=== PATIENT | male | born 1960 | race Caucasian/White ===

== ENCOUNTER → 2017-11-16 10:32 | Outpatient (CLI) | payer MEDICAID, SELFPAY ==
--- NOTE | 2017-11-16 12:41 | PFT ---
INTRODUCTION: The patient is a 57-year-old male currently under the care of Dr. Mack that presents for pulmonary function testing secondary to a diagnosis of nicotine abuse. Respiratory therapy reports good patient effort and reports no other concerns. Bronchodilators were used during testing. INTERPRETATION: Forced expiration spirometry demonstrates the presence of a mild large airways obstructive ventilatory defect. There was no significant response to aerosolized bronchodilators, based upon strict ATS criteria. Spirograms of good quality and do not plateau indicating slow emptying of the lungs. The respiratory flow volume loop reveals decreased expiratory flow rates, primarily at high lung volumes consistent with small airways obstruction. Body plethysmography was performed and reveals an elevated TLC to 118% of predicted, indicative of underlying hyperinflation. The airway resistance is within normal limits. Diffusing capacity by single breath CO is moderately reduced at 56% of predicted. When compared to previous pulmonary function studies dated July 2015, there has been a 14% reduction in diffusing capacity. IMPRESSION: These pulmonary function studies demonstrate the presence of an irreversible mild large airways obstructive ventilatory defect with associated hyperinflation and a disproportionate reduction in diffusing capacity. There has been worsening in the patient's DLCO since July 2015.
== END ==
PROVIDERS: Family Provider Family Medicine; PCP Family Medicine; Visit Provider Internal Medicine Critical Care Medicine
DX: F17.200 Nicotine dependence, unspecified, uncomplicated (principal); I48.0 Paroxysmal atrial fibrillation; Z79.01 Long term (current) use of anticoagulants
CPT/HCPCS: 36415; 85610; 94060; 94726; 94729

== ENCOUNTER 2017-11-16 11:19 | Outpatient (RCR) | payer MEDICAID, SELFPAY ==
[2017-11-16 12:03] LABS: International Normalized Ratio 2.5; Prothrombin Time (Protime)PT. 25.8 SECONDS (11.7-14.9)
== END 2017-11-16 11:30 | disposition home or self-care (01) ==
LOC: LAB 11:19
PROVIDERS: Family Provider Family Medicine; PCP Family Medicine; Visit Provider Internal Medicine Cardiovascular Disease
DX: I48.0 Paroxysmal atrial fibrillation (principal); Z79.01 Long term (current) use of anticoagulants
CPT/HCPCS: 36415; 85610

== ENCOUNTER 2018-02-12 13:45 | Outpatient (RCR) | payer MEDICAID, SELFPAY ==
[2018-02-12 15:19] LABS: International Normalized Ratio 1.8; Prothrombin Time (Protime)PT. 21.2 SECONDS (11.7-14.9)
== END 2018-02-12 14:00 | disposition home or self-care (01) ==
LOC: LAB 13:45
PROVIDERS: Family Provider Family Medicine; PCP Family Medicine; Visit Provider Internal Medicine Cardiovascular Disease
DX: I48.0 Paroxysmal atrial fibrillation (principal); Z79.01 Long term (current) use of anticoagulants
CPT/HCPCS: 36415; 85610

== ENCOUNTER → 2018-05-22 06:53 | Outpatient (CLI) | payer MEDICAID, SELFPAY ==
--- NOTE | 2018-05-22 13:37 | NEURO ---
NCS and/or EMG Patient Report Ordering Doctor: Jonnie Zarco DATE OF SERVICE: 05/22/18 This is a right upper extremity EMG and nerve conduction study performed on this 57-year-old male with a history for 20 years of paresthesias in his first and second digit on the right hand, present throughout the year but does get worse in cold weather. He is healthy otherwise. Right upper extremity sensory and motor nerve conduction study is performed. The median motor and sensory distal latencies are prolonged with mild reduction in amplitude but preserved conduction velocity. The ulnar motor and sensory and radial sensory responses normal. Median and ulnar F-wave latencies are preserved. Right upper extremity needle electromyography is performed. Muscles evaluated included the first dorsal interosseous, abductor pollicis brevis, brachioradialis, biceps, triceps and deltoid muscles. All muscles demonstrated normal insertional activity with absence of pathologic spontaneous activity. Motor unit potential recruitment pattern and amplitude was normal in all muscles tested. Impression: Abnormal electrophysiologic study of the right upper extremity consistent with moderate carpal tunnel syndrome at the right wrist.
== END ==
PROVIDERS: Family Provider Family Medicine; PCP Family Medicine; Visit Provider Family Medicine
DX: R20.0 Anesthesia of skin (principal); I48.0 Paroxysmal atrial fibrillation; Z79.01 Long term (current) use of anticoagulants
CPT/HCPCS: 36415; 85610; 95886; 95909

== ENCOUNTER 2018-05-25 12:37 | Outpatient (RCR) | payer MEDICAID, SELFPAY ==
[2018-05-22 10:53] LABS: International Normalized Ratio 1.7; Prothrombin Time (Protime)PT. 19.9 SECONDS (11.7-14.9)
[2018-05-25 14:00] LABS: International Normalized Ratio 2.7; Prothrombin Time (Protime)PT. 28.9 SECONDS (11.7-14.9)
== END 2018-07-29 12:40 | disposition home or self-care (01) ==
LOC: LAB 12:37
PROVIDERS: Family Provider Family Medicine; PCP Family Medicine; Visit Provider Internal Medicine Cardiovascular Disease
DX: I48.0 Paroxysmal atrial fibrillation (principal); Z79.01 Long term (current) use of anticoagulants
CPT/HCPCS: 36415; 85610

== ENCOUNTER 2018-07-28 20:30 | Emergency (ER) | payer MEDICAID, SELFPAY ==
[2018-07-28 20:31] VITALS: BP 115/86; PULSE 87; RESP 17; TEMP 36.6; O2SAT 98; BMI 24.8
--- NOTE | 2018-07-28 20:46 | ED.VISSUMM ---
- ER Visit Summary Date of Service: 07/28/18 Chief Complaint: Abdominal pain History of Present Illness: The patient is a [address] Zarco. He reports that he has had right lower abdominal pain intermittently for the past 2 months. States that it is worsened over the past 3 days. States there is a bulge in this area when he sits up. Patient describes pain as a sharp presence 8 out of 10 at worst and 410 currently. Is worsened by sitting up and walking. Is relieved by having a bowel movement. He denies any nausea, vomiting, or diarrhea. His last bowel was today. He had no melena or hematochezia. No dysuria or frequency. Physical Examination: Vitals: Stable. Afebrile. General: Well-nourished and well-developed. Head: Normocephalic atraumatic. Neck: Supple, no lymphadenopathy. No JVD. Nontender. Cardiovascular: Regular rate and rhythm. No murmurs. Respiratory: No respiratory distress. Clear to auscultation bilaterally. Abdominal: Soft, mild tenderness palpation over a ventral hernia that is in the inferior portion of his abdomen. This is easily reduced., nondistended, normal bowel sounds. No guarding, rebound, or peritoneal signs. Back: Nontender. Extremities: Nontender, no edema. Skin: Normal color, no rash. Neurologic: Alert and oriented ?3. Cranial nerves II through XII are intact. Normal strength and sensation. Psych: Normal affect. Emergency Department Course and Treatment: Patient is resting comfortably. Treatment Plan: Had a prolonged discussion with the patient about the treatment of hernias. At this time he does not require further evaluation for this. He will be discharged instructions to follow-up with Dr. Yeboah within 3-5 days for another exam. I did discuss them that if this gets strangulated he should return to the emergency department for reduction. Return to the emergency department for any worsening symptoms. Disposition: To home in improved and stable condition. Impression: 1. Ventral hernia. This note was generated with [employer] dictation software. It may contain incorrect words, spelling, and punctuation that were not noted in review of the chart prior to signing ED Disposition - Plan for ED Patient: Disposition: Home or Assisted Living Chief Complaint: Abd Pain Instructions: ED Hernia Inguinal Referrals: Richard Godinez MD [STAFF PHYSICIAN] - 3-5 Days
== END 2018-07-28 21:01 | disposition home or self-care (01) ==
LOC: ED 20:57
PROVIDERS: Emergency Provider Emergency Medicine; Family Provider Family Medicine; PCP Family Medicine
DX: K43.9 Ventral hernia without obstruction or gangrene (principal); I10 Essential (primary) hypertension; J44.9 Chronic obstructive pulmonary disease, unspecified; R51 Headache; I25.2 Old myocardial infarction; Z72.0 Tobacco use; Z79.01 Long term (current) use of anticoagulants; Z79.899 Other long term (current) drug therapy
CPT/HCPCS: 99282

== ENCOUNTER 2018-08-01 12:45 | Outpatient (RCR) | payer MEDICAID, SELFPAY ==
[2018-08-01 13:13] LABS: Prothrombin Time (Protime)PT. 22.4 SECONDS (11.7-14.9)
== END 2018-08-01 14:00 | disposition home or self-care (01) ==
LOC: LAB 12:45
PROVIDERS: Family Provider Family Medicine; PCP Family Medicine; Visit Provider Internal Medicine Cardiovascular Disease
DX: I48.0 Paroxysmal atrial fibrillation (principal); Z79.01 Long term (current) use of anticoagulants; Z98.890 Other specified postprocedural states; Z95.2 Presence of prosthetic heart valve
CPT/HCPCS: 36415; 85610

== ENCOUNTER → 2018-10-03 12:10 | Outpatient (CLI) | payer MEDICAID, SELFPAY ==
[2018-09-24 13:37] VITALS: BMI 24.5
[2018-10-03 12:30] VITALS: PULSE 81; PULSE 84; PULSE 86; PULSE 95; PULSE 98; PULSE 99; O2SAT 90; O2SAT 91; O2SAT 92; O2SAT 96; O2SAT 99
--- NOTE | 2018-10-04 08:10 | PCM.PSN.6M ---
PSN 6 Minute Walk Test - 6 Minute Walk Test 6 Minute Walk Test: 6 Minute Walk Test PSN:6-Minute Walk Test Start: 10/03/18 13:20 Freq: Status: Active Protocol: [id number].[id number] Document 10/03/18 12:30 HG (Rec: 10/03/18 13:23 HG [id number]) 6 Minute Walk Test Date Performed 10/03/18 Time Performed 12:30 Height 6 ft 2 in Weight: 180 lb Weight in Pounds [address]: Nitza Dutton Assistive device used: None Pre-test Oxygen Delivery Method Room Air Pulse Ox (%) 99 Pulse Rate (60-100 beats/min) 99 Dyspnea Nicole Scale (0-10) 0 Exertion Nicole Scale (6-20) 6 1st minute Oxygen Delivery Method Room Air Pulse Ox (%) 92 Pulse Rate (60-100 beats/min) 84 2nd minute Oxygen Delivery Method Room Air Pulse Ox (%) 92 Pulse Rate (60-100 beats/min) 86 3rd minute Oxygen Delivery Method Room Air Pulse Ox (%) 90 Pulse Rate (60-100 beats/min) 95 4th minute Oxygen Delivery Method Room Air Pulse Ox (%) 91 Pulse Rate (60-100 beats/min) 81 5th minute Oxygen Delivery Method Room Air Pulse Ox (%) 91 Pulse Rate (60-100 beats/min) 84 6th minute Oxygen Delivery Method Room Air Pulse Ox (%) 90 Pulse Rate (60-100 beats/min) 98 Post-test Oxygen Delivery Method Room Air Pulse Ox (%) 96 Pulse Rate (60-100 beats/min) 99 Dyspnea Nicole Scale (0-10) 0 Exertion Nicole Scale (6-20) 6 Full Laps Walked 19 Partial Lap, Number of Tiles Walked 0 Total Distance Walked (ft) 1121 - Interpretation Interpretation: The patient ambulated 1121 feet over the course of 6 minutes beginning on room air without assistive devices or breaks. Pretesting oxygen saturation was noted to be 99% on room air. With ambulation, the renee oxygen saturation was 90%. This represents a significant exertional oxygen desaturation, consistent with pulmonary limitation to exercise tolerance. - Recommendations Recommendations: There is no indication for the use of supplemental oxygen at this time. However, close interval follow-up is recommended, given the degree of oxygen desaturation noted during this study.
== END ==
PROVIDERS: Family Provider Family Medicine; PCP Family Medicine; Referring Provider Nurse Practitioner Acute Care; Visit Provider Nurse Practitioner Acute Care
DX: J44.9 Chronic obstructive pulmonary disease, unspecified (principal)
CPT/HCPCS: 94618

== ENCOUNTER → 2018-10-09 13:14 | Outpatient (CLI) | payer MEDICAID, SELFPAY ==
[2018-09-24 13:37] VITALS: BMI 24.5
--- NOTE | 2018-10-09 13:16 | CT_ITS ---
HISTORY: LOW DOSE LUNG SCREEN. [id number] YRS, 1 PPD, WEIGHT 168. HX OF HI, VALVE repair. TECHNIQUE: Helically acquired images were obtained of the chest. A radiation dose optimization technique was used for this scan. IV Contrast dosage and agent: None. COMPARISON: 08/09/2016 FINDINGS: There are right upper lobe postsurgical changes with tiny anastomotic tomas and mild scarring and this may reflect previous lung reduction surgery. Chronic lung disease with extensive centrilobular emphysema with upper lobe predominance. On axial image #153, the left infrahilar region shows a 1.2 x 0.8 cm nodule, mildly increased in size, previously measuring 1 cm in maximal dimension. Bilateral lower lobe bronchiectasis. No acute infiltrate or pleural effusion. Multiple mildly enlarged mediastinal lymph nodes which measure up to 1.3 cm in the short axis. The majority of the lymph nodes are noncalcified and several calcified nodes are also present at the AP window region and subcarinal region CT/Low Dose CT Lung Screening IMPRESSION: Individualized dose optimization techniques were used for this CT. at 1003 Reported and signed by: Siddhartha Hooker MD Electronically Signed: Siddhartha Hooker, at 0:22 EST Tel , Service support ,
--- OUTSIDE RECORDS SUMMARY | 2018-11-25 17:23 | XMS RPT_ITS ---
:1960 Author Organization OHIP Support Name Relationship Address Phone D Unavailable Unavailable Unavailable SAMSON, ARACELI Unavailable [address] + [place] [address] SAMSON, HOPE Unavailable [address] + [place], [place] [address] D Unavailable Unavailable Unavailable SAMSON, ARACELI Unavailable [address] + [place] [address] D Unavailable Unavailable Unavailable SAMSON, ARACELI Unavailable x + [place] [address] D Unavailable Unavailable Unavailable SAMSON, ARACELI Unavailable Unavailable + [place] [address] D Unavailable Unavailable Unavailable SAMSON, ARACELI Unavailable Unavailable + [place] [address] D Unavailable Unavailable Unavailable SAMSON, ARACELI Unavailable Unavailable + [place] [address] D Unavailable Unavailable Unavailable SAMSON, ARACELI Unavailable Unavailable + [place] [address] D Unavailable Unavailable Unavailable SAMSON, ARACELI Unavailable Unavailable + [place] [address] D Unavailable Unavailable Unavailable SAMSON, ARACELI Unavailable Unavailable + [place] [address] D Unavailable Unavailable Unavailable SAMSON, ARACELI Unavailable . + [place] [address] D Unavailable Unavailable Unavailable SAMSON, ARACELI Unavailable . + [place] [address] D Unavailable Unavailable Unavailable SAMSON, ARACELI Unavailable . + [place] [address] D Unavailable Unavailable Unavailable SAMSON, ARACELI Unavailable Unavailable + [place] [address] D Unavailable Unavailable Unavailable SAMSON, ARACELI Unavailable Unavailable + [place] [address] D Unavailable Unavailable Unavailable SAMSON, ARACELI Unavailable Unavailable + [place] [address] SUJIT BEDOYA Unavailable Unavailable Unavailable SAMSON, ARACELI Unavailable Unavailable + [place] [address] D Unavailable Unavailable Unavailable SAMSON, ARACELI Unavailable Unavailable + D Unavailable Unavailable Unavailable D Unavailable Unavailable Unavailable Care Team Providers Name Role Phone AMERICA NEVILLE Attending Unavailable SELF, SELF Referring Unavailable GRACE, JONNIE A Primary Care Unavailable GRACE, JONNIE A Referring Unavailable GRACE, JONNIE A Attending Unavailable GRACE, JONNIE A Attending Unavailable GRACE, JONNIE A Referring Unavailable GRACE, JONNIE A Attending Unavailable GRACE, JONNIE A Referring Unavailable CHAVO PATEL Attending Unavailable DESTINY HOUSTON (CORKY) Attending Unavailable GRACE, JONNIE A Referring Unavailable Landon Cade D.O. Attending Unavailable Nato, Nitza Referring Unavailable Aakash Zaragoza Attending Unavailable Aakash Zaragoza Referring Unavailable Grace, Jonnie Primary Care Unavailable Landon Cade D.O. Attending Unavailable Dutton, Nitza Referring Unavailable Aakash Zaragoza Attending Unavailable Grace, Jonnie Referring Unavailable Aakash Zaragoza Attending Unavailable Zaragoza, Aakash Referring Unavailable Grace, Jonnie Primary Care Unavailable Aakash Zaragoza Attending Unavailable Nik, Aakash Referring Unavailable Grace, Jonnie Primary Care Unavailable Yulissa Thomas Attending Unavailable Aakash Zaragoza Attending Unavailable Zaragoza, Aakash Referring Unavailable Grace, Jonnie Primary Care Unavailable Grace, Jonnie Attending Unavailable Grace, Jonnie Referring Unavailable Grace, Jonnie Primary Care Unavailable Aakash Zaragoza Attending Unavailable Zaragoza, Aakash Referring Unavailable Grace, Jonnie Primary Care Unavailable Grace, Jonnie Primary Care Unavailable Julio C Frazier Attending Unavailable Aakash Zaragoza Attending Unavailable Grace, Jonnie Referring Unavailable ZaragozaAakash Attending Unavailable Zaragoza, Aakash Referring Unavailable Grace, Jonnie Primary Care Unavailable Dutton, Nitza Attending Unavailable Grace, Jonnie Referring Unavailable Dutton, Nitza Attending Unavailable Grace, Jonnie Referring Unavailable Dutton, Nitza Attending Unavailable Dutton, Nitza Referring Unavailable Grace, Jonnie Primary Care Unavailable Dutton, Nitza Attending Unavailable Dutton, Nitza Referring Unavailable Grace, Jonnie Primary Care Unavailable Dutton, Nitza Attending Unavailable Dutton, Nitza Referring Unavailable Grace, Jonnie Primary Care Unavailable PROBLEMS PROBLEMS DATE TYPE CONDITION / CODE ATTENDING STATUS SOURCE 11/12/2018 Unknown Z98.890 - Other Aakash Zaragoza Active [facility] post[facility]cedural [facility] states / Repository Z98.890(ICD-10) 11/12/2018 Unknown I71.4 - Abdominal Aakash Zaragoza Active [facility] aortic aneurysm, Community without rupture / Hospital I71.4(ICD-10) Repository 11/12/2018 Unknown E78.5 - Aakash Zaragoza Active [facility] Hyperlipidemia, Community unspecified / Hospital E78.5(ICD-10) Repository 11/01/2018 Unknown J44.9 - Chronic Landon Brown, Active [facility] obstructive D.O. 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 [facility] (current) use of [facility] anticoagulants / Hospital Z79.01(ICD-10) Repository 10/29/2018 Unknown Z95.2 - Presence of Aakash Zaragoza Active [place] prosthetic heart [facility] valve / Hospital Z95.2(ICD-10) Repository 09/24/2018 Unknown R91.1 - Solitary Dutton Active [facility] pulmonary nodule / [facility] R91.1(ICD-10) Hospital Repository 09/24/2018 Unknown Z23 - Encounter for Nato Active [facility] immunization / [facility] Z23(ICD-10) Hospital Repository 05/23/2018 Admitting Hole In Eardrum / AMERICA NEVILLE Active [place] [facility] diagnosis 857() B [facility] Repository 02/07/2017 Active Other retirement NA Active [place] (current) drug [facility] Main therapy / [place] Z79.899(ICD-10) Repository 02/11/2016 Active Gastro-esophageal NA Active [facility] reflux disease Clinic Main without esophagitis [place] / K21.9(ICD-10) Repository 08/18/2015 Active Encounter for NA Active [facility] screening for Clinic Main malignant neoplasm [place] of prostate / Repository Z12.5(ICD-10) 08/18/2015 Active Essential (primary) NA Active [facility] hypertension / Clinic Main I10(ICD-10) [place] Repository PROCEDURES PROCEDURES No Procedure Records FoundRESULTS RESULTS PROTHROMBIN TIME W/INR Collected: 11/12/2018 Status: F Source: [place] 11:06 AM [facility] REPOSITORY TYPE CODE TESTS RESULT OUT OF RANGE REFERENCE UNITS LAB L300.4150 11.7-14.9 SECONDS High PROTIME 29.9 LAB L300.4200 Normal INR 2.8 Performed By: #### L300.3900 #### [facility] [address], [place], [id number] LIVER PROFILE Collected: 11/12/2018 Status: F Source: [place] 11:06 AM [facility] REPOS[facility] TYPE CODE TESTS RESULT OUT OF RANGE REFERENCE UNITS LAB L501.1500 6.4-8.2 g/dL Normal T PROT 7.3 LAB L501.1800 3.2-5.0 g/dL Normal ALB 3.9 LAB L501.1950 2.2-4.2 g/dL Normal GLOB 3.4 LAB L501.4100 15-37 U/L Normal AST 18 LAB L501.4305 45-117 U/L Normal ALK P 100 LAB L501.4405 16-61 U/L Normal ALT 20 LAB L501.4600 0.20-1.00 mg/dL Normal T BILI 0.30 LAB L501.4700 0.00-0.30 mg/dL Normal D BILI 0.07 Performed By: #### L500.3400, L500.4100 #### [facility] [address], [place], [address] LIPID PROFILE Collected: 11/12/2018 Status: F Source: [place] 11:06 AM [facility] REPOSIT[facility] TYPE CODE TESTS RESULT OUT OF RANGE REFERENCE UNITS LAB L501.4900 200 mg/dL Normal CHOL 200 Result Comment: <200 mg/dL Desirable 200-240 mg/dL Borderline >240 mg/dL High Risk LAB L501.5000 mg/dL Normal TRIG 122 Result Comment: The drugs N-Acetylcysteine and Metamizole may falsely depress this assay. Serum Triglycerides Reference Interval Normal <150 mg/dL Borderline high 150 - 199 mg/dL High 200 - 499 mg/dL Very High > or = 500 mg/dL LAB L501.6400 mg/dL Low HDL 39 Result Comment: The drugs N-Acetylcysteine and Metamizole may falsely depress this assay. Reference Range HDL <40 mg/dL Low HDL Cholesterol HDL >or= 60 mg/dL High HDL Cholesterol LAB L501.6500 0-130 mg/dL High LDL 137 LAB L501.6600 5-40 mg/dL Normal VLDL 24 Performed By: #### L500.3400, L500.4100 #### [facility] [address] [place], [address] CARDIOLOGY VISIT Observed: 11/12/2018 Status: F Source: [place] REPORT 10:54 AM [facility] REPOSITORY [facility] [address] [place] [address] OFFICE VISIT Date of Service: 11/12/18 MR#: [id number] Acct: [id number] Name: SUJIT BEDOYA Rep #: [id number] : 1960 Provider: Aakash Zaragoza MD Age/Sex: 58/M [place] [facility] [place]: Signed HPI HPI Chief Complaint: Routine f/u Details: PCP: Dr. Jonnie Edwards This is a 58-year-old male presents for cardiovascular outpatient follow-up. As of this writing, I have not seen him in over 2 years. he has a history of hypertension, severe aortic insufficiency status post aortic valve replacement with a #25 [employer] prosthetic Valsalva valve and ascending aortic aneurysm repair in October 2010 at [facility] in [place], nonobstructive coronary artery disease, and on going patient had no bypass surgery at the time of his aortic valve replacement tobacco abuse. In March 2017 he was seen in the emergency department for left- sided chest pain that was related to injury. He was wrestling with a relative. CT scan of abdomen with contrast showed an infrarenal abdominal aortic aneurysm with a transverse dimension of 4.3 cm when compared to January 2015 it was 3.9 cm at that time. Stress echo from July 2015 showed a baseline ejection fraction 65%, was negative for myocardial induced ischemia by both ECG and echo criteria, no anginal symptoms noted, no arrhythmias noted, appropriate blood pressure response to exercise, and average exercise capacity for age. Echocardiogram from July 2015 showed an estimated ejection fraction is 65%, stage II diastolic dysfunction, mild tricuspid valve insufficiency, RVSP of 36 mmHg, normal functioning bioprosthetic aortic valve, when compared to previous echo no appreciable changes noted. Heart cath in October 2010 showed angiographically normal left main, 5% luminal irregularities of proximal LAD, 40% proximal lesion in LAD, angiographically normal left circumflex, angiographically normal ramus, 5% luminal irregularities and proximal RCA, no grafts, no collaterals, left ventriculogram showed an EF of 35%, grade 3 aortic valve insufficiency, and no mitral valve insufficiency. From a cardiac standpoint he is doing well. Pt denies any chest discomfort. His exercise tolerance is stable. Pt denies symptoms of CHF, palpitations, dizziness, near syncopal or syncopal episodes. Pt denies edema or claudication issues. He denies PND, fever, chills, blood in stool or urine. He denies abdominal pain. He continues to smoke about 1/4-1/2 pack cigarettes per day. 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 The one thing he has complained which is new over the last 3-4 weeks he has had constant dull mid back pain, similar to his previous back pain when he had his a sending aortic root repair. He denies any exertional chest pain or angina. His most recent pulmonary function test showed mildly reversible COPD. He has not had a follow-up imaging study in quite some time. In our office today's blood pressure is 90/60, pulse is 72 and regular. His physical exam demonstrates clear lungs bilaterally, regular rate and rhythm with a systolic and diastolic click consistent with prosthetic aortic valve, no edema. His lipids dated 08/07/15 show an LDL of 65 and HDL of 45. Intake Vital Signs11/12/18 Height 6 ft 2 in 11/12/18 Weight: 171 lb 11/12/18 Body Mass Index (BMI) 21.9 11/12/18 Blood Pressure 90/60 Intake Visit Reasons: MISSED LAST APPT Other Sales Support Worker Required: No Is patient in pain?: No Allergies No Known Allergies Allergy (Verified 11/06/18 19:01) Medications Warfarin [Coumadin] 7.5 mg PO SUMOTUWETH 12/02/13 [History Confirmed 11/12/18] Simvastatin [Zocor] 1 tab PO QHS 04/03/17 [History Confirmed 11/12/18] warfarin 5 mg tablet 10 mg PO FRSA 11/16/17 [History Confirmed 11/12/18] albuterol sulfate HFA 90 mcg/actuation aerosol inhaler 2 puff INHALATION Q4H PRN g 12/11/17 [History Confirmed 11/12/18] losartan 25 mg tablet 25 mg PO DAILY #30 tab 03/28/18 [Rx Confirmed 11/12/18] acetaminophen 500 mg tablet 500 mg PO Q6H PRN 09/24/18 [History Confirmed 11/12/18] cetirizine 10 mg capsule 10 mg PO QDAY #30 cap 09/24/18 [Rx Confirmed 11/12/18] tiotropium bromide 18 mcg capsule with inhalation device 1 cap INHALATION DAILY #30 inh 09/24/18 [Rx Confirmed 11/12/18] PFSH Medical History Stage 1 mild COPD by GOLD classification (Chronic) Lung nodule (Chronic) Transient cerebral ischemic attack (Ruled-out) Nicotine abuse (Chronic) HLD (hyperlipidemia) (Chronic) Nonrheumatic aortic valve insufficiency (Chronic) Aneurysm of infrarenal abdominal aorta (Chronic) Paroxysmal atrial fibrillation (Chronic) 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 Has hernia. 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); negative for fatigue, weakness, body ache, fever(s), headache(s), chills, frequent falls, night sweats, daytime sleepiness, difficulty sleeping, excessive sweating, weight gain, weight loss, increased appetite, poor appetite or anorexia Eyes Eyes: Negative for blind spots, loss of peripheral vision, transient loss of vision, blurry vision, change in vision, double vision, floaters, tunnel vision or other ENT ENT: Negative for headache(s), dizziness, hearing loss, tinnitus, Nosebleed/epistaxis, balance problems, post nasal drip, lip swelling, tongue swelling, bleeding gums, hoarseness, neck pain, dry mouth or other Cardio Chest Pain: No Resp Respiratory: Negative for SOB with activity, SOB at rest, SOB orthopnea\SOB lying down, Cough, Coughing up blood/hemoptysis, chest congestion, pain on inspiration, snoring, stridor, wheezing, crackles, paroxysmal nocturnal dyspnea or other GI GI: Negative nausea, vomiting, heartburn, constipation, belching, bloating, cramping, vomiting blood/hematemesis, bright, red blood in stools, black,tarry stools, loose stools, Difficulty Swallowing or other : Negative for hematuria, frequent nighttime urination/ nocturia, erectile dysfunction or abnormal vaginal bleeding Musc Musc: Negative for balance problems, muscle aches/ myalgia, muscle weakness or joint pain Skin Skin: Negative redness, non-healing lesions, rash, unusual bruising, skin ulcer, wounds, jaundice or other Neuro Neuro: Negative for weakness, headache(s), frequent falls, blurry vision, double vision, dizziness, lightheadedness, near syncope, syncope, orthostatic symptoms, confusion, memory loss, restless legs, vertigo, seizures, lack of coordination or other [place] Hematologic/Lymphatic: Negative for easy bleeding, easy bruising, enlarged lymph nodes or other Endo Endo: Negative for fatigue, excessive sweating, cold intolerance, heat intolerance, flushing, increased thirst/drinking, increased hunger, hair loss, hair growth or other Psych Psych: Negative for anxiety, depression, thoughts of harming anyone, thoughts of harming yourself, visual hallucinations, panic attacks or audible hallucinations Allergy Allergy/Immunology: Negative for lip swelling, Negative for tongue swelling, Negative for rash, Negative for throat swelling, Negative for hives Cardiology Exam Const Appearance: cooperative, healthy appearing and no acute distress Nutritional Appearance: well nourished Orientation: alert, oriented x3 and oriented to person Head Head: normal to inspection, atraumatic and normocephalic Nose: external nose normal Face and Sinus: face symmetric Mouth: oral mucosae normal Eyes General: appearance normal, both eyes and all related structures Eyelids: eyelids normal Conjunctivae: conjunctivae normal Pupils: PERRL and normal by confrontation EOM: EOM intact bilaterally Neck Neck: normal visual inspection and full ROM Carotids: normal carotid upstroke Chest Chest inspection: normal inspection of the chest Auscultation: Bilateral: Clear to Auscultation Cardio Palpation: normal PMI Rate: regular rate Rhythm: regular rhythm Heart sounds: crisp prosthetic S1 and crisp prosthetic S2 GI GI: normal to inspection, no hepatosplenomegaly and bowel sounds present Neuro General: alert, oriented x3, awake, CN's II-XI intact bilaterally and moves all extremities Skin Skin: no rashes or lesions noted Extremities Pulses: Normal: Right Femoral Pulse, Left Femoral Pulse, Right Dorsalis Pedis Pulse, Left Dorsalis Pedis Pulse, Right Posterior Tibial Pulse, Left Posterior Tibial Pulse, Right Radial Pulse, Left Radial Pulse Lower Extremity Edema: None: Bilateral Psych Psychological: normal affect Assessment AND Plan 1. Hx of aortic valve replacement, mechanical Z95.2 Aortic valve conduit replacement of the aortic valve, the aortic root, and ascending aorta. #25 [employer] Valsalva Valve Conduit Plan 1. Aortic valve replacement: The patient has had no fevers or chills. Recommend lifelong Coumadin therapy for his prosthetic aortic valve. Continue losartan for antihypertensive therapy. 2. HLD (hyperlipidemia) E78.5 Plan 2. Hyperlipidemia: A repeat lipid profile is pending. He has minimal nonobstructive coronary disease by catheterization 2010. Continue Zocor. His LDL should be less than 70. Orders Orders: 3. Aneurysm of infrarenal abdominal aorta I71.4 Transverse dimension 4.[address] 04/03/2017 Plan 3. Infrarenal aortic aneurysm: The patient continues to smoke, but is compliant with his simvastatin. He complains of back pain which he is concerned may be due to his AAA. I am in agreement with repeating his ultrasound of his abdomen to determine if his AAA is enlarging aggressively. His most recent dimension was 4.3 cm in March 2017. If imaging is inadequate he may require CTA of his thorax and abdomen given his history of a sending aortic root aneurysm. 4. Return office in 6 months. This note was generated using a voice recognition system and there may be incorrect words, spelling or punctuation that were not noted when reviewing the office note prior to saving. Orders Orders: Plan Detail Other Orders Orders: Follow Up +6M (Zaragoza) Coding Level of Care Code Off vis,est,level 3 Diagnoses Hx of aortic valve replacement, mechanical Z95.2 HLD (hyperlipidemia) E78.5 Aneurysm of infrarenal abdominal aorta I71.4 Coding Level of Care Code Off vis,est,level 3 Diagnoses Hx of aortic valve replacement, mechanical Z95.2 HLD (hyperlipidemia) E78.5 Aneurysm of infrarenal abdominal aorta I71.4 Supplemental Info Supplemental Information Labs LDL Cholesterol 65 mg/dL (0-130) 08/07/15 HDL Cholesterol 45 mg/dL (40-) 08/07/15 Triglycerides 84 mg/dL (-199) 08/07/15 VLDL Cholesterol 17 mg/dL (5-40) 08/07/15 Diagnostics Electrocardiogram 04/01/15 Echocardiogram 08/10/15 Stress Echocardiogram 08/12/15 Chest X-Ray 04/03/17 Pulmonary Pulmonary Function Test 10/18/18 Pulmonary Exercise Test 10/04/18 11/12/18 1054 <Electronically signed by Aakash Zaragoza MD> Date Aakash Zaragoza MD Cosigner Signature: Date (if applicable) CC: Jonnie Edwards MD PULMONARY FUNCTION Observed: 10/18/2018 Status: F Source: [place] TEST 2:55 PM [facility] REPOSITORY [facility] Pulmonary Services/Neurology [address] [place] [address] MR#: [id number] Acct: [id number] Name: SUJIT BEDOYA Rep #: [id number] : 1960 58 From: Landon Cade DO Referring Dr: Nitza Dutton SHINGLER Status: REG CLI Ordering Dr: Date: Location: [facility] Sex: M C INTRODUCTION: The patient is a 58-year-old male that presents for pulmonary function testing secondary to a diagnosis of COPD. Respiratory therapy reports good patient effort. Bronchodilators were used during testing. INTERPRETATION: Forced expiration spirometry demonstrates the presence of a mild large airways obstructive ventilatory defect. There was no significant response to aerosolized bronchodilators, based upon strict ATS criteria. Spirograms are of good quality and do not plateau indicating slow emptying of the lungs. Body plethysmography was performed and reveals an elevated TLC and RV, indicative of underlying hyperinflation and air-trapping. Diffusing capacity by single breath CO is moderately reduced at 54% of predicted. When compared to previous pulmonary function studies dated October 2017, there has been a 10% reduction in FEV1. IMPRESSION: These pulmonary function studies demonstrate the presence of an irreversible mild large airways obstructive ventilatory defect with associated hyperinflation, air trapping and reduction in diffusing capacity. 10/18/181454 <Electronically signed by Landon Cade DO> Date Landon Cade DO CC: Nitza Dutton; Jonnie Edwards MD Date Dictated: 10/18/181452 Date Transcribed: 10/18/181452 Government Professor: DB Signed PROTHROMBIN TIME W/INR Collected: 10/09/2018 Status: F Source: [place] 1:36 PM [facility] REPOSITORY Order Comment: Comments: STANDING ORDER CRITICAL VALUE VERIFIED. CALLED TO MELY 10/09/18 [address]. RESULTS READ BACK BY DARIO . Comments: STANDING ORDER TYPE CODE TESTS RESULT OUT OF REFERENCE UNITS RANGE LAB L300.4150 11.7-14.9 SECONDS High PROTIME 36.6 LAB L300.4200 High alert INR 3.7 Performed By: #### L300.3900 #### [facility] [address] [facility] [place], [address] LUNG Observed: 10/09/2018 Status: F Source: [place] SCREENING 1:16 PM [facility] REPOSITORY [facility] Imaging Services [address] [place] [address] Lung Screening MR#: [id number] Acct: [id number] Name: SUJIT BEDOYA Rep #: [id number] : 1960 M 58 From: Siddhartha Hooker MD PCP: Jonnie Edwards MD Status: REG CLI Study: Low Dose CT Lung Screening Date of Exam: 10/09/18 Exam# [id number] Ordering Dr: Nitza Dutton HISTORY: LOW DOSE LUNG SCREEN. [id number] YRS, 1 PPD, WEIGHT 168. HX OF MT, VALVE repair. TECHNIQUE: Helically acquired images were obtained of the chest. A radiation dose optimization technique was used for this scan. IV Contrast dosage and agent: None. COMPARISON: 08/09/2016 FINDINGS: There are right upper lobe postsurgical changes with tiny anastomotic tomas and mild scarring and this may reflect previous lung reduction surgery. Chronic lung disease with extensive centrilobular emphysema with upper lobe predominance. On axial image #153, the left infrahilar region shows a 1.2 x 0.8 cm nodule, mildly increased in size, previously measuring 1 cm in maximal dimension. Bilateral lower lobe bronchiectasis. No acute infiltrate or pleural effusion. Multiple mildly enlarged mediastinal lymph nodes which measure up to 1.3 cm in the short axis. The majority of the lymph nodes are noncalcified and several calcified nodes are also present at the AP window region and subcarinal region CT/Low Dose CT Lung Screening IMPRESSION: Individualized dose optimization techniques were used for this CT. at 1003 Reported and signed by: Siddhartha Hooker MD Electronically Signed: Siddhartha Hooker, at 0:22 EST Tel , Service support , CC: Nitza Dutton; Jonnie Edwards MD Government Professor: Signed PROGRESS Observed: 10/08/2018 Status: COMPLETED Source: [place] 2:47 PM [facility] [place] REPOSITORY HNO ID: [id number] Author: Nneka Houston Service: (none) Author Type: Physician Athletic Scout Type: Progress Notes Filed: 10/08/2018 3:24 PM Note Text: Chief Complaint Patient presents with: Recheck HPI Sujit Bedoya is a 58 year old male who presents here today for Chronic Medical Conditions.. Patient with hx of HTN, A. Fib and COPD without acute concerns today. Has inguinal hernia surgery scheduled. Has to get cardiac clearance. patient still smoking <1/2 ppd. Sees Cardio and Pulm. He does not want to do colonoscopies. Willing to do ifobt Past medical history, appointments, medications, allergies reviewed. Previous Medical History PAST MEDICAL HISTORY Diagnosis Date - AAA (abdominal aortic aneurysm) ([facility]) 08/18/2015 Pt. states aneurysm in chest was repaired, not AAA - Aortic valve replaced 08/18/2015 Mechanical on coumadin managed by Dr. 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 - Carpal tunnel syndrome, right 05/22/2018 EMG's 04/2018: moderate - COPD (chronic obstructive pulmonary disease) ([facility]) 08/18/2015 PFT's 08/10/2015 mild COPD - Dyslipidemia 02/14/2018 - Essential hypertension 08/18/2015 - Gastroesophageal reflux disease without esophagitis 08/18/2015 - MT (myocardial infarction) ([facility]) x 5, no stents - Not currently working due to disabled status because of heart status - Pain of both hip joints 08/18/2015 - Pneumothorax 08/18/20152006 , right side x 2 - Seasonal allergies 08/18/2015 - Viral warts 08/18/2015 right hand Previous Surgical History PAST SURGICAL HISTORY Procedure Laterality Date - 2D ECHO (EXEP) 08/10/2015 EF=65%, 1+ TI. no change from 01/20/2014 - PAST SURGICAL HISTORY OF Pt. states he had aneurysm repair in chest 2010 - REPLACEMENT, AORTIC VALVE, WITH CAR 2010 - STRESS TEST 08/12/15 WNL Family History FAMILY HISTORY Problem Relation Age of Onset - Adopted: Yes - Cancer Mother biological-unknown source Patient Allergies ALLERGIES No Known Allergies Current Medications Current Outpatient Prescriptions on File Prior to Visit: COMPOUNDED PRESCRIPTION Blood pressure monitor. Dx: I10, essential hypertension. Take blood pressure 2-3 times a week, at different times of day. Miscellaneous Medical Supply (BLOOD PRESSURE CUFF) [facility] [place] Take blood pressure 2-3 times a week at different times of the day. Dx I10 PAIN RELIEF EXTRA STRENGTH 500 mg tablet TAKE TWO TABLETS BY MOUTH EVERY 6 HOURS NEEDED FOR PAIN omeprazole (PRILOSEC) 20 mg capsule TAKE ONE CAPSULE BY MOUTH 30 MINUTES BEFORE BREAKFAST pramipexole (MIRAPEX) 0.25 mg tablet Take 1 tablet by mouth daily at bedtime. Take 2-3 hours before bedtime albuterol HFA (VENTOLIN HFA) 90 mcg/actuation inhaler Inhale 2 Puffs as instructed every 4 hours as needed for Wheezing/Shortness of Breath. cetirizine (ZYRTEC) 10 mg tablet Take 1 tablet by mouth once daily. COMPOUNDED PRESCRIPTION BLOOD PRESSURE CUFF FOR HOME USE. DX: I10 zoster vaccine, recombinant, adjuvanted, (SHINGRIX, PF,) 50 mcg/0.5 mL injection Inject 0.5 mL intramuscularly as directed. warfarin (COUMADIN) 5 mg tablet Take 1 tablet by mouth daily as directed. 7mg M-F and 10mg Sat and Sun or as directed. tiotropium (SPIRIVA WITH HANDIHALER) 18 mcg inhalation capsule Inhale 1 capsule as instructed once daily. metoprolol succinate XL, long acting, (TOPROL XL) 25 mg 24 hr tablet Take 25 mg by mouth once daily. omega-3 fatty acids 1,000 mg cap Take 2 capsules by mouth once daily. cefADROxil (DURICEF) 500 mg capsule Take 1 capsule by mouth twice daily. No current facility-administered medications on file prior to visit. Social History Social History Marital status: Single Spouse name: Years of education: Number of children: Social History Main Topics Smoking status: Current Every Day Smoker Packs/day: 0.50 Years: 45.00 Smokeless tobacco: Never Used Alcohol use: No Drug use: No Review of Symptoms REVIEW OF SYSTEMS GENERAL: No weight loss, malaise or fevers RESPIRATORY: Negative for worsening cough, hemoptysis, wheezing, COPD, dyspnea or shortness of breath CARDIOVASCULAR: Negative for chest pain, leg swelling, hypertension, CHF or palpitations GI: No nausea, vomiting, or diarrhea NEURO: No history of headaches, syncope, paralysis, seizures or tremors EXAM: BP 128/88 (BP Site: Left Arm, BP Position: Sitting, BP Cuff Size: Regular Adult) Pulse 64 Resp 12 Wt 76.2 kg (168 lb) BMI 23.10 kg/m? General Appearance: Well appearing, alert, in no acute distress, well-hydrated, well nourished.. Neck: Supple, no adenopathy; thyroid symmetric, normal size, no bruits. Lungs: lungs clear to auscultation. No wheezing, rhonchi, rales. Heart: RRR without murmur, gallop, or rubs. No ectopy. Extremities: No deformities, edema, skin discoloration, clubbing or cyanosis. Good capillary refill. . Peripheral Pulses: Normal. Health Maintenance List HEPATITIS C SCREENING due on 2004 COLORECTAL CANCER SCREENING,SEE MODIFIER due on 09/14/2016 ANNUAL PCP TEAM CHRONIC DISEASE VISIT due on 06/06/2019 BP CONTROLLED (<130/80) due on 2019 DIABETES SCREEN due on 02/12/2021 LIPID SCREEN due on 02/12/2023 DTAP,TDAP,TD(2 - Td) due on 08/18/2025 PROSTATE CANCER SCREENING DISCUSSION Completed ONE PNEUMOVAX PRIOR TO AGE 65 Completed INFLUENZA Completed Data reviewed ASSESSMENT/PLAN: 1. Essential hypertension - ICD9: 401.9, ICD10: I10 (primary diagnosis) - good control - Continue current medication(s) - Recommended regular aerobic exercise. - Recommend home blood pressure monitoring, to bring results in on next visit - Goal of BP <130/80 - URINALYSIS WITH MICROSCOPIC - CBC + DIFF - COMP METABOLIC PANEL 2. Chronic obstructive pulmonary disease, unspecified COPD type (HCC) - ICD9: 496, ICD10: J44.9 Continue with Pulm 3. Atrial fibrillation, unspecified type (HCC) - ICD9: 427.31, ICD10: I48.91 Continue with cardiology - CBC + DIFF - COMP METABOLIC PANEL 4. Gastroesophageal reflux disease without esophagitis - ICD9: 530.81, ICD10: K21.9 - Stable 5. Current use of proton pump inhibitor - ICD9: V58.69, ICD10: Z79.899 - MAGNESIUM BLD 6. Abdominal aortic aneurysm (AAA) without rupture (HCC) - ICD9: 441.4, ICD10: I71.4 Continue with cardio 7. Dyslipidemia - ICD9: 272.4, ICD10: E78.5 - to be determined upon return of lab results - Continue current therapy. - LIPID PANEL BASIC 8. Smoker - ICD9: 305.1, ICD10: F17.200 - Cessation encouraged. - Physiologic and physical aspects of tobacco addiction as well as strategies for quitting were discussed. - Counseling was given focusing on the harmful effects of this addiction especially given the patient's medical condition(s) which will be worsened because of the chemicals in tobacco. - CBC + DIFF 9. Prostate cancer screening - ICD9: V76.44, ICD10: Z12.5 - Check PSA prior to next PE. - PSA/PROSTSPECAG DIAG Return in 6 months for PE or sooner as needed. Discussed possible red flags and when to seek medical attention. DESTINY HOUSTON PA-C CNOV Observed: 10/08/2018 Status: COMPLETED Source: [place] 2:40 PM [facility] REPOSITORY Office Visit ([facility]AMPWS) ROSARIO,SUJIT Joann ([id number]) 1960 M Date Time Provider Department 10/08/18 2:40 PM GUSTABO HOUSTON) [facility] During your visit today, we recorded the following information about you: Pulse Respiration Blood pressure Weight 64/minute 12/minute 128/88 76.2 kg DESTINY HOUSTON PA-C 10/08/2018 3:24 PM Signed Chief Complaint Patient presents with: Recheck HPI Sujit Bedoya is a 58 year old male who presents here today for Chronic Medical Conditions.. Patient with hx of HTN, A. Fib and COPD without acute concerns today. Has inguinal hernia surgery scheduled. Has to get cardiac clearance. patient still smoking <1/2 ppd. Sees Cardio and Pulm. He does not want to do colonoscopies. Willing to do ifobt Past medical history, appointments, medications, allergies reviewed. Previous Medical History PAST MEDICAL HISTORY Diagnosis Date - AAA (abdominal aortic aneurysm) ([facility]) 08/18/2015 Pt. states aneurysm in chest was repaired, not AAA - Aortic valve replaced 08/18/2015 Mechanical on coumadin managed by Dr. 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 - Carpal tunnel syndrome, right 05/22/2018 EMG's 04/2018: moderate - COPD (chronic obstructive pulmonary disease) ([facility]) 08/18/2015 PFT's 08/10/2015 mild COPD - Dyslipidemia 02/14/2018 - Essential hypertension 08/18/2015 - Gastroesophageal reflux disease without esophagitis 08/18/2015 - MT (myocardial infarction) ([facility]) x 5, no stents - Not currently working due to disabled status because of heart status - Pain of both hip joints 08/18/2015 - Pneumothorax 08/18/2015 2007 , right side x 2 - Seasonal allergies 08/18/2015 - Viral warts 08/18/2015 right hand Previous Surgical History PAST SURGICAL HISTORY Procedure Laterality Date - 2D ECHO (EXEP) 08/10/2015 EF=65%, 1+ TI. no change from 01/20/2014 - PAST SURGICAL HISTORY OF Pt. states he had aneurysm repair in chest 2010 - REPLACEMENT, AORTIC VALVE, WITH CAR 2010 - STRESS TEST 08/12/15 WNL Family History FAMILY HISTORY Problem Relation Age of Onset - Adopted: Yes - Cancer Mother biological-unknown source Patient Allergies ALLERGIES No Known Allergies Current Medications Current Outpatient Prescriptions on File Prior to Visit: COMPOUNDED PRESCRIPTION Blood pressure monitor. Dx: I10, essential hypertension. Take blood pressure 2-3 times a week, at different times of day. Miscellaneous Medical Supply (BLOOD PRESSURE CUFF) [facility] [place] Take blood pressure 2-3 times a week at different times of the day. Dx I10 PAIN RELIEF EXTRA STRENGTH 500 mg tablet TAKE TWO TABLETS BY MOUTH EVERY 6 HOURS NEEDED FOR PAIN omeprazole (PRILOSEC) 20 mg capsule TAKE ONE CAPSULE BY MOUTH 30 MINUTES BEFORE BREAKFAST pramipexole (MIRAPEX) 0.25 mg tablet Take 1 tablet by mouth daily at bedtime. Take 2-3 hours before bedtime albuterol HFA (VENTOLIN HFA) 90 mcg/actuation inhaler Inhale 2 Puffs as instructed every 4 hours as needed for Wheezing/Shortness of Breath. cetirizine (ZYRTEC) 10 mg tablet Take 1 tablet by mouth once daily. COMPOUNDED PRESCRIPTION BLOOD PRESSURE CUFF FOR HOME USE. DX: I10 zoster vaccine, recombinant, adjuvanted, (SHINGRIX, PF,) 50 mcg/0.5 mL injection Inject 0.5 mL intramuscularly as directed. warfarin (COUMADIN) 5 mg tablet Take 1 tablet by mouth daily as directed. 7mg M-F and 10mg Sat and Sun or as directed. tiotropium (SPIRIVA WITH HANDIHALER) 18 mcg inhalation capsule Inhale 1 capsule as instructed once daily. metoprolol succinate XL, long acting, (TOPROL XL) 25 mg 24 hr tablet Take 25 mg by mouth once daily. omega-3 fatty acids 1,000 mg cap Take 2 capsules by mouth once daily. cefADROxil (DURICEF) 500 mg capsule Take 1 capsule by mouth twice daily. No current facility-administered medications on file prior to visit. Social History Social History Marital status: Single Spouse name: Years of education: Number of children: Social History Main Topics Smoking status: Current Every Day Smoker Packs/day: 0.50 Years: 45.00 Smokeless tobacco: Never Used Alcohol use: No Drug use: No Review of Symptoms REVIEW OF SYSTEMS GENERAL: No weight loss, malaise or fevers RESPIRATORY: Negative for worsening cough, hemoptysis, wheezing, COPD, dyspnea or shortness of breath CARDIOVASCULAR: Negative for chest pain, leg swelling, hypertension, CHF or palpitations GI: No nausea, vomiting, or diarrhea NEURO: No history of headaches, syncope, paralysis, seizures or tremors EXAM: BP 128/88 (BP Site: Left Arm, BP Position: Sitting, BP Cuff Size: Regular Adult) Pulse 64 Resp 12 Wt 76.2 kg (168 lb) BMI 23.10 kg/m? General Appearance: Well appearing, alert, in no acute distress, well-hydrated, well nourished.. Neck: Supple, no adenopathy; thyroid symmetric, normal size, no bruits. Lungs: lungs clear to auscultation. No wheezing, rhonchi, rales. Heart: RRR without murmur, gallop, or rubs. No ectopy. Extremities: No deformities, edema, skin discoloration, clubbing or cyanosis. Good capillary refill. . Peripheral Pulses: Normal. Health Maintenance List HEPATITIS C SCREENING due on 2004 COLORECTAL CANCER SCREENING,SEE MODIFIER due on 09/14/2016 ANNUAL PCP TEAM CHRONIC DISEASE VISIT due on 06/06/2019 BP CONTROLLED (<130/80) due on 2019 DIABETES SCREEN due on 02/12/2021 LIPID SCREEN due on 02/12/2023 DTAP,TDAP,TD(2 - Td) due on 08/18/2025 PROSTATE CANCER SCREENING DISCUSSION Completed ONE PNEUMOVAX PRIOR TO AGE 65 Completed INFLUENZA Completed Data reviewed ASSESSMENT/PLAN: 1. Essential hypertension - ICD9: 401.9, ICD10: I10 (primary diagnosis) - good control - Continue current medication(s) - Recommended regular aerobic exercise. - Recommend home blood pressure monitoring, to bring results in on next visit - Goal of BP <130/80 - URINALYSIS WITH MICROSCOPIC - CBC + DIFF - COMP METABOLIC PANEL 2. Chronic obstructive pulmonary disease, unspecified COPD type (HCC) - ICD9: 496, ICD10: J44.9 Continue with Pulm 3. Atrial fibrillation, unspecified type (HCC) - ICD9: 427.31, ICD10: I48.91 Continue with cardiology - CBC + DIFF - COMP METABOLIC PANEL 4. Gastroesophageal reflux disease without esophagitis - ICD9: 530.81, ICD10: K21.9 - Stable 5. Current use of proton pump inhibitor - ICD9: V58.69, ICD10: Z79.899 - MAGNESIUM BLD 6. Abdominal aortic aneurysm (AAA) without rupture (HCC) - ICD9: 441.4, ICD10: I71.4 Continue with cardio 7. Dyslipidemia - ICD9: 272.4, ICD10: E78.5 - to be determined upon return of lab results - Continue current therapy. - LIPID PANEL BASIC 8. Smoker - ICD9: 305.1, ICD10: F17.200 - Cessation encouraged. - Physiologic and physical aspects of tobacco addiction as well as strategies for quitting were discussed. - Counseling was given focusing on the harmful effects of this addiction especially given the patient's medical condition(s) which will be worsened because of the chemicals in tobacco. - CBC + DIFF 9. Prostate cancer screening - ICD9: V76.44, ICD10: Z12.5 - Check PSA prior to next PE. - PSA/PROSTSPECAG DIAG Return in 6 months for PE or sooner as needed. Discussed possible red flags and when to seek medical attention. PATRICIA BOB PA-C 10/08/2018 3:06 PM Signed Lab today. Follow up in 6 months for physical Labs prior. Referring Provider: JONNIE EDWARDS [[id number]] Allergies As of Date: 10/08/2018 (No Known Allergies) Date Reviewed: 10/08/2018 Reviewed by: Gustabo) Celso - Fully Assessed Reason for Visit: Recheck [92] Primary Visit Diagnosis:Essential hypertension [I10] Other Visit Diagnoses:Chronic obstructive pulmonary disease, unspecified COPD type (HCC) [J44.9] Atrial fibrillation, unspecified type (HCC) [I48.91] Gastroesophageal reflux disease without esophagitis [K21.9] Current use of proton pump inhibitor [Z79.899] Abdominal aortic aneurysm (AAA) without rupture (HCC) [I71.4] Dyslipidemia [E78.5] Smoker [F17.200] Prostate cancer screening [Z12.5] Order(s):PSA/PROSTSPECAG DIAG [SQPSA] Order #: [id number] FUTURE URINALYSIS WITH MICROSCOPIC [SQUAWMIC] Order #: [id number] FUTURE LIPID PANEL BASIC [SQLIPB] Order #: [id number] FUTURE MAGNESIUM BLD [SQMG1] Order #: [id number] FUTURE CBC + DIFF [SQCBCDIF] Order #: [id number] FUTURE COMP METABOLIC PANEL [SQCMP] Order #: [id number] FUTURE COMPOUNDED PRESCRIPTIONHandicap placcard: 5 year Dx: COPD, a.fib,Disp: 1 DeviceRfl: 0 Prescriptions as of 10/08/2018 Sig: COMPOUNDED PRESCRIPTION Blood pressure monitor. Dx: * MISCELLANEOUS MEDICAL SUPPLY * Take blood pressure 2- 3 times* PAIN RELIEF EXTRA STRENGTH 50* TAKE TWO TABLETS BY MOUTH SUMMER* OMEPRAZOLE 20 MG CAPSULE,KAZ* TAKE ONE CAPSULE BY MOUTH 30 * PRAMIPEXOLE 0.25 MG TABLET Take 1 tablet by mouth daily * ALBUTEROL SULFATE HFA 90 MCG/* Inhale 2 Puffs as instructed * CETIRIZINE 10 MG TABLET Take 1 tablet by mouth once d* COMPOUNDED PRESCRIPTION BLOOD PRESSURE CUFF FOR HOME * VARICELLA-ZOSTER GLYCOE VACC-* Inject 0.5 mL intramuscularly* WARFARIN 5 MG TABLET Take 1 tablet by mouth daily * TIOTROPIUM BROMIDE 18 MCG CAP* Inhale 1 capsule as instructe* METOPROLOL SUCCINATE ER 25 MG* Take 25 mg by mouth once tamie* COMPOUNDED PRESCRIPTION Handicap placcard: 5 year Dx* OMEGA-3 FATTY ACIDS 1,000 MG * Take 2 capsules by mouth once* CEFADROXIL 500 MG CAPSULE Take 1 capsule by mouth twice* Problem List As Of Date 10/08/2018 Noted Resolved Aortic valve replaced [Z95.2] INVALID FOR* More... Essential hypertension [I10] INVALID FOR* Seasonal allergies [J30.2] INVALID FOR* Arthritis [M19.90] INVALID FOR* Well adult exam [Z00.00] INVALID FOR* More... COPD (chronic obstructive pulmonary disease) (H*INVALID FOR* More... Smoker [F17.200] INVALID FOR* More... Blind right eye [H54.40] INVALID FOR* More... Pneumothorax [J93.9] INVALID FOR* More... More... Gastroesophageal reflux disease without esophag*INVALID FOR* Viral warts [B07.9] INVALID FOR* More... Prostate cancer screening [Z12.5] INVALID FOR* Colon cancer screening [Z12.11] INVALID FOR* Pain of both hip joints [M25.551, M25.552] INVALID FOR* Current use of proton pump inhibitor [Z79.899] INVALID FOR* More... Abdominal aortic aneurysm (AAA) without rupture*INVALID FOR* More... History of repair of thoracic aortic aneurysm [*INVALID FOR* More... RLS (restless legs syndrome) [G25.81] INVALID FOR* Dyslipidemia [E78.5] INVALID FOR* Atrial fibrillation (HCC) [I48.91] INVALID FOR* More... Carpal tunnel syndrome, right [G56.01] INVALID FOR* More... Other instructions from your clinician: Lab today. Follow up in 6 months for physical Labs prior. Prescriptions ordered this encounter Disp Refills Start End COMPOUNDED PRESCRIPTION 1 De* 0 10/08/2018 Class: Print RX Sig: Handicap placcard: 5 year Dx: COPD, a.fib, Disposition: Return in about 6 months (around 04/08/2019) for physical . Follow-up and Disposition History Recorded Encounter Status:Closed by DESTINY WILLIAM on 10/08/18 6 MINUTE WALK TEST Observed: 10/04/2018 Status: F Source: [place] 8:12 AM [facility] REPOSITORY [facility] Pulmonary Services/Neurology [address] [place] [address] MR#: [id number] Acct: [id number] Name: SUJIT BEDOYA Rep #: [id number] : 1960 58 From: Landon Cade DO Referring Dr: Nitza Dutton NP Date: Ordering Dr: Sex: M C Location: PSN PSN 6 Minute Walk Test - 6 Minute Walk Test 6 Minute Walk Test: 6 Minute Walk Test PSN:6-Minute Walk Test Start: 10/03/18 13:20 Freq: Status: Active Protocol: RESP.6MINW Document 10/03/18 12:30 HG (Rec: 10/03/18 13:23 HG [id number]) 6 Minute Walk Test Date Performed 10/03/18 Time Performed 12:30 Height 6 ft 2 in Weight: 180 lb Weight in Pounds 180.[address]: Nitza Dutton Assistive device used: None Pre-test Oxygen Delivery Method Room Air Pulse Ox (%) 99 Pulse Rate (60-100 beats/min) 99 Dyspnea Nicole Scale (0-10) 0 Exertion Nicole Scale (6-20) 6 1st minute Oxygen Delivery Method Room Air Pulse Ox (%) 92 Pulse Rate (60-100 beats/min) 84 2nd minute Oxygen Delivery Method Room Air Pulse Ox (%) 92 Pulse Rate (60-100 beats/min) 86 3rd minute Oxygen Delivery Method Room Air Pulse Ox (%) 90 Pulse Rate (60-100 beats/min) 95 4th minute Oxygen Delivery Method Room Air Pulse Ox (%) 91 Pulse Rate (60-100 beats/min) 81 5th minute Oxygen Delivery Method Room Air Pulse Ox (%) 91 Pulse Rate (60-100 beats/min) 84 6th minute Oxygen Delivery Method Room Air Pulse Ox (%) 90 Pulse Rate (60-100 beats/min) 98 Post-test Oxygen Delivery Method Room Air Pulse Ox (%) 96 Pulse Rate (60-100 beats/min) 99 Dyspnea Nicole Scale (0-10) 0 Exertion Nicole Scale (6-20) 6 Full Laps Walked 19 Partial Lap, Number of Tiles Walked 0 Total Distance Walked (ft) 1121 - Interpretation Interpretation: The patient ambulated 1121 feet over the course of 6 minutes beginning on room air without assistive devices or breaks. Pretesting oxygen saturation was noted to be 99% on room air. With ambulation, the renee oxygen saturation was 90%. This represents a significant exertional oxygen desaturation, consistent with pulmonary limitation to exercise tolerance. - Recommendations Recommendations: There is no indication for the use of supplemental oxygen at this time. However, close interval follow-up is recommended, given the degree of oxygen desaturation noted during this study. 10/04/18 0812 <Electronically signed by Landon Brown DO> Date Landon Cade DO CC: Date Dictated: 10/04/18809 Date Transcribed: 10/04/18809 Government Professor: Landon Cade DO Signed PULMONARY VISIT REPORT Observed: 09/24/2018 Status: F Source: [place] 3:16 PM [facility] REPOSITORY [facility] [address] [place] [address] OFFICE VISIT Date of Service: 09/24/18 MR#: [id number] Acct: [id number] Name: SUJIT BEDOYA Rep #: [id number] : 1960 Provider: Nitza Dutton Age/Sex: 58/M Location: [facility] [place] Status: Signed Assessment AND Plan 1. Stage 1 mild COPD by GOLD classification J44.9 Plan Does not appear to be an exacerbation of COPD today. No need for prednisone or antibiotic. Continue current maintenance medication for now. Alternative medications may be more appropriate given his continued smoking and possibly worsening lung function. Overdue for repeat PFTs. Need to obtain new baseline testing including PFTs and pulmonary stress test to rule out exertional hypoxia. Contact the office for any new or worsening symptoms. An acute visit and typically be arranged within 1-2 days. Follow-up in 3 months. Annual influenza vaccination provided in the office today. Orders Orders: Medications Discontinued: Flucelvax Quad [id number] (PF) (flu vac qs 2018(4 yr up60 mcg (0.5 mL) IM ONCE 1 mL 0RF NS )CD(PF)) Discontinued Reason: Office Medication paul s been Documented as given 2. Lung nodule R91.1 Plan Repeat low-dose CT screening of the chest. Lung nodule measuring [address] cm seen on previous CT exam, also noted some adenopathy. If insurance prefers regular CT of the chest without contrast, I would be agreeable with this also. Follow-up with Dr. Mack in 3 months, at which time they can discuss test results. Orders Orders: 3. Nicotine abuse Z72.0 Plan A 5 minute, face to face discussion occurred with the patient regarding smoking cessation. Risks of continued tobacco abuse was covered such as heart disease, stroke, cancer, and emphysema, among others. The many health benefits quitting, was discussed and the patient was educated on the fact that smokers lose an average of 10 minutes of life for every cigarette smoked. We discussed the pathophysiology of smoking addiction and its dual addictive components of nicotine addiction and psychological addiction. Nicotine replacement was discussed. We also talked about medications that may be helpful such as Bupropion (Wellbutrin) or Varenicline (Chantix). Advise was also offered on preoccupying the mind during trigger times with activities such as chewing gum, sucking on hard candy or utilizing their hands with an activity such as drawing. Currently the patient is smoking one half continue to cut back Ppd. At this time, SUJIT elects to . We will continue to monitor the tobacco abuse and encourage cessation. You may call the [employer] hotline 7-031-SQVE-NOW. People who use this line are THREE times more likely to remain smoke free. Plan Detail Other Orders Orders: Other Medications New: Changed: Discontinued: Flucelvax Quad [id number] (PF) (flu vac qs 2018(4 yr60 mcg (0.5 mL) IM ONCE 1 mL 0RF NS Z23 up)CD(PF)) Discontinued Reason: Office Medicat ion has been Documented as given Follow Up 3 Months (KHURRAM) HPI FOLLOW UP: Chief Complaint: Cough HPI Comments Details: This patient presents to the office today for a routine follow- up on his COPD, after he lost to follow-up of approximately 18 months. He is ambulatory and currently on room air. He reports that he had bronchitis couple weeks ago. He was able to overcome the illness without the use of antibiotics or prednisone. He admits that he has reestablish care with us because he is refills ran out. He has been compliant with Spiriva daily. He denies any medication side effects such as sore throat or hoarseness. He continues the use of Zyrtec daily. Virtually, he continues to smoke 1/4-1/2 pack of cigarettes daily. He reports that he has failed cold turkey, nicotine patches, nicotine lozenges, Wellbutrin and Chantix. He has not tried any [id number]-jop-[id number] medications. He denies any shortness of breath at rest, during conversation or even on exertion. He does have a cough that is productive, however he states that he has not looked at the sputum and therefore does not know what color or consistency it is. He has occasional wheezing. He denies any chest pain or palpitations. He is not experience any fever, chills or body aches. Intake Vital Signs09/24/18 Height 5 ft 9 in 09/24/18 Weight: 166 lb Intake Visit Reasons: FOLLOW UP Other Sales Support Worker Required: No Accompanied by: Self Is patient in pain?: No Allergies No Known Allergies Allergy (Verified 09/24/18 13:37) Medications Warfarin [Coumadin] 7.5 mg PO SUMOTUWETH 12/02/13 [History Confirmed 09/24/18] Simvastatin [Zocor] 1 tab PO QHS 04/03/17 [History Confirmed 09/24/18] warfarin 5 mg tablet 10 mg PO FRSA 11/16/17 [History Confirmed 09/24/18] albuterol sulfate HFA 90 mcg/actuation aerosol inhaler 2 puff INHALATION Q4H PRN g 12/11/17 [History Confirmed 09/24/18] losartan 25 mg tablet 25 mg PO DAILY #30 tab 03/28/18 [Rx Confirmed 09/24/18] acetaminophen 500 mg tablet 500 mg PO Q6H PRN 09/24/18 [History Confirmed 09/24/18] cetirizine 10 mg capsule 10 mg PO QDAY #30 cap 09/24/18 [Rx Confirmed 09/24/18] tiotropium bromide 18 mcg capsule with inhalation device 1 cap INHALATION DAILY #30 inh 09/24/18 [Rx Confirmed 09/24/18] [facility] Medical History Stage 1 mild COPD by GOLD classification (Chronic) Lung nodule (Chronic) Transient cerebral ischemic attack (Ruled-out) Nicotine abuse (Chronic) HLD (hyperlipidemia) (Chronic) Nonrheumatic aortic valve insufficiency (Chronic) Aneurysm of infrarenal abdominal aorta (Chronic) Paroxysmal atrial fibrillation (Chronic) 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) Weight loss (Acute) Abnormal pulmonary function test (Chronic) Allergic rhinitis, seasonal (Chronic) SAMSON (dyspnea on exertion) (Chronic) Collapse of right lung (Resolved) Surgical History History of aortic root repair (Chronic) Hx of aortic valve replacement, mechanical (Chronic 11/26/10) Social History adopted: Yes Smoking Status: Current every day smoker tobacco type: cigarettes alcohol intake: never substance use type: does not use Review of Systems Const CONSTITUTIONAL: Negative anorexia, body ache, chills, daytime sleepiness, fever(s), night sweats, oral thrush, stops breathing during sleep, weight loss, sleeping in chair, fatigue, weight loss, weight gain, frequent colds, seasonal allergies, other, headache(s) or orthopnea EETM Ear Nose Throat Mouth: Positive hearing normal, post nasal drip and sore throat; negative hard of hearing, hoarseness, dry mouth in morning, change in vision, itchy eyes, eye pain, swallowing Difficulty, ear pain, nose bleed, headache(s), mouth pain, nasal congestion, nasal discharge, sinus pain, sinus pressure or other Cardio Cardiovascular: Negative chest pain, chest pain at rest, chest pain with activity, irregular heart rhythm, edema, shortness of breath when lying down, palpitations, murmur or other Resp Respiratory: Positive as per HPI, wheezing, cough cough: Positive productive and inhalers; negative shortness of breath, pain with cough, chest congestion, chest tightness, pain on inspiration, increase use of rescue inhalers, snoring, apnea or other Gastro Gastrointestional: Negative bloody stools, change in appetite, difficulty swallowing, reflux, hematemesis, melena stool, loose stool, constipation or other Genitourinary: Negative blood in urine, nocturia, pain with urination or other Musc Musculoskeletal: Negative body pain, back pain, neck pain or other Skin/Breast Skin/Breast: Negative dry skin, itching, rash, unusual bruising, breast lump or other Neuro Neurological: Negative restless legs, confusion, weakness or other Psych Psychocological: Negative abnormal sleep pattern, anxiety, thoughts of hurting self/others, hopelessness or other Lymph Lymphatic: Negative easy bleeding, easy bruising, swollen lymph nodes or other Exam Const Constitutional: Positive conversant, cooperative, in no acute respiratory distress, healthy appearing, well developed, well nourished, thin and smells of smoke Head Head: Positive normocephalic and atraumatic; negative cyanosis of lips/distal nose Eyes Eye: Positive clear conjunctiva; negative nystagmus or scleral abnormality Ears Ear: Positive hearing normal and external ears normal; negative hard of hearing Nose Nose: Positive external nose normal and no nasal discharge; negative epistaxis Mouth Mouth: Positive post nasal drip, oral mucosae normal, no lesions, edentulous and posterior oropharynx is adequate; negative malodorous breath or oral thrush present Mallampati Score: II: Mallampati Score Neck Neck: Positive normal visual inspection, full ROM and trachea midline; negative lymphadenopathy, JVD or tender Chest Wall Chest: Positive symmetric chest movement and increased A/P diameter Resp lung sounds: Positive clear to auscultation, good air exchange, normal expiratory time and normal respiratory effort; negative diminished, wheezes, rhonchi, rales, dullness to percussion or wheeze present on forced exhalation Cardio Cardiac: Positive regular rate, regular rhythm, S1 normal and S2 normal; negative murmur GI GI: Positive normal to inspection; negative distended Genitourinary: Positive deferred Musc Musculoskeletal: Positive steady gait and ROM normal; negative kyphosis or scoliosis Skin Pulmonary Skin Exam: Positive intact; negative rash Pulses Pulse: Yes pulses normal x4 extremities Extremities Extremities: Yes clubbing, Yes capillary refill normal, No cyanosis, No edema Neuro Neurologic: Yes conversant, Yes no focal neuro deficits, Yes normal concentration, Yes understands questions, Yes cooperative, Yes normal cognition, Yes normal coordination, No tremor Lymph Lymphatic: No lymphadenopathy, No tenderness, No cervical adenopathy Psych Appearance: Positive grossly normal, eye contact and well kempt Mental Status: Positive mental status grossly normal Mood: Positive congruent mood Affect: Positive normal affect Office Procedures Smoking Cessation Time Spent 3-10 minutes: Yes Office Meds Flucelvax Quad [id number] (PF) Performing Provider: HENRRY Higgins Administered by: Heike De Jesus on 09/24/18 14:28 Dose Route Admin Location Lot Number Expiration Date NDC Learning Coordinator 60 mcg IM L Deltoid [id number] 04/28/19 92370-820-33 SEQIRUS Coding Level of Care Code Off vis,est,level 4 Diagnoses Stage 1 mild COPD by GOLD classification J44.9 Lung nodule R91.1 Nicotine abuse Z72.0 Additional Codes Time Spent - 3-10 minutes: Yes (10417) 09/24/18 1516 <Electronically signed by Nitza Dutton SHINGLER-C> Date Nitza ARNDTC Coleen Signature: Date (if applicable) CC: Jonnie Edwards MD PROGRESS Observed: 08/19/2018 Status: COMPLETED Source: [place] 5:53 AM [facility] [place] REPOSITORY HNO ID: [id number] Author: Chavo Patel Service: (none) Author Type: Physician Type: Progress Notes Filed: 08/19/2018 5:59 AM Note Text: HISTORY AND PHYSICAL Sujit Bedoya 1960 REFERRING PHYSICIAN: Self CHIEF COMPLAINT: ventral hernia HPI: Sujit is a 58 year old male with a complaint of a bulge and discomfort in his right inguinal region. The patient notes discomfort in this area with lifting and straining. The symptoms have increased, over the past few months. The patient notes no symptoms of bowel obstruction and denies nausea or vomiting. The patient was seen by the emergency room physician who felt the patient has a hernia. Sujit was referred for evaluation and treatment. The patient has a history of aortic valve replacement and a repair of an aortic arch aneurysm. 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 He is on anticoagulation for his mechanical aortic valve. His INR typically runs around 2.5-2.6. He has had multiple myocardial infarctions apparently. He does undergone ophthalmologic surgery last year. His Coumadin was held and he was maintained on a Lovenox bridge for that surgical procedure. The patient smokes cigarettes one half pack per day PAST MEDICAL HISTORY Diagnosis Date - AAA (abdominal aortic aneurysm) ([facility]) 08/18/2015 Pt. states aneurysm in chest was repaired, not AAA - Aortic valve replaced 08/18/2015 Mechanical on coumadin managed by Dr. 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 - Carpal tunnel syndrome, right 05/22/2018 EMG's 04/2018: moderate - COPD (chronic obstructive pulmonary disease) ([facility]) 08/18/2015 PFT's 08/10/2015 mild COPD - Dyslipidemia 02/14/2018 - Essential hypertension 08/18/2015 - Gastroesophageal reflux disease without esophagitis 08/18/2015 - MT (myocardial infarction) (HCC) x 5, no stents - Not currently working due to disabled status because of heart status - Pain of both hip joints 08/18/2015 - Pneumothorax 08/18/2015 2007 , right side x 2 - Seasonal allergies 08/18/2015 - Viral warts 08/18/2015 right hand PAST SURGICAL HISTORY Procedure Laterality Date - 2D ECHO (EXEP) 08/10/2015 EF=65%, 1+ TI. no change from 01/20/2014 - PAST SURGICAL HISTORY OF Pt. states he had aneurysm repair in chest 2010 - REPLACEMENT, AORTIC VALVE, WITH CAR 2010 - STRESS TEST 08/12/15 WNL Current Outpatient Prescriptions: COMPOUNDED PRESCRIPTION Blood pressure monitor. Dx: I10, essential hypertension. Take blood pressure 2-3 times a week, at different times of day. Miscellaneous Medical Supply (BLOOD PRESSURE CUFF) [facility] [place] Take blood pressure 2-3 times a week at different times of the day. Dx I10 PAIN RELIEF EXTRA STRENGTH 500 mg tablet TAKE TWO TABLETS BY MOUTH EVERY 6 HOURS NEEDED FOR PAIN omeprazole (PRILOSEC) 20 mg capsule TAKE ONE CAPSULE BY MOUTH 30 MINUTES BEFORE BREAKFAST pramipexole (MIRAPEX) 0.25 mg tablet Take 1 tablet by mouth daily at bedtime. Take 2-3 hours before bedtime albuterol HFA (VENTOLIN HFA) 90 mcg/actuation inhaler Inhale 2 Puffs as instructed every 4 hours as needed for Wheezing/Shortness of Breath. cetirizine (ZYRTEC) 10 mg tablet Take 1 tablet by mouth once daily. COMPOUNDED PRESCRIPTION BLOOD PRESSURE CUFF FOR HOME USE. DX: I10 omega-3 fatty acids 1,000 mg cap Take 2 capsules by mouth once daily. cefADROxil (DURICEF) 500 mg capsule Take 1 capsule by mouth twice daily. zoster vaccine, recombinant, adjuvanted, (SHINGRIX, PF,) 50 mcg/0.5 mL injection Inject 0.5 mL intramuscularly as directed. warfarin (COUMADIN) 5 mg tablet Take 1 tablet by mouth daily as directed. 7mg M-F and 10mg Sat and Sun or as directed. tiotropium (SPIRIVA WITH HANDIHALER) 18 mcg inhalation capsule Inhale 1 capsule as instructed once daily. metoprolol succinate XL, long acting, (TOPROL XL) 25 mg 24 hr tablet Take 25 mg by mouth once daily. No current facility-administered medications for this visit. ALLERGIES: Patient has no known allergies. PERSONAL HISTORY: Social History Marital status: Single Spouse name: Years of education: Number of children: Social History Main Topics Smoking status: Current Every Day Smoker Packs/day: 0.50 Years: 45.00 Smokeless tobacco: Never Used Alcohol use: No Drug use: No FAMILY HISTORY: FAMILY HISTORY Problem Relation Age of Onset - Adopted: Yes - Cancer Mother biological-unknown source REVIEW OF SYMPTOMS: The review of systems data was entered by the nurse and reviewed by in Nursing Notes: Domonique Thomas LPN 2018 10:05 AM Signed REVIEW OF SYSTEMS: General: The patient denies fatigue, denies weight loss, denies weight gain, denies feeling hot, and denies feelings of cold. Eyes: The patient NOTES glaucoma, NOTES eye injury/surgery, does not wear glasses or contacts. Ear/Nose/Throat: The patient denies allergies, denies hayfever, denies ear infections, and denies bloody noses. Cardiovascular: The patient denies chest pain, denies heart disease, NOTES high blood pressure,denies cardiac stent, denies prior heart attack, denies irregular heart beat, NOTES high cholesterol, denies poor circulation, denies heart failure, other cardiac issues, denies claudication, denies cold feet, denies peripheral arterial stent. Respiratory: The patient denies tuberculosis, denies pneumonia, denies frequent cough, denies pulmonary embolism, denies shortness of breath, and denies coughing up blood. Gastrointestinal: The patient denies difficulty swallowing, denies acid reflux, denies ulcers, denies vomiting, denies jaundice/hepatitis, denies gallbladder problems, denies black or tarry stools, denies hemorrhoids, denies bleeding from rectum, denies diverticulitis, denies constipation, denies diarrhea, denies loss of stool control, and denies hernias. Kidney/Bladder: The patient denies kidney stones, denies urine infections, and denies bloody urine. Skin: The patient denies a history of skin cancer, denies bleeding/changing moles, and denies a history of skin rash. Neurologic: The patient denies a history of epilepsy/convulsions, denies headaches, denies head/spinal injuries, and denies stroke/TIA. Psychiatric: The patient denies psychiatric medications, denies depression, and denies voices, denies substance abuse. Endocrine: The patient denies thyroid disorders, denies diabetes, and denies hormonal problems. Hematologic: The patient denies a history of bruising, denies bleeding, and denies anemia, denies blood clots. Infections: The patient denies a history of measles and mumps, denies rheumatic fever, and denies sexually transmitted diseases. Musculoskeletal: The patient denies back pain/injury, denies back problems, denies sciatica, denies knee/foot trouble, NOTES arthritis, or denies gout. When was patient's last Mammogram screening? N/A Last Colonoscopy: None Domonique Thomas LPN PHYSICAL EXAMINATION: General: The patient is 58 year old male, well nourished, well hydrated in no acute distress. The patient is oriented to time, place, and person. VITALS: Blood pressure 114/62, pulse 80, weight 76.2 kg (168 lb). Body mass index is 23.1 kg/m?. HEENT: Normal cephalic, ataumatic, pupils are equally round, sclera are anicteric, mucous membranes are moist, oropharynx is clear. Neck has no masses, asymmetry or lymphadenopathy. Thyroid is unremarkable. Respiratory: Clear to auscultation and percussion. Normal respiratory excursion and pattern. Cardiac: Examination is regular rate and rhythm. Abdominal exam: Soft, nontender, with no palpable masses. No hepatosplenomegaly. A moderate reducible right inguinal hernia, no left inguinal or umbilical hernias are noted Rectal exam: exam deferred Extremities: no clubbing, cyanosis or edema. No adenopathy. Other: LABORATORY VALUES: As Noted RADIOLOGIC STUDIES: As Noted Assessment IMPRESSION: right inguinal hernia PLAN: My plan is to perform a open right inguinal hernia repair with mesh. The planned surgical procedure was discussed extensively with the patient. The risks, benefits, anticipated outcomes and possible complications were mentioned. Sujit elizondo that all hernia repair surgery has a chance of recurrence and/or chronic post operative pain. My staff has also explained the procedure in understandable terms and the patient was given the option to take printed material concerning the planned procedure. The patient had the opportunity to ask questions concerning the planned procedure. The patient freely consents to the planned procedure. All tobacco/nicotine use needs to be completely stopped at least 4 weeks prior to surgery and not used in any form for 8 weeks following surgery due to nicotine's prevention of appropriate wound healing My findings have been communicated to Dr. Jonnie Edwards MD via shared medical record. This note will be forwarded to Dr. Jonnie Edwards MD. Diagnoses: (K40.90) Non-recurrent unilateral inguinal hernia without obstruction or gangrene (primary encounter diagnosis) Anticipated CPT Code: open right inguinal hernia repair with mesh - 60461-506 Anticipated Anesthetic: MAC with local Patient weight: Blood pressure 114/62, pulse 80, weight 76.2 kg (168 lb). BMI: Body mass index is 23.1 kg/m?. 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 Chavo Patel MD CNCO Observed: 08/16/2018 Status: COMPLETED Source: [place] 12:00 AM [facility] REPOSITORY Letter Text [facility] [address] [place], [place] [address] 08/16/2018 Sujit Bedoya [id number] [address] [facility] [address] Dear Mauricio Bedoya: I noted on my schedule today that we had an appointment. I am sorry I missed you. I realize that there are many distractions and busy schedules. Please call ahead of time, if you are unable to make it. If this was because of a miscommunication, please ensure that you speak with one of the schedulers over the phone/in person after each appointment (this is the safest way, since we can't guarantee that you will receive your appointments via mail). If you need to cancel, please call us in advance. Thanks for your understanding, and hope to see you again soon. Sincerely, Dr. Jonnie Edwards MD CNOV Observed: 2018 Status: COMPLETED Source: [place] 9:10 AM [facility] REPOSITORY Office Visit (GENSWS) SUJIT BEDOYA ([id number]) 1960 M Date Time Provider Department 08/15/18 9:10 AM [facility]O PAT[facility] GENSWS During your visit today, we recorded the following information about you: Pulse Blood pressure Weight 80/minute 114/62 76.2 kg Domonique Martha EATON 2018 10:05 AM Signed REVIEW OF SYSTEMS: General: The patient denies fatigue, denies weight loss, denies weight gain, denies feeling hot, and denies feelings of cold. Eyes: The patient NOTES glaucoma, NOTES eye injury/surgery, does not wear glasses or contacts. Ear/Nose/Throat: The patient denies allergies, denies hayfever, denies ear infections, and denies bloody noses. Cardiovascular: The patient denies chest pain, denies heart disease, NOTES high blood pressure,denies cardiac stent, denies prior heart attack, denies irregular heart beat, NOTES high cholesterol, denies poor circulation, denies heart failure, other cardiac issues, denies claudication, denies cold feet, denies peripheral arterial stent. Respiratory: The patient denies tuberculosis, denies pneumonia, denies frequent cough, denies pulmonary embolism, denies shortness of breath, and denies coughing up blood. Gastrointestinal: The patient denies difficulty swallowing, denies acid reflux, denies ulcers, denies vomiting, denies jaundice/hepatitis, denies gallbladder problems, denies black or tarry stools, denies hemorrhoids, denies bleeding from rectum, denies diverticulitis, denies constipation, denies diarrhea, denies loss of stool control, and denies hernias. Kidney/Bladder: The patient denies kidney stones, denies urine infections, and denies bloody urine. Skin: The patient denies a history of skin cancer, denies bleeding/changing moles, and denies a history of skin rash. Neurologic: The patient denies a history of epilepsy/convulsions, denies headaches, denies head/spinal injuries, and denies stroke/TIA. Psychiatric: The patient denies psychiatric medications, denies depression, and denies voices, denies substance abuse. Endocrine: The patient denies thyroid disorders, denies diabetes, and denies hormonal problems. Hematologic: The patient denies a history of bruising, denies bleeding, and denies anemia, denies blood clots. Infections: The patient denies a history of measles and mumps, denies rheumatic fever, and denies sexually transmitted diseases. Musculoskeletal: The patient denies back pain/injury, denies back problems, denies sciatica, denies knee/foot trouble, NOTES arthritis, or denies gout. When was patient's last Mammogram screening? N/A Last Colonoscopy: None Domonique Patel MD 08/19/2018 5:59 AM Signed HISTORY AND PHYSICAL Sujit David Rosario 1960 REFERRING PHYSICIAN: Self CHIEF COMPLAINT: ventral hernia HPI: Sujit is a 58 year old male with a complaint of a bulge and discomfort in his right inguinal region. The patient notes discomfort in this area with lifting and straining. The symptoms have increased, over the past few months. The patient notes no symptoms of bowel obstruction and denies nausea or vomiting. The patient was seen by the emergency room physician who felt the patient has a hernia. Sujit was referred for evaluation and treatment. The patient has a history of aortic valve replacement and a repair of an aortic arch aneurysm. 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 He is on anticoagulation for his mechanical aortic valve. His INR typically runs around 2.5- 2.6. He has had multiple myocardial infarctions apparently. He does undergone ophthalmologic surgery last year. His Coumadin was held and he was maintained on a Lovenox bridge for that surgical procedure. The patient smokes cigarettes one half pack per day PAST MEDICAL HISTORY Diagnosis Date - AAA (abdominal aortic aneurysm) (HCC) 08/18/2015 Pt. states aneurysm in chest was repaired, not AAA - Aortic valve replaced 08/18/2015 Mechanical on coumadin managed by Dr. 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 - Carpal tunnel syndrome, right 05/22/2018 EMG's 04/2018: moderate - COPD (chronic obstructive pulmonary disease) (HCC) 08/18/2015 PFT's 08/10/2015 mild COPD - Dyslipidemia 02/14/2018 - Essential hypertension 08/18/2015 - Gastroesophageal reflux disease without esophagitis 08/18/2015 - MT (myocardial infarction) (HCC) x 5, no stents - Not currently working due to disabled status because of heart status - Pain of both hip joints 08/18/2015 - Pneumothorax 08/18/2015 2007 , right side x 2 - Seasonal allergies 08/18/2015 - Viral warts 08/18/2015 right hand PAST SURGICAL HISTORY Procedure Laterality Date - 2D ECHO (EXEP) 08/10/2015 EF=65%, 1+ TI. no change from 01/20/2014 - PAST SURGICAL HISTORY OF Pt. states he had aneurysm repair in chest 2010 - REPLACEMENT, AORTIC VALVE, WITH CAR 2010 - STRESS TEST 08/12/15 WNL Current Outpatient Prescriptions: COMPOUNDED PRESCRIPTION Blood pressure monitor. Dx: I10, essential hypertension. Take blood pressure 2-3 times a week, at different times of day. Miscellaneous Medical Supply (BLOOD PRESSURE CUFF) [facility] [place] Take blood pressure 2-3 times a week at different times of the day. Dx I10 PAIN RELIEF EXTRA STRENGTH 500 mg tablet TAKE TWO TABLETS BY MOUTH EVERY 6 HOURS NEEDED FOR PAIN omeprazole (PRILOSEC) 20 mg capsule TAKE ONE CAPSULE BY MOUTH 30 MINUTES BEFORE BREAKFAST pramipexole (MIRAPEX) 0.25 mg tablet Take 1 tablet by mouth daily at bedtime. Take 2-3 hours before bedtime albuterol HFA (VENTOLIN HFA) 90 mcg/actuation inhaler Inhale 2 Puffs as instructed every 4 hours as needed for Wheezing/Shortness of Breath. cetirizine (ZYRTEC) 10 mg tablet Take 1 tablet by mouth once daily. COMPOUNDED PRESCRIPTION BLOOD PRESSURE CUFF FOR HOME USE. DX: I10 omega-3 fatty acids 1,000 mg cap Take 2 capsules by mouth once daily. cefADROxil (DURICEF) 500 mg capsule Take 1 capsule by mouth twice daily. zoster vaccine, recombinant, adjuvanted, (SHINGRIX, PF,) 50 mcg/0.5 mL injection Inject 0.5 mL intramuscularly as directed. warfarin (COUMADIN) 5 mg tablet Take 1 tablet by mouth daily as directed. 7mg M-F and 10mg Sat and Sun or as directed. tiotropium (SPIRIVA WITH HANDIHALER) 18 mcg inhalation capsule Inhale 1 capsule as instructed once daily. metoprolol succinate XL, long acting, (TOPROL XL) 25 mg 24 hr tablet Take 25 mg by mouth once daily. No current facility-administered medications for this visit. ALLERGIES: Patient has no known allergies. PERSONAL HISTORY: Social History Marital status: Single Spouse name: Years of education: Number of children: Social History Main Topics Smoking status: Current Every Day Smoker Packs/day: 0.50 Years: 45.00 Smokeless tobacco: Never Used Alcohol use: No Drug use: No FAMILY HISTORY: FAMILY HISTORY Problem Relation Age of Onset - Adopted: Yes - Cancer Mother biological-unknown source REVIEW OF SYMPTOMS: The review of systems data was entered by the nurse and reviewed by in Nursing Notes: Domonique Thomas LPN 2018 10:05 AM Signed REVIEW OF SYSTEMS: General: The patient denies fatigue, denies weight loss, denies weight gain, denies feeling hot, and denies feelings of cold. Eyes: The patient NOTES glaucoma, NOTES eye injury/surgery, does not wear glasses or contacts. Ear/Nose/Throat: The patient denies allergies, denies hayfever, denies ear infections, and denies bloody noses. Cardiovascular: The patient denies chest pain, denies heart disease, NOTES high blood pressure,denies cardiac stent, denies prior heart attack, denies irregular heart beat, NOTES high cholesterol, denies poor circulation, denies heart failure, other cardiac issues, denies claudication, denies cold feet, denies peripheral arterial stent. Respiratory: The patient denies tuberculosis, denies pneumonia, denies frequent cough, denies pulmonary embolism, denies shortness of breath, and denies coughing up blood. Gastrointestinal: The patient denies difficulty swallowing, denies acid reflux, denies ulcers, denies vomiting, denies jaundice/hepatitis, denies gallbladder problems, denies black or tarry stools, denies hemorrhoids, denies bleeding from rectum, denies diverticulitis, denies constipation, denies diarrhea, denies loss of stool control, and denies hernias. Kidney/Bladder: The patient denies kidney stones, denies urine infections, and denies bloody urine. Skin: The patient denies a history of skin cancer, denies bleeding/changing moles, and denies a history of skin rash. Neurologic: The patient denies a history of epilepsy/convulsions, denies headaches, denies head/spinal injuries, and denies stroke/TIA. Psychiatric: The patient denies psychiatric medications, denies depression, and denies voices, denies substance abuse. Endocrine: The patient denies thyroid disorders, denies diabetes, and denies hormonal problems. Hematologic: The patient denies a history of bruising, denies bleeding, and denies anemia, denies blood clots. Infections: The patient denies a history of measles and mumps, denies rheumatic fever, and denies sexually transmitted diseases. Musculoskeletal: The patient denies back pain/injury, denies back problems, denies sciatica, denies knee/foot trouble, NOTES arthritis, or denies gout. When was patient's last Mammogram screening? N/A Last Colonoscopy: None Domonique Thomas LPN PHYSICAL EXAMINATION: General: The patient is 58 year old male, well nourished, well hydrated in no acute distress. The patient is oriented to time, place, and person. VITALS: Blood pressure 114/62, pulse 80, weight 76.2 kg (168 lb). Body mass index is 23.1 kg/m?. HEENT: Normal cephalic, ataumatic, pupils are equally round, sclera are anicteric, mucous membranes are moist, oropharynx is clear. Neck has no masses, asymmetry or lymphadenopathy. Thyroid is unremarkable. Respiratory: Clear to auscultation and percussion. Normal respiratory excursion and pattern. Cardiac: Examination is regular rate and rhythm. Abdominal exam: Soft, nontender, with no palpable masses. No hepatosplenomegaly. A moderate reducible right inguinal hernia, no left inguinal or umbilical hernias are noted Rectal exam: exam deferred Extremities: no clubbing, cyanosis or edema. No adenopathy. Other: LABORATORY VALUES: As Noted RADIOLOGIC STUDIES: As Noted Assessment IMPRESSION: right inguinal hernia PLAN: My plan is to perform a open right inguinal hernia repair with mesh. The planned surgical procedure was discussed extensively with the patient. The risks, benefits, anticipated outcomes and possible complications were mentioned. Sujit foxands that all hernia repair surgery has a chance of recurrence and/or chronic post operative pain. My staff has also explained the procedure in understandable terms and the patient was given the option to take printed material concerning the planned procedure. The patient had the opportunity to ask questions concerning the planned procedure. The patient freely consents to the planned procedure. All tobacco/nicotine use needs to be completely stopped at least 4 weeks prior to surgery and not used in any form for 8 weeks following surgery due to nicotine's prevention of appropriate wound healing My findings have been communicated to Dr. Jonnie Edwards MD via shared medical record. This note will be forwarded to Dr. Jonnie Edwards MD. Diagnoses: (K40.90) Non-recurrent unilateral inguinal hernia without obstruction or gangrene (primary encounter diagnosis) Anticipated CPT Code: open right inguinal hernia repair with mesh - 31335-302 Anticipated Anesthetic: MAC with local Patient weight: Blood pressure 114/62, pulse 80, weight 76.2 kg (168 lb). BMI: Body mass index is 23.1 kg/m?. 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 Chavo Patel MD Referring Provider: SELF [[id number]] Allergies As of Date: 2018 (No Known Allergies) Date Reviewed: 2018 Reviewed by: Domonique Thomas LPN - Fully Assessed Reason for Visit: ventral hernia [Other] Primary Visit Diagnosis:Non-recurrent unilateral inguinal hernia without obstruction or gangrene [K40.90] Prescriptions as of 2018 Sig: COMPOUNDED PRESCRIPTION Blood pressure monitor. Dx: * MISCELLANEOUS MEDICAL SUPPLY * Take blood pressure 2- 3 times* PAIN RELIEF EXTRA STRENGTH 50* TAKE TWO TABLETS BY MOUTH SUMMER* OMEPRAZOLE 20 MG CAPSULE,KAZ* TAKE ONE CAPSULE BY MOUTH 30 * PRAMIPEXOLE 0.25 MG TABLET Take 1 tablet by mouth daily * ALBUTEROL SULFATE HFA 90 MCG/* Inhale 2 Puffs as instructed * CETIRIZINE 10 MG TABLET Take 1 tablet by mouth once d* COMPOUNDED PRESCRIPTION BLOOD PRESSURE CUFF FOR HOME * OMEGA-3 FATTY ACIDS 1,000 MG * Take 2 capsules by mouth once* CEFADROXIL 500 MG CAPSULE Take 1 capsule by mouth twice* VARICELLA-ZOSTER GLYCOE VACC-* Inject 0.5 mL intramuscularly* WARFARIN 5 MG TABLET Take 1 tablet by mouth daily * TIOTROPIUM BROMIDE 18 MCG CAP* Inhale 1 capsule as instructe* METOPROLOL SUCCINATE ER 25 MG* Take 25 mg by mouth once tamie* Problem List As Of Date 2018 Noted Resolved Aortic valve replaced [Z95.2] INVALID FOR* Priority: B More... Essential hypertension [I10] INVALID FOR* Priority: A Seasonal allergies [J30.2] INVALID FOR* Priority: B Arthritis [M19.90] INVALID FOR* Priority: M Well adult exam [Z00.00] INVALID FOR* Priority: E More... COPD (chronic obstructive pulmonary disease) (H*INVALID FOR* Priority: A More... Smoker [F17.200] INVALID FOR* Priority: C More... 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 Pneumothorax [J93.9] INVALID FOR* Priority: B More... More... Gastroesophageal reflux disease without esophag*INVALID FOR* Priority: A Viral warts [B07.9] INVALID FOR* Priority: D More... Prostate cancer screening [Z12.5] INVALID FOR* Colon cancer screening [Z12.11] INVALID FOR* Pain of both hip joints [M25.551, M25.552] INVALID FOR* Priority: M Current use of proton pump inhibitor [Z79.899] INVALID FOR* More... Abdominal aortic aneurysm (AAA) without rupture*INVALID FOR* Priority: A More... History of repair of thoracic aortic aneurysm [*INVALID FOR* Priority: B More... RLS (restless legs syndrome) [G25.81] INVALID FOR* Priority: B Dyslipidemia [E78.5] INVALID FOR* Priority: A Atrial fibrillation (HCC) [I48.91] INVALID FOR* Priority: A More... Carpal tunnel syndrome, right [G56.01] INVALID FOR* Priority: M More... Visit Notes: >> Domonique Thomas LPN MonAug 15, 2018 10:04 AM Status: Signed REVIEW OF SYSTEMS: General: The patient denies fatigue, denies weight loss, denies weight gain, denies feeling hot, and denies feelings of cold. Eyes: The patient NOTES glaucoma, NOTES eye injury/surgery, does not wear glasses or contacts. Ear/Nose/Throat: The patient denies allergies, denies hayfever, denies ear infections, and denies bloody noses. Cardiovascular: The patient denies chest pain, denies heart disease, NOTES high blood pressure,denies cardiac stent, denies prior heart attack, denies irregular heart beat, NOTES high cholesterol, denies poor circulation, denies heart failure, other cardiac issues, denies claudication, denies cold feet, denies peripheral arterial stent. Respiratory: The patient denies tuberculosis, denies pneumonia, denies frequent cough, denies pulmonary embolism, denies shortness of breath, and denies coughing up blood. Gastrointestinal: The patient denies difficulty swallowing, denies acid reflux, denies ulcers, denies vomiting, denies jaundice/hepatitis, denies gallbladder problems, denies black or tarry stools, denies hemorrhoids, denies bleeding from rectum, denies diverticulitis, denies constipation, denies diarrhea, denies loss of stool control, and denies hernias. Kidney/Bladder: The patient denies kidney stones, denies urine infections, and denies bloody urine. Skin: The patient denies a history of skin cancer, denies bleeding/changing moles, and denies a history of skin rash. Neurologic: The patient denies a history of epilepsy/convulsions, denies headaches, denies head/spinal injuries, and denies stroke/TIA. Psychiatric: The patient denies psychiatric medications, denies depression, and denies voices, denies substance abuse. Endocrine: The patient denies thyroid disorders, denies diabetes, and denies hormonal problems. Hematologic: The patient denies a history of bruising, denies bleeding, and denies anemia, denies blood clots. Infections: The patient denies a history of measles and mumps, denies rheumatic fever, and denies sexually transmitted diseases. Musculoskeletal: The patient denies back pain/injury, denies back problems, denies sciatica, denies knee/foot trouble, NOTES arthritis, or denies gout. When was patient's last Mammogram screening? N/A Last Colonoscopy: None Domonique Thomas LPN Follow-up and Disposition History Recorded Encounter Status:Closed by CHAVO PATEL MD on 08/19/18 PROTHROMBIN TIME W/INR Collected: 08/01/2018 Status: F Source: [place] 12:49 PM [facility] REPOSITORY TYPE CODE TESTS RESULT OUT OF RANGE REFERENCE UNITS LAB L300.4150 11.7-14.9 SECONDS High PROTIME 22.4 LAB L300.4200 Normal INR 2.0 Performed By: #### L300.3900 #### [facility] [address] [place], [address] EMERGENCY DEPARTMENT Observed: 07/29/2018 Status: F Source: [place] SUMMARY 1:57 AM [facility] REPOSITORY [facility] Medical Records Department [address] [place] [address] Emergency Department Summary 07/28/182045 MR#: [id number] Acct: [id number] Name: SUJIT BEDOYA Rep #: [id number] : 1960 57 From: Julio C Frazier MD PCP: Jonnie Edwards MD Status: DEP ER - ER Visit Summary Date of Service: 07/28/18 Chief Complaint: Abdominal pain History of Present Illness: The patient is a [address] Edwards. He reports that he has had right lower abdominal pain intermittently for the past 2 months. States that it is worsened over the past 3 days. States there is a bulge in this area when he sits up. Patient describes pain as a sharp presence 8 out of 10 at worst and 410 currently. Is worsened by sitting up and walking. Is relieved by having a bowel movement. He denies any nausea, vomiting, or diarrhea. His last bowel was today. He had no melena or hematochezia. No dysuria or frequency. Physical Examination: Vitals: Stable. Afebrile. General: Well-nourished and well-developed. Head: Normocephalic atraumatic. Neck: Supple, no lymphadenopathy. No JVD. Nontender. Cardiovascular: Regular rate and rhythm. No murmurs. Respiratory: No respiratory distress. Clear to auscultation bilaterally. Abdominal: Soft, mild tenderness palpation over a ventral hernia that is in the inferior portion of his abdomen. This is easily reduced., nondistended, normal bowel sounds. No guarding, rebound, or peritoneal signs. Back: Nontender. Extremities: Nontender, no edema. Skin: Normal color, no rash. Neurologic: Alert and oriented 3. Cranial nerves II through XII are intact. Normal strength and sensation. Psych: Normal affect. Emergency Department Course and Treatment: Patient is resting comfortably. Treatment Plan: Had a prolonged discussion with the patient about the treatment of hernias. At this time he does not require further evaluation for this. He will be discharged instructions to follow-up with Dr. Yeboah within 3-5 days for another exam. I did discuss them that if this gets strangulated he should return to the emergency department for reduction. Return to the emergency department for any worsening symptoms. Disposition: To home in improved and stable condition. Impression: 1. Ventral hernia. This note was generated with [employer] dictation software. It may contain incorrect words, spelling, and punctuation that were not noted in review of the chart prior to signing ED Disposition - Plan for ED Patient: Disposition: Home or Assisted Living Chief Complaint: Abd Pain Instructions: ED Hernia Inguinal Referrals: Chavo Patel MD [STAFF PHYSICIAN] - 3-5 Days What to do if you have Problems For any increased pain, shortness of breath, bleeding, nausea or vomiting, chest pain, or any unexpected problems, contact your Primary Care Provider. Call [facility] ([phone]) or report to the closest Emergency Room. Call 911 if necessary. 07/29/18 0157 <Electronically signed by Julio C Frazier MD> Date Julio C Frazier MD Cosigner Signature (If Indicated): Date CC: Jonnie Edwards MD PROCEDURE Observed: 06/06/2018 Status: COMPLETED Source: [place] 1:30 PM [facility] REPOSITORY HNO ID: [id number] Author: Jonnie Edwards Service: (none) Author Type: Physician Type: Procedures Filed: 06/08/2018 11:16 AM Note Text: UNIVERSAL PROTOCOL / SAFETY CHECKLIST Procedure to be performed: carpel tunnel injection Sign in Communication: Completed Time Out: Team Confirms the Correct Patient, Correct Procedure, Correct Site and Site Marking, Correct Position (if applicable), Prep and Dry Time (if applicable). Time: 13:31 Affirmation of Time Out: YES Sign Out Discussion: Completed Jonnie Edwards MD The right wrist was cleansed with betadine and alcohol. A 22 gauge 1 1/2 needle was inserted between the wrist lines in line with the middle of the 4th digit. Aspiration attempted with no blood return. Medication was then injected without difficulty. Patient tolerated well. Medication was 20 mg of kenalog and 1 cc of 1 % lido without Epi PROGRESS Observed: 06/06/2018 Status: COMPLETED Source: [place] 1:30 PM [facility] REPOSITORY HNO ID: [id number] Author: Jonnie Edwards Service: (none) Author Type: Physician Type: Progress Notes Filed: 06/08/2018 11:16 AM Note Text: Here for carpel tunnel injection See procedure note section. CNOV Observed: 06/06/2018 Status: COMPLETED Source: [place] 1:20 PM [facility] REPOSITORY Office Visit (FAMPWS) SUJIT BEDOYA ([id number]) 1960 Date Time Provider Department 06/06/18 1:20 PM JONNIE EDWARDS [facility]AMPWS During your visit today, we recorded the following information about you: Pulse Respiration Blood pressure Weight 72/minute 14/minute 132/84 77.6 kg Jonnie Edwards MD 06/08/2018 11:16 AM Signed Here for carpel tunnel injection See procedure note section. Jonnie Edwards MD 06/08/2018 11:16 AM Signed UNIVERSAL PROTOCOL / SAFETY CHECKLIST Procedure to be performed: carpel tunnel injection Sign in Communication: Completed Time Out: Team Confirms the Correct Patient, Correct Procedure, Correct Site and Site Marking, Correct Position (if applicable), Prep and Dry Time (if applicable). Time: 13:31 Affirmation of Time Out: YES Sign Out Discussion: Completed Jonnie Edwards MD The right wrist was cleansed with betadine and alcohol. A 22 gauge 1 1/2 needle was inserted between the wrist lines in line with the middle of the 4th digit. Aspiration attempted with no blood return. Medication was then injected without difficulty. Patient tolerated well. Medication was 20 mg of kenalog and 1 cc of 1 % lido without Epi Referring Provider: JONNIE EDWARDS [[id number]] Allergies As of Date: 06/06/2018 (No Known Allergies) Date Reviewed: 06/06/2018 Reviewed by: Edilma Aguilar Ma - Fully Assessed Reason for Visit: Imm/Inj [58] Cmt: carpel tunnel on the right Reason For Visit History Recorded Primary Visit Diagnosis:Carpal tunnel syndrome, right [G56.01] Order(s):[] lidocaine (PF) 10 mg/mL (1 %) 10 mg, triamcinolone acetonide 20 mgDisp: Rfl: Prescriptions as of 06/06/2018 Sig: OMEPRAZOLE 20 MG CAPSULE,KAZ* TAKE ONE CAPSULE BY MOUTH 30 * PRAMIPEXOLE 0.25 MG TABLET Take 1 tablet by mouth daily * PAIN RELIEF EXTRA STRENGTH 50* TAKE TWO TABLETS BY MOUTH SUMMER* ALBUTEROL SULFATE HFA 90 MCG/* Inhale 2 Puffs as instructed * CETIRIZINE 10 MG TABLET Take 1 tablet by mouth once d* OMEGA-3 FATTY ACIDS 1,000 MG * Take 2 capsules by mouth once* CEFADROXIL 500 MG CAPSULE Take 1 capsule by mouth twice* WARFARIN 5 MG TABLET Take 1 tablet by mouth daily * TIOTROPIUM BROMIDE 18 MCG CAP* Inhale 1 capsule as instructe* METOPROLOL SUCCINATE ER 25 MG* Take 25 mg by mouth once tamie* COMPOUNDED PRESCRIPTION BLOOD PRESSURE CUFF FOR HOME * VARICELLA-ZOSTER GLYCOE VACC-* Inject 0.5 mL intramuscularly* Problem List As Of Date 06/06/2018 Noted Resolved Aortic valve replaced [Z95.2] INVALID FOR* Priority: B More... Essential hypertension [I10] INVALID FOR* Priority: A Seasonal allergies [J30.2] INVALID FOR* Priority: B Arthritis [M19.90] INVALID FOR* Priority: M Well adult exam [Z00.00] INVALID FOR* Priority: E More... COPD (chronic obstructive pulmonary disease) (H*INVALID FOR* Priority: A More... Smoker [F17.200] INVALID FOR* Priority: C More... 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 Pneumothorax [J93.9] INVALID FOR* Priority: B More... More... Gastroesophageal reflux disease without esophag*INVALID FOR* Priority: A Viral warts [B07.9] INVALID FOR* Priority: D More... Prostate cancer screening [Z12.5] INVALID FOR* Colon cancer screening [Z12.11] INVALID FOR* Pain of both hip joints [M25.551, M25.552] INVALID FOR* Priority: M Current use of proton pump inhibitor [Z79.899] INVALID FOR* More... Abdominal aortic aneurysm (AAA) without rupture*INVALID FOR* Priority: A More... History of repair of thoracic aortic aneurysm [*INVALID FOR* Priority: B More... RLS (restless legs syndrome) [G25.81] INVALID FOR* Priority: B Dyslipidemia [E78.5] INVALID FOR* Priority: A Atrial fibrillation (HCC) [I48.91] INVALID FOR* Priority: A More... Carpal tunnel syndrome, right [G56.01] INVALID FOR* Priority: M More... 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 [address] [place], [address] NCS AND/OR EMG Observed: 05/22/2018 Status: F Source: [place] PATIENT 1:47 PM [facility] REPOSITORY [facility] Pulmonary Services/Neurology [address] [place] [address] MR#: [id number] Acct: [id number] Name: SUJIT BEDOYA Rep #: [id number] : 1960 57 From: Ramesh Sanders MD Referring Dr: Jonnie Edwards MD Status: REG CLI Ordering Dr: Date: Location: N Sex: M C NCS and/or EMG Patient Report Ordering Doctor: Jonnie Edwards DATE OF SERVICE: 05/22/18 This is a right upper extremity EMG and nerve conduction study performed on this 57-year-old male with a history for 20 years of paresthesias in his first and second digit on the right hand, present throughout the year but does get worse in cold weather. He is healthy otherwise. Right upper extremity sensory and motor nerve conduction study is performed. The median motor and sensory distal latencies are prolonged with mild reduction in amplitude but preserved conduction velocity. The ulnar motor and sensory and radial sensory responses normal. Median and ulnar F-wave latencies are preserved. Right upper extremity needle electromyography is performed. Muscles evaluated included the first dorsal interosseous, abductor pollicis brevis, brachioradialis, biceps, triceps and deltoid muscles. All muscles demonstrated normal insertional activity with absence of pathologic spontaneous activity. Motor unit potential recruitment pattern and amplitude was normal in all muscles tested. Impression: Abnormal electrophysiologic study of the right upper extremity consistent with moderate carpal tunnel syndrome at the right wrist. 05/22/18 1347 <Electronically signed by Ramesh Sanders MD> Date Ramesh Sanders MD CC: Jonnie Edwards MD; Ramesh Sanders MD Date Dictated: 05/22/181336 Date Transcribed: 05/22/181336 Government Professor: MANUEL Signed PROTHROMBIN TIME W/INR Collected: 05/22/2018 Status: F Source: [place] 9:36 AM [facility] REPOSITORY TYPE CODE TESTS RESULT OUT OF RANGE REFERENCE UNITS LAB L300.4150 11.7-14.9 SECONDS High PROTIME 19.9 LAB L300.4200 Normal INR 1.7 Performed By: #### [id number] #### [facility] [address] [place], [address] PROGRESS Observed: 02/14/2018 Status: COMPLETED Source: [place] 11:42 AM [facility] [place] REPOSITORY HNO ID: [id number] Author: Jonnie Edwards Service: (none) Author Type: Physician Type: Progress Notes Filed: 02/14/2018 9:56 PM Note Text: Chief Complaint Patient presents with: Physical HPI Sujit Bedoya is a 57 year old male who presents here today for WAE and routine issues. Also complaining of numbness in the right thumb and uri symptoms for th past 1-2 weeks Patient with Hx as reviewed and documented below. Has cut back on his smoking. 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 Previous Medical History PAST MEDICAL HISTORY Diagnosis Date - AAA (abdominal aortic aneurysm) ([facility]) 08/18/2015 Pt. states aneurysm in chest was repaired, not AAA - Aortic valve replaced 08/18/2015 Mechanical on coumadin managed by Dr. 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 - COPD (chronic obstructive pulmonary disease) ([facility]) 08/18/2015 PFT's 08/10/2015 mild COPD - Essential hypertension 08/18/2015 - Gastroesophageal reflux disease without esophagitis 08/18/2015 - MT (myocardial infarction) ([facility]) x 5, no stents - Not currently working due to disabled status because of heart status - Pain of both hip joints 08/18/2015 - Pneumothorax 08/18/2015 2007 , right side x 2 - Seasonal allergies 08/18/2015 - Viral warts 08/18/2015 right hand Previous Surgical History PAST SURGICAL HISTORY Procedure Laterality Date - 2D ECHO (EXEP) 08/10/2015 EF=65%, 1+ TI. no change from 01/20/2014 - PAST SURGICAL HISTORY OF Pt. states he had aneurysm repair in chest 2010 - REPLACEMENT, AORTIC VALVE, WITH CAR 2010 - STRESS TEST 08/12/15 WNL Family History FAMILY HISTORY Problem Relation Age of Onset - Adopted: Yes - Cancer Mother biological-unknown source Patient Allergies ALLERGIES No Known Allergies Current Medications Current Outpatient Prescriptions on File Prior to Visit: warfarin (COUMADIN) 5 mg tablet Take 1 tablet by mouth daily as directed. 7mg M-F and 10mg Sat and Sun or as directed. PAIN RELIEF EXTRA STRENGTH 500 mg tablet TAKE TWO TABLETS BY MOUTH EVERY 6 HOURS NEEDED omeprazole (PRILOSEC) 20 mg capsule TAKE ONE CAPSULE BY MOUTH 30 minutes BEFORE BREAKFAST pramipexole (MIRAPEX) 0.25 mg tablet Take 1 tablet by mouth daily at bedtime. Take 2-3 hours before bedtime cetirizine (ZYRTEC) 10 mg tablet Take 1 tablet by mouth once daily. albuterol HFA (VENTOLIN HFA) 90 mcg/actuation inhaler Inhale 2 Puffs as instructed every 4 hours as needed for Wheezing/Shortness of Breath. tiotropium (SPIRIVA WITH HANDIHALER) 18 mcg inhalation capsule Inhale 1 capsule as instructed once daily. metoprolol succinate XL, long acting, (TOPROL XL) 25 mg 24 hr tablet Take 25 mg by mouth once daily. No current facility-administered medications on file prior to visit. Social History Social History Marital status: Single Spouse name: Years of education: Number of children: Social History Main Topics Smoking status: Current Every Day Smoker Packs/day: 0.50 Years: 45.00 Smokeless status: Never Used Alcohol use: No Drug use: No Review of Symptoms REVIEW OF SYSTEMS GENERAL: No weight loss. Not feeling well for the past 1- 2 week, Has had some cold chills. Feeling run down and tired. HEENT: has had some posterior head headaches. No ear pain. Maxillary and frontal sinuses are tender. Has had some yellow nasal discharge. Slight post nasal drainage but no sore throat. NECK: Negative for lumps, goiter, pain and significant neck swelling RESPIRATORY: Negative for hemoptysis, wheezing, COPD, dyspnea or shortness of breath. Has had a productive cough of clear to white sputum CARDIOVASCULAR: Negative for chest pain, leg swelling, hypertension, CHF or palpitations GI: No nausea, vomiting No frequent breaktrhrough heartburn or reflux symptoms and no blood. Has had some loose stools over the last two weeks : No history of dysuria or blood MUSCULOSKELETAL: Negative for new or changes in joint pain or swelling, back pain or muscle pain. SKIN: Negative for lesions, rash, and itching PSYCH: Negative for sleep disturbance, mood disorder and recent psychosocial stressors HEMATOLOGY/LYMPHOLOGY: Negative for prolonged bleeding, bruising easily or swollen nodes ENDOCRINE: Negative for cold or heat intolerance, polyuria, polydipsia and goiter NEURO: No history of headaches, syncope, paralysis, seizures or tremors. Has been getting numbness off and on in the right thumb. No pain and not sure if any weakness. EXAM: BP 110/60 (BP Site: Left Arm, BP Position: Sitting, BP Cuff Size: Large Adult) Pulse 76 Resp 24 Ht 181.6 cm (5' 11.5) Wt 79.8 kg (176 lb) BMI 24.2 kg/m2 General Appearance: Well appearing, alert, in no acute distress, well-hydrated, well nourished.. Skin: Skin color, texture, turgor normal, no suspicious rashes or lesions. Head: Normocephalic, no masses, lesions, tenderness or abnormalities. Eyes: Anicteric sclera. Pupils are equally round and reactive to light. Extraocular movements are intact. . Ears: External ears normal. Canals blocked with cerumen. Nose/Sinuses: Nares normal, septum midline, mucosa normal. Has yellow mucus in the left nares. Has maxillary and frontal sinus tenderness. Oropharynx: Lips, mucosa, and tongue normal, teeth and gums normal, oropharynx normal. Neck: Supple, no adenopathy; thyroid symmetric, normal size, no bruits. Lungs: Lungs clear to auscultation. No wheezing, rhonchi, rales. Heart: RRR without murmur, gallop, or rubs. No ectopy. Has audible click from mechanical heart valve. Abdomen: Normal abdominal exam, Abdomen soft, non-tender. Bowel sounds normal. No masses, organomegaly. Extremities: No deformities, edema, skin discoloration. Musculoskeletal: Spine range of motion normal. Muscular strength intact, No joint swelling, deformity, or tenderness. Peripheral Pulses: Normal. Neurologic: Gait normal. Reflexes normal and symmetric. Sensation to light touch and crainal nerves 2-12 intact., tanel's testing was normal but phalan's testing mildly positive on the right.. Genitalia: Penis normal. No urethral discharge. Scrotum normal to palpation. No hernia.. Rectal: Normal exam. Health Maintenance List HEPATITIS C SCREENING due on 2004 COLORECTAL CANCER SCREENING,SEE MODIFIER due on 09/14/2016 DIABETES SCREEN due on 02/12/2021 LIPID SCREEN due on 02/12/2023 TETANUS due on 08/18/2025 PROSTATE CANCER SCREENING DISCUSSION Completed ONE PNEUMOVAX PRIOR TO AGE 65 Completed INFLUENZA Completed Data reviewed Component Latest Ref Rng AND Units 02/12/2018 Protein, Total 6.3 - 8.0 g/dL 7.0 Albumin 3.9 - 4.9 g/dL 4.5 Calcium 8.5 - 10.2 mg/dL 9.6 Bilirubin, Total 0.2 - 1.3 mg/dL 0.3 Alkaline Phosphatase 36 - 108 U/L 94 AST 14 - 40 U/L 15 Glucose 74 - 99 mg/dL 88 BUN 9 - 24 mg/dL 3 (L) Creatinine 0.73 - 1.22 mg/dL 0.93 Sodium 136 - 144 mmol/L 140 Potassium 3.7 - 5.1 mmol/L 4.4 Chloride 97 - 105 mmol/L 103 CO2 22 - 30 mmol/L 23 Anion Gap 9 - 18 mmol/L 14 ALT 10 - 54 U/L 12 eGFR- >60 eGFR-All Other Races . >60 Cholesterol, Total <200 mg/dL 166 Triglyceride <150 mg/dL 209 (H) HDL Cholesterol >39 mg/dL 35 (L) LDL Cholesterol <100 mg/dL 89 Non HDL Cholesterol <130 mg/dL 131 (H) Fasting Time hrs 12 VLDL Cholesterol <30 mg/dL 42 (H) TC:HDL Ratio <5.10 4.74 LDL:HDL Ratio <2.54 2.54 (H) Magnesium 1.7 - 2.3 mg/dL 2.2 PSA 0.00 - 2.59 ng/mL 1.07 A/P ASSESSMENT/PLAN: 1. Well adult exam - ICD9: V70.0, ICD10: Z00.00 (primary diagnosis) - Completed Digital Rectal exam - Recommended regular aerobic exercise. - Follow up for annual exam in one year. 2. Abdominal aortic aneurysm (AAA) without rupture (HCC) - ICD9: 441.4, ICD10: I71.4 - CONSULT TO VASCULAR SURGERY for management 3. Atrial fibrillation, unspecified type (HCC) - ICD9: 427.31, ICD10: I48.91 - Cont f/u with cardio and coumadin 4. Essential hypertension - ICD9: 401.9, ICD10: I10 - good control - Continue current medication(s) - Recommended regular aerobic exercise. - Recommend home blood pressure monitoring, to bring results in on next visit - Goal of BP <140/90 - COMPOUNDED PRESCRIPTION 5. Gastroesophageal reflux disease without esophagitis - ICD9: 530.81, ICD10: K21.9 - Continue treatment with Prilosec 20 mg QD 6. Chronic obstructive pulmonary disease, unspecified COPD type (HCC) - ICD9: 496, ICD10: J44.9 Clinically stable and again encouraged smoking cessation. 7. Aortic valve replaced - ICD9: V43.3, ICD10: Z95.2 - On coumadin and seeing cardio 8. History of repair of thoracic aortic aneurysm - ICD9: V45.89, ICD10: Z98.890, Z86.79 - CONSULT TO VASCULAR SURGERY 9. RLS (restless legs syndrome) - ICD9: 333.94, ICD10: G25.81 - Stable with current Tx. 10. Smoker - ICD9: 305.1, ICD10: F17.200 - Cessation encouraged. - Counseling was given focusing on the harmful effects of this addiction especially given the patient's medical condition(s) which will be worsened because of the chemicals in tobacco. 11. Dyslipidemia - ICD9: 272.4, ICD10: E78.5 - suboptimal control - Continue current medication. - Encouraged following a low fat, low cholesterol diet. - Discussed the benefits of regular aerobic exercise and weight loss. - Encouraged following a low carbohydrate, healthy oil intake diet. - Suggested taking fish oil 1000 mg two a day. 12. Bilateral impacted cerumen - ICD9: 380.4, ICD10: H61.23 - With verbal permission both ears irrigated with warm water for the removal of wax, patient tolerated well. 13. Colon cancer screening - ICD9: V76.51, ICD10: Z12.11 Check - FECAL OCCULT BLOOD TEST A/P 1. Acute non-recurrent pansinusitis - ICD9: 461.8, ICD10: J01.40 - Will begin treatment with: - CEFADROXIL 500 MG CAPSULE 2. Numbness of right hand - ICD9: 782.0, ICD10: R20.0 Check - EMG(NEURO/NI) and NCS at [facility] Signed Prescriptions Disp Refills albuterol HFA (VENTOLIN HFA) 90 mcg/actuation inhaler 1 Inhaler 2 Sig: Inhale 2 Puffs as instructed every 4 hours as needed for Wheezing/Shortness of Breath. RUSSELL: No cetirizine (ZYRTEC) 10 mg tablet 30 tablet 5 Sig: Take 1 tablet by mouth once daily. RUSSELL: No COMPOUNDED PRESCRIPTION 1 Device 0 Sig: BLOOD PRESSURE CUFF FOR HOME USE. DX: I10 RUSSELL: No omega-3 fatty acids 1,000 mg cap Sig: Take 2 capsules by mouth once daily. cefADROxil (DURICEF) 500 mg capsule 20 capsule 0 Sig: Take 1 capsule by mouth twice daily. F/u in 6 months routine check FLP prior. Time with patient face to face was 45 min Jonnie Edwards MD CNOV Observed: 02/14/2018 Status: COMPLETED Source: [place] 11:20 AM [facility] ROSARIOSUJIT ([id number]) 1960 M Date Time Provider Department 02/14/18 11:20 AM [facility]ONNIE EDWARDS [facility] During your visit today, we recorded the following information about you: Pulse Respiration Blood pressure Weight 76/minute 24/minute 110/60 79.8 kg Height 1.816 m Jonnie Edwards MD 02/14/2018 9:56 PM Signed Chief Complaint Patient presents with: Physical HPI Sujit Daivd Rosario is a 57 year old male who presents here today for WAE and routine issues. Also complaining of numbness in the right thumb and uri symptoms for th past 1-2 weeks Patient with Hx as reviewed and documented below. Has cut back on his smoking. 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 Previous Medical History PAST MEDICAL HISTORY Diagnosis Date - AAA (abdominal aortic aneurysm) (HCC) 08/18/2015 Pt. states aneurysm in chest was repaired, not AAA - Aortic valve replaced 08/18/2015 Mechanical on coumadin managed by Dr. 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 - COPD (chronic obstructive pulmonary disease) ([facility]) 08/18/2015 PFT's 08/10/2015 mild COPD - Essential hypertension 08/18/2015 - Gastroesophageal reflux disease without esophagitis 08/18/2015 - MT (myocardial infarction) ([facility]) x 5, no stents - Not currently working due to disabled status because of heart status - Pain of both hip joints 08/18/2015 - Pneumothorax 08/18/2015 2007 , right side x 2 - Seasonal allergies 08/18/2015 - Viral warts 08/18/2015 right hand Previous Surgical History PAST SURGICAL HISTORY Procedure Laterality Date - 2D ECHO (EXEP) 08/10/2015 EF=65%, 1+ TI. no change from 01/20/2014 - PAST SURGICAL HISTORY OF Pt. states he had aneurysm repair in chest 2010 - REPLACEMENT, AORTIC VALVE, WITH CAR 2010 - STRESS TEST 08/12/15 WNL Family History FAMILY HISTORY Problem Relation Age of Onset - Adopted: Yes - Cancer Mother biological-unknown source Patient Allergies ALLERGIES No Known Allergies Current Medications Current Outpatient Prescriptions on File Prior to Visit: warfarin (COUMADIN) 5 mg tablet Take 1 tablet by mouth daily as directed. 7mg M-F and 10mg Sat and Sun or as directed. PAIN RELIEF EXTRA STRENGTH 500 mg tablet TAKE TWO TABLETS BY MOUTH EVERY 6 HOURS NEEDED omeprazole (PRILOSEC) 20 mg capsule TAKE ONE CAPSULE BY MOUTH 30 minutes BEFORE BREAKFAST pramipexole (MIRAPEX) 0.25 mg tablet Take 1 tablet by mouth daily at bedtime. Take 2-3 hours before bedtime cetirizine (ZYRTEC) 10 mg tablet Take 1 tablet by mouth once daily. albuterol HFA (VENTOLIN HFA) 90 mcg/actuation inhaler Inhale 2 Puffs as instructed every 4 hours as needed for Wheezing/Shortness of Breath. tiotropium (SPIRIVA WITH HANDIHALER) 18 mcg inhalation capsule Inhale 1 capsule as instructed once daily. metoprolol succinate XL, long acting, (TOPROL XL) 25 mg 24 hr tablet Take 25 mg by mouth once daily. No current facility-administered medications on file prior to visit. Social History Social History Marital status: Single Spouse name: Years of education: Number of children: Social History Main Topics Smoking status: Current Every Day Smoker Packs/day: 0.50 Years: 45.00 Smokeless status: Never Used Alcohol use: No Drug use: No Review of Symptoms REVIEW OF SYSTEMS GENERAL: No weight loss. Not feeling well for the past 1- 2 week, Has had some cold chills. Feeling run down and tired. HEENT: has had some posterior head headaches. No ear pain. Maxillary and frontal sinuses are tender. Has had some yellow nasal discharge. Slight post nasal drainage but no sore throat. NECK: Negative for lumps, goiter, pain and significant neck swelling RESPIRATORY: Negative for hemoptysis, wheezing, COPD, dyspnea or shortness of breath. Has had a productive cough of clear to white sputum CARDIOVASCULAR: Negative for chest pain, leg swelling, hypertension, CHF or palpitations GI: No nausea, vomiting No frequent breaktrhrough heartburn or reflux symptoms and no blood. Has had some loose stools over the last two weeks : No history of dysuria or blood MUSCULOSKELETAL: Negative for new or changes in joint pain or swelling, back pain or muscle pain. SKIN: Negative for lesions, rash, and itching PSYCH: Negative for sleep disturbance, mood disorder and recent psychosocial stressors HEMATOLOGY/LYMPHOLOGY: Negative for prolonged bleeding, bruising easily or swollen nodes ENDOCRINE: Negative for cold or heat intolerance, polyuria, polydipsia and goiter NEURO: No history of headaches, syncope, paralysis, seizures or tremors. Has been getting numbness off and on in the right thumb. No pain and not sure if any weakness. EXAM: BP 110/60 (BP Site: Left Arm, BP Position: Sitting, BP Cuff Size: Large Adult) Pulse 76 Resp 24 Ht 181.6 cm (5' 11.5ANDquot;) Wt 79.8 kg (176 lb) BMI 24.2 kg/m2 General Appearance: Well appearing, alert, in no acute distress, well-hydrated, well nourished.. Skin: Skin color, texture, turgor normal, no suspicious rashes or lesions. Head: Normocephalic, no masses, lesions, tenderness or abnormalities. Eyes: Anicteric sclera. Pupils are equally round and reactive to light. Extraocular movements are intact. . Ears: External ears normal. Canals blocked with cerumen. Nose/Sinuses: Nares normal, septum midline, mucosa normal. Has yellow mucus in the left nares. Has maxillary and frontal sinus tenderness. Oropharynx: Lips, mucosa, and tongue normal, teeth and gums normal, oropharynx normal. Neck: Supple, no adenopathy; thyroid symmetric, normal size, no bruits. Lungs: Lungs clear to auscultation. No wheezing, rhonchi, rales. Heart: RRR without murmur, gallop, or rubs. No ectopy. Has audible click from mechanical heart valve. Abdomen: Normal abdominal exam, Abdomen soft, non-tender. Bowel sounds normal. No masses, organomegaly. Extremities: No deformities, edema, skin discoloration. Musculoskeletal: Spine range of motion normal. Muscular strength intact, No joint swelling, deformity, or tenderness. Peripheral Pulses: Normal. Neurologic: Gait normal. Reflexes normal and symmetric. Sensation to light touch and crainal nerves 2-12 intact., tanel's testing was normal but phalan's testing mildly positive on the right.. Genitalia: Penis normal. No urethral discharge. Scrotum normal to palpation. No hernia.. Rectal: Normal exam. Health Maintenance List HEPATITIS C SCREENING due on 2004 COLORECTAL CANCER SCREENING,SEE MODIFIER due on 09/14/2016 DIABETES SCREEN due on 02/12/2021 LIPID SCREEN due on 02/12/2023 TETANUS due on 08/18/2025 PROSTATE CANCER SCREENING DISCUSSION Completed ONE PNEUMOVAX PRIOR TO AGE 65 Completed INFLUENZA Completed Data reviewed Component Latest Ref Rng ANDamp; Units 02/12/2018 Protein, Total 6.3 - 8.0 g/dL 7.0 Albumin 3.9 - 4.9 g/dL 4.5 Calcium 8.5 - 10.2 mg/dL 9.6 Bilirubin, Total 0.2 - 1.3 mg/dL 0.3 Alkaline Phosphatase 36 - 108 U/L 94 AST 14 - 40 U/L 15 Glucose 74 - 99 mg/dL 88 BUN 9 - 24 mg/dL 3 (L) Creatinine 0.73 - 1.22 mg/dL 0.93 Sodium 136 - 144 mmol/L 140 Potassium 3.7 - 5.1 mmol/L 4.4 Chloride 97 - 105 mmol/L 103 CO2 22 - 30 mmol/L 23 Anion Gap 9 - 18 mmol/L 14 ALT 10 - 54 U/L 12 eGFR- ANDgt;60 eGFR-All Other Races . ANDgt;60 Cholesterol, Total ANDlt;200 mg/dL 166 Triglyceride ANDlt;150 mg/dL 209 (H) HDL Cholesterol ANDgt;39 mg/dL 35 (L) LDL Cholesterol ANDlt;100 mg/dL 89 Non HDL Cholesterol ANDlt;130 mg/dL 131 (H) Fasting Time hrs 12 VLDL Cholesterol ANDlt;30 mg/dL 42 (H) TC:HDL Ratio ANDlt;5.10 4.74 LDL:HDL Ratio ANDlt;2.54 2.54 (H) Magnesium 1.7 - 2.3 mg/dL 2.2 PSA 0.00 - 2.59 ng/mL 1.07 A/P ASSESSMENT/PLAN: 1. Well adult exam - ICD9: V70.0, ICD10: Z00.00 (primary diagnosis) - Completed Digital Rectal exam - Recommended regular aerobic exercise. - Follow up for annual exam in one year. 2. Abdominal aortic aneurysm (AAA) without rupture (HCC) - ICD9: 441.4, ICD10: I71.4 - CONSULT TO VASCULAR SURGERY for management 3. Atrial fibrillation, unspecified type (HCC) - ICD9: 427.31, ICD10: I48.91 - Cont f/u with cardio and coumadin 4. Essential hypertension - ICD9: 401.9, ICD10: I10 - good control - Continue current medication(s) - Recommended regular aerobic exercise. - Recommend home blood pressure monitoring, to bring results in on next visit - Goal of BP ANDlt;140/90 - COMPOUNDED PRESCRIPTION 5. Gastroesophageal reflux disease without esophagitis - ICD9: 530.81, ICD10: K21.9 - Continue treatment with Prilosec 20 mg QD 6. Chronic obstructive pulmonary disease, unspecified COPD type (HCC) - ICD9: 496, ICD10: J44.9 Clinically stable and again encouraged smoking cessation. 7. Aortic valve replaced - ICD9: V43.3, ICD10: Z95.2 - On coumadin and seeing cardio 8. History of repair of thoracic aortic aneurysm - ICD9: V45.89, ICD10: Z98.890, Z86.79 - CONSULT TO VASCULAR SURGERY 9. RLS (restless legs syndrome) - ICD9: 333.94, ICD10: G25.81 - Stable with current Tx. 10. Smoker - ICD9: 305.1, ICD10: F17.200 - Cessation encouraged. - Counseling was given focusing on the harmful effects of this addiction especially given the patient's medical condition(s) which will be worsened because of the chemicals in tobacco. 11. Dyslipidemia - ICD9: 272.4, ICD10: E78.5 - suboptimal control - Continue current medication. - Encouraged following a low fat, low cholesterol diet. - Discussed the benefits of regular aerobic exercise and weight loss. - Encouraged following a low carbohydrate, healthy oil intake diet. - Suggested taking fish oil 1000 mg two a day. 12. Bilateral impacted cerumen - ICD9: 380.4, ICD10: H61.23 - With verbal permission both ears irrigated with warm water for the removal of wax, patient tolerated well. 13. Colon cancer screening - ICD9: V76.51, ICD10: Z12.11 Check - FECAL OCCULT BLOOD TEST A/P 1. Acute non-recurrent pansinusitis - ICD9: 461.8, ICD10: J01.40 - Will begin treatment with: - CEFADROXIL 500 MG CAPSULE 2. Numbness of right hand - ICD9: 782.0, ICD10: R20.0 Check - EMG(NEURO/NI) and NCS at [facility] Signed Prescriptions Disp Refills albuterol HFA (VENTOLIN HFA) 90 mcg/actuation inhaler 1 Inhaler 2 Sig: Inhale 2 Puffs as instructed every 4 hours as needed for Wheezing/Shortness of Breath. RUSSELL: No cetirizine (ZYRTEC) 10 mg tablet 30 tablet 5 Sig: Take 1 tablet by mouth once daily. RUSSELL: No COMPOUNDED PRESCRIPTION 1 Device 0 Sig: BLOOD PRESSURE CUFF FOR HOME USE. DX: I10 RUSSELL: No omega-3 fatty acids 1,000 mg cap Sig: Take 2 capsules by mouth once daily. cefADROxil (DURICEF) 500 mg capsule 20 capsule 0 Sig: Take 1 capsule by mouth twice daily. F/u in 6 months routine check FLP prior. Time with patient face to face was 45 min MD Jonnie Ventura MD 02/14/2018 12:17 PM Signed Please let me know if taking simvastatin (Zocor) or atorvastatin (Lipitor) and the strength. Please get fasting lab done on or after 08/03/2018 prior to next visit. Referring Provider: SELF [[id number]] Allergies As of Date: 02/14/2018 (No Known Allergies) Date Reviewed: 02/14/2018 Reviewed by: Jonnie Edwards - Fully Assessed Reason for Visit: Physical [83] Primary Visit Diagnosis:Well adult exam [Z00.00] Other Visit Diagnoses:Abdominal aortic aneurysm (AAA) without rupture (HCC) [I71.4] Atrial fibrillation, unspecified type (HCC) [I48.91] Essential hypertension [I10] Gastroesophageal reflux disease without esophagitis [K21.9] Chronic obstructive pulmonary disease, unspecified COPD type (HCC) [J44.9] Aortic valve replaced [Z95.2] History of repair of thoracic aortic aneurysm [Z98.890, Z86.79] RLS (restless legs syndrome) [G25.81] Smoker [F17.200] Dyslipidemia [E78.5] Bilateral impacted cerumen [H61.23] Colon cancer screening [Z12.11] Acute non-recurrent pansinusitis [J01.40] Numbness of right hand [R20.0] Current use of proton pump inhibitor [Z79.899] Order(s):albuterol HFA (VENTOLIN HFA) 90 mcg/actuation inhalerInhale 2 Puffs as instructed every 4 hours as needed for Wheezing/Shortness of Breath.Disp: 1 InhalerRfl: 2 cetirizine (ZYRTEC) 10 mg tabletTake 1 tablet by mouth once daily.Disp: 30 tabletRfl: 5 COMPOUNDED PRESCRIPTIONBLOOD PRESSURE CUFF FOR HOME USE. DX: D67Dbdh: 1 DeviceRfl: 0 FECAL OCCULT BLOOD TEST [SQIFOBT] Order #: [id number] FUTURE omega-3 fatty acids 1,000 mg capTake 2 capsules by mouth once daily.Disp: Rfl: cefADROxil (DURICEF) 500 mg capsuleTake 1 capsule by mouth twice daily.Disp: 20 capsuleRfl: 0 EMG(NEURO/NI) [20110128] Order #: [id number]: 1 FUTURE CONSULT TO VASCULAR SURGERY [42] Order #: [id number]: 1 LIPID PANEL BASIC [SQLIPB] Order #: [id number] FUTURE Prescriptions as of 02/14/2018 Sig: ALBUTEROL SULFATE HFA 90 MCG/* Inhale 2 Puffs as instructed * CETIRIZINE 10 MG TABLET Take 1 tablet by mouth once d* WARFARIN 5 MG TABLET Take 1 tablet by mouth daily * PAIN RELIEF EXTRA STRENGTH 50* TAKE TWO TABLETS BY MOUTH SUMMER* OMEPRAZOLE 20 MG CAPSULE,KAZ* TAKE ONE CAPSULE BY MOUTH 30 * PRAMIPEXOLE 0.25 MG TABLET Take 1 tablet by mouth daily * TIOTROPIUM BROMIDE 18 MCG CAP* Inhale 1 capsule as instructe* METOPROLOL SUCCINATE ER 25 MG* Take 25 mg by mouth once tamie* COMPOUNDED PRESCRIPTION BLOOD PRESSURE CUFF FOR HOME * OMEGA-3 FATTY ACIDS 1,000 MG * Take 2 capsules by mouth once* CEFADROXIL 500 MG CAPSULE Take 1 capsule by mouth twice* Problem List As Of Date 02/14/2018 Noted Resolved Aortic valve replaced [Z95.2] INVALID FOR* Priority: B More... Essential hypertension [I10] INVALID FOR* Priority: A Seasonal allergies [J30.2] INVALID FOR* Priority: B Arthritis [M19.90] INVALID FOR* Priority: M Well adult exam [Z00.00] INVALID FOR* Priority: E More... COPD (chronic obstructive pulmonary disease) (H*INVALID FOR* Priority: A More... Smoker [F17.200] INVALID FOR* Priority: C More... 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 Pneumothorax [J93.9] INVALID FOR* Priority: B More... More... Gastroesophageal reflux disease without esophag*INVALID FOR* Priority: A Viral warts [B07.9] INVALID FOR* Priority: D More... Prostate cancer screening [Z12.5] INVALID FOR* Colon cancer screening [Z12.11] INVALID FOR* Pain of both hip joints [M25.551, M25.552] INVALID FOR* Priority: M Current use of proton pump inhibitor [Z79.899] INVALID FOR* More... Abdominal aortic aneurysm (AAA) without rupture*INVALID FOR* Priority: A More... History of repair of thoracic aortic aneurysm [*INVALID FOR* Priority: B More... RLS (restless legs syndrome) [G25.81] INVALID FOR* Priority: B Dyslipidemia [E78.5] INVALID FOR* Priority: A Atrial fibrillation (HCC) [I48.91] INVALID FOR* Priority: A More... Other instructions from your clinician: Please let me know if taking simvastatin (Zocor) or atorvastatin (Lipitor) and the strength. Please get fasting lab done on or after 08/03/2018 prior to next visit. Prescriptions ordered this encounter Disp Refills Start End ALBUTEROL SULFATE HFA 90 MCG/ACTUATI* 1 In* 2 02/14/2018 Route: INHALATION Sig: Inhale 2 Puffs as instructed every 4 hours as needed for Wheezing/Shortness of Breath. CETIRIZINE 10 MG TABLET 30 t* 5 02/14/2018 Route: ORAL Sig: Take 1 tablet by mouth once daily. COMPOUNDED PRESCRIPTION 1 De* 0 02/14/2018 Class: Print RX Sig: BLOOD PRESSURE CUFF FOR HOME USE. DX: I10 OMEGA-3 FATTY ACIDS 1,000 MG CAPSULE 02/14/2018 Class: Med Update Route: ORAL Sig: Take 2 capsules by mouth once daily. CEFADROXIL 500 MG CAPSULE 20 c* 0 02/14/2018 Route: ORAL Sig: Take 1 capsule by mouth twice daily. Medications Discontinued During This Encounter varenicline (CHANTIX CONTINUING FINN* 1 Pa* 2 02/07/2017 02/14/2018 Route: ORAL Sig: Take 1 tablet by mouth twice daily. Disc: Reason for discontinue is not on file. COMPOUNDED PRESCRIPTION 1 Ea* 0 04/03/2017 02/14/2018 Class: Print RX Sig: Rib support belt Disc: Reason for discontinue is not on file. Blood Pressure Cuff - Home Use 1 De* 0 02/07/2017 02/14/2018 Class: Print RX Sig: BLOOD PRESSURE CUFF FOR HOME USE. DX: I10 Disc: Reason for discontinue is not on file. albuterol HFA (VENTOLIN HFA) 90 mcg/* 1 In* 0 12/15/2015 02/14/2018 Class: Historical Med Route: INHALATION Sig: Inhale 2 Puffs as instructed every 4 hours as needed for Wheezing/Shortness of Breath. Disc: Reason for discontinue is not on file. cetirizine (ZYRTEC) 10 mg tablet 30 t* 2 09/05/2017 02/14/2018 Route: ORAL Sig: Take 1 tablet by mouth once daily. Disc: Reason for discontinue is not on file. Disposition: Return in about 6 months (around 08/16/2018) for routine. Follow-up and Disposition History Recorded Encounter Status:Closed by JONNIE EDWARDS on 02/14/18 URINALYSIS WITH Collected: 02/14/2018 Status: F Source: [place] [facility] 9:20 AM [facility] REPOSITORY TYPE CODE TESTS RESULT OUT OF RANGE REFERENCE UNITS LAB UCOL Yellow Color Yellow LAB UCLA Clear Clarity Clear LAB UGLUC Negative mg/dL Glucose, Urine Negative LAB UBIL Negative Bilirubin, Urine Negative LAB UKET Negative Ketones, Urine Negative LAB USPG 1.005-1.030 Specific [place], Ur 1.018 LAB UHGB Negative Abnormal Hemoglobin/Blood, 1+ Alert Ur LAB UPH 4.5-8.0 pH 5.0 LAB UPROT Negative mg/dL Protein, Urine Negative LAB UUROB Normal Abnormal Urobilinogen Elevated Alert LAB UNITR Negative Nitrites Negative LAB ULKEST Negative Leukest Negative LAB UCOM Comments SEE COMMENT Result Comment: N/A LAB UMCOM Urine SEE Calin Comment COMMENT Result Comment: N/A LAB UWBC 0-5 /HPF WBC 0-5 LAB URBC 0-3 /HPF Abnormal Alert RBC 3-5 Performed By: #### UAWMIC #### [facility] [address], [place] [address] PROTHROMBIN TIME W/INR Collected: 02/12/2018 Status: F Source: [place] 2:07 PM [facility] REPOSITORY TYPE CODE TESTS RESULT OUT OF RANGE REFERENCE UNITS LAB L300.4150 11.7-14.9 SECONDS High PROTIME 21.2 LAB L300.4200 Normal INR 1.8 Performed By: #### L300.3900 #### [facility] [address] [place], [address] COMP METABOLIC PANEL Collected: 02/12/2018 Status: F Source: [place] 1:36 PM [facility] REPOSITORY TYPE CODE TESTS RESULT OUT OF REFERENCE UNITS RANGE LAB TP 6.3-8.0 g/dL Protein, Total 7.0 LAB ALB 3.9-4.9 g/dL Albumin 4.5 LAB CA 8.5-10.2 mg/dL Calcium, Total 9.6 LAB TBIL 0.2-1.3 mg/dL Bilirubin, Total 0.3 LAB ALKP 36-108 U/L Alkaline Phosphatase 94 LAB AST 14-40 U/L AST 15 LAB GLU 74-99 mg/dL Glucose 88 Result Comment: The [place] Diabetes Association (ADA) provides guidance for cutoff values for fasting glucose and random glucose. The ADA defines fasting as no caloric intake for at least 8 hours. Fas ting plasma glucose results between 100 to 125 mg/dL indicate increased risk for diabetes (prediabetes). Fasting plasma glucose results greater than or equal to 126 mg/dL meet the criteria for diagnosis of diabetes. In the absence of unequivocal hyperglycemia, results should be confirmed by repeat testing. In a patient with classic symptoms of hyperglycemia or hyperglycemic crisis, random plasma glucose results greater than or equal to 200 mg/dL meet the criteria for diagnosis of diabetes. Reference: Standards of Medical Care in Diabetes 2016, [place] Diabetes Association. Diabetes Care. 2016.39(Suppl 1). LAB BUN 9-24 mg/dL BUN Low 3 LAB CRET 0.73-1.22 mg/dL Creatinine 0.93 LAB NA 136-144 mmol/L Sodium 140 LAB K 3.7-5.1 mmol/L Potassium 4.4 LAB CL 97-105 mmol/L Chloride 103 LAB CO2 22-30 mmol/L CO2 23 LAB AGAP 9-18 mmol/L Anion Gap 14 LAB ALT 10-54 U/L ALT 12 LAB GFRAA eGFR- Amer. >60 LAB GFRNAA . eGFR-All Other Races >60 Result Comment: eGFR (Estimated GFR) Units of measure: mL/min/1.73 meters squared eGFR is derived from the reexpressed MDRD Study equation using the following parameters: serum creatinine, age, gender and race. The creatinine assay has been calibrated to be traceable to IDMS. An eGFR <60 mL/min/1.73m2 for >3 months is consistent with chronic kidney disease. Refer to KDOQI guidelines for clinical interpretation. In patients with unstable renal function, e.g. those with acute kidney injury, the eGFR may not accurately reflect actual GFR. Performed By: #### CMP, LIPB, MG1, PSA #### [facility] [address] [place], [place] [address] LIPID PANEL, BASIC Collected: 02/12/2018 Status: F Source: [place] 1:36 PM [facility] REPOSITORY TYPE CODE TESTS RESULT OUT OF REFERENCE UNITS RANGE LAB CHOL <200 mg/dL Cholesterol 166 Result Comment: <200 mg/dL, Desirable 200-239 mg/dL, Borderline high >239 mg/dL, High LAB TRIGLY <150 mg/dL Triglyceride High 209 Result Comment: <150 mg/dL, Normal 150-199 mg/dL, Borderline high 200-499 mg/dL, High >499 mg/dL, Very high LAB HDL >39 mg/dL HDL-Cholesterol Low 35 Result Comment: 40-59 mg/dL, Acceptable >59 mg/dL, High: Negative risk factor for coronary heart disease <40 mg/dL, Low: Positive risk factor for coronary heart disease LAB LDL <100 mg/dL LDL-Cholesterol 89 Result Comment: <100 mg/dL, Optimal 100-129 mg/dL, Near optimal/above optimal 130-159 mg/dL, Borderline high 160-189 mg/dL, High >189 mg/dL, Very high Secondary prevention optimal LDL Cholesterol levels are recommended to be < 70 mg/dL LAB NONHDL <130 mg/dL Non HDL High Cholesterol 131 Result Comment: <130 mg/dL, Optimal 130-159 mg/dL, Near optimal/above optimal 160-189 mg/dL, Borderline high 190-219 mg/dL, High >219 mg/dL, Very high Secondary prevention optimal non HDL Cholesterol levels are recommended to be < 100 mg/dL LAB FT hrs Fasting Time 12 LAB VLDL <30 mg/dL High VLDL Cholesterol 42 LAB TCHDL <5.10 TC:HDL Ratio 4.74 LAB LDLHDL <2.54 High LDL:HDL Ratio 2.54 Result Comment: Reference: 1. National Cholesterol Education Program ATP III Guideline At-A-Glance Quick Desk Reference: National Heart, Lung, and Blood Stephan. National Institutes of Health. 2001: NIH Publication No. 01-3305. 2. An International Atherosclerosis Society position paper: global recommendations for the management of dyslipidemia: executive summary, Atherosclerosis. 2014: 232(2):410-413. Performed By: #### CMP, LIPB, MG1, PSA #### [facility] [employer] [address] [place] [address] MAGNESIUM Collected: 02/12/2018 Status: F Source: [place] 1:36 PM [facility] REPOSITORY TYPE CODE TESTS RESULT OUT OF REFERENCE UNITS RANGE LAB MG 1.7-2.3 mg/dL Magnesium 2.2 Performed By: #### CMP, LIPB, MG1, PSA #### [facility] [employer] [address], [place] [address] PSA, DIAGNOSTIC Collected: 02/12/2018 Status: F Source: [place] 1:36 PM [facility] REPOSITORY TYPE CODE TESTS RESULT OUT OF REFERENCE UNITS RANGE LAB PSA 0.00-2.59 ng/mL PSA, Diagnostic 1.07 Result Comment: Total PSA test methodology used is the Electrochemiluminescence Immunoassay. Performed By: #### CMP, LIPB, MG1, PSA #### [place] [address] [place], [place] [address] CNPTOUTREACH Observed: 01/30/2018 Status: COMPLETED Source: [place] 12:00 AM [facility] REPOSITORY Patient Outreach (FAMPST) SUJIT BEDOYA ([id number]) 1960 M Date Time Provider Department 01/30/18 [facility] During your visit today, we recorded the following information about you: Allergies As of Date: 01/30/2018 (No Known Allergies) Date Reviewed: 09/18/2017 Reviewed by: Ambar Mendoza RN - Fully Assessed Primary Visit Diagnosis:Essential hypertension [I10] Other Visit Diagnoses:Medication management [Z79.899] Gastroesophageal reflux disease without esophagitis [K21.9] Current use of proton pump inhibitor [Z79.899] Prostate cancer screening [Z12.5] Order(s):COMP METABOLIC PANEL [SQCMP] Order #: [id number] FUTURE LIPID PANEL BASIC [SQLIPB] Order #: [id number] FUTURE URINALYSIS WITH MICROSCOPIC [SQUAWMIC] Order #: [id number] FUTURE MAGNESIUM BLD [SQMG1] Order #: [id number] FUTURE PSA/PROSTSPECAG DIAG [SQPSA] Order #: [id number] FUTURE Prescriptions as of 01/30/2018 Sig: X PAIN RELIEF EXTRA STRENGTH 50* TAKE TWO TABLETS BY MOUTH SUMMER* X OMEPRAZOLE 20 MG CAPSULE,KAZ* TAKE ONE CAPSULE BY MOUTH 30 * X PRAMIPEXOLE 0.25 MG TABLET Take 1 tablet by mouth daily * X CETIRIZINE 10 MG TABLET Take 1 tablet by mouth once d* X COMPOUNDED PRESCRIPTION Rib support belt X VARENICLINE 1 MG TABLET Take 1 tablet by mouth twice * X COMPOUNDED PRESCRIPTION BLOOD PRESSURE CUFF FOR HOME * TIOTROPIUM BROMIDE 18 MCG CAP* Inhale 1 capsule as instructe* X ALBUTEROL SULFATE HFA 90 MCG/* Inhale 2 Puffs as instructed * METOPROLOL SUCCINATE ER 25 MG* Take 25 mg by mouth once tamie* X WARFARIN 5 MG TABLET Take 5 mg by mouth daily as d* Problem List As Of Date 01/30/2018 Noted Resolved Aortic valve replaced [Z95.2] INVALID FOR* Priority: B More... Essential hypertension [I10] INVALID FOR* Priority: A Seasonal allergies [J30.2] INVALID FOR* Priority: B Arthritis [M19.90] INVALID FOR* Priority: M Well adult exam [Z00.00] INVALID FOR* Priority: E More... COPD (chronic obstructive pulmonary disease) (H*INVALID FOR* Priority: A More... Smoker [F17.200] INVALID FOR* Priority: C More... 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 Pneumothorax [J93.9] INVALID FOR* Priority: B More... AAA (abdominal aortic aneurysm) (HCC) [I71.4] INVALID FOR* Priority: A More... Gastroesophageal reflux disease without esophag*INVALID FOR* Priority: A Viral warts [B07.9] INVALID FOR* Priority: D More... Prostate cancer screening [Z12.5] INVALID FOR* Colon cancer screening [Z12.11] INVALID FOR* Pain of both hip joints [M25.551, M25.552] INVALID FOR* Priority: M Current use of proton pump inhibitor [Z79.899] INVALID FOR* More... Abdominal aortic aneurysm (AAA) without rupture*INVALID FOR* More... History of repair of thoracic aortic aneurysm [*INVALID FOR* Priority: B More... RLS (restless legs syndrome) [G25.81] INVALID FOR* Priority: B Encounter Status:Closed by EPIC, PRODUSER on 08/10/18 ALLERGIES ALLERGIES DATE TYPE / CODE NAME / CODE REACTION SEVERITY SOURCE 11/06/2018 Drug No Known Unknown [facility] Allergy/416 Allergies/L28630 Hospital 608624(SNOM 0388(RXNORM) Repository ED CT) Drug NO KNOWN [facility] Class/10135 ALLERGIES Main [place] 1003(SNOMED Repository CT) ENCOUNTERS ENCOUNTERS ADMIT/DISCHARGE ACCOUNT NUMBER ADMITTING ENCOUNTER LOCATION SOURCE CLASS 11/21/2018 [id number] Ambulatory [facility] ding:[facility] Repository 11/12/2018 [id number] Ambulatory [facility] ding:LAB Repository 11/12/2018/11/12/19 [id number] Ambulatory BMSBuilding: [place] 19 BMS.[facility] Repository 10/18/2018 [id number] Ambulatory BMSBuilding: [place] [facility] Repository 10/16/2018 [id number] Ambulatory [facility] ding:PSN Repository 10/09/2018/10/09/20 [id number] Ambulatory [address] ding:LAB Repository 10/09/2018 [id number] Ambulatory [facility] ding:CT Repository 10/08/2018/10/09/20 [id number] Ambulatory [address] Repository 10/04/2018 [id number] Ambulatory BMSBuilding: [place] [facility] Repository 10/03/2018 [id number] Ambulatory [facility] ding:PSN Repository 09/24/2018/09/24/20 [id number] Ambulatory BMSBuilding: [place] 18 BMS.[facility] Repository 09/13/2018 [id number] Ambulatory BMSBuilding: [place] BMS.[facility] Repository 08/28/2018 [id number] Ambulatory BMSBuilding: [place] BMS.[facility] Repository 08/15/2018/08/19/20 [id number] Ambulatory [address] Repository 08/01/2018/08/01/20 [id number] Ambulatory [address] ding:LAB Repository 07/28/2018/07/28/20 [id number] Emergency [place] [facility] ding:ED Repository 06/06/2018/06/11/20 [id number] Ambulatory [address] Repository 06/05/2018/06/05/20 [id number] Ambulatory [address] Repository 05/25/2018/07/29/20 [id number] Ambulatory [place]ry [facility] ding:LAB Repository 05/23/2018 [id number] Ambulatory Building:PRO [facility] Repository 05/22/2018 [id number] Ambulatory [place] [facility] ding:PSN Repository 02/14/2018/02/16/20 [id number] Ambulatory [address] Repository 02/12/2018/02/13/20 [id number] Ambulatory [place] Adry [facility] ding:LAB Repository 02/12/2018/02/13/20 [id number] Ambulatory [address] Repository 01/15/2018 [id number] Ambulatory BMSBuilding: [place] BMS.[facility] Repository PAYERS PAYERS ENCOUNTER GUARANTOR PAYER SUBSCRIBER SOURCE 11/21/2018 SUJIT Joann Primary SUJIT Rider [id number] N Insurance:CARESOURCEP SCHRADERDOB: [facility] Number: [id number] [facility]rise [facility] [address]Cqt: [id number] Repository Date:2018-11-12 O ) [address]ATTN: [place] [address]PY: 11/21/2018 Secondary NOT GIVENUNK [place] Insurance:SELF PAY [facility] Number: Effective Repository Date:2018-11-12 11/12/2018 SUJIT David Primary SUJIT Rider [id number] N Insurance:CARESOURCEP [facility]OROTHEA DIX HOSPITALRADERDOB: [facility] Number: [id number] Sunrise Regional Treatment Center [address]Nmh: [id number] Repository Date:2017-12-01P O (HP) [address]ATTN: [place] [address]DQ: 11/12/2018 Secondary NOT GIVENUNK [place] Insurance:SELF PAY [facility] Number: Effective Repository Date:2018-10-29 11/12/2018 SUJIT David Primary SUJIT Rider [id number] N Insurance:CARESOURCEP SCHRADERDOB: Community roger AVALOS Number: [id number] Sunrise Regional Treatment Center [address]Fpb: [id number] Repository Date:2018-10-24P O (HP) [address]ATTN: [place] [address]GK: 11/12/2018 Secondary NOT GIVENUNK [place] Insurance:SELF PAY [facility] Number: Effective Repository Date:2018-11-09 10/18/2018 SUJIT David Primary SUJIT [place] [id number] N Insurance:CARESOURCEP SCHRADERDOB: Community roger AVALOS Number: [id number] Sunrise Regional Treatment Center [address]Rmn: [id number] Repository Date:2018-09-24P O (HP) [address]ATTN: [place] [address]RB: 10/18/2018 Secondary NOT GIVENUNK [place] Insurance:SELF PAY [facility] Number: Effective Repository Date:2018-10-18 10/16/2018 SUJIT David Primary SUJIT [place] [id number] N Insurance:CARESOURCEP SCHRADERDOB: [facility] roger AVALOS Number: [id number] Sunrise Regional Treatment Center [address]Fyv: [id number] Repository Date:2018-09-24P O (HP) [address]ATTN: [place] [address]BA: 10/16/2018 Secondary NOT GIVENUNK [place] Insurance:SELF PAY [facility] Number: Effective Repository Date:2018-09-24 10/09/2018 SUJIT David Primary SUJIT David [place] [id number] N Insurance:CARESOURCEP SCHRADERDOB: [facility] roger AVALOS Number: [id number] Sunrise Regional Treatment Center [address]Ihk: [id number] Repository Date:2017-12-01P O (HP) [address]ATTN: [place] [address]HD: 10/09/2018 Secondary NOT GIVENUNK [place] Insurance:SELF PAY [facility] Number: Effective Repository Date:2018-08-30 10/09/2018 SUJIT David Primary SUJIT David [place] [id number] N Insurance:CARESOURCEP SCHRADERDOB: [facility] GAUTHIER [place] Number: [id number] Sunrise Regional Treatment Center [address]Sib: [id number] Repository Date:2018-10-03P O () [address]ATTN: [place] [address]EH: 10/09/2018 Secondary NOT GIVENUNK [place] Insurance:SELF PAY [facility] Number: Effective Repository Date:2018-10-03 10/04/2018 SUJIT David Primary SUJIT A [place] [id number] N Insurance:CARESOURCEP SCHRADERDOB: [facility] GAUTHIER angei [facility] Number: [id number] Sunrise Regional Treatment Center [address]Jqq: [id number] Repository Date:2018-09-24P O (HP) [address]ATTN: [place] [address]PD: 10/04/2018 Secondary NOT GIVENUNK [place] Insurance:SELF PAY [facility] Number: Effective Repository Date:2018-10-04 10/03/2018 SUJIT David Primary SUJIT A [place] [id number] N Insurance:CARESOURCEP SCHRADERDOB: [facility] GAUTHIERROBERT H. BALL[facility] HOSPITALWillangiejefferson [facility] Number: [id number] Sunrise Regional Treatment Center [address]Rmh: [id number] Repository Date:2018-09-24P O (HP) [address]ATTN: [place] [address]ZR: 10/03/2018 Secondary NOT GIVENUNK [place] Insurance:SELF PAY [facility] Number: Effective Repository Date:2018-09-24 09/24/2018 SUJIT David Primary SUJIT [place] [id number] N Insurance:CARESOURCEP SCHRADERDOB: Community roger AVALOS Number: [id number] Sunrise Regional Treatment Center [address]Yox: [id number] Repository Date:2018-09-13P O (HP) [address]ATTN: [place] [address]ML: 09/24/2018 Secondary NOT GIVENUNK [place] Insurance:SELF PAY [facility] Number: Effective Repository Date:2018-09-19 09/13/2018 SUJIT A Primary SUJIT Rider [id number] N Insurance:CARESOURCEP SCHRADERDOB: [facility] roger AVALOS Number: [id number] Sunrise Regional Treatment Center [address]Qva: [id number] Repository Date:2018-09-10 O (HP) [address]ATTN: [place] [address]AO: 09/13/2018 Secondary NOT GIVENUNK [place] Insurance:SELF PAY [facility] Number: Effective Repository Date:2018-09-12 08/28/2018 SUJIT David Primary SUJIT Rider [id number] N Insurance:CARESOURCEP SCHRADERDOB: [facility] roger AVALOS Number: [id number] Sunrise Regional Treatment Center [address]Yhb: [id number] Repository Date:2018-08-23P O (HP) [address]ATTN: [place] [address]SN: 08/28/2018 Secondary NOT GIVENUNK [place] Insurance:SELF PAY [facility] Number: Effective Repository Date:2018-08-23 08/01/2018 SUJIT David Primary SUJIT Rider [id number] N Insurance:CARESOURCEP SCHRADERDOB: [facility] roger AVALOS Number: [id number] Sunrise Regional Treatment Center [address]Nmm: [id number] Repository Date:2017-12-01P O (HP) [address]ATTN: [place] [address]GF: 08/01/2018 Secondary NOT GIVENUNK [place] Insurance:SELF PAY [facility] Number: Effective Repository Date:2018-05-31 07/28/2018 SUJIT David Primary SUJIT Rider [id number] N Insurance:CARESOURCEP [facility] R[facility]ER[facility] Number: [id number] Sunrise Regional Treatment Center [address]Gso: [id number] Repository Date:2018-07-28P O (HP) [address]ATTN: [place] [address]XC: 07/28/2018 Secondary NOT GIVENUNK [place] Insurance:SELF PAY [facility] Number: Effective Repository Date:2018-07-28 05/25/2018 SUJIT David Primary SUJIT Rider [id number] N Insurance:CARESOURCEP SCHRADERDOB: [facility] GAUTHIER WillMIR [facility]ie[facility] Number: [id number] Sunrise Regional Treatment Center [address]Pxn: [id number] Repository Date:2017-12-01P O (HP) [address]ATTN: [place] [address]OM: 05/25/2018 Secondary NOT GIVENUNK [place] Insurance:SELF PAY [facility] Number: Effective Repository Date:2018-02-27 05/23/2018 SUJIT David Primary SUJIT David [facility] SCHRADERDOB: Insurance:CARESOURCEP SCHRADERDOB: [place] N [facility] Number: [id number] [facility], [id number] N [facility] [address]Ijt: Date:8039-77-19[place]abL[place], [place] Repository Name:[address] [address]Alm: [phone] ([phone] (HP) 05/22/2018 SUJIT Joann Primary SUJIT A [place] [id number] N Insurance:CARESOURCEP SCHRADERDOB: [facility] CenterGIULIAGEMA angieeulogioerin Number: [id number] Sunrise Regional Treatment Center [address]Qjk: [id number] Repository Date:2018-02-16P O () [address]N: [place] [address]ES: 05/22/2018 Secondary NOT GIVENUNK [place] Insurance:SELF PAY [facility] Number: Effective Repository Date:2018-02-16 02/12/2018 SUJIT A Primary SUJIT A [place] [id number] N Insurance:CARESOURCEP SCHRADERDOB: [facility] Number: [id number] Sunrise Regional Treatment Center [address]Sxx: [id number] Repository Date:2017-12-01P O () [address]ATTN: [place] [address]QR: 02/12/2018 Secondary NOT GIVENUNK [place] Insurance:SELF PAY [facility] Number: Effective Repository Date:2017-12-01 01/15/2018 SUJIT David Primary SUJIT A [place] [id number] N Insurance:CARESOURCEP SCHRADERDOB: [facility] Number: [id number] Sunrise Regional Treatment Center [address]Fpn: [id number] Repository Date:2018-01-15P O () [address]N: [place] [address]DD: 01/15/2018 Secondary NOT GIVENUNK [place] Insurance:SELF PAY [facility] Effective Repository Date:2018-01-15
== END ==
PROVIDERS: Family Provider Family Medicine; PCP Family Medicine; Referring Provider Nurse Practitioner Acute Care; Visit Provider Nurse Practitioner Acute Care
DX: R91.1 Solitary pulmonary nodule (principal); I48.0 Paroxysmal atrial fibrillation; Z95.2 Presence of prosthetic heart valve; Z79.01 Long term (current) use of anticoagulants; Z98.890 Other specified postprocedural states
CPT/HCPCS: 36415; 85610; G0297

== ENCOUNTER 2018-10-09 13:30 | Outpatient (RCR) | payer MEDICAID, SELFPAY ==
[2018-09-24 13:37] VITALS: BMI 24.5
[2018-10-09 13:57] LABS: International Normalized Ratio 3.7; Prothrombin Time (Protime)PT. 36.6 SECONDS (11.7-14.9)
--- OUTSIDE RECORDS SUMMARY | 2018-11-25 17:57 | XMS RPT_ITS ---
:1960 Author Organization OHIP Support Name Relationship Address Phone D Unavailable Unavailable Unavailable SAMSON, ARACELI Unavailable [address] + [place] [address] SAMSON, HOPE Unavailable [address] + [place], [place] [address] D Unavailable Unavailable Unavailable SAMSON, ARACELI Unavailable [address] + [place] [address] D Unavailable Unavailable Unavailable SAMSON, ARACELI Unavailable x + [place] [address] D Unavailable Unavailable Unavailable SAMSON, ARACELI Unavailable Unavailable + [place] [address] D Unavailable Unavailable Unavailable SAMSON, ARACELI Unavailable Unavailable + [place] [address] D Unavailable Unavailable Unavailable SAMSON, ARACELI Unavailable Unavailable + [place] [address] D Unavailable Unavailable Unavailable SAMSON, ARACELI Unavailable Unavailable + [place] [address] D Unavailable Unavailable Unavailable SAMSON, ARACELI Unavailable Unavailable + [place] [address] D Unavailable Unavailable Unavailable SAMSON, ARACELI Unavailable Unavailable + [place] [address] D Unavailable Unavailable Unavailable SAMSON, ARACELI Unavailable . + [place] [address] D Unavailable Unavailable Unavailable SAMSON, ARACELI Unavailable . + [place] [address] D Unavailable Unavailable Unavailable SAMSON, ARACELI Unavailable . + [place] [address] D Unavailable Unavailable Unavailable SAMSON, ARACELI Unavailable Unavailable + [place] [address] D Unavailable Unavailable Unavailable SAMSON, ARACELI Unavailable Unavailable + [place] [address] D Unavailable Unavailable Unavailable SAMSON, ARACELI Unavailable Unavailable + [place] [address] SUJIT BEDOYA Unavailable Unavailable Unavailable SAMSON, ARACELI Unavailable Unavailable + [place] [address] D Unavailable Unavailable Unavailable SAMSON, ARACELI Unavailable Unavailable + D Unavailable Unavailable Unavailable D Unavailable Unavailable Unavailable Care Team Providers Name Role Phone JONNIE EDWARDS Attending Unavailable DESTINY HOUSTON (CORKY) Attending Unavailable GRACE JONNIE A Referring Unavailable CHAVO PATEL Attending Unavailable GRACE JONNIE A Referring Unavailable GRACEMIHAIJONNIE A Attending Unavailable GRACE, JONNIE A Referring Unavailable GRACEJONNIE A Attending Unavailable GRACE JONNIE A Referring Unavailable AMERICA NEVILLE Attending Unavailable SELF, SELF Referring Unavailable GRACE, JONNIE A Primary Care Unavailable Landon Cade D.O. Attending Unavailable Nitza Dutton Referring Unavailable Aakash Zaragoza Attending Unavailable Aakash Zaragoza Referring Unavailable Grace, Jonnie Primary Care Unavailable Aakash Zaragoza Attending Unavailable Aakash Zaragoza Referring Unavailable Grace, Jonnie Primary Care Unavailable Landon Cade D.O. Attending Unavailable Nitza Dutton Referring Unavailable Aakash Zaragoza Attending Unavailable Grace, Jonnie Referring Unavailable Aakash Zaragoza Attending Unavailable Aakash Zaragoza Referring Unavailable Grace, Jonnie Primary Care Unavailable Yulissa Thomas Attending Unavailable Aakash Zaragoza Attending Unavailable Aakash Zaragoza Referring Unavailable Grace, Jonnie Primary Care Unavailable Grace, Jonnie Attending Unavailable Grace, Jonnie Referring Unavailable Grace, Jonnie Primary Care Unavailable Aakash Zaragoza Attending Unavailable Aakash Zaragoza [...] Chronic Landon Brown, Active [facility] obstructive D.O. 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 pumper Aakash Zaragoza Active [facility] (current) use of [facility] anticoagulants / Hospital Z79.01(ICD-10) Repository 10/29/2018 Unknown Z95.2 - Presence of Aakash Zaragoza Active [facility] prosthetic heart [facility] valve / Hospital Z95.2(ICD-10) Repository 09/24/2018 Unknown R91.1 - Solitary Dutton Active [facility] pulmonary nodule / [facility] R91.1(ICD-10) Hospital Repository 09/24/2018 Unknown Z23 - Encounter for [place] Active [facility] immunization / [facility] Z23(ICD-10) Hospital Repository 05/23/2018 Admitting Hole In Eardrum / AMERICA NEVILLE Active [facility] diagnosis 857() B [facility] Repository 02/07/2017 Active Other chcf NA Active [facility] (current) drug [facility] Main therapy / [facility] Z79.899(ICD-10) Repository 02/11/2016 Active Gastro-esophageal NA Active [facility] reflux disease [facility] Main without esophagitis [facility] / K21.9(ICD-10) Repository 08/18/2015 Active Encounter for NA Active [facility] screening for [facility] Main malignant neoplasm [facility] of prostate / Repository Z12.5(ICD-10) 08/18/2015 Active Essential (primary) NA Active [facility] hypertension / Clinic Main I10(ICD-10) [facility] Repository PROCEDURES PROCEDURES No Procedure Records FoundRESULTS RESULTS PROTHROMBIN TIME W/INR Collected: 11/12/2018 Status: F Source: [place] 11:06 AM [facility] [place] REPOSITORY TYPE CODE TESTS RESULT OUT OF RANGE REFERENCE UNITS LAB L300.4150 11.7-14.9 SECONDS High PROTIME 29.9 LAB L300.4200 Normal INR 2.8 Performed By: #### L300.3900 #### [facility] [address], [place], [id number] LIVER PROFILE Collected: 11/12/2018 Status: F Source: [place] 11:06 AM [facility] [place] REPOSITORY TYPE CODE TESTS RESULT OUT OF [...] 0.07 Performed By: #### L500.3400, L500.4100 #### [facility] [address], [place], [address] LIPID PROFILE Collected: 11/12/2018 Status: F Source: [place] 11:06 AM [facility] [place] [place] REPOSITORY TYPE CODE TESTS RESULT OUT OF [...] 24 Performed By: #### L500.3400, L500.4100 #### [facility] [address] [place], [address] CARDIOLOGY VISIT Observed: 11/12/2018 Status: F Source: [place] REPORT 10:54 AM [facility] [place] [place] REPOSITORY [facility] [address] [place] [address] OFFICE VISIT Date of Service: 11/12/18 MR#: [id number] Acct: [id number] Name: SUJIT BEDOYA Rep #: [id number] : 1960 Provider: Aakash Zaragoza MD Age/Sex: 58/M Location: [facility] Status: Signed HPI HPI Chief Complaint: Routine [...] aortic aneurysm repair in October 2010 at [facility] in [place], nonobstructive coronary artery disease, and on going [...] 90/60 Intake Visit Reasons: MISSED LAST APPT Sheet Taker Required: No Is patient in pain?: No [...] abdominal aorta (Chronic) Paroxysmal atrial fibrillation (Chronic) 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 pumper (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) use of anticoagulants (Chronic) Weight loss [...] PULMONARY FUNCTION Observed: 10/18/2018 Status: F Source: [place] TEST 2:55 PM [facility] [place] [place] REPOSITORY [facility] Pulmonary Services/Neurology [address] [place] [address] MR#: [id number] Acct: [id number] Name: SUJIT BEDOYA Rep #: [id number] : 1960 58 From: Landon Cade DO Referring Dr: Nitza Dutton FOOD BEVERAGE ATTENDANT Status: REG CLI Ordering Dr: Date: Location: [facility] Sex: M C INTRODUCTION: The patient is [...] MD Date Dictated: 10/18/181452 Date Transcribed: 10/18/181452 Cotton Stripper: DB Signed PROTHROMBIN TIME W/INR Collected: 10/09/2018 Status: F Source: [place] 1:36 PM [facility] [place] REPOSITORY Order Comment: Comments: STANDING ORDER CRITICAL VALUE VERIFIED. CALLED TO MELY 10/09/18 [address]. RESULTS READ BACK BY DARIO . Comments: STANDING ORDER TYPE CODE TESTS RESULT OUT OF REFERENCE UNITS RANGE LAB L300.4150 11.7-14.9 SECONDS High PROTIME 36.6 LAB L300.4200 High alert INR 3.7 Performed By: #### L300.3900 #### [facility] [address] [facility] [place], [address] LUNG Observed: 10/09/2018 Status: F Source: [place] SCREENING 1:16 PM [facility] [place] [place] REPOSITORY [facility] Imaging Services [address] [place] [address] Lung Screening MR#: [id number] Acct: [id number] Name: SUJIT BEDOYA Rep #: [id number] : 1960 M 58 From: Siddhartha Hooker MD PCP: Jonnie Edwards MD Status: REG CLI Study: Low Dose CT Lung Screening Date of Exam: 10/09/18 Exam# [id number] Ordering Dr: Nitza Dutton HISTORY: LOW DOSE LUNG SCREEN. [id number] YRS, 1 PPD, WEIGHT 168. HX OF GA, VALVE repair. TECHNIQUE: Helically acquired images were [...] , CC: Nitza Dutton; Jonnie Edwards MD Cotton Stripper: Signed PROGRESS Observed: 10/08/2018 Status: COMPLETED Source: [place] 2:47 PM [facility] [place] REPOSITORY HNO ID: [id number] Author: Nneka Houston Service: (none) Author Type: Physician Director [place] Type: Progress Notes Filed: 10/08/2018 3:24 PM [...] Diagnosis Date - AAA (abdominal aortic aneurysm) ([facility]) 08/18/2015 Pt. states aneurysm in chest was repaired, not AAA - Aortic valve replaced 08/18/2015 Mechanical on coumadin managed by Dr. 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 Miscellaneous Medical Supply (BLOOD PRESSURE CUFF) [facility] [place] blood pressure 2-3 times a week [...] PA-C CNOV Observed: 10/08/2018 Status: COMPLETED Source: [place] 2:40 PM [facility] REPOSITORY Office Visit (FAMPWS) ROSARIO,SUJIT Joann ([id number]) 1960 M Date Time Provider Department 10/08/18 [...] Diagnosis Date - AAA (abdominal aortic aneurysm) ([facility]) 08/18/2015 Pt. states aneurysm in chest was repaired, not AAA - Aortic valve replaced 08/18/2015 Mechanical on coumadin managed by Dr. 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 Miscellaneous Medical Supply (BLOOD PRESSURE CUFF) [facility] [place] blood pressure 2-3 times a week [...] physical Labs prior. Referring Provider: JONNIE EDWARDS [[id number]] Allergies As of Date: 10/08/2018 (No Known [...] screening [Z12.5] Order(s):PSA/PROSTSPECAG DIAG [SQPSA] Order #: [id number] FUTURE URINALYSIS WITH MICROSCOPIC [SQUAWMIC] Order #: [id number] FUTURE LIPID PANEL BASIC [SQLIPB] Order #: [id number] FUTURE MAGNESIUM BLD [SQMG1] Order #: [id number] FUTURE CBC + DIFF [SQCBCDIF] Order #: [id number] FUTURE COMP METABOLIC PANEL [SQCMP] Order #: [id number] FUTURE COMPOUNDED PRESCRIPTIONHandicap placcard: 5 year Dx: [...] 10/04/2018 Status: F Source: [place] 8:12 AM [facility] [place] REPOSITORY [facility] Pulmonary Services/Neurology [address] [place] [address] MR#: [id number] Acct: [id number] Name: SUJIT BEDOYA Rep #: [id number] : 1960 58 From: Landon Cade DO Referring Dr: Nitza Dutton NP Date: Ordering Dr: Sex: M C Location: PSN PSN 6 Minute Walk Test - 6 Minute Walk Test 6 Minute Walk Test: 6 Minute Walk Test PSN:6-Minute Walk Test Start: 10/03/18 13:20 Freq: Status: Active Protocol: RESP.6MINW Document 10/03/18 12:30 HG (Rec: 10/03/18 13:23 HG [id number]) 6 Minute Walk Test Date Performed 10/03/18 [...] CC: Date Dictated: 10/04/18809 Date Transcribed: 10/04/18809 Cotton Stripper: Landon Cade DO Signed PULMONARY VISIT REPORT Observed: 09/24/2018 Status: F Source: [place] 3:16 PM [facility] [place] [place] REPOSITORY [facility] [address] [place] [address] OFFICE VISIT Date of Service: 09/24/18 MR#: [id number] Acct: [id number] Name: SUJIT BEDOYA Rep #: [id number] : 1960 Provider: Nitza Dutton Age/Sex: 58/M Location: [facility] Status: Signed Assessment AND Plan 1. Stage [...] today. Orders Orders: Medications Discontinued: Flucelvax Quad 9567-0135 (PF) (flu vac qs 2018(4 yr up60 [...] to cut back Ppd. At this time, SUIJT elects to . We will continue to monitor the tobacco abuse and encourage cessation. You may call the [employer] hotline 1-476-ZUCF-NOW. People who use this line are THREE times more likely to remain smoke free. Plan Detail Other Orders Orders: Other Medications New: Changed: Discontinued: Flucelvax Quad 9793-8331 (PF) (flu vac qs 2018(4 yr60 mcg [...] and Chantix. He has not tried any inka-gpe-soxgaex medications. He denies any shortness of breath [...] 166 lb Intake Visit Reasons: FOLLOW UP Sheet Taker Required: No Accompanied by: Self Is patient [...] DAILY #30 inh 09/24/18 [Rx Confirmed 09/24/18] [facility] Medical History Stage 1 mild COPD by GOLD classification (Chronic) Lung nodule (Chronic) Transient cerebral ischemic attack (Ruled-out) Nicotine abuse (Chronic) HLD (hyperlipidemia) (Chronic) Nonrheumatic aortic valve insufficiency (Chronic) Aneurysm of infrarenal abdominal aorta (Chronic) Paroxysmal atrial fibrillation (Chronic) ham pumper (current) use of anticoagulants (Chronic) Weight loss [...] 3-10 minutes: Yes Office Meds Flucelvax Quad 6584-8219 (PF) Performing Provider: HENRRY Higgins Administered by: Heike De Jesus on 09/24/18 14:28 Dose Route Admin Location Lot Number Expiration Date [employer] [facility] Director 60 mcg IM L Deltoid [id number] 04/28/19 13516-257-43 SEQIRUS Coding Level of Care Code Off vis,est,level 4 Diagnoses Stage 1 mild COPD by GOLD classification J44.9 Lung nodule R91.1 Nicotine abuse Z72.0 Additional Codes Time Spent - 3-10 minutes: Yes (13116) 09/24/18 1516 <Electronically signed by Nitza Dutton FOOD BEVERAGE ATTENDANT-C> Date Nitza ARNDTC Coleen Signature: Date (if applicable) CC: Jonnie Edwards MD PROGRESS Observed: 08/19/2018 Status: COMPLETED Source: [place] 5:53 AM [facility] [place] REPOSITORY HNO ID: [id number] Author: Chavo Patel Service: (none) Author Type: [...] of an aortic arch aneurysm. 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 He is on anticoagulation for his mechanical [...] Diagnosis Date - AAA (abdominal aortic aneurysm) ([facility]) 08/18/2015 Pt. states aneurysm in chest was repaired, not AAA - Aortic valve replaced 08/18/2015 Mechanical on coumadin managed by Dr. 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 Miscellaneous Medical Supply (BLOOD PRESSURE CUFF) [facility] [place] blood pressure 2-3 times a week [...] entered by the nurse and reviewed by wy Nursing Notes: Domonique Thomas LPN 2018 10:05 [...] right inguinal hernia repair with mesh - 82304-719 Anticipated Anesthetic: MAC with local Patient weight: Blood pressure 114/62, pulse 80, weight 76.2 kg (168 lb). BMI: Body mass index is 23.1 kg/m?. 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 Chavo Patel MD CNCO Observed: 08/16/2018 Status: COMPLETED Source: [place] 12:00 AM [facility] REPOSITORY Letter Text [facility] [address] [place], [place] [address] 08/16/2018 Sujit Bedoya [id number] [address] [facility] [address] Dear Mauricio Bedoya: I noted on my [...] MD CNOV Observed: 2018 Status: COMPLETED Source: [place] 9:10 AM [facility] REPOSITORY Office Visit (GENSWS) SUJIT BEDOYA ([id number]) 1960 M Date Time Provider Department 08/15/18 [...] of an aortic arch aneurysm. 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 He is on anticoagulation for his mechanical [...] Gastroesophageal reflux disease without esophagitis 08/18/2015 - GA (myocardial infarction) (HCC) x 5, no stents [...] day. Miscellaneous Medical Supply (BLOOD PRESSURE CUFF) [facility] [place] Take blood pressure 2-3 times a week [...] entered by the nurse and reviewed by wy Nursing Notes: Domonique Thomas LPN 2018 10:05 [...] right inguinal hernia repair with mesh - 23063-560 Anticipated Anesthetic: MAC with local Patient weight: Blood pressure 114/62, pulse 80, weight 76.2 kg (168 lb). BMI: Body mass index is 23.1 kg/m?. 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, [address] EMERGENCY DEPARTMENT Observed: 07/29/2018 Status: F Source: [place] SUMMARY 1:57 AM [facility] [place] [place] REPOSITORY [facility] Medical Records Department [address] [place] [address] Emergency Department Summary 07/28/182045 MR#: [id number] Acct: [id number] Name: SUJIT BEDOYA Rep #: [id number] : 1960 57 From: Julio C Frazier [...] Ventral hernia. This note was generated with [employer] dictation software. It may contain incorrect words, [...] problems, contact your Primary Care Provider. Call [facility] ([phone]) or report to the closest Emergency Room. Call 911 if necessary. 07/29/18 0157 <Electronically signed by Julio C Frazier MD> Date Julio C Frazier MD Cosigner Signature (If Indicated): Date CC: Jonine Edwards MD PROCEDURE Observed: 06/06/2018 Status: COMPLETED Source: [place] 1:30 PM [facility] REPOSITORY HNO ID: [id number] Author: Jonnie Edwards Service: (none) Author Type: [...] Epi PROGRESS Observed: 06/06/2018 Status: COMPLETED Source: [place] 1:30 PM [facility] REPOSITORY HNO ID: [id number] Author: Jonnie Edwards Service: (none) Author Type: Physician Type: Progress Notes Filed: 06/08/2018 11:16 AM Note Text: Here for carpel tunnel injection See procedure note section. CNOV Observed: 06/06/2018 Status: COMPLETED Source: [place] 1:20 PM [facility] REPOSITORY Office Visit (FAMPWS) SUJIT BEDOYA ([id number]) 1960 Date Time Provider Department 06/06/18 1:20 [...] lido without Epi Referring Provider: JONNIE EDWARDS [[id number]] Allergies As of Date: 06/06/2018 (No Known [...] BUILDER 06/06/2018 06/08/2018 Class: Suppress Questions Route: [facility] Encounter Status:Closed by JONNIE EDWARDS on 06/08/18 PROTHROMBIN TIME W/INR Collected: 05/25/2018 Status: F Source: [place] 12:38 PM [facility] [place] [place] REPOSITORY TYPE CODE TESTS RESULT OUT OF RANGE REFERENCE UNITS LAB L300.4150 11.7-14.9 SECONDS High PROTIME 28.9 LAB L300.4200 Normal INR 2.7 Performed By: #### L300.3900 #### [facility] [address] [place], [address] NCS AND/OR EMG Observed: 05/22/2018 Status: F Source: [place] PATIENT 1:47 PM [facility] REPOSITORY [facility] Pulmonary Services/Neurology [address] [place] [address] MR#: [id number] Acct: [id number] Name: SUJIT BEDOYA Rep #: [id number] : 1960 57 From: Ramesh Sanders MD [...] MD Date Dictated: 05/22/181336 Date Transcribed: 05/22/181336 Cotton Stripper: MANUEL Signed PROTHROMBIN TIME W/INR Collected: 05/22/2018 Status: F Source: [place] 9:36 AM [facility] [place] [place] REPOSITORY TYPE CODE TESTS RESULT OUT OF RANGE REFERENCE UNITS LAB L300.4150 11.7-14.9 SECONDS High PROTIME 19.9 LAB L300.4200 Normal INR 1.7 Performed By: #### L300.3900 #### [facility] [address] [place], [address] PROGRESS Observed: 02/14/2018 Status: COMPLETED Source: [place] 11:42 AM [facility] [place] REPOSITORY HNO ID: [id number] Author: Jonnie Edwards Service: (none) Author Type: [...] smoking. 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 Previous Medical History PAST MEDICAL HISTORY Diagnosis Date - AAA (abdominal aortic aneurysm) ([facility]) 08/18/2015 Pt. states aneurysm in chest was repaired, not AAA - Aortic valve replaced 08/18/2015 Mechanical on coumadin managed by Dr. 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 Signed Prescriptions Disp Refills albuterol HFA (VENTOLIN [...] MD CNOV Observed: 02/14/2018 Status: COMPLETED Source: [place] 11:20 AM [facility] REPOSITORY [facility] ROSAR[facility]OSU[facility]IT ([id number]) 1960 M Date Time Provider Department 02/14/18 11:20 AM [facility] During your visit today, we recorded the following information about you: Pulse Respiration Blood pressure Weight 76/minute 24/minute 110/60 79.8 kg Height 1.816 m Jonnie Edwards MD 02/14/2018 9:56 PM Signed Chief Complaint Patient presents with: Physical HPI Sujit David Rosario is a 57 year old male who presents here today for WAE and routine issues. Also complaining of numbness in the right thumb and uri symptoms for th past 1-2 weeks Patient with Hx as reviewed and documented below. Has cut back on his smoking. 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 Previous Medical History PAST MEDICAL HISTORY Diagnosis Date - AAA (abdominal aortic aneurysm) (HCC) 08/18/2015 Pt. states aneurysm in chest was repaired, not AAA - Aortic valve replaced 08/18/2015 Mechanical on coumadin managed by Dr. 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 Signed Prescriptions Disp Refills albuterol HFA (VENTOLIN HFA) 90 mcg/actuation inhaler 1 Inhaler 2 Sig: Inhale 2 Puffs as instructed every 4 hours as needed for Wheezing/Shortness of Breath. RUSSELL: No cetirizine (ZYRTEC) 10 mg tablet 30 tablet 5 Sig: Take 1 tablet by mouth once daily. URSSELL: No COMPOUNDED PRESCRIPTION 1 Device 0 Sig: [...] PRESCRIPTIONBLOOD PRESSURE CUFF FOR HOME USE. DX: F43Hord: 1 DeviceRfl: 0 FECAL OCCULT BLOOD TEST [SQIFOBT] Order #: [id number] FUTURE omega-3 fatty acids 1,000 mg capTake 2 capsules by mouth once daily.Disp: Rfl: cefADROxil (DURICEF) 500 mg capsuleTake 1 capsule by mouth twice daily.Disp: 20 capsuleRfl: 0 EMG(NEURO/NI) [[id number]] Order #: [id number]: 1 FUTURE CONSULT TO VASCULAR SURGERY [42] Order #: [id number]: 1 LIPID PANEL BASIC [SQLIPB] Order #: [id number] FUTURE Prescriptions as of 02/14/2018 Sig: ALBUTEROL [...] URINALYSIS WITH Collected: 02/14/2018 Status: F Source: [place] MICROSCOPIC 9:20 AM [facility] REPOSITORY TYPE CODE TESTS RESULT OUT OF RANGE REFERENCE UNITS LAB UCOL Yellow Color Yellow LAB [facility] Clear Clarity Clear LAB UGLUC Negative mg/dL Glucose, Urine Negative LAB UBIL Negative Bilirubin, Urine Negative LAB UKET Negative Ketones, Urine Negative LAB USPG 1.005-1.030 Specific [place], Ur 1.018 LAB UHGB Negative Abnormal Hemoglobin/Blood, [...] RBC 3-5 Performed By: #### UAWMIC #### [facility] [address] [place], [place] [address] PROTHROMBIN TIME W/INR Collected: 02/12/2018 Status: F Source: [place] 2:07 PM [facility] [place] [place] REPOSITORY TYPE CODE TESTS RESULT OUT OF RANGE REFERENCE UNITS LAB L300.4150 11.7-14.9 SECONDS High PROTIME 21.2 LAB L300.4200 Normal INR 1.8 Performed By: #### L300.3900 #### [facility] [address] [place], [address] COMP METABOLIC PANEL Collected: 02/12/2018 Status: F Source: [place] 1:36 PM [facility] REPOSITORY TYPE CODE TESTS RESULT OUT OF REFERENCE UNITS RANGE LAB TP 6.3-8.0 g/dL Protein, Total 7.0 LAB ALB 3.9-4.9 g/dL Albumin 4.5 LAB CA 8.5-10.2 mg/dL Calcium, Total 9.6 LAB TBIL 0.2-1.3 mg/dL Bilirubin, Total 0.3 LAB ALKP 36-108 U/L Alkaline Phosphatase 94 LAB AST 14-40 U/L AST 15 LAB GLU 74-99 mg/dL Glucose 88 Result Comment: The [place] Diabetes Association (ADA) provides guidance for cutoff [...] Standards of Medical Care in Diabetes 2016, [place] Diabetes Association. Diabetes Care. 2016.39(Suppl 1). LAB [...] By: #### CMP, LIPB, MG1, PSA #### [facility] [address] [place], [place] [address] LIPID PANEL, BASIC Collected: 02/12/2018 Status: F Source: [place] 1:36 PM [facility] REPOSITORY TYPE CODE TESTS RESULT [...] Desk Reference: National Heart, Lung, and Blood [place]. National Institutes of Health. 2001: NIH Publication No. 01-3305. 2. An International Atherosclerosis Society position paper: global recommendations for the management of dyslipidemia: executive summary, Atherosclerosis. 2014: 232(2):410-413. Performed By: #### CMP, LIPB, MG1, PSA #### [facility] [address] [place] [address] MAGNESIUM Collected: 02/12/2018 Status: F Source: [place] 1:36 PM [facility] REPOSITORY TYPE CODE TESTS RESULT OUT OF REFERENCE UNITS RANGE LAB MG 1.7-2.3 mg/dL Magnesium 2.2 Performed By: #### CMP, LIPB, MG1, PSA #### [facility] [address], [place] [address] PSA, DIAGNOSTIC Collected: 02/12/2018 Status: F Source: [place] 1:36 PM [facility] REPOSITORY TYPE CODE TESTS RESULT OUT OF REFERENCE UNITS RANGE LAB PSA 0.00-2.59 ng/mL PSA, Diagnostic 1.07 Result Comment: Total PSA test methodology used is the Electrochemiluminescence Immunoassay. Performed By: #### CMP, LIPB, MG1, PSA #### [place] [address] [place], [place] [address] CNPTOUTREACH Observed: 01/30/2018 Status: COMPLETED Source: [place] 12:00 AM [facility] REPOSITORY Patient Outreach (FAMPST) SUJIT BEDOYA ([id number]) 1960 M Date Time Provider Department 01/30/18 [facility] today, we recorded [...] [Z12.5] Order(s):COMP METABOLIC PANEL [SQCMP] Order #: [id number] FUTURE LIPID PANEL BASIC [SQLIPB] Order #: [id number] FUTURE URINALYSIS WITH MICROSCOPIC [SQUAWMIC] Order #: [id number] FUTURE MAGNESIUM BLD [SQMG1] Order #: [id number] FUTURE PSA/PROSTSPECAG DIAG [SQPSA] Order #: [id number] FUTURE Prescriptions as of 01/30/2018 Sig: X PAIN RELIEF EXTRA STRENGTH 50* TAKE TWO TABLETS BY MOUTH SUMMRE* X OMEPRAZOLE 20 MG CAPSULE,KAZ* TAKE ONE [...] SEVERITY SOURCE 11/06/2018 Drug No Known Unknown [facility] Allergy/416 Allergies/X04258 Hospital 571285(SNOM 0388(RXNORM) Repository ED CT) Drug NO KNOWN [facility] Class/26735 ALLERGIES Main [place] 1003(SNOMED Repository CT) ENCOUNTERS ENCOUNTERS ADMIT/DISCHARGE ACCOUNT NUMBER ADMITTING ENCOUNTER LOCATION SOURCE CLASS 11/21/2018 [id number] Ambulatory [facility] ding:[facility] Repository 11/12/2018 [id number] Ambulatory [facility] ding:LAB Repository 11/12/2018/11/12/19 [id number] Ambulatory BMSBuilding: [place] 19 BMS[facility] Repository 10/18/2018 [id number] Ambulatory BMSBuilding: [facility] Repository 10/16/2018 [id number] Ambulatory [facility] ding:PSN Repository 10/09/2018/10/09/20 [id number] Ambulatory [address] ding:LAB Repository 10/09/2018 [id number] Ambulatory [facility] ding:CT Repository 10/08/2018/10/09/20 [id number] Ambulatory [address] Repository 10/04/2018 [id number] Ambulatory BMSBuilding: [place] [facility] Repository 10/03/2018 [id number] Ambulatory [facility] ding:PSN Repository 09/24/2018/09/24/20 [id number] Ambulatory BMSBuilding: [place] 18 [facility] [place] 09/13/2018 [id number] Ambulatory BMSBuilding: [place] [facility] [place] 08/28/2018 [id number] Ambulatory BMSBuilding: [place] BMS[facility] Repository 08/15/2018/08/19/20 [id number] Ambulatory [address] Repository 08/01/2018/08/01/20 [id number] Ambulatory [address] ding:LAB Repository 07/28/2018/07/28/20 [id number] Emergency Dary [place] 18 [facility] ding:ED Repository 06/06/2018/06/11/20 [id number] Ambulatory [address] Repository 06/05/2018/06/05/20 [id number] Ambulatory [address] Repository 05/25/2018/07/29/20 [id number] Ambulatory [place] 18 [facility] ding:LAB Repository 05/23/2018 [id number] Ambulatory Building:PRO [facility] Repository 05/22/2018 [id number] Ambulatory [facility] ding:PSN Repository 02/14/2018/02/16/20 [id number] Ambulatory [address] Repository 02/12/2018/02/13/20 [id number] Ambulatory [place] 18 [facility] ding:LAB Repository 02/12/2018/02/13/20 [id number] Ambulatory [address] Repository 01/15/2018 [id number] Ambulatory BMSBuilding: [place] BMS.[facility] Repository PAYERS PAYERS ENCOUNTER GUARANTOR PAYER SUBSCRIBER SOURCE 11/21/2018 SUJIT Joann Primary SUJIT Rider [id number] N Insurance:CARESOURCEP SCHRADERDOB: [facility] Number: [id number] Medical Center [address]Rjv: [id number] Repository Date:2018-11-12 O ) [address]ATTN: [place] [address]OJ: 11/21/2018 Secondary NOT GIVENUNK [place] Insurance:SELF PAY [facility] Number: Effective Repository Date:2018-11-12 11/12/2018 SUJIT David Primary SUJIT [place] [id number] N Insurance:CARESOURCEP [facility] Number: [id number] Medical Center [address]Zrf: [id number] Repository Date:2017-12-01P O (HP) [address]ATTN: [place] [address]NM: 11/12/2018 Secondary NOT GIVENUNK [place] Insurance:SELF PAY [facility] Number: Effective Repository Date:2018-10-29 11/12/2018 SUJIT David Primary SUJIT Rider [id number] N Insurance:CARESOURCEP SCHRADERDOB: Community roger AVALOS Number: [id number] Medical Center [address]Pii: [id number] Repository Date:2018-10-24P O (HP) [address]ATTN: [place] [address]GW: 11/12/2018 Secondary NOT GIVENUNK [place] Insurance:SELF PAY [facility] Number: Effective Repository Date:2018-11-09 10/18/2018 SUJIT David Primary SUJIT [place] [id number] N Insurance:CARESOURCEP SCHRADERDOB: [facility] [place] Number: [id number] Medical Center [address]Faq: [id number] Repository Date:2018-09-24P O (HP) [address]ATTN: [place] [address]UR: 10/18/2018 Secondary NOT GIVENUNK [place] Insurance:SELF PAY [facility] Number: Effective Repository Date:2018-10-18 10/16/2018 SUJIT David Primary SUJIT [place] [id number] N Insurance:CARESOURCEP SCHRADERDOB: [facility] roger AVALOS Number: [id number] Medical Center [address]Vzo: [id number] Repository Date:2018-09-24P O (HP) [address]ATTN: [place] [address]SP: 10/16/2018 Secondary NOT GIVENUNK [place] Insurance:SELF PAY [facility] Number: Effective Repository Date:2018-09-24 10/09/2018 SUJIT David Primary SUJIT David [place] [id number] N Insurance:CARESOURCEP SCHRADERDOB: [facility] roger AVALOS Number: [id number] Medical Center [address]Eeq: [id number] Repository Date:2017-12-01P O (HP) [address]ATTN: [place] [address]LD: 10/09/2018 Secondary NOT GIVENUNK [place] Insurance:SELF PAY [facility] Number: Effective Repository Date:2018-08-30 10/09/2018 SUJIT David Primary SUJIT David [place] [id number] N Insurance:CARESOURCEP SCHRADERDOB: [facility]ER [facility] Number: [id number] Medical Center [address]Uag: [id number] Repository Date:2018-10-03P O () [address]ATTN: [place] [address]DH: 10/09/2018 Secondary NOT GIVENUNK [place] Insurance:SELF PAY [facility] Number: Effective Repository Date:2018-10-03 10/04/2018 SUJIT David Primary SUJIT A [place] [id number] N Insurance:CARESOURCEP SCHRADERDOB: [facility] GAUTHIER angie [facility] Number: [id number] Medical Center [address]Muu: [id number] Repository Date:2018-09-24P O (HP) [address]ATTN: [place] [address]XW: 10/04/2018 Secondary NOT GIVENUNK [place] Insurance:SELF PAY [facility] Number: Effective Repository Date:2018-10-04 10/03/2018 SUJIT David Primary SUJIT A [place] [id number] N Insurance:CARESOURCEP SCHRADERDOB: [facility]ERL[facility]EL[facility]ENTERWillangieunitypoint health[facility] Number: [id number] Medical Center [address]Npr: [id number] Repository Date:2018-09-24P O (HP) [address]ATTN: [place] [address]AL: 10/03/2018 Secondary NOT GIVENUNK [place] Insurance:SELF PAY [facility] Number: Effective Repository Date:2018-09-24 09/24/2018 SUJIT David Primary SUJIT [place] [id number] N Insurance:CARESOURCEP SCHRADERDOB: [facility] [place] Number: [id number] Medical Center [address]Bwj: [id number] Repository Date:2018-09-13P O (HP) [address]ATTN: [place] [address]OZ: 09/24/2018 Secondary NOT GIVENUNK [place] Insurance:SELF PAY [facility] Number: Effective Repository Date:2018-09-19 09/13/2018 SUJIT A Primary SUJIT [place] [id number] N Insurance:CARESOURCEP SCHRADERDOB: [facility] roger AVALOS Number: [id number] Medical Center [address]Wdv: [id number] Repository Date:2018-09-10 O (HP) [address]ATTN: [place] [address]WB: 09/13/2018 Secondary NOT GIVENUNK [place] Insurance:SELF PAY [facility] Number: Effective Repository Date:2018-09-12 08/28/2018 SUJIT David Primary SUJIT R[place] [id number] N Insurance:CARESOURCEP SCHRADERDOB: [facility] roger AVALOS Number: [id number] Medical Center [address]Ian: [id number] Repository Date:2018-08-23P O (HP) [address]ATTN: [place] [address]OJ: 08/28/2018 Secondary NOT GIVENUNK [place] Insurance:SELF PAY [facility] Number: Effective Repository Date:2018-08-23 08/01/2018 SUJIT David Primary SUJIT Rider [id number] N Insurance:CARESOURCEP SCHRADERDOB: [facility] roger AVALOS Number: [id number] Medical Center [address]Smb: [id number] Repository Date:2017-12-01P O (HP) [address]ATTN: [place] [address]BN: 08/01/2018 Secondary NOT GIVENUNK [place] Insurance:SELF PAY [facility] Number: Effective Repository Date:2018-05-31 07/28/2018 SUJIT David Primary SUJIT Rider [id number] N Insurance:CARESOURCEP SCHRADERDOB: [facility] RIDERunitypoint [facility] Number: [id number] Medical Center [address]Jvm: [id number] Repository Date:2018-07-28P O (HP) [address]ATTN: [place] [address]YY: 07/28/2018 Secondary NOT GIVENUNK [place] Insurance:SELF PAY [facility] Number: Effective Repository Date:2018-07-28 05/25/2018 SUJIT David Primary SUJIT [place] [id number] N Insurance:CARESOURCEP SCHRADERDOB: [facility] GAUTHIER WillMIR angieunitypoint health-[facility] Number: [id number] Medical Center [address]Mnd: [id number] Repository Date:2017-12-01P O (HP) [address]ATTN: [place] [address]CC: 05/25/2018 Secondary NOT GIVENUNK [place] Insurance:SELF PAY [facility] Number: Effective Repository Date:2018-02-27 05/23/2018 SUJIT David Primary SUJIT David [facility] SCHRADERDOB: Insurance:CARESOURCEP [place]ERDOB: [place] [facility] Number: [id number] [facility], [id number] N [facility] [address]Rpn: Date:2548-98-89LkgdSlingerlands, [place] Repository Name:[place] [address]Lxk: [phone] (JQ) [phone] (HP) 05/22/2018 SUJIT Joann Primary SUJIT A [place] [id number] N Insurance:CARESOURCEP SCHRADERDOB: [facility] MorgantonGIULIAGEMA angieeulogioerin Number: [id number] Medical Center [address]Xan: [id number] Repository Date:2018-02-16P O () [address]ATTN: [place] [address]GX: 05/22/2018 Secondary NOT GIVENUNK [place] Insurance:SELF PAY [facility] Number: Effective Repository Date:2018-02-16 02/12/2018 SUJIT A Primary SUJIT A [place] [id number] N Insurance:CARESOURCEP SCHRADERDOB: [facility] Number: [id number] Medical Center [address]Iiq: [id number] Repository Date:2017-12-01P O () [address]ATTN: [place] [address]AW: 02/12/2018 Secondary NOT GIVENUNK [place] Insurance:SELF PAY [facility] Number: Effective Repository Date:2017-12-01 01/15/2018 SUJIT David Primary SUJIT A [place] [id number] N Insurance:CARESOURCEP SCHRADERDOB: [facility] Number: [id number] Medical Center [address]Wav: [id number] Repository Date:2018-01-15P O () [address]ATTN: [place] [address]ZJ: 01/15/2018 Secondary NOT GIVENUNK [place] Insurance:SELF PAY [facility] Number: Effective Repository Date:2018-01-15
== END 2018-10-09 14:00 | disposition home or self-care (01) ==
LOC: LAB 13:30
PROVIDERS: Family Provider Family Medicine; PCP Family Medicine; Referring Provider Internal Medicine Cardiovascular Disease; Visit Provider Internal Medicine Cardiovascular Disease
DX: I48.0 Paroxysmal atrial fibrillation (principal); Z79.01 Long term (current) use of anticoagulants; Z98.890 Other specified postprocedural states; Z95.2 Presence of prosthetic heart valve
CPT/HCPCS: 36415; 85610

== ENCOUNTER → 2018-10-16 09:34 | Outpatient (CLI) | payer MEDICAID, SELFPAY ==
[2018-09-24 13:37] VITALS: BMI 24.5
--- NOTE | 2018-10-18 14:53 | PFT ---
INTRODUCTION: The patient is a 58-year-old male that presents for pulmonary function testing secondary to a diagnosis of COPD. Respiratory therapy reports good patient effort. Bronchodilators were used during testing. INTERPRETATION: Forced expiration spirometry demonstrates the presence of a mild large airways obstructive ventilatory defect. There was no significant response to aerosolized bronchodilators, based upon strict ATS criteria. Spirograms are of good quality and do not plateau indicating slow emptying of the lungs. Body plethysmography was performed and reveals an elevated TLC and RV, indicative of underlying hyperinflation and air-trapping. Diffusing capacity by single breath CO is moderately reduced at 54% of predicted. When compared to previous pulmonary function studies dated October 2017, there has been a 10% reduction in FEV1. IMPRESSION: These pulmonary function studies demonstrate the presence of an irreversible mild large airways obstructive ventilatory defect with associated hyperinflation, air trapping and reduction in diffusing capacity.
--- OUTSIDE RECORDS SUMMARY | 2019-01-17 16:34 | XMS RPT_ITS ---
:1960 Author Organization OHIP Support Name Relationship Address Phone D Unavailable Unavailable Unavailable SAMSON, ARACELI Unavailable [address] + [place] [address] D Unavailable Unavailable Unavailable SAMSON, ARACELI Unavailable x + [place] [address] D Unavailable Unavailable Unavailable SAMSON, ARACELI Unavailable Unavailable + [place] [address] D Unavailable Unavailable Unavailable SAMSON, ARACELI Unavailable Unavailable + [place] [address] D Unavailable Unavailable Unavailable SAMSON, ARACELI Unavailable Unavailable + [place] [address] D Unavailable Unavailable Unavailable SAMSON, ARACELI Unavailable Unavailable + [place] [address] D Unavailable Unavailable Unavailable SAMSON, ARACELI Unavailable Unavailable + [place] [address] D Unavailable Unavailable Unavailable SAMSON, ARACELI Unavailable Unavailable + [place] [address] D Unavailable Unavailable Unavailable SAMSON, ARACELI Unavailable . + [place] [address] D Unavailable Unavailable Unavailable SAMSON, ARACELI Unavailable . + [place] [address] D Unavailable Unavailable Unavailable SAMSON, ARACELI Unavailable . + [place] [address] D Unavailable Unavailable Unavailable SAMSON, ARACELI Unavailable Unavailable + [place] [address] D Unavailable Unavailable Unavailable SAMSON, ARACELI Unavailable Unavailable + [place] [address] D Unavailable Unavailable Unavailable SAMSON, ARACELI Unavailable Unavailable + [place] [address] SUJIT BEDOYA Unavailable Unavailable Unavailable SAMSON, ARACELI Unavailable Unavailable + [place] [address] D Unavailable Unavailable Unavailable ARACELI SAMSON Unavailable Unavailable + D Unavailable Unavailable Unavailable D Unavailable Unavailable Unavailable Care Team Providers Name Role Phone NEAL EDWARDS A Referring Unavailable GRACE NEAL A Attending Unavailable GRACE NEAL A Attending Unavailable GRACE NEAL A Referring Unavailable GRACE, NEAL A Attending Unavailable GRACE, NEAL A Referring Unavailable RICHARD PATEL Attending Unavailable DESTINY HOUSTON (CORKY) Attending Unavailable GRACE, NEAL A Referring Unavailable AMERICA NEVILLE Attending Unavailable SELF, SELF Referring Unavailable GRACE, NEAL A Primary Care Unavailable Aakash Zaragoza Attending Unavailable Nik, Aakash Referring Unavailable Grace, Neal Primary Care Unavailable Landon Cade D.O. Attending Unavailable Nato, Nitza Referring Unavailable Aakash Zaragoza Attending Unavailable Grace, Neal Referring Unavailable Aakash Zaragoza Attending Unavailable Aakash Zaragoza Referring Unavailable Grace, Neal Primary Care Unavailable Aakash Zaragoza Attending Unavailable Aakash Zaragoza Referring Unavailable Grace, Neal Primary Care Unavailable Nitza Dutton Attending Unavailable Grace, Neal Referring Unavailable Dutton, Nitza Attending Unavailable Grace, Neal Referring Unavailable Aakash Zaragoza Attending Unavailable Grace, Neal Referring Unavailable Grace, Neal Primary Care Unavailable Julio C Frazier Attending Unavailable Aakash Zaragoza Attending Unavailable Aakash Zaragoza Referring Unavailable Grace, Neal Primary Care Unavailable Grace, Neal Attending Unavailable Grace, Neal Referring Unavailable Grace, Neal Primary Care Unavailable Yulissa Thomas Attending Unavailable Aakash Zaragoza Attending Unavailable Aakash Zaragoza Referring Unavailable Grace, Neal Primary Care Unavailable Landon Cade D.O. Attending Unavailable Dutton, Nitza Referring Unavailable Dutton, Nitza Attending Unavailable Dutton, Nitza Referring Unavailable Grace, Neal Primary Care Unavailable Dutton, Nitza Attending Unavailable Dutton, Nitza Referring Unavailable Grace, Neal Primary Care Unavailable Dutton, Nitza Attending Unavailable Dutton, Nitza Referring Unavailable Grace, Neal Primary Care Unavailable PROBLEMS PROBLEMS DATE TYPE CONDITION / CODE ATTENDING STATUS SOURCE 11/12/2018 Unknown Z98.890 - Other Aakash Zaragoza Active [facility] specified [facility] postprocedural Hospital states / Repository Z98.890(ICD-10) 11/12/2018 Unknown I71.4 - Abdominal Aakash Zaragoza Active [facility] aortic aneurysm, Community without rupture / Hospital I71.4(ICD-10) Repository 11/12/2018 Unknown E78.5 - Aakash Zaragoza Active [facility] Hyperlipidemia, [facility] unspecified / Hospital E78.5(ICD-10) Repository 11/01/2018 Unknown J44.9 - Chronic Landon Cade, Active [facility] obstructive [facility] pulmonary disease, Hospital unspecified / Repository J44.9(ICD-10) 10/29/2018 Unknown I48.0 - Paroxysmal Aakash Zaragoza Active [facility] atrial fibrillation Community / I48.0(ICD-10) Hospital Repository 10/29/2018 Unknown Z79.01 - half-way Aakash Zaragoza Active [facility] (current) use of [facility] anticoagulants / Hospital Z79.01(ICD-10) Repository 10/29/2018 Unknown Z95.2 - Presence of Aakash Zaragoza Active [facility] prosthetic heart [facility] valve / Hospital Z95.2(ICD-10) Repository 09/24/2018 Unknown R91.1 - Solitary Dutton, Active [facility] pulmonary nodule / [facility] R91.1(ICD-10) Hospital Repository 09/24/2018 Unknown Z23 - Encounter for Dutton, Active [facility] immunization / [facility] Z23(ICD-10) Hospital Repository 05/23/2018 Admitting [place] / AMERICA NEV[place]LE Active [place] [facility] diagnosis 857() B [facility] Repository 02/07/2017 Active 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 NA Active [facility] (current) [facility] Main therapy / [facility] Z79.899(ICD-10) Repository 02/11/2016 Active Gastro-esophageal NA Active [facility] reflux disease Clinic Main without esophagitis [facility] / K21.9(ICD-10) Repository 08/18/2015 Active Encounter for NA Active [facility] screening for [facility] Main malignant neoplasm [facility] of prostate / Repository Z12.5(ICD-10) 08/18/2015 Active Essential (primary) NA Active [facility] hypertension / Clinic Main I10(ICD-10) [facility] Repository PROCEDURES PROCEDURES No Procedure Records FoundRESULTS RESULTS PROTHROMBIN TIME W/INR Collected: 11/12/2018 Status: F Source: [place] 11:06 AM [facility] REPOSITORY TYPE CODE TESTS RESULT OUT OF RANGE REFERENCE UNITS LAB L300.4150 11.7-14.9 SECONDS High PROTIME 29.9 LAB L300.4200 Normal INR 2.8 Performed By: #### L300.3900 #### [facility] [address] [place], [place], [address] LIVER PROFILE Collected: 11/12/2018 Status: F Source: [place] 11:06 AM [facility] REPOSITORY TYPE CODE TESTS RESULT OUT [...] By: #### L500.3400, L500.4100 #### [facility] [address] [place], [place], [address] LIPID PROFILE Collected: 11/12/2018 Status: F Source: [place] 11:06 [facility] REPOSITORY TYPE CODE TESTS RESULT OUT OF [...] By: #### L500.3400, L500.4100 #### [facility] [address] [place], [address] CARDIOLOGY VISIT Observed: 11/12/2018 Status: F Source: [place] REPORT 10:54 AM [facility] REPOSITORY [facility] [address] [place] [address] OFFICE VISIT Date of Service: 11/12/18 MR#: [id number] Acct: [id number] Name: SUJIT BEDOYA Rep #: [id number] : 1960 Provider: Aakash Zaragoza MD Age/Sex: 58/M Location[place] [facility] [place] Status: Signed HPI HPI Chief Complaint: Routine f/u Details: PCP: Dr. Neal Edwards This is a 58-year-old male presents for cardiovascular outpatient follow-up. As of this writing, I have not seen him in over 2 years. he has a history of hypertension, severe aortic insufficiency status post aortic valve replacement with a #25 [employer] prosthetic Valsalva valve and ascending aortic aneurysm repair in October 2010 at [facility] in [place], nonobstructive coronary artery disease, and on going [...] 90/60 Intake Visit Reasons: MISSED LAST APPT Natural Remedy Consultant Required: No Is patient in pain?: No [...] abdominal aorta (Chronic) Paroxysmal atrial fibrillation (Chronic) half-way (current) use of anticoagulants (Chronic) Weight loss [...] MD Cosigner Signature: Date (if applicable) CC: Neal Edwards MD PULMONARY FUNCTION Observed: 10/18/2018 Status: F Source: [place] TEST 2:55 PM [facility] REPOSITORY [facility] Services/Neurology [facility] [place] [address] MR#: [id number] Acct: [id number] Name: SUJIT BEDOYA Rep #: [id number] : 1960 58 From: Landon Cade DO Referring Dr: Nitza Dutton FOOT WORKER Status: REG [facility] Ordering Dr: Date: Location: [facility] Sex: M C INTRODUCTION: The patient is [...] air trapping and reduction in diffusing capacity. 10/18/18 1455 <Electronically signed by Landon Cade DO> Date Landon Cade DO CC: Nitza Dutton; Neal Edwards MD Date Dictated: 10/18/181452 Date Transcribed: 10/18/181452 Dry Can Tender: DB Signed PROTHROMBIN TIME W/INR Collected: 10/09/2018 Status: F Source: [place] 1:36 PM [facility] REPOSITORY Order Comment: Comments: STANDING ORDER CRITICAL VALUE VERIFIED. CALLED TO MELY 10/09/18 1400 Julieta [address] Valle. RESULTS READ BACK BY DARIO . Comments: STANDING ORDER TYPE CODE TESTS RESULT OUT OF REFERENCE UNITS RANGE LAB L300.4150 11.7-14.9 SECONDS High PROTIME 36.6 LAB L300.4200 High alert INR 3.7 Performed By: #### L300.3900 #### [facility] [address] [place], [address] LUNG Observed: 10/09/2018 Status: F Source: [place] SCREENING 1:16 PM [facility] REPOSITORY [facility] Imaging Services [address] [place] [address] Lung Screening MR#: [id number] Acct: [id number] Name: SUJIT BEDOYA Rep #: [id number] : 1960 M 58 From: Siddhartha Hooker MD PCP: Neal Edwards MD Status: REG CLI Study: Low Dose CT Lung Screening Date of Exam: 10/09/18 Exam# [id number] Ordering Dr: Nitza Dutton HISTORY: LOW DOSE LUNG SCREEN. [id number] YRS, 1 PPD, WEIGHT 168. HX OF [place], VALVE repair. TECHNIQUE: Helically acquired images were [...] , Service support , CC: Nitza Dutton; Neal Edwards MD Dry Can Tender: Signed PROGRESS Observed: 10/08/2018 Status: COMPLETED Source: [place] 2:47 PM [facility] REPOSITORY HNO ID: [id number] Author: Nneka Houston Service: (none) Author Type: Physician Brake Drum Molder Type: Progress Notes Filed: 10/08/2018 3:24 PM [...] Gastroesophageal reflux disease without esophagitis 08/18/2015 - [place] (myocardial infarction) (HCC) x 5, no stents [...] day. Miscellaneous Medical Supply (BLOOD PRESSURE CUFF) [facility] Take blood pressure 2-3 times a week [...] when to seek medical attention. PATRICIA BOB Observed: 10/08/2018 Status: COMPLETED Source: [place] 2:40 PM [facility] REPOSITORY Office Visit (FAMPWS) SUJIT BEDOYA ([id number]) 1960 M Date Time Provider Department 10/08/18 2:40 PM MAKSIM HOUSTON) FAMPWS During your visit today, we recorded the following information about you: Pulse Respiration Blood pressure Weight 64/minute 12/minute 128/88 76.2 kg DESTINY HOUSTON PA-C 10/08/2018 3:24 PM Signed Chief Complaint Patient presents with: Recheck HPI Sujit Joann Bedoya is a 58 year old male [...] Gastroesophageal reflux disease without esophagitis 08/18/2015 - [place] (myocardial infarction) ([facility]) x [...] day. Miscellaneous Medical Supply (BLOOD PRESSURE CUFF) [facility] Take blood pressure 2-3 times a week [...] months for physical Labs prior. Referring Provider: NEAL EDWARDS [[id number]] Allergies As of Date: 10/08/2018 (No Known Allergies) Date Reviewed: 10/08/2018 Reviewed by: Maksim) Celso - Fully Assessed Reason for Visit: [...] screening [Z12.5] Order(s):PSA/PROSTSPECAG DIAG [SQPSA] Order #: [id number] FUTURE URINALYSIS WITH MICROSCOPIC [SQUAWMIC] Order #: [id number] FUTURE LIPID PANEL BASIC [SQLIPB] Order #: [id number] FUTURE MAGNESIUM BLD [SQMG1] Order #: [id number] FUTURE CBC + DIFF [SQCBCDIF] Order #: [id number] FUTURE COMP METABOLIC PANEL [SQCMP] Order #: [id number] FUTURE COMPOUNDED PRESCRIPTIONHandicap placcard: 5 year Dx: [...] WALK TEST Observed: 10/04/2018 Status: F Source: [place] 8:12 AM [facility] REPOSITORY [facility] Pulmonary Services/Neurology [facility] [place] [address] MR#: [id number] Acct: [id number] Name: SUJIT BEDOYA Rep #: [id number] : 1960 58 From: Landon Cade DO Referring Dr: Nitza Dutton NP Date: Ordering Dr: Blanche Archibald Location: PSN PSN 6 Minute Walk Test - 6 Minute Walk Test 6 Minute Walk Test: 6 Minute Walk Test PSN:6-Minute Walk Test Start: 10/03/18 13:20 Freq: Status: Active Protocol: RESP.6MINW Document 10/03/18 12:30 HG (Rec: 10/03/18 13:23 HG [id number]) 6 Minute Walk Test Date Performed 10/03/18 [...] of oxygen desaturation noted during this study. 10/04/18811 <Electronically signed by Landon Cade DO> Date Landon Cade DO CC: Date Dictated: 12/06/18 0810 Date Transcribed: 10/04/1810 Dry Can Tender: Landon Cade DO Signed PULMONARY VISIT REPORT Observed: 09/24/2018 Status: F Source: [place] 3:16 PM [facility] REPOSITORY [facility] [address] [place] [address] OFFICE VISIT Date of Service: 09/24/18 MR#: [id number] Acct: [id number] Name: SUJIT BEDOYA Rep #: [id number] : 1960 Provider: Nitza Dutton Age/Sex: 58/M Location: [facility] [place] Status: Signed Assessment AND Plan 1. Stage [...] today. Orders Orders: Medications Discontinued: Flucelvax Quad 8547-7042 (PF) (flu vac qs 2018(4 yr up60 [...] and encourage cessation. You may call the free hotline 9-738-XYMH-NOW. People who use this line are THREE times more likely to remain smoke free. Plan Detail Other Orders Orders: Other Medications New: Changed: Discontinued: Flucelvax Quad 4723-9114 (PF) (flu vac qs 2018(4 yr60 mcg [...] and Chantix. He has not tried any abco-svp-oeqfiwt medications. He denies any shortness of breath [...] 166 lb Intake Visit Reasons: FOLLOW UP Natural Remedy Consultant Required: No Accompanied by: Self Is patient [...] DAILY #30 inh 09/24/18 [Rx Confirmed 09/24/18] PFS Medical History Stage 1 mild COPD by GOLD classification (Chronic) Lung nodule (Chronic) Transient cerebral ischemic attack (Ruled-out) Nicotine abuse (Chronic) HLD (hyperlipidemia) (Chronic) Nonrheumatic aortic valve insufficiency (Chronic) Aneurysm of infrarenal abdominal aorta (Chronic) Paroxysmal atrial fibrillation (Chronic) half-way (current) use of anticoagulants (Chronic) Weight loss [...] 3-10 minutes: Yes Office Meds Flucelvax Quad 6682-0371 (PF) Performing Provider: HENRRY Higgins Administered by: Heike De Jesus on 09/24/18 14:28 Dose Route Admin Location Lot Number Expiration Date NDC Box Fabricator 60 mcg IM L Deltoid [id number] 04/28/19 31066-471-61 SEQIRUS Coding Level of Care Code Off vis,est,level 4 Diagnoses Stage 1 mild COPD by GOLD classification J44.9 Lung nodule R91.1 Nicotine abuse Z72.0 Additional Codes Time Spent - 3-10 minutes: Yes ([id number]) 09/24/18 1516 <Electronically signed by Nitza SALES> Date Nitza SALES Cosigner Signature: Date (if applicable) CC: Neal Edwards MD PROGRESS Observed: 08/19/2018 Status: COMPLETED Source: [place] 5:53 AM [facility] REPOSITORY HNO ID: [id number] Author: Richard Patel Service: (none) Author Type: Physician Type: [...] of an aortic arch aneurysm. Dr. Zaragoza's social professionals. He is on anticoagulation for his mechanical [...] Gastroesophageal reflux disease without esophagitis 08/18/2015 - [place] (my[place] infarction) ([facility]) x [...] day. Miscellaneous Medical Supply (BLOOD PRESSURE CUFF) [facility] Take blood pressure 2-3 times a week [...] entered by the nurse and reviewed by me Nursing Notes: Domonique Thomas LPN 2018 10:05 [...] My findings have been communicated to Dr. Neal Edwards MD via shared medical record. This note will be forwarded to Dr. Neal Edwards MD. Diagnoses: (K40.90) Non-recurrent unilateral inguinal hernia without obstruction or gangrene (primary encounter diagnosis) Anticipated CPT Code: open right inguinal hernia repair with mesh - 20441-197 Anticipated Anesthetic: MAC with local Patient weight: Blood pressure 114/62, pulse 80, weight 76.2 kg (168 lb). BMI: Body mass index is 23.1 kg/m?. Planned antibiotic: Ancef 2gm IVPB sharepoint solutions developer to OR SCDs needed - Yes Return to Clinic: The patient is instructed to follow-up with me after he has quit smoking when he is ready for surgical intervention. Richard Patel MD CNCO Observed: 08/16/2018 Status: COMPLETED Source: [place] 12:00 AM [facility] REPOSITORY Letter Text [facility] [address] [place], [place] [address] 08/16/2018 Sujit Bedoya [id number] [address] [facility] [address] Dear Mr. Bedoya: I noted on my schedule today [...] to see you again soon. Sincerely, Dr. Neal Edwards MD CNOV Observed: 2018 Status: COMPLETED Source: [place] 9:10 AM [facility] REPOSITORY Office Visit (GENSWS) ROSARIOSUJIT David ([id number]) 1960 M Date Time Provider Department 08/15/18 9:10 AM RICHARD PATEL During your visit today, we recorded the following information about you: Pulse Blood pressure Weight 80/minute 114/62 76.2 kg Domonique Thomas [facility] 2018 10:05 AM Signed REVIEW OF SYSTEMS: [...] 5:59 AM Signed HISTORY AND PHYSICAL Sujit Bedoya 1960 REFERRING [...] of an aortic arch aneurysm. Dr. Zaragoza's social professionals. He is on anticoagulation for his mechanical [...] Gastroesophageal reflux disease without esophagitis 08/18/2015 - [place] (my[place] infarction) (HCC) x 5, no stents [...] day. Miscellaneous Medical Supply (BLOOD PRESSURE CUFF) [facility] Take blood pressure 2-3 times a week [...] entered by the nurse and reviewed by nd Nursing Notes: Domonique Thomas LPN 2018 10:05 [...] My findings have been communicated to Dr. Neal Edwards MD via shared medical record. This note will be forwarded to Dr. Neal Edwards MD. Diagnoses: (K40.90) Non-recurrent unilateral inguinal hernia without obstruction or gangrene (primary encounter diagnosis) Anticipated CPT Code: open right inguinal hernia repair with mesh - 70109-364 Anticipated Anesthetic: MAC with local Patient weight: Blood pressure 114/62, pulse 80, weight 76.2 kg (168 lb). BMI: Body mass index is 23.1 kg/m?. Planned antibiotic: Ancef 2gm IVPB sharepoint solutions developer to OR SCDs needed - Yes Return to Clinic: The patient is instructed to follow-up with me after he has quit smoking when he is ready for surgical intervention. Richard Patel MD Referring Provider: SELF [[id number]] Allergies [...] and Disposition History Recorded Encounter Status:Closed by RICHARD PATEL MD on 08/19/18 PROTHROMBIN TIME W/INR Collected: 08/01/2018 Status: F Source: [place] 12:49 PM [facility] REPOSITORY TYPE CODE TESTS RESULT OUT OF RANGE REFERENCE UNITS LAB L300.4150 11.7-14.9 SECONDS High PROTIME 22.4 LAB L300.4200 Normal INR 2.0 Performed By: #### L300.3900 #### [facility] [address] [place], [address] EMERGENCY DEPARTMENT Observed: 07/29/2018 Status: F Source: [place] SUMMARY 1:57 AM [facility] REPOSITORY [facility] Medical Records Department [address] [place] [address] Emergency Department Summary 07/28/182045 MR#: [id number] Acct: [id number] Name: SUJIT BEDOYA Rep #: [id number] : 1960 57 From: Julio C Frazier MD PCP: Neal Edwards MD Status: DEP ER - ER [...] Ventral hernia. This note was generated with Coveo dictation software. It may contain incorrect words, spelling, and punctuation that were not noted in review of the chart prior to signing ED Disposition - Plan for ED Patient: Disposition: Home or Assisted Living Chief Complaint: Abd Pain Instructions: ED Hernia Inguinal Referrals: Richard Patel MD [STAFF PHYSICIAN] - 3-5 Days What to do if you have Problems For any increased pain, shortness of breath, bleeding, nausea or vomiting, chest pain, or any unexpected problems, contact your Primary Care Provider. Call [facility] ([phone]) or report to the closest Emergency Room. Call 911 if necessary. 07/29/18 0157 <Electronically signed by Julio C Frazier MD> Date Julio C Frazier MD Cosigner Signature (If Indicated): Date CC: Neal Edwards MD PROCEDURE Observed: 06/06/2018 Status: COMPLETED Source: [place] 1:30 PM [facility] REPOSITORY O ID: [id number] Author: Neal Edwards Service: (none) Author Type: Physician Type: [...] Time Out: YES Sign Out Discussion: Completed Neal Edwards MD The right wrist was cleansed [...] Epi PROGRESS Observed: 06/06/2018 Status: COMPLETED Source: [place] 1:30 PM [facility] REPOSITORY HNO ID: [id number] Author: Neal Edwards Service: (none) Author Type: Physician Type: Progress Notes Filed: 06/08/2018 11:16 AM Note Text: Here for carpel tunnel injection See procedure note section. CNOV Observed: 06/06/2018 Status: COMPLETED Source: [place] 1:20 PM [facility] REPOSITORY Office Visit (FAMPWS) SUJIT BEDOYA ([id number]) 1960 M Date Time Provider Department 06/06/18 1:20 PM [facility]ARDS [facility] During your visit today, we recorded the following information about you: Pulse Respiration Blood pressure Weight 72/minute 14/minute 132/84 77.6 kg Neal Edwards MD 06/08/2018 11:16 AM Signed Here for carpel tunnel injection See procedure note section. Neal Edwards MD 06/08/2018 11:16 AM Signed UNIVERSAL PROTOCOL / SAFETY CHECKLIST Procedure to be performed: carpel tunnel injection Sign in Communication: Completed Time Out: Team Confirms the Correct Patient, Correct Procedure, Correct Site and Site Marking, Correct Position (if applicable), Prep and Dry Time (if applicable). Time: 13:31 Affirmation of Time Out: YES Sign Out Discussion: Completed Neal Edwards MD The right wrist was cleansed [...] 1 % lido without Epi Referring Provider: NEAL EDWARDS [[id number]] Allergies As of Date: 06/06/2018 (No Known [...] [facility] Encounter Status:Closed by NEAL EDWARDS on 06/08/18 PROTHROMBIN TIME W/INR Collected: 05/25/2018 Status: F Source: [place] 12:38 PM [facility] REPOSITORY TYPE CODE TESTS RESULT OUT OF RANGE REFERENCE UNITS LAB L300.4150 11.7-14.9 SECONDS High PROTIME 28.9 LAB L300.4200 Normal INR 2.7 Performed By: #### L300.3900 #### [facility] [address] [place], [address] NCS AND/OR EMG Observed: 05/22/2018 Status: F Source: [place] PATIENT 1:47 PM [facility] REPOSITORY [facility] Pulmonary Services/Neurology [address] [place] [address] MR#: [id number] Acct: [id number] Name: SUJIT BEDOYA Rep #: [id number] : 1960 57 From: Ramesh Sanders MD Referring Dr: Neal Edwards MD Status: REG CLI Ordering Dr: Date: Location: [facility] Sex: M C NCS and/or EMG Patient Report Ordering Doctor: Neal Edwards DATE OF SERVICE: 05/22/18 This is [...] Sanders MD> Date Ramesh Sanders MD CC: Neal Edwards MD; Ramesh Sanders MD Date Dictated: 05/22/181336 Date Transcribed: 05/22/181336 Dry Can Tender: NF Signed PROTHROMBIN TIME W/INR Collected: 05/22/2018 Status: F Source: [place] 9:36 AM [facility] REPOSITORY TYPE CODE TESTS RESULT OUT OF RANGE REFERENCE UNITS LAB L300.4150 11.7-14.9 SECONDS High PROTIME 19.9 LAB L300.4200 Normal INR 1.7 Performed By: #### L300.3900 #### [facility] [address] [place], [address] PROGRESS Observed: 02/14/2018 Status: COMPLETED Source: [place] 11:42 AM [facility] REPOSITORY HNO ID: [id number] Author: Neal Edwards Service: (none) Author Type: Physician Type: [...] smoking. Has been following up with his social professionals Past medical history, appointments, medications, allergies reviewed. [...] Gastroesophageal reflux disease without esophagitis 08/18/2015 - [place] (my[place] infarction) ([facility]) x [...] R20.0 Check - EMG(NEURO/NI) and NCS at [facility] Signed Prescriptions Disp Refills albuterol HFA [...] patient face to face was 45 min Neal Edwards MD CNOV Observed: 02/14/2018 Status: COMPLETED Source: [place] 11:20 AM [facility] REPOSITORY [facility] SUJIT BEDOYA ([id number]) 1960 M Date Time Provider Department 02/14/18 11:20 AM [facility] During your visit today, we recorded the following information about you: Pulse Respiration Blood pressure Weight 76/minute 24/minute 110/60 79.8 kg Height 1.816 m Neal Edwards MD 02/14/2018 9:56 PM Signed Chief [...] smoking. Has been following up with his social professionals Past medical history, appointments, medications, allergies reviewed. [...] Gastroesophageal reflux disease without esophagitis 08/18/2015 - [place] (my[place] infarction) ([facility]) x [...] R20.0 Check - EMG(NEURO/NI) and NCS at [facility] Signed Prescriptions Disp Refills albuterol HFA [...] face to face was 45 min MD Neal Ventura MD 02/14/2018 12:17 PM Signed Please let me know if taking simvastatin (Zocor) or atorvastatin (Lipitor) and the strength. Please get fasting lab done on or after 08/03/2018 prior to next visit. Referring Provider: SELF [200] Allergies As of Date: 02/14/2018 (No Known Allergies) Date Reviewed: 02/14/2018 Reviewed by: Neal Edwards - Fully Assessed Reason for Visit: [...] PRESCRIPTIONBLOOD PRESSURE CUFF FOR HOME USE. DX: W12Lbnu: 1 DeviceRfl: 0 FECAL OCCULT BLOOD TEST [SQIFOBT] Order #: [id number] FUTURE omega-3 fatty acids 1,000 mg capTake 2 capsules by mouth once daily.Disp: Rfl: cefADROxil (DURICEF) 500 mg capsuleTake 1 capsule by mouth twice daily.Disp: 20 capsuleRfl: 0 EMG(NEURO/NI) [20110128] Order #: [id number]: 1 FUTURE CONSULT TO VASCULAR SURGERY [9041] Order #: [id number]: 1 LIPID PANEL BASIC [SQLIPB] Order #: [id number] FUTURE Prescriptions as of 02/14/2018 Sig: ALBUTEROL [...] and Disposition History Recorded Encounter Status:Closed by NEAL EDWARDS on 02/14/18 URINALYSIS WITH Collected: 02/14/2018 Status: F Source: [facility] 9:20 AM [facility] REPOSITORY TYPE CODE TESTS RESULT OUT OF RANGE REFERENCE UNITS LAB UCOL Yellow Color Yellow LAB [facility] Clear Clarity Clear LAB UGLUC Negative mg/dL Glucose, Urine Negative LAB UBIL Negative Bilirubin, Urine Negative LAB UKET Negative Ketones, Urine Negative LAB USPG 1.005-1.030 Specific [place], Ur 1.018 LAB UHGB Negative Abnormal Hemoglobin/Blood, [...] RBC 3-5 Performed By: #### UAWMIC #### [facility] [address] [place], [place] [address] PROTHROMBIN TIME W/INR Collected: 02/12/2018 Status: F Source: [place] 2:07 PM [facility] REPOSITORY TYPE CODE TESTS RESULT OUT OF RANGE REFERENCE UNITS LAB L300.4150 11.7-14.9 SECONDS High PROTIME 21.2 LAB L300.4200 Normal INR 1.8 Performed By: #### L300.3900 #### [facility] [address] [facility] [place], [place], [id number] COMP METABOLIC PANEL Collected: 02/12/2018 Status: F Source: [place] 1:36 PM [facility] REPOSITORY TYPE CODE TESTS RESULT OUT OF REFERENCE UNITS RANGE LAB TP 6.3-8.0 g/dL Protein, Total 7.0 LAB ALB 3.9-4.9 g/dL Albumin 4.5 LAB CA 8.5-10.2 mg/dL Calcium, Total 9.6 LAB TBIL 0.2-1.3 mg/dL Bilirubin, Total 0.3 LAB ALKP 36-108 U/L Alkaline Phosphatase 94 LAB AST 14-40 U/L AST 15 LAB GLU 74-99 mg/dL Glucose 88 Result Comment: The [place] Diabetes Association (ADA) provides guidance for cutoff [...] Standards of Medical Care in Diabetes 2016, [place] Diabetes Association. Diabetes Care. 2016.39(Suppl 1). LAB [...] By: #### CMP, LIPB, MG1, PSA #### [facility] [address] [place] [address] LIPID PANEL, BASIC Collected: 02/12/2018 Status: F Source: [place] 1:36 PM [facility] REPOSITORY TYPE CODE [...] Desk Reference: National Heart, Lung, and Blood Purlear. National Institutes of Health. 2001: NIH Publication No. 01-3305. 2. An International Atherosclerosis Society position paper: global recommendations for the management of dyslipidemia: executive summary, Atherosclerosis. 2014: 232(2):410-413. Performed By: #### CMP, LIPB, MG1, PSA #### [facility] [place] [address] [place], [place] [address] MAGNESIUM Collected: 02/12/2018 Status: F Source: [place] 1:36 PM [facility] REPOSITORY TYPE CODE TESTS RESULT OUT OF REFERENCE UNITS RANGE LAB MG 1.7-2.3 mg/dL Magnesium 2.2 Performed By: #### CMP, LIPB, MG1, PSA #### [facility] [place] [address] [place], [place] [address] PSA, DIAGNOSTIC Collected: 02/12/2018 Status: F Source: [place] 1:36 PM [facility] REPOSITORY TYPE CODE TESTS RESULT OUT OF REFERENCE UNITS RANGE LAB PSA 0.00-2.59 ng/mL PSA, Diagnostic 1.07 Result Comment: Total PSA test methodology used is the Electrochemiluminescence Immunoassay. Performed By: #### CMP, LIPB, MG1, PSA #### [facility] [address] [place] [id number] MARYLINTOUTREACH Observed: 01/30/2018 Status: COMPLETED Source: [place] 12:00 AM [facility] REPOSITORY Patient Outreach ([facility]) SUJIT BEDOYA ([id number]) 1960 M Date Time Provider Department 01/30/18 [facility]ARDS [facility] During your visit today, we recorded the following information about you: Allergies As of Date: 01/30/2018 (No Known Allergies) Date Reviewed: 09/18/2017 Reviewed by: Ambar Mendoza RN - Fully Assessed Primary Visit Diagnosis:Essential hypertension [I10] Other Visit Diagnoses:Medication management [Z79.899] Gastroesophageal reflux disease without esophagitis [K21.9] Current use of proton pump inhibitor [Z79.899] Prostate cancer screening [Z12.5] Order(s):COMP METABOLIC PANEL [SQCMP] Order #: [id number] FUTURE LIPID PANEL BASIC [SQLIPB] Order #: [id number] FUTURE URINALYSIS WITH MICROSCOPIC [SQUAWMIC] Order #: [id number] FUTURE MAGNESIUM BLD [SQMG1] Order #: [id number] FUTURE PSA/PROSTSPECAG DIAG [SQPSA] Order #: [id number] FUTURE Prescriptions as of 01/30/2018 Sig: X [...] INVALID FOR* Priority: B Encounter Status:Closed by NEYDA YUUSER on 08/10/18 ALLERGIES ALLERGIES DATE TYPE / CODE NAME / CODE REACTION SEVERITY SOURCE 11/06/2018 Drug No Known Unknown [facility] Allergy/416 Allergies/A49930 Hospital 902988(SNOM 0388(RXNORM) Repository ED CT) Drug NO KNOWN [facility] Class/27109 [facility] 1003(SNOMED Repository CT) ENCOUNTERS ENCOUNTERS ADMIT/DISCHARGE ACCOUNT NUMBER ADMITTING ENCOUNTER LOCATION SOURCE CLASS 11/12/2018 [id number] Ambulatory [facility] ding:LAB Repository 11/12/2018/11/12/19 [id number] Ambulatory BMSBuilding: [place] 19 BMS.[facility] Repository 10/18/2018 [id number] Ambulatory BMSBuilding: [place] [facility] Repository 10/16/2018 [id number] Ambulatory [facility] ding:PSN Repository 10/09/2018/10/09/20 [id number] Ambulatory [address] ding:LAB Repository 10/09/2018 [id number] Ambulatory [facility] ding:CT Repository 10/08/2018/10/09/20 [id number] Ambulatory [address] Repository 10/04/2018 [id number] Ambulatory BMSBuilding: [place] [facility] Repository 10/03/2018 [id number] Ambulatory [facility] ding:PSN Repository 09/24/2018/09/24/20 [id number] Ambulatory BMSBuilding: [place] 18 [facility]MS[facility] Repository 09/13/2018 [id number] Ambulatory BMSBuilding: [place] BMS.[facility] Repository 08/28/2018 [id number] Ambulatory BMSBuilding: [place] [facility] Repository 08/15/2018/08/19/20 [id number] Ambulatory [address] Repository 08/01/2018/08/01/20 [id number] Ambulatory [address] ding:LAB Repository 07/28/2018/07/28/20 [id number] Emergency [address] ding:ED Repository 06/06/2018/06/11/20 [id number] Ambulatory [address] Repository 06/05/2018/06/05/20 [id number] Ambulatory [address] Repository 05/25/2018/07/29/20 [id number] Ambulatory [place] [address] [place] [address] ding:LAB Repository 05/23/2018 [id number] Ambulatory Building:PRO [facility] Repository 05/22/2018 [id number] Ambulatory [facility] ding:PSN Repository 02/14/2018/02/16/20 [id number] Ambulatory [address] Repository 02/12/2018/02/13/20 [id number] Ambulatory Adry [address] ding:LAB Repository 02/12/2018/02/13/20 [id number] Ambulatory [address] Repository 01/15/2018 [id number] Ambulatory BMSBuilding: [place] BMS.[facility] Repository PAYERS PAYERS ENCOUNTER GUARANTOR PAYER SUBSCRIBER SOURCE 11/12/2018 SUJIT Joann Primary SUJIT A [place] [id number] N Insurance:CARESOURCEP SCHRADERDOB: [facility] Number: [id number] [address]Fod: [id number] Repository Date:2017-12-01P O () [address]ATTN: [place] [address]EH: 11/12/2018 Secondary NOT GIVENUNK [place] Insurance:SELF PAY [facility] Number: Effective Repository Date:2018-10-29 11/12/2018 SUJIT A Primary SUJIT A [place] [id number] N Insurance:CARESOURCEP SCHRADERDOB: [facility] Number: [id number] [address]Ffj: [id number] Repository Date:2018-10-24P O ) [address]ATTN: [place] [address]AQ: 11/12/2018 Secondary NOT GIVENUNK [place] Insurance:SELF PAY [facility] Number: Effective Repository Date:2018-11-09 10/18/2018 SUJIT A Primary SUJIT A [place] [id number] N Insurance:CARESOURCEP SCHRADERDOB: [facility] AVALOS Number: [id number] [address]Jxc: [id number] Repository Date:2018-09-24P O (HP) [address]ATTN: [place] [address]BN: 10/18/2018 Secondary NOT GIVENUNK [place] Insurance:SELF PAY [facility] Number: Effective Repository Date:2018-10-18 10/16/2018 SUJIT A Primary SUJIT David [place] [id number] N Insurance:CARESOURCEP SCHRADERDOB: [facility] angie AVALOSerin Number: [id number] [address]Xmx: [id number] Repository Date:2018-09-24P O (HP) [address]ATTN: [place] [address]XI: 10/16/2018 Secondary NOT GIVENUNK [place] Insurance:SELF PAY [facility] Number: Effective Repository Date:2018-09-24 10/09/2018 SUJIT A Primary SUJIT A [place] [id number] N Insurance:CARESOURCEP SCHRADERDOB: [facility] A[facility]OS Number: [id number] [address]Jiu: [id number] Repository Date:2017-12-01P O () [address]ATTN: [place] [address]AF: 10/09/2018 Secondary NOT GIVENUNK [place] Insurance:SELF PAY [facility] Number: Effective Repository Date:2018-08-30 10/09/2018 SUJIT Joann Primary SUJIT David [place] [id number] N Insurance:CARESOURCEP SCHRADERDOB: [facility] Number: [id number] Cancer Center [address]Hlz: [id number] Repository Date:2018-10-03P O (HP) [address]ATTN: [place] [address]BS: 10/09/2018 Secondary NOT GIVENUNK [place] Insurance:SELF PAY [facility] Number: Effective Repository Date:2018-10-03 10/04/2018 SUJIT David Primary SUJIT [place] [id number] N Insurance:CARESOURCEP SCHRADERDOB: [facility] [place] Number: [id number] [address]Ghj: [id number] Repository Date:2018-09-24P O (HP) [address]ATTN: [place] [address]FR: 10/04/2018 Secondary NOT GIVENUNK [place] Insurance:SELF PAY [facility] Number: Effective Repository Date:2018-10-04 10/03/2018 SUJIT David Primary SUJIT [place] [id number] N Insurance:CARESOURCEP SCHRADERDOB: [facility] Number: [id number] Cancer Center [address]Ihh: [id number] Repository Date:2018-09-24P O (HP) [address]ATTN: [place] [address]FZ: 10/03/2018 Secondary NOT GIVENUNK [place] Insurance:SELF PAY [facility] Number: Effective Repository Date:2018-09-24 09/24/2018 SUJIT David Primary SUJIT [place] [id number] N Insurance:CARESOURCEP SCHRADERDOB: [facility] Number: [id number] Cancer Center [address]Vnj: [id number] Repository Date:2018-09-13P O (HP) [address]ATTN: [place] [address]KX: 09/24/2018 Secondary NOT GIVENUNK [place] Insurance:SELF PAY [facility] Number: Effective Repository Date:2018-09-19 09/13/2018 SUJIT David Primary SUJIT David [place] [id number] N Insurance:CARESOURCEP SCHRADERDOB: [facility] A[facility]OS Number: [id number] Cancer Center [address]Uvs: [id number] Repository Date:2018-09-10 O (HP) [address]ATTN: [place] [address]BY: 09/13/2018 Secondary NOT GIVENUNK [place] Insurance:SELF PAY [facility] Number: Effective Repository Date:2018-09-12 08/28/2018 SUJIT David Primary SUJIT David [place] [id number] N Insurance:CARESOURCEP SCHRADERDOB: [facility] angie AVALOSerin Number: [id number] Cancer Center [address]Ucs: [id number] Repository Date:2018-08-23P O () [address]ATTN: [place] [address]UM: 08/28/2018 Secondary NOT GIVENUNK [place] Insurance:SELF PAY [facility] Number: Effective Repository Date:2018-08-23 08/01/2018 SUJIT David Primary SUJIT David [place] [id number] N Insurance:CARESOURCEP SCHRADERDOB: [facility] angie AVALOSerin Number: [id number] Cancer Center [address]Yho: [id number] Repository Date:2017-12-01P O () [address]ATTN: [place] [address]VE: 08/01/2018 Secondary NOT GIVENUNK [place] Insurance:SELF PAY [facility] Number: Effective Repository Date:2018-05-31 07/28/2018 SUJIT David Primary SUJIT David [place] [id number] N Insurance:CARESOURCEP SCHRADERDOB: [facility] JOLIE angie RIDERerin Number: [id number] Cancer Center [address]Rsw: [id number] Repository Date:2018-07-28P O () [address]ATTN: [place] [address]SO: 07/28/2018 Secondary NOT GIVENUNK [place] Insurance:SELF PAY [facility] Number: Effective Repository Date:2018-07-28 05/25/2018 SUJIT David Primary SUJIT A [place] [id number] N Insurance:CARESOURC SCHRADERDOB: [facility] Number: [id number] Cancer Center [address]Odh: [id number] Repository Date:2017-12-01P O () [address]ATTN: [place] [address]QP: 05/25/2018 Secondary NOT GIVENUNK [place] Insurance:SELF PAY [facility] Number: Effective Repository Date:2018-02-27 05/23/2018 SUJIT David Primary SUJIT A [facility] SCHRADERDOB: Insurance:[facility]OURCEPH[facility]ITAL[facility]: [place] [facility] Number: [id number] [facility], [id number] [facility] [address]Iud: [place] Repository Name:[place] [address]Nbu: [phone] () 05/22/2018 SUJIT David Primary SUJIT A [place] [id number] N Insurance:CARESOURCEP SCHRADERDOB: [facility] Number: [id number] Cancer Center [address]Owf: [id number] Repository Date:2018-02-16P O () [address]ATTN: [place] [address]ED: 05/22/2018 Secondary NOT GIVENUNK [place] Insurance:SELF PAY [facility] Number: Effective Repository Date:2018-02-16 02/12/2018 SUJIT David Primary SUJIT [id number] N Insurance:CARESOURCEP SCHRADERDOB: [facility] Number: [id number] Cancer Center [address]Uqu: [id number] Repository Date:2017-12-01P O () [address]ATTN: [place] [address]TJ: 02/12/2018 Secondary NOT GIVENUNK [place] Insurance:SELF PAY [facility] Number: Effective Repository Date:2017-12-01 01/15/2018 SUJIT David Primary SUJIT [id number] N Insurance:CARESOURCEP SCHRADERDOB: [facility] Number: [id number] Cancer Center [address]Rlb: [id number] Repository Date:2018-01-15P O () [address]ATTN: [place] [address]XM: 01/15/2018 Secondary NOT GIVENUNK [place] Insurance:SELF PAY [facility] Number: Effective Repository Date:2018-01-15
== END ==
PROVIDERS: Family Provider Family Medicine; PCP Family Medicine; Referring Provider Nurse Practitioner Acute Care; Visit Provider Nurse Practitioner Acute Care
DX: J44.9 Chronic obstructive pulmonary disease, unspecified (principal)
CPT/HCPCS: 94060; 94726; 94729

== ENCOUNTER 2018-11-12 10:58 | Outpatient (RCR) | payer MEDICAID, SELFPAY ==
[2018-09-24 13:37] VITALS: BMI 24.5
[2018-11-12 10:33] VITALS: BMI 21.9
[2018-11-12 12:10] LABS: International Normalized Ratio 2.8; Prothrombin Time (Protime)PT. 29.9 SECONDS (11.7-14.9)
[2018-11-12 12:32] LABS: AST(SGOT) 18 U/L (15-37); Alanine Aminotransfer ALT/SGPT 20 U/L (16-61); Albumin, Serum 3.9 g/dL (3.2-5.0); Alkaline Phosphatase 100 U/L (45-117); Bilirubin, Direct 0.07 mg/dL (0.00-0.30); Cholesterol 200 mg/dL (200); Globulin 3.4 g/dL (2.2-4.2); High Density Lipoprotein 39 mg/dL; Protein, Total 7.3 g/dL (6.4-8.2); Triglycerides 122 mg/dL; Very Low Density Lipoprotein 24 mg/dL (5-40)
== END 2018-11-12 11:58 | disposition home or self-care (01) ==
LOC: LAB 10:58
PROVIDERS: Family Provider Family Medicine; PCP Family Medicine; Referring Provider Internal Medicine Cardiovascular Disease; Visit Provider Internal Medicine Cardiovascular Disease
DX: I48.0 Paroxysmal atrial fibrillation (principal); Z79.01 Long term (current) use of anticoagulants; Z98.890 Other specified postprocedural states; Z95.2 Presence of prosthetic heart valve
CPT/HCPCS: 36415; 80061; 80076; 85610

== ENCOUNTER 2019-01-11 11:17 | Emergency (ER) | payer MEDICARE, MEDICAID, SELFPAY ==
[2019-01-11 11:19] VITALS: BP 114/72; PULSE 96; RESP 18; TEMP 36.4; O2SAT 99; BMI 23.8
--- NOTE | 2019-01-11 11:33 | EKG12_ITS ---
Test Reason : SOB Blood Pressure : / mmHG Vent. Rate : 084 BPM Atrial Rate : 084 BPM P-R Int : 166 ms QRS Dur : 084 ms QT Int : 376 ms P-R-T Axes : 085 017 077 degrees QTc Int : 444 ms Normal sinus rhythm Nonspecific ST and T wave abnormality Abnormal ECG Confirmed by ETELVINA SERNA ([id number]), commissioning editor JOSE ANDERSON ([id number]) on 01/14/2019 4:43:50 PM Referred By: LEOLA Confirmed By:ETELVINA SERNA
--- NOTE | 2019-01-11 11:36 | ED.DCSUM_ITS ---
- ER Visit Summary Date of Service: 01/11/19 Chief Complaint: Fever and cough History of Present Illness: The patient is a 58 M who presents for 3 days of fever and cough. Patient states he has felt rundown, dizzy, feverish, and has had a cough productive of sputum. He is also having sinus and chest congestion with right-sided pleuritic chest pain. Patient denies abdominal pain, nausea, vomiting, diarrhea. Patient has history of COPD but states he only uses an inhaler occasionally. He also has history of hypertension, abdominal aortic aneurysm, and is status post aortic valve replacement. Patient is on Coumadin. He is a smoker. Physical Examination: Vital signs: afebrile, hemodynamically stable, no hypoxia on room air General: well nourished, well developed, in no distress Skin: warm, dry, no rash, no pallor HEENT: normocephalic and atraumatic; PERRL, EOMI, moist mucous membranes Cardiovascular: regular rate and rhythm without murmurs, diastolic click noted, no peripheral edema, 2+ pulses all distal extremities Respiratory: No increased work of breathing, lungs show bibasilar crackles, left greater than right. No overt wheezing. Very harsh moist cough. Abdominal: Abdomen is soft, nontender with normoactive bowel sounds, no guarding or rebound, no masses MSK: Moves all extremities, no deformities, normal strength Neuro: Awake and alert, oriented ?4. No facial droop, sensation and motor function intact and symmetric Test Results: Abnormal Lab Results 01/11/19 01/11/19 01/11/19 11:45 11:45 11:45 WBC 12.8 H RBC 4.37 L Hgb 14.2 Hct 42.8 MCV 97.9 H MCH 32.5 H MCHC 33.2 RDW 12.8 RDW Differential 45.1 H Plt Count 157 MPV 9.8 Immature Gran % (Auto) 0.200 Neut % (Auto) 79.1 H Lymph % (Auto) 14.0 L [place] % (Auto) 6.3 Eos % (Auto) 0.2 Baso % (Auto) 0.2 Absolute Neuts (auto) 10.1 H Absolute Lymphs (auto) 1.80 Total Counted Not Reportable PT 29.4 H INR 2.8 Sodium 135 L Potassium 3.6 Chloride 107 Carbon Dioxide 25.0 Anion Gap 3 L BUN 9 Creatinine 0.90 Estim Creat Clear Calc 92.38 Est GFR (MDRD) Af Amer 111 Est GFR (MDRD) Non-Af 92 BUN/Creatinine Ratio 10.0 Glucose 89 Calcium 8.7 Troponin I < 0.015 Clinical Impression(s) from Imaging Studies Chest X-Ray 01/11/19 12:15 IMPRESSION: COPD with left lower lung infiltrate. Electronically Signed: Dung Johnson MD at 13:08 EDT , Service support , Medications Given Discontinued Medications Albuterol/Ipratropium (Duoneb) 3 ml INHALATION X1 ONE Stop: 01/11/19 11:34 Last Admin: 01/11/19 11:45 Dose: 3 ml Sodium Chloride () 1,000 mls @ 999 mls/hr IV .Q1H1M ONE Stop: 01/11/19 12:33 Last Admin: 01/11/19 11:49 Dose: 999 mls/hr Emergency Department Course and Treatment: Labs were checked including a PT INR, given that patient is on Coumadin. Patient was given IV fluids for hydration. Chest x-ray performed. Patient was given a DuoNeb. Stated he felt much better and was coughing up a lot more after the DuoNeb. Labs remarkable for leukocytosis of 12.8. EKG performed because patient was complaining of right- sided chest discomfort. It showed a sinus rhythm with no ischemic changes. Troponin negative. Chest x-ray showed COPD and also a left lower lobe infiltrate. On reevaluation, patient was comfortable and doing better. He was 95% on room air. Patient was amenable to a trial of outpatient treatment. His PORT score puts him at risk category 2, which is appropriate for trial of outpatient therapy. Patient was prescribed azithromycin and discharged home with strict return precautions. Treatment Plan: [] Disposition: [] Impression: Left lower lobe community-acquired pneumonia, COPD This note was generated with SYLOBation software. It may contain incorrect words, spelling, and punctuation that were not noted in review of the chart prior to signing ED Disposition - Plan for ED Patient: Disposition: Home or Assisted Living Instructions: ED Pneumonia Adult Prescriptions: RX: Azithromycin [Zithromax Z-García] 250 mg PO UD #1 box Referrals: Jonnie Zarco MD [Primary Care Provider] - 1-2 Days if not improving Additional Instructions: Your albuterol inhaler as needed for wheezing. Take the antibiotic exactly as prescribed. If you are having any worsening of your condition any time or are not starting to feel better after 2-3 days, please return immediately to the emergency department for another evaluation.
[2019-01-11 11:45] VITALS: PULSE 90; RESP 18
[2019-01-11] MEDS: Ipratropium/Albuterol Sulfate 3 ML AMPUL.NEB INHALATION (11:45)
[2019-01-11] MEDS: 0.9% Normal Saline 1,000 ML 999 ML IV (11:49)
[2019-01-11 11:57] LABS: Absolute Neutrophil Count 10.1 X10^3/uL (2.0-7.7); Basophil# 0.03 X10^3/uL; Basophil% 0.2 % (0-1); Eosinophil# 0.02 X10^3/uL; Eosinophils% 0.2 % (0-5); Hematocrit 42.8 % (40-54); Hemoglobin 14.2 g/dl (13.0-16.5); Mean Corp Hgb Conc 33.2 g/gl (32-36); Mean Corpuscular Hgb 32.5 pg (27.0-32.0); Mean Corpuscular Volume 97.9 fL (80-94); Mean Platelet Vol. 9.8 fl (6.2-12.0); Monocyte# 0.81 X10^3/uL; Monocyte% 6.3 % (0-10); Neutrophil # 10.13 X10^3/uL (2.7-7.7); Neutrophil % 79.1 % (47-70); Platelet Count 157 K/mm3 (150-450); RBC Distribution Width CV 12.8 % (11.6-14.6); RBC Distribution Width SD 45.1 fl (35.1-43.9); Red Blood Count 4.37 M/mm3 (4.6-6.2); White Blood Count 12.8 K/mm3 (4.4-11.0)
[2019-01-11 11:58] VITALS: BP 105/86; PULSE 82; RESP 13; TEMP 36.7; O2SAT 96
[2019-01-11 11:58] LABS: POSITIVE COUNT NO; POSITIVE DIFFERENTIAL NO; POSITIVE MORPHOLOGY NO
[2019-01-11 12:03] LABS: International Normalized Ratio 2.8; Prothrombin Time (Protime)PT. 29.4 SECONDS (11.7-14.9)
--- NOTE | 2019-01-11 12:15 | RAD_ITS ---
STUDY: X-RAY CHEST REASON FOR EXAM: Male, 58 years old. Cough. Fever. Dehydration. TECHNIQUE: PA and lateral views of the chest. COMPARISON: April 03, 2017. FINDINGS: There are monitoring devices. There is hyperinflation of the lungs consistent with chronic obstructive lung disease (COPD). There are granulomatous calcifications. There is patchy left lower lung consolidation. There is no demonstrated pleural abnormality. Sternal cerclage wires are present from a prior sternotomy. There is valve replacement. Normal mediastinum and robbie. Normal visualized pulmonary arteries. There is atherosclerotic calcification of the aortic arch with tortuosity. There are diffuse degenerative changes of the visualized thoracic spine. Normal visualized ribs, clavicles, and shoulders. There is no demonstrated abnormality of the visualized soft tissue structures of the upper abdomen. RAD/Chest PA and Lateral IMPRESSION: COPD with left lower lung infiltrate. Electronically Signed: Dung Johnson MD at 13:08 EDT , Service support ,
[2019-01-11 12:26] LABS: Anion Gap 3 (5-15); BUN 9 mg/dL (7-18); Calcium,Total 8.7 mg/dL (8.5-10.1); Chloride 107 mmol/L (98-107); EST Glomerular Filtration Rate 92 mL/min (>60); Est Glom Filt Rate - Afr Amer 111 mL/min (>60); Estimated Creatinine Clearance 92.38 ml/min; Glucose 89 mg/dL (74-106); Potassium 3.6 mmol/L (3.5-5.1); Sodium Level 135 mmol/L (136-145)
[2019-01-11 13:52] VITALS: BP 110/75; PULSE 87; RESP 19; O2SAT 97
== END 2019-01-11 13:53 | disposition home or self-care (01) ==
PROVIDERS: Emergency Provider Emergency Medicine; Family Provider Family Medicine; PCP Family Medicine
DX: J44.0 Chronic obstructive pulmonary disease with (acute) lower respiratory infection (principal); J18.9 Pneumonia, unspecified organism; I10 Essential (primary) hypertension; I71.4 Abdominal aortic aneurysm, without rupture; F17.200 Nicotine dependence, unspecified, uncomplicated; Z79.01 Long term (current) use of anticoagulants; Z79.899 Other long term (current) drug therapy; Z95.2 Presence of prosthetic heart valve
CPT/HCPCS: 71046; 80048; 84484; 85025; 85610; 93005; 94640; 96360; 96361; 99284; J7030; A4216

== ENCOUNTER 2019-03-27 10:25 | Outpatient (RCR) | payer MEDICARE, MEDICAID, SELFPAY ==
[2019-02-20 10:59] VITALS: BMI 23.9
[2019-03-27 11:52] LABS: International Normalized Ratio 1.5; Prothrombin Time (Protime)PT. 18.1 SECONDS (11.7-14.9)
== END 2019-03-27 11:25 | disposition home or self-care (01) ==
LOC: LAB 10:25
PROVIDERS: Family Provider Family Medicine; PCP Family Medicine; Referring Provider Internal Medicine Cardiovascular Disease; Visit Provider Internal Medicine Cardiovascular Disease
DX: I48.0 Paroxysmal atrial fibrillation (principal); Z79.01 Long term (current) use of anticoagulants; Z98.890 Other specified postprocedural states; Z95.2 Presence of prosthetic heart valve
CPT/HCPCS: 36415; 85610

== ENCOUNTER 2019-04-05 14:08 | Outpatient (RCR) | payer MEDICARE, SELFPAY ==
[2019-02-20 10:59] VITALS: BMI 23.9
[2019-04-05 15:03] LABS: International Normalized Ratio 2.5; Prothrombin Time (Protime)PT. 27.1 SECONDS (11.7-14.9)
== END 2019-04-28 12:00 | disposition home or self-care (01) ==
LOC: LAB 14:08
PROVIDERS: Family Provider Family Medicine; PCP Family Medicine; Referring Provider Internal Medicine Cardiovascular Disease; Visit Provider Internal Medicine Cardiovascular Disease
DX: I48.0 Paroxysmal atrial fibrillation (principal); Z79.01 Long term (current) use of anticoagulants; Z98.890 Other specified postprocedural states; Z95.2 Presence of prosthetic heart valve
CPT/HCPCS: 36415; 85610

== ENCOUNTER → 2019-04-09 08:54 | Outpatient (CLI) | payer MEDICARE, SELFPAY ==
[2019-02-20 10:59] VITALS: BMI 23.9
--- NOTE | 2019-04-09 08:58 | AAVD_ITS ---
Reason For Study: infrarenal AAA Aorta Measurements Aorta Doppler Measurements Proximal aorta measures3.05 x 2.64cm. in cross- Peak systolic flow velocities within the proximal sectional axis. aorta measure 53.6 cm/sec. Proximal aorta measures3.03cm. in longitudinal Peak systolic flow velocities within the mid aorta axis. measure 53.5 cm/sec. Mid aorta measures3.09 x 3.05cm. in cross- Peak systolic flow velocities within the distal sectional axis. aorta measure 41.3 cm/sec. Mid aorta measures3.14cm. in longitudinal axis. Distal aorta measures3.81 x 4.82cm. in cross- sectional axis. Distal aorta measures3.92cm. in longitudinal axis. Left Iliac Artery Peak systolic velocity in the left iliac artery measures 52.3 cm/sec. Left iliac artery measures .91 x .84 cm. in the cross-sectional axis. Left iliac artery measures .88 cm. in the longitudinal axis. Right Iliac Artery Right iliac artery measures .94 x .95 cm. in the longitudinal axis. Right iliac artery measures .99 cm. in the cross-sectional axis. Peak systolic velocity in the right iliac artery measures 44.9 cm/sec. Procedure The exam was diagnostic. Exam performed in department. Interpretation Summary The intra-abdominal aorta is aneurysmal, with a maximal diameter of 4.82 centimeters. The iliac arteries appear to be normal in size bilaterally. The intra-abdominal aorta and iliac arteries appear patent, demonstrating normal, pulsatile arterial flow and normal peak systolic velocities. Ordering Physician: Aakash Zaragoza Performed By: Aleksandr Block RVTommy
== END ==
PROVIDERS: Family Provider Family Medicine; PCP Family Medicine; Referring Provider Internal Medicine Cardiovascular Disease; Visit Provider Internal Medicine Cardiovascular Disease
DX: I71.4 Abdominal aortic aneurysm, without rupture (principal); Z95.2 Presence of prosthetic heart valve
CPT/HCPCS: 93978

== ENCOUNTER 2019-05-10 13:16 | Outpatient (RCR) | payer MEDICARE, SELFPAY ==
[2019-02-20 10:59] VITALS: BMI 23.9
[2019-05-10 15:07] LABS: Prothrombin Time (Protime)PT. 36.6 SECONDS (11.7-14.9)
[2019-05-10 15:24] LABS: International Normalized Ratio 3.7
== END 2019-05-29 16:19 | disposition home or self-care (01) ==
LOC: LAB 13:16
PROVIDERS: Family Provider Family Medicine; PCP Family Medicine; Referring Provider Internal Medicine Cardiovascular Disease; Visit Provider Internal Medicine Cardiovascular Disease
DX: I48.0 Paroxysmal atrial fibrillation (principal); Z79.01 Long term (current) use of anticoagulants; Z98.890 Other specified postprocedural states; Z95.2 Presence of prosthetic heart valve
CPT/HCPCS: 36415; 85610

== ENCOUNTER 2019-06-10 14:28 | Outpatient (RCR) | payer MEDICARE, SELFPAY ==
[2019-05-10 13:32] VITALS: BMI 20.9
[2019-06-07 10:28] LABS: Prothrombin Time (Protime)PT. 46.8 SECONDS (11.7-14.9)
[2019-06-10 16:24] LABS: Prothrombin Time (Protime)PT. 35.5 SECONDS (11.7-14.9)
[2019-06-10 16:33] LABS: International Normalized Ratio 3.5
== END 2019-06-10 15:28 | disposition home or self-care (01) ==
LOC: LAB 14:28
PROVIDERS: Family Provider Family Medicine; PCP Family Medicine; Referring Provider Internal Medicine Cardiovascular Disease; Visit Provider Internal Medicine Cardiovascular Disease
DX: I48.0 Paroxysmal atrial fibrillation (principal); Z79.01 Long term (current) use of anticoagulants; Z98.890 Other specified postprocedural states; Z95.2 Presence of prosthetic heart valve
CPT/HCPCS: 36415; 85610

== ENCOUNTER → 2019-06-17 17:34 | Outpatient (CLI) | payer MEDICARE, SELFPAY ==
[2019-06-10 13:20] VITALS: BMI 20.9
[2019-06-10 16:28] LABS: Creatinine, Serum 0.88 mg/dL (0.70-1.30); EST Glomerular Filtration Rate 94 mL/min (>60); Est Glom Filt Rate - Afr Amer 114 mL/min (>60)
--- NOTE | 2019-06-17 17:36 | CT_ITS ---
STUDY: CTA OF THE ABDOMINAL AORTA AND BILATERAL LOWER EXTREMITIES REASON FOR EXAM: Male, 58 years old. Aortic aneurysm. Restless leg syndrome. RADIATION DOSAGE (If Supplied By Facility): CTDIvol = ( 8.42 ) mGy, DLP = ( 1330.93 ) mGycm TECHNIQUE: Axial CT angiography multi-detector data acquisition was obtained from the diaphragm to the toes following intravenous administration of 100ml IV Isovue 370. Axial images and MIP images were reconstructed from the axial data set. Post-processing of the angiographic images was performed, with multiplanar reformation and 3D reconstruction. Individualized dose optimization techniques were used for this CT. TECHNICAL QUALITY: Good COMPARISON: None. Descriptors of Narrowing: None (0%) Mild (< 50%) Moderate (50-70%) Severe (70-90%) Subtotal/Total Occlusion (90-100%) Non-Evaluable (technically non-diagnostic) FINDINGS: There is dependent atelectasis is noted in the lungs. The heart is normal in size. There are no calcified gallstones present. The liver, spleen, pancreas, adrenal glands and kidneys are within normal limits. There is no bowel obstruction or inflammation. The appendix is normal. There is no abdominal or pelvic free air, free fluid or lymphadenopathy. VESSELS: Abdominal aorta: There is a 4.5 cm infrarenal abdominal aortic aneurysm which is slightly increased in size when compared with the prior exam (previously 4.3 cm). Celiac and superior mesenteric arteries: No demonstrated narrowing. Inferior mesenteric artery: No demonstrated narrowing. Right renal artery(arteries): No demonstrated narrowing. Left renal artery(arteries): No demonstrated narrowing. Right common iliac artery: No demonstrated narrowing. Right external iliac artery: No demonstrated narrowing. Right internal iliac artery: No demonstrated narrowing. Left common iliac artery: No demonstrated narrowing. Left external iliac artery: No demonstrated narrowing. Left internal iliac artery: No demonstrated narrowing. RIGHT LOWER EXTREMITY Right common femoral artery: No demonstrated narrowing. Right profundus femoris: No demonstrated narrowing. Right superficial femoral: No demonstrated narrowing. Right popliteal artery: No demonstrated narrowing. Right tibioperoneal trunk: No demonstrated narrowing. Right anterior tibial artery: No demonstrated narrowing. Right posterior tibial artery: No demonstrated narrowing. Right peroneal artery: No demonstrated narrowing. LEFT LOWER EXTREMITY Left common femoral artery: No demonstrated narrowing. Left profundus femoris: No demonstrated narrowing. Left superficial femoral: No demonstrated narrowing. Left popliteal artery: No demonstrated narrowing. Left tibioperoneal trunk: No demonstrated narrowing. Left anterior tibial artery: No demonstrated narrowing. Left posterior tibial artery: No demonstrated narrowing. Left peroneal artery: No demonstrated narrowing. CT/CTA Abd w/Runoff W/WO Contrast IMPRESSION: 4.5 cm infrarenal abdominal aortic aneurysm which is slightly increased in size when compared with the prior exam. Normal CT angiogram of the bilateral lower extremities. Electronically Signed: Jean Paul Berg, at 18:24 EDT Tel , Service support ,
== END ==
PROVIDERS: Family Provider Family Medicine; PCP Family Medicine; Referring Provider Surgery; Visit Provider Surgery
DX: I71.4 Abdominal aortic aneurysm, without rupture (principal)
CPT/HCPCS: 75635; 82565; Q9967

== ENCOUNTER → 2019-06-28 10:03 | Outpatient (CLI) | payer MEDICARE, SELFPAY ==
[2019-06-28 09:23] VITALS: BMI 20.9
[2019-06-28 11:42] LABS: Absolute Lymphocyte Count 2.11 X10^3/uL (0.83-4.51); Absolute Neutrophil Count 7.2 X10^3/uL (2.0-7.7); Basophil# 0.05 X10^3/uL; Basophil% 0.5 % (0-1); Eosinophil# 0.13 X10^3/uL; Eosinophils% 1.3 % (0-5); Hematocrit 43.5 % (40-54); Lymphocyte # 2.11 X10^3/ul (4.0); Lymphocyte % 20.8 % (19-41); Mean Corp Hgb Conc 32.2 g/dL (32-36); Mean Corpuscular Hgb 32.4 pg (27.0-32.0); Mean Corpuscular Volume 100.7 fL (80-94); Monocyte# 0.57 X10^3/uL; Monocyte% 5.6 % (0-10); NRBC Flagged by Analyzer 0 % (0-5); Neutrophil # 7.24 X10^3/uL (2.7-7.7); Neutrophil % 71.2 % (47-70); Platelet Count 225 K/mm3 (150-450); RBC Distribution Width CV 13.4 % (11.6-14.6); RBC Distribution Width SD 50.1 fl (35.1-43.9); Red Blood Count 4.32 M/mm3 (4.6-6.2); White Blood Count 10.2 K/mm3 (4.4-11.0)
[2019-06-28 11:53] LABS: Prothrombin Time (Protime)PT. 47.6 SECONDS (11.7-14.9)
[2019-06-28 11:56] LABS: International Normalized Ratio 5.1
== END ==
PROVIDERS: Internal Medicine Cardiovascular Disease; Family Provider Family Medicine; PCP Family Medicine; Referring Provider Surgery; Visit Provider Surgery
DX: I48.0 Paroxysmal atrial fibrillation (principal); K92.1 Melena; Z79.01 Long term (current) use of anticoagulants; Z95.2 Presence of prosthetic heart valve; Z98.890 Other specified postprocedural states
CPT/HCPCS: 36415; 85025; 85610

== ENCOUNTER → 2019-07-04 12:57 | Outpatient (CLI) | payer MEDICARE, SELFPAY ==
[2019-06-28 09:23] VITALS: BMI 20.9
[2019-07-04 13:24] LABS: International Normalized Ratio 2.2; Prothrombin Time (Protime)PT. 24.4 SECONDS (11.7-14.9)
== END ==
PROVIDERS: Family Provider Family Medicine; PCP Family Medicine; Referring Provider Surgery; Visit Provider Surgery
DX: Z79.01 Long term (current) use of anticoagulants (principal); Z98.890 Other specified postprocedural states; Z95.2 Presence of prosthetic heart valve
CPT/HCPCS: 36415; 85610

== ENCOUNTER 2019-07-08 09:29 | Day surgery (SDC) | payer MEDICARE, SELFPAY ==
[2019-06-28 09:23] VITALS: BMI 20.9
--- NOTE | 2019-06-28 10:02 | HP_ITS ---
Intake Vital Signs 06/28/19 Body Mass Index (BMI) 20.9 06/28/19 Height 6 ft 1 in 06/28/19 Weight: 270 lb 3 oz 06/28/19 Body Mass Index (BMI) 35.6 06/28/19 Blood Pressure 119/80 06/28/19 Blood Pressure Location Rt brachial 06/28/19 Respiratory Rate 20 H 06/28/19 Pulse Rate 74 06/28/19 Pulse Ox 96 Intake Visit Reasons: Inguinal hernia Chief Complaint: RIH, black stools Extracorporeal Technician Required: No Is patient in pain?: Yes (right groin ) Pain scale (1-10): 3 Allergies No Known Allergies Allergy (Verified 06/28/19 09:23) Medications acetaminophen 500 mg tablet 500 mg PO Q6H PRN 09/24/18 [History Confirmed 06/28/19] cetirizine 10 mg capsule 10 mg PO QDAY #30 cap 09/24/18 [Rx Confirmed 06/28/19] losartan 25 mg tablet 25 mg PO DAILY #30 tab 04/02/19 [Rx Confirmed 06/28/19] warfarin 5 mg tablet 5 mg PO .COMPLEX #60 tab 04/24/19 [Rx Confirmed 06/28/19] albuterol sulfate HFA 90 mcg/actuation aerosol inhaler 2 puff INHALATION Q4H PRN #18 g 04/26/19 [Rx Confirmed 06/28/19] metoprolol tartrate 25 mg tablet 12.5 mg PO BID #30 tab 05/10/19 [Rx Confirmed 06/28/19] rosuvastatin 10 mg tablet 10 mg PO DAILY #30 tab 05/10/19 [Rx Confirmed 06/28/19] tiotropium bromide 18 mcg capsule with inhalation device 1 cap INHALATION DAILY #30 inh 05/15/19 [Rx Confirmed 06/28/19] abdominal binder #1 ea 06/28/19 [Rx Confirmed 06/28/19] pantoprazole 40 mg tablet,delayed release 40 mg PO DAILY #37 tab 06/28/19 [Rx Confirmed 06/28/19] PFSH Medical History Atherosclerotic heart disease of [place] coronary artery without angina pectoris (Chronic) Stage 1 mild COPD by GOLD classification (Chronic) Lung nodule (Chronic) Transient cerebral ischemic attack (Ruled-out) Nicotine abuse (Chronic) HLD (hyperlipidemia) (Chronic) Nonrheumatic aortic valve insufficiency (Chronic) Aneurysm of infrarenal abdominal aorta (Chronic) Paroxysmal atrial fibrillation (Chronic) 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 (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) use of anticoagulants (Chronic) Weight loss (Acute) Abnormal pulmonary function test (Chronic) Allergic rhinitis, seasonal (Chronic) SAMSON (dyspnea on exertion) (Chronic) Collapse of right lung (Resolved) Surgical History History of left heart catheterization (Chronic 11/19/10) History of aortic root repair (Chronic) Hx of aortic valve replacement, mechanical (Chronic 11/26/10) Social History (Updated 06/28/19 @ 10:02 by Keshia Anderson MD) adopted: Yes Smoking Status: Current every day smoker tobacco type: cigarettes alcohol intake: never substance use type: does not use HPI HPI HPI: SUJIT PONCE, is a 58 M who presents to the office today for HPI HPI Surgical H&P: Yes HPI: SUJIT PONCE, is a 58 M who presents to the office today for right inguinal hernia and right groin pain. Patient also mentions he is been having black tarry stools times the last 4 to 5 days, which she thought was due to the hernia. Patient states the right groin pain started about 4 to 5 days ago he is also noticed a bulge patient does not state that he reduces the hernia himself but does state it can go back down on its own. Patient currently states his pain is a 2?3/10. Patient has been taking Tylenol for this he states he has been taking about 2 to 500 mg Tylenols every couple hours, so he will have about 6 within 6 to 8 hours. Patient states he does not take any ibuprofen as he is on the Coumadin due to his mechanical valve. Patient denies any nausea or vomiting or abdominal distention. Patient has been on omeprazole 20 mg p.o. daily for years. Patient states in 1985 he had a bleeding ulcer and had an EGD done at that time. He states he does still have some reflux symptoms on the omeprazole but only about once a week with burning in the esophagus. Patient has never had a colonoscopy. Patient does not know his family history as he was adopted at 2 years of age. ROS General General: Yes fatigue; no weight change, colon cancer, breast cancer or weakness HEENT HEENT: Yes eye surgery; no difficulty swallowing, eye injury, swollen glands or hoarseness Endo Endocrine: No thyroid disease, diabetes mellitus, thyroid cancer, Hair loss, heat intolerance or cold intolerance Skin Skin: No rash or changing moles Breast Breast: No left breast lump, right breast lump, nipple discharge, breast pain, abnormal mammogram, abnormal US or breast enlargement Musc Musculoskeletal: Yes back problems and arthritis; no rheumatoid arthritis, gout or joint pain Cardio Cardiovascular: Yes heart disease, atrial fibrillation, high blood pressure, heart attack and shortness of breat with exertion; no murmur, pacemaker, heart stent, palpitations or chest pain Psych Psychiatric: No depression, anxiety or hearing voices Resp Respiratory: Yes shortness of breath, No sleep apnea, No cough, Yes COPD, Yes asthma, No emphysema, No wheezing Gastro Gastrointestinal: Yes abdominal pain, No nausea or vomiting, No diarrhea, No constipation, No blood in stool, Yes acid reflux, No hemorrhoids, No ulcers, No gallbladder problem, Yes black,tarry stools [place] Hematologic: Yes blood thinners, No blood disorders, No bleeding, No anemia, No blood clots Neuro Neurologic: No weakness Exam Const General: cooperative, comfortable, no acute distress Chest Breast Palpation: No nipple discharge Cardio Heart Sounds: no murmurs GI Inspection: non-distended Palpation: soft, no guarding, nontender Other: Right groin, right inguinal hernia, reducible, left groin no hernia on exam. XIN: Normal sphincter tone, normal prostate, no gross blood on exam, brown stool Assessment & Plan Problems 1. Right inguinal hernia K40.90 2. Melena K92.1 3. Hx of aortic valve replacement, mechanical Z95.2 Aortic valve conduit replacement of the aortic valve, the aortic root, and ascending aorta. 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 Patient was agreeable to plan. Due to patient's mechanical valve patient will need to be bridged to Lovenox we will check with cardiology to see if they would be willing to order the Lovenox. Did discuss with patient that if he does have increased blood per rectum or any dizziness or abdominal distention/nausea or vomiting he would need to come to the ER, prior to the scheduled endoscopy next week. Will change patient's omeprazole to Protonix 40 mg p.o. twice daily initially until we are able to do the endoscopy. Did discuss with patient that he is only able to take Tylenol two 500 mg tablets every 6 hours. We will also check a CBC today, rectal exam today did show brown stool no gross blood. Will order patient hernia belt to hopefully help with the pain control before surgery as first we need to proceed with EGD and colonoscopy. Patient he can schedule hernia repair with with Dr. Doe or me as Dr. Doe be back from vacation in 1 more week. I have discussed the above with the patient. I have offered the patient EGD & colonoscopy for evaluation. I have explained the risks/benefits of the procedure and described the procedure. I have discussed the risks with the patient, including but not limited to: infection, bleeding, perforation of the GI tract requiring emergency surgery, inability to complete the procedure, injury to any internal organs, complications of anesthesia, etc. - the patient understands and agrees to proceed. I have answered all the patient's questions to the patient's satisfaction and the patient has no further questions. The patient has been given instructions for the colon cleansing preparation. 1 day of clears, MiraLAX Dulcolax split prep. Keshia Anderson M.D. Pager: [phone] [facility] [address] [place] [address], [facility], [address] [place] [address] Office: 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 Did discuss with patient that due to him being to stay on anticoagulation would not be doing larger biopsies today. Patient was bridged on Lovenox shots twice daily. Patient no further questions this time. Patient states that his right inguinal hernia has not been as bothersome recently. Currently the hernia is reduced as patient is lying in bed, abdomen soft, nondistended, nontender, no PS.
[2019-07-08 09:49] VITALS: BP 117/84; PULSE 67; RESP 18; TEMP 36.5; O2SAT 99; BMI 21.9
[2019-07-08] MEDS: Lactated Ringers 1,000 ML 100 ML IV (10:10)
--- NOTE | 2019-07-08 11:00 | EGD_PTH ---
PATIENT: SUJIT PONCE LOC: EN U#:[id number] AGE/SX: 58/M ROOM: RE07/08/[address]: Dr. Keshia Anderson MD : 1960 BED: DIS: 07/08/2019 SPEC #: [id number] RECD: 07/08/19 11:39 STATUS: ABRAN SARATH #: [id number] SUSANNAH: 07/08/19 11:[address]: Keshia Anderson DEPT: SURGICAL PATHOLOGY RECD BY: Cy Jiménez ENTERED: 07/08/19 11:45 SP TYPE: EGD BIOPSY TALHA DR: Dr. Jonnie Zarco MD Tissues: Esophageal mucous membrane Procedures: PAS Fungus (control) Special Stain Group I Surgery Specimen Level IV HEADER OPERATION: Colonoscopy, EGD ([facility] [place]) PRE-OP DIAGNOSIS: Melena TISSUE SUBMITTED: Distal esophageal white nodule biopsy MICROSCOPIC DIAGNOSIS Distal esophageal white nodule, biopsy: Fragments of squamous epithelium with chronic inflammation. Superficial acute inflammation. Special stain for fungi is positive for numerous organisms (yeast and pseudohyphae) consistent with shaye species; matched control is appropriate. Organisms consistent with bacteria are also noted. KEI:horacio 07/09/19 COMMENT Correlation with clinical, endoscopic findings and appropriate follow up are necessary. This case is discussed with Dr. Anderson on 07/09/19. Case has been reviewed in consultation with Dr. Heranndez who concurs with the above diagnosis. IDC:AM MICROSCOPIC DESCRIPTION Slides are reviewed. GROSS DESCRIPTION Received in fixative is one container labeled with the patient's name and designated distal esophageal white nodule biopsy. The specimen consists of multiple irregular fragments of luna-white soft tissue that in aggregate measure 1 x 0.2 x 0.1 cm. The specimen is totally submitted in one cassette. / KEI:horacio 07/08/19 TC:3 CPT: 88914, 79065
--- NOTE | 2019-07-08 11:49 | OP.ENDO_ITS ---
07/08/2019 Jonnie Zarco MD Re : Upper GI endoscopy procedure for Beto Bedoya Dear Dr. Zarco This procedure was performed on Monday, July 08, 2019. My impressions and recommendations are as follows: Impressions : - Z-line irregular, 40 cm from the incisors. - Esophageal plaques were found, suspicious for candidiasis. Biopsied. - Normal examined duodenum. - Small hiatal hernia. Recommendations : - Await pathology results. - Continue present medications. - Resume Coumadin (warfarin) at prior dose today. My findings are described in the full procedure note, which is enclosed. If I can be of further assistance, please feel free to contact me at Doctor phone number(s): , Work: . Sincerely, MD Keshia Barrett MD 07/08/2019 11:48:38 AM This report has been signed electronically.
[2019-07-08 11:50] VITALS: BP 106/73; BP 117/84; PULSE 71; RESP 16; TEMP 36.2; O2SAT 98
--- NOTE | 2019-07-08 11:54 | OP.ENDO_ITS ---
07/08/2019 Jonnie Zarco MD Re : Colonoscopy procedure for Beto Bedoya Dear Dr. Zarco This procedure was performed on Monday, July 08, 2019. My impressions and recommendations are as follows: Impressions : - Preparation of the colon was poor. - Stool in the entire examined colon. - The distal rectum and anal verge are normal on retroflexion view. - No specimens collected. Recommendations : - Discharge patient to home. - Resume previous diet. - Repeat colonoscopy at appointment to be scheduled because the bowel preparation was poor. - Continue present medications. - Continue Coumadin (warfarin) at prior dose. Refer to Cardiology for further adjustment of therapy. My findings are described in the full procedure note, which is enclosed. If I can be of further assistance, please feel free to contact me at Doctor phone number(s): , Work: . Sincerely, MD Keshia Barrett MD 07/08/2019 11:53:22 AM This report has been signed electronically.
[2019-07-08 12:00] VITALS: BP 117/84; BP 98/65; PULSE 69; RESP 16; O2SAT 100
[2019-07-08 12:05] VITALS: BP 111/62; BP 117/84; PULSE 68; RESP 16; O2SAT 100
[2019-07-08 12:09] VITALS: BP 117/84; BP 95/58; PULSE 64; RESP 16; TEMP 36.3; O2SAT 98
[2019-07-08 13:03] VITALS: BP 115/75; BP 117/84; PULSE 64; RESP 16; TEMP 36.2
== END 2019-07-08 13:05 | disposition home or self-care (01) ==
LOC: EN 09:30 → AC 09:33
PROVIDERS: Family Provider Family Medicine; PCP Family Medicine; Referring Provider Surgery; Visit Provider Surgery
PROC: 0DJD8ZZ Inspection of Lower Intestinal Tract, Via Natural or Artificial Opening Endoscopic (ICD-10-PCS; CPT 45378; principal; 2019-07-08 10:55)
DX: K92.1 Melena (principal); K40.90 Unilateral inguinal hernia, without obstruction or gangrene, not specified as recurrent; K21.9 Gastro-esophageal reflux disease without esophagitis; I48.0 Paroxysmal atrial fibrillation; J44.9 Chronic obstructive pulmonary disease, unspecified; I25.10 Atherosclerotic heart disease of native coronary artery without angina pectoris; E78.5 Hyperlipidemia, unspecified; G25.81 Restless legs syndrome; F17.210 Nicotine dependence, cigarettes, uncomplicated; Z79.01 Long term (current) use of anticoagulants; Z79.899 Other long term (current) drug therapy; Z98.890 Other specified postprocedural states; Z95.2 Presence of prosthetic heart valve
CPT/HCPCS: 43239; 45378; 88305; 88312; J7120; J2405

== ENCOUNTER 2019-07-18 16:20 | Outpatient (RCR) | payer MEDICARE, MEDICAID, SELFPAY ==
[2019-06-28 09:23] VITALS: BMI 20.9
[2019-07-16 10:17] VITALS: BMI 21.9
[2019-07-16 16:13] LABS: Prothrombin Time (Protime)PT. 54.3 SECONDS (11.7-14.9)
[2019-07-18 17:20] LABS: Prothrombin Time (Protime)PT. 38.9 SECONDS (11.7-14.9)
[2019-07-18 17:27] LABS: International Normalized Ratio 3.9
== END 2019-07-18 18:00 | disposition home or self-care (01) ==
LOC: LAB 16:20
PROVIDERS: Family Provider Family Medicine; PCP Family Medicine; Referring Provider Internal Medicine Cardiovascular Disease; Visit Provider Internal Medicine Cardiovascular Disease
DX: I48.0 Paroxysmal atrial fibrillation (principal); Z79.01 Long term (current) use of anticoagulants; Z98.890 Other specified postprocedural states; Z95.2 Presence of prosthetic heart valve
CPT/HCPCS: 36415; 85610

== ENCOUNTER 2019-08-09 15:29 | Outpatient (RCR) | payer MEDICARE, SELFPAY ==
[2019-07-16 10:17] VITALS: BMI 21.9
[2019-07-31 17:13] LABS: Prothrombin Time (Protime)PT. 47.3 SECONDS (11.7-14.9)
[2019-08-02 17:13] LABS: International Normalized Ratio 2.1; Prothrombin Time (Protime)PT. 23.8 SECONDS (11.7-14.9)
[2019-08-09 17:36] LABS: Prothrombin Time (Protime)PT. 22.9 SECONDS (11.7-14.9)
== END 2019-08-09 18:00 | disposition home or self-care (01) ==
LOC: LAB 15:29
PROVIDERS: Family Provider Family Medicine; PCP Family Medicine; Referring Provider Internal Medicine Cardiovascular Disease; Visit Provider Internal Medicine Cardiovascular Disease
DX: I48.0 Paroxysmal atrial fibrillation (principal); Z79.01 Long term (current) use of anticoagulants
CPT/HCPCS: 36415; 85610

== ENCOUNTER 2019-09-24 14:59 | Outpatient (RCR) | payer MEDICARE, SELFPAY ==
[2019-07-16 10:17] VITALS: BMI 21.9
[2019-09-17 16:47] LABS: Prothrombin Time (Protime)PT. 51.9 SECONDS (11.7-14.9)
[2019-09-17 16:54] LABS: International Normalized Ratio 5.6
[2019-09-19 12:56] LABS: International Normalized Ratio 2.3; Prothrombin Time (Protime)PT. 25.6 SECONDS (11.7-14.9)
[2019-09-24 16:17] LABS: International Normalized Ratio 3.3; Prothrombin Time (Protime)PT. 33.6 SECONDS (11.7-14.9)
== END 2019-09-24 18:00 | disposition home or self-care (01) ==
LOC: LAB 14:59
PROVIDERS: Family Provider Family Medicine; PCP Family Medicine; Referring Provider Internal Medicine Cardiovascular Disease; Visit Provider Internal Medicine Cardiovascular Disease
DX: I48.0 Paroxysmal atrial fibrillation (principal); Z79.01 Long term (current) use of anticoagulants
CPT/HCPCS: 36415; 85610

== ENCOUNTER → 2019-10-18 13:31 | Outpatient (CLI) | payer MEDICARE, SELFPAY ==
[2019-10-08 14:09] VITALS: BMI 21.9
--- NOTE | 2019-10-18 13:32 | CT_ITS ---
STUDY: LOW DOSE CT LUNG CANCER SCREENING REASON FOR EXAM: Male, 59 years old. Long history of smoking. Screening for lung cancer. RADIATION DOSAGE (If Supplied By Facility): CTDIvol = ( 2.55 ) mGy, DLP = ( 110.67 ) mGycm TECHNIQUE: No contrast was administered. Low dose technique was utilized (average mAS-38 and kVp 120). 1.25 mm axial source images with a slice interval of 1.25-mm were reconstructed in lung windows. 2.5 mm axial source images with a slice interval of 2.5-mm were reconstructed in lung windows. 5.0 mm axial source images with a slice interval of 5.0-mm were reconstructed in soft tissue windows. Nodule measured using lung windows on PACS and/or independent workstation with automated measurement of minimum and maximum diameter. Nodule measurement reported as average diameter rounded to the nearest whole number. Growth is defined as an increase ins size of greater than 1.5 mm. COMPARISON: 10/09/2018 NODULES: There are right upper lobe postsurgical changes and mild scarring and this may reflect previous lung reduction surgery. Chronic lung disease with extensive centrilobular emphysema with upper lobe predominance. On axial image # 164, the left infrahilar region a cavitary nodule measuring 0.6 x 0.7 cm has decreased in size it measured previously 1.2 x 0.8 centimeter. Bilateral lower lobe bronchiectasis. No acute infiltrate or pleural effusion. Multiple mildly enlarged mediastinal lymph nodes which measure up to 1.3 cm in the short axis. The majority of the lymph nodes are noncalcified and several calcified nodes are also present at the AP window region and subcarinal region. Redemonstration of multiple enlarged right axillary lymph nodes with the largest node measuring approximately 1.7 cm the short axis.. Normal heart and pericardium. Normal mediastinum. Normal hilar regions. Normal unenhanced pulmonary arteries. Normal aorta arch and descending thoracic aorta. There are multi-level degenerative changes of the thoracic spine. There is no demonstrated abnormality of the visualized upper abdomen. CT/Low Dose CT Lung Screening IMPRESSION: Lung-RADS category 2. Benign findings. Left infrahilar cavitary nodule measuring 0.6 x 0.7 cm has decreased in size it measured previously 1.2 x 0.8 centimeter. Recommendation: Routine screening CT scan in one year. IMPORTANT NOTES FOR USE: ACR Lung-RADS Version 1.0 Assessment Categories Release Date: February 24, 2014 Category: Coded 0-4 bases on nodule(s) with highest degree of suspicion. Negative screen is defined as categories 1 and 2; a positive screen is defined as categories 3 and 4. Category 3 and 4A nodules that are unchanged on interval CT should be coded as category 2, and individuals returned to screening in 12 months. Category 4X: Category 3 or 4 nodules with additional imaging findings that increase the suspicion of lung cancer, such as spiculation, GGN that doubles in size in 1 year, enlarged lymph notes, etc. Category Modifiers: S (significant finding unrelated to lung cancer) and C (prior history of treated lung cancer) may be added to the 0-4 Lung-RADS Electronically Signed: Sofia Maya, at 8:09 EST Tel , Service support ,
== END ==
PROVIDERS: Family Provider Family Medicine; PCP Family Medicine; Referring Provider Nurse Practitioner Acute Care; Visit Provider Nurse Practitioner Acute Care
DX: F17.210 Nicotine dependence, cigarettes, uncomplicated (principal); I48.0 Paroxysmal atrial fibrillation; Z79.01 Long term (current) use of anticoagulants
CPT/HCPCS: 36415; 85610; G0297

== ENCOUNTER 2019-10-18 13:53 | Outpatient (RCR) | payer MEDICARE, SELFPAY ==
[2019-07-16 10:17] VITALS: BMI 21.9
[2019-10-08 14:09] VITALS: BMI 21.9
[2019-10-18 14:35] LABS: Prothrombin Time (Protime)PT. 31.5 SECONDS (11.7-14.9)
== END 2019-10-18 18:00 | disposition home or self-care (01) ==
LOC: LAB 13:53
PROVIDERS: Family Provider Family Medicine; PCP Family Medicine; Referring Provider Internal Medicine Cardiovascular Disease; Visit Provider Internal Medicine Cardiovascular Disease
DX: I48.0 Paroxysmal atrial fibrillation (principal); Z79.01 Long term (current) use of anticoagulants
CPT/HCPCS: 36415; 85610

== ENCOUNTER 2019-11-15 11:33 | Outpatient (RCR) | payer MEDICARE, SELFPAY ==
[2019-10-08 14:09] VITALS: BMI 21.9
[2019-11-15 12:41] LABS: International Normalized Ratio 3.4; Prothrombin Time (Protime)PT. 34.5 SECONDS (11.7-14.9)
== END 2019-11-15 18:00 | disposition home or self-care (01) ==
LOC: LAB 11:33
PROVIDERS: Family Provider Family Medicine; PCP Family Medicine; Referring Provider Internal Medicine Cardiovascular Disease; Visit Provider Internal Medicine Cardiovascular Disease
DX: I48.0 Paroxysmal atrial fibrillation (principal); Z79.01 Long term (current) use of anticoagulants
CPT/HCPCS: 36415; 85610

== ENCOUNTER 2019-12-19 14:50 | Outpatient (RCR) | payer MEDICARE, MEDICAID, SELFPAY ==
[2019-10-08 14:09] VITALS: BMI 21.9
[2019-12-11 15:51] LABS: International Normalized Ratio 2.1; Prothrombin Time (Protime)PT. 23.8 SECONDS (11.7-14.9)
[2019-12-19 16:08] LABS: International Normalized Ratio 2.6
[2019-12-19 16:30] LABS: AST(SGOT) 18 U/L (15-37); Alanine Aminotransfer ALT/SGPT 27 U/L (16-61); Albumin, Serum 4.2 g/dL (3.2-5.0); Alkaline Phosphatase 106 U/L (45-117); Bilirubin, Direct 0.14 mg/dL (0.00-0.30); Cholesterol 151 mg/dL (200); Globulin 3.6 g/dL (2.2-4.2); High Density Lipoprotein 46 mg/dL; Protein, Total 7.8 g/dL (6.4-8.2); Triglycerides 155 mg/dL; Very Low Density Lipoprotein 31 mg/dL (5-40)
== END 2019-12-19 18:00 | disposition home or self-care (01) ==
LOC: LAB 14:50
PROVIDERS: Family Provider Family Medicine; PCP Family Medicine; Referring Provider Internal Medicine Cardiovascular Disease; Visit Provider Internal Medicine Cardiovascular Disease
DX: I48.0 Paroxysmal atrial fibrillation (principal); Z79.01 Long term (current) use of anticoagulants; E78.00 Pure hypercholesterolemia, unspecified
CPT/HCPCS: 36415; 80061; 80076; 85610

== ENCOUNTER → 2019-12-30 13:32 | Outpatient (CLI) | payer MEDICARE, MEDICAID, SELFPAY ==
[2019-12-19 14:30] VITALS: BMI 21.9
[2019-12-24 14:29] VITALS: BMI 21.9
--- NOTE | 2019-12-30 13:32 | ECHOD_ITS ---
Reason For Study: PRE OPERATIVE Procedure This was a 2D Doppler, Color Flow transthoracic echocardiogram. Exam performed in department. Left Ventricle Mildly dilated left ventricle. The estimated ejection fraction is 55 %. Stage 1 diastolic dysfunction. There is mild global hypokinesis of the left ventricle. Right Ventricle Moderately dilated right ventricle. A moderator band is seen in the right ventricle. Mild to moderate global right ventricular systolic dysfunction. Atria Normal left atrium. Normal right atrium. Normal atrial septum. Mitral Valve The mitral valve is structurally normal. No prolapse or stenosis seen. Tricuspid Valve Normal tricuspid valve. Trivial tricuspid valve insufficiency. Right ventricular systolic pressure estimated to be 29 mmHg. Aortic Valve Trivial aortic valve insufficiency. Stable appearing bioprosthetic aortic valve apparatus. Pulmonic Valve Normal pulmonic valve. Great Vessels Normal aortic root. Normal arch. Normal inferior vena cava. Inferior vena cava collapse with sniff. Pericardium/Pleural No pericardial effusion. Medication 22 gauge I.V. with prn adaptor inserted into right arm. Performed a rapid injection of agitated mix of 9 cc saline and 1cc air to assess for atrial septal defect. MMode/2D Measurements & Calculations LVIDd: 5.0 cm IVSd: 1.0 cm Ao root diam: 3.8 cm LVIDs: 3.6 cm LVPWd: 1.1 cm RVDd: 4.0 cm FS: 28.6 % LAV(MOD-bp): 70.2 ml LA A4 area: 20.9 cm2 LA dimension(2D): 3.7 cm LAV(MOD-bp) Indexed: 34.0 ml/m2 LAV(MOD-sp2): 79.4 ml LAV(MOD-sp4): 62.6 ml RA A4 area: 19.2 cm2 Time Measurements MV dec time: 0.19 sec Doppler Measurements & Calculations MV E max jack: 46.2 cm/sec Lat Peak E' Jack: 12.5 cm/sec Med Peak E' Jack: 9.6 cm/sec MV A max jack: 66.0 cm/sec E/E' lat: 3.7 E/E' med: 4.8 MV E/A: 0.70 Ao V2 max: 241.8 cm/sec LV V1 max: 90.6 cm/sec PA V2 max: 90.7 cm/sec Ao max P.4 mmHg LV V1 max P.3 mmHg Ao V2 mean: 183.5 cm/sec LV V1 mean P.7 mmHg Ao mean P.4 mmHg LV V1 mean: 63.4 cm/sec Ao V2 VTI: 45.1 cm LV V1 VTI: 19.7 cm TR max jack: 259.6 cm/sec TR max P.0 mmHg Interpretation Summary Mildly dilated left ventricle. The estimated ejection fraction is 55 %. Stage 1 diastolic dysfunction. There is mild global hypokinesis of the left ventricle. Moderately dilated right ventricle. Mild to moderate global right ventricular systolic dysfunction. Trivial tricuspid valve insufficiency. Right ventricular systolic pressure estimated to be 29 mmHg. Stable appearing and normal funcitoning bioprosthetic aortic valve apparatus. Trivial aortic valve insufficiency. Compared to echo report dated 08/10/2015, patient's LV function has gone from 65% to 55% with mild global hypokinesis, and RVSP has decreased from 36 to 29 mmHg. Ordering Physician: Aakash Zaragoza Referring Physician: Jonnie Zarco Performed By: Lois Lopez, SUMA, RVT
== END ==
PROVIDERS: PCP Family Medicine; Referring Provider Internal Medicine Cardiovascular Disease; Visit Provider Internal Medicine Cardiovascular Disease
DX: Z01.818 Encounter for other preprocedural examination (principal)
CPT/HCPCS: 93306; A4216

== ENCOUNTER → 2020-01-06 12:40 | Outpatient (CLI) | payer MEDICARE, MEDICAID, SELFPAY ==
[2019-12-19 14:30] VITALS: BMI 21.9
[2019-12-24 14:29] VITALS: BMI 21.9
--- NOTE | 2020-01-06 12:41 | STE_ITS ---
Reason For Study: PRE OPERATIVE Stress Results Protocol: Dobutamine Stress Maximum Predicted HR: 161 bpm Target HR: 137 bpm % Maximum Predicted HR: 84 % DurationHeart Rate Stage (mm:ss) (bpm) BP Dose Comment BASELINE 68 130/69 STAGE 1 3:00 85 120/6610.00 STAGE 2 3:00 122 188/6920.00 STAGE 3 4:18 136 127/7230.00NO CHEST PAIN RECOVERY 87 125/87 Stress Duration: 10:18 mm:ss Maximum Stress HR: 136 bpm Baseline Echocardiogram Findings The estimated ejection fraction is 65 %. Stress Echo Wall motion Data Resting WM Intermediate WM Stress WM Resting Wall Motion Wall Motion Stress No regional wall motion No regional wall motion abnormalities noted. abnormalities noted. EKG Data The baseline ECG displays normal sinus rhythm. The patient was titrated from 10 mcg to a maximun of 30 mcg of dobutamine during the stress. The maximum heart rate attained was 137 beats per minute. This was 85% of maximum predicted heart rate. During dobutamine infusion, there were no ST or T wave changes noted to suggest ischemia. No clinical angina was noted. Interpretation Summary The estimated ejection fraction is 65 %. Normal, adequate, dobutamine echocardiogram. Negative for ischemia by EKG and echocardiographic criteria. No anginal symptoms noted. Rare PVCs noted. Appropriate blood pressure response to dobutamine. Final LVEF is 75%. Test terminated due to the attainment target heart rate. Patient tolerate procedure well. No complications. Ordering Physician: Aakash Zaragoza Referring Physician: Aakash Zaragoza Performed By: Marla Franco RDCS, RVT
== END ==
PROVIDERS: PCP Family Medicine; Referring Provider Internal Medicine Cardiovascular Disease; Visit Provider Internal Medicine Cardiovascular Disease
DX: Z01.810 Encounter for preprocedural cardiovascular examination (principal); Z01.818 Encounter for other preprocedural examination; I25.10 Atherosclerotic heart disease of native coronary artery without angina pectoris; I48.0 Paroxysmal atrial fibrillation; Z98.890 Other specified postprocedural states
CPT/HCPCS: 93017; 93350; J7040; Q9957; A4216

== ENCOUNTER 2020-02-24 13:57 | Outpatient (RCR) | payer MEDICARE, MEDICAID, SELFPAY ==
[2019-12-24 14:29] VITALS: BMI 21.9
[2020-02-10 14:45] LABS: International Normalized Ratio 2.4; Prothrombin Time (Protime)PT. 25.8 SECONDS (11.7-14.9)
[2020-02-18 15:45] LABS: Prothrombin Time (Protime)PT. 38.3 SECONDS (11.7-14.9)
[2020-02-18 15:54] LABS: International Normalized Ratio 3.9
[2020-02-24 15:11] LABS: Prothrombin Time (Protime)PT. 35.1 SECONDS (11.7-14.9)
[2020-02-24 15:24] LABS: International Normalized Ratio 3.5
== END 2020-02-27 18:00 | disposition home or self-care (01) ==
LOC: LAB 13:57
PROVIDERS: Family Provider Family Medicine; PCP Family Medicine; Referring Provider Internal Medicine Cardiovascular Disease; Visit Provider Internal Medicine Cardiovascular Disease
DX: I48.0 Paroxysmal atrial fibrillation (principal); Z79.01 Long term (current) use of anticoagulants
CPT/HCPCS: 36415; 85610

== ENCOUNTER 2020-03-25 07:27 | Day surgery (SDC) | payer MEDICARE, MEDICAID, SELFPAY ==
[2019-12-24 14:29] VITALS: BMI 21.9
--- NOTE | 2020-03-18 03:03 | HP_ITS ---
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: No Is patient in pain?: No Allergies No Known Allergies Allergy (Verified 03/18/20 12:47) Medications Acetaminophen [Tylenol Extra Strength] 500 - 1,000 mg PO Q6H PRN PRN 07/02/19 [History Confirmed 03/18/20] Fluticasone 0.05% [Flonase Nasal [place]] 1 spray NASAL DAILY 07/02/19 [History Confirmed 03/18/20] Losartan Potassium 25 mg PO QHS 07/02/19 [History Confirmed 03/18/20] Pramipexole Di-HCl [Mirapex] 0.5 mg PO QHS 07/02/19 [History Confirmed 03/18/20] Rosuvastatin Calcium 10 mg PO QHS 07/02/19 [History Confirmed 03/18/20] Tiotropium [place] [Spiriva with HandiHaler] 1 puff INHALATION QHS 07/02/19 [History Confirmed 03/18/20] albuterol sulfate 90 mcg/actuation aerosol inhaler 2 puff INHALATION Q4H PRN #18 g 12/05/19 [Rx Confirmed 03/18/20] enoxaparin 120 mg/0.8 mL subcutaneous syringe 120 mg SC Q12H #8 ml 01/01/20 [Rx Confirmed 03/18/20] Pantoprazole Sodium 40 mg PO QHS 03/18/20 [History Confirmed 03/18/20] warfarin 5 mg tablet 5 mg PO MOTUWETHFRSA 03/18/20 [History Confirmed 03/18/20] warfarin 5 mg tablet 10 mg PO STYLES tab 03/18/20 [History Confirmed 03/18/20] [facility] Medical History Pre-op evaluation (Acute) Atherosclerotic heart disease of [place] coronary artery without angina pectoris (Chronic) Stage 1 mild COPD by GOLD classification (Chronic) Lung nodule (Chronic) Transient cerebral ischemic attack (Ruled-out) Nicotine abuse (Chronic) HLD (hyperlipidemia) (Chronic) Nonrheumatic aortic valve insufficiency (Chronic) Aneurysm of infrarenal abdominal aorta (Chronic) Paroxysmal atrial fibrillation (Chronic) 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) Weight loss (Acute) Abnormal pulmonary function test (Chronic) Allergic rhinitis, seasonal (Chronic) SAMSON (dyspnea on exertion) (Chronic) Collapse of right lung (Resolved) Surgical History History of left heart catheterization (Chronic 11/19/10) History of aortic root repair (Chronic) Hx of aortic valve replacement, mechanical (Chronic 11/26/10) Social History (Updated 03/18/20 @ 15:04 by Savita López PA-C) adopted: Yes Smoking Status: Current every day smoker tobacco type: cigarettes alcohol intake: never substance use type: does not use HPI HPI HPI: SUJIT OPNCE, is a 59 M who presents to the office today for HPI HPI Surgical H&P: Yes HPI: Patient returns for an update history and physical. He denies recent hospitalizations or illnesses. He denies previous complications with anesthesia. Cardiology has discussed bridging the patient. Patient continues to smoke 4 cigarettes a day. SUJIT PONCE, is a 59 M who presents to the office today for right inguinal hernia. Patient stated he has noted a groin bulge for approximately 1 1/2 years. He notes the bulge is reducible. He notes intermittent sharp pain in the right groin. He denies a specific incident in which the hernia occurred. Patient denies bulge or pain in the left groin. He denies previous hernia repair. He was recently evaluated by Dr. Anderson late May 2019 for possible incarcerated hernia. Dr. Anderson performed an upper and lower scope on 07/08/2019. Findings included esophageal plaques consistent with candidiasis. He was placed on 14 days of Fluconazole. His lower endoscopy findings included poor bowel prep however unremarkable for masses and polyps. Patient notes intermittent diarrhea. Patient also is being monitored for a AAA. He was evaluated by Dr. Doe early last May. A CTA of the abdomen was obtained demonstrating a 4.5 cm aneurysm. Patient has had a previous ascending aortic aneurysm repaired. he has a mechanical valve replacement in 2010. This was performed in [place] by Dr. Verduzco. He is currently on Coumadin. Dr. Zaragoza is his call center consultant. He is down to 1/2 ppd smoker. He notes he has decreased his smoking. He notes smoking since the age of 10. He is scheduled for an ECHO on December 29 and Stress test on January 05. He notes these tests are for cardiac clearance. Patient was bridged previously for the upper/lower scopes with Lovenox. He is also seeing Dr. Mack for mild COPD and is on a daily inhaler and another inhaler as needed. ROS General General: Yes fatigue; no weight change, colon cancer, breast cancer or weakness HEENT HEENT: Yes eye surgery; no difficulty swallowing, eye injury, swollen glands or hoarseness Endo Endocrine: No thyroid disease, diabetes mellitus, thyroid cancer, Hair loss, heat intolerance or cold intolerance Skin Skin: No rash or changing moles Breast Breast: No left breast lump, right breast lump, nipple discharge, breast pain, abnormal mammogram, abnormal US or breast enlargement Musc Musculoskeletal: Yes back problems and arthritis; no rheumatoid arthritis, gout or joint pain Cardio Cardiovascular: Yes heart disease, atrial fibrillation, high blood pressure, heart attack and shortness of breat with exertion; no murmur, pacemaker, heart stent, palpitations or chest pain Psych Psychiatric: No depression, anxiety or hearing voices Resp Respiratory: Yes shortness of breath, No sleep apnea, No cough, Yes COPD, Yes asthma, No emphysema, No wheezing Gastro Gastrointestinal: Yes abdominal pain, No nausea or vomiting, No diarrhea, No constipation, No blood in stool, Yes acid reflux, No hemorrhoids, No ulcers, No gallbladder problem, Yes black,tarry stools [place] Hematologic: Yes blood thinners, No blood disorders, No bleeding, No anemia, No blood clots Neuro Neurologic: No weakness Exam Const General: cooperative, healthy appearing, comfortable, no acute distress [facility] Head: normal to inspection Eyes General: appearance normal, both eyes and all related structures Chest Breast Palpation: No nipple discharge Resp Effort & Inspection: normal respiratory effort Auscultation: clear to auscultation bilaterally Cardio Rate: regular rate Rhythm: regular rhythm Heart Sounds: no murmurs GI Inspection: normal to inspection Palpation: soft, hernia (right inguinal hernia) Auscultation: normal bowel sounds Skin General: no rashes or lesions noted Neuro General: no focal motor deficits, CN's II-XI intact bilaterally Extrem General: normal to inspection Psych Appearance: grossly normal Affect: normal affect Assessment & Plan Problems 1. Right inguinal hernia K40.[address] Doe will plan to perform an open right inguinal hernia repair with mesh. Procedure details, risks and benefits have been explained to the patient. Patient is aware of the risk of failure of the repair with his current smoking habit. Patient has had the opportunity to ask and have questions answered. Patient verbally understands and agrees with the plan. Patient will also need an abdominal duplex in 4 months evaluating his AAA. Patient's bridging regimen per cardiology. Patient is having a hernia repair 03/25/20. Patient will be bridged with lovenox prior to surgery due to mechanical valve. Patient instructed to HOLD coumadin Monday and Thursday 03/22,03/23 and have INR checked the morning of 03/24. If INR below 2 patient is to take lovenox BID on 03/24. NO LOVENOX on 03/25/20 procedure day. Patient to restart lovenox and coumadin post surgery at surgeon discretion and recheck INR 03/27/20. If INR greater than 2 , patient is to stop lovenox. Patient stated that he has lovenox. Marianna Valle completed item. Coding Level of Care Code No Charge Diagnoses Right inguinal hernia K40.90 Comment Update H&P 03/18/20 1505 <Electronically signed by Savita woods PA-C> Date _ Savita López PA-C
[2020-03-18 13:00] VITALS: BMI 21.9
--- NOTE | 2020-03-18 13:55 | EKG12_ITS ---
Test Reason : PRE OP Blood Pressure : / mmHG Vent. Rate : 060 BPM Atrial Rate : 060 BPM P-R Int : 180 ms QRS Dur : 082 ms QT Int : 378 ms P-R-T Axes : 033 -15 015 degrees QTc Int : 378 ms Normal sinus rhythm Septal infarct , age undetermined Abnormal ECG Confirmed by STORM FINN, FRACISCO ([id number]), purchase request editor PARRISH FLORES ([id number]) on 03/24/2020 2:51:23 PM Referred By: Esteban Doe Confirmed By:FRACISCO INMAN MD
[2020-03-18 14:33] LABS: Hematocrit 44.1 % (40-54); Hemoglobin 14.3 g/dL (13.0-16.5); Mean Corp Hgb Conc 32.4 g/dL (32-36); Mean Corpuscular Hgb 32.4 pg (27.0-32.0); Mean Corpuscular Volume 99.8 fL (80-94); Mean Platelet Vol. 10.9 fl (6.2-12.0); Platelet Count 173 K/mm3 (150-450); RBC Distribution Width CV 13.3 % (11.6-14.6); RBC Distribution Width SD 49.6 fl (35.1-43.9); Red Blood Count 4.42 M/mm3 (4.6-6.2); White Blood Count 9.3 K/mm3 (4.4-11.0)
[2020-03-18 14:58] LABS: Anion Gap 5 (5-15); BUN 9 mg/dL (7-18); BUN/Creat Ratio 9.9 RATIO (10-20); Calcium,Total 9.2 mg/dL (8.5-10.1); Chloride 111 mmol/L (98-107); Creatinine, Serum 0.91 mg/dL (0.70-1.30); EST Glomerular Filtration Rate 91 mL/min (>60); Est Glom Filt Rate - Afr Amer 110 mL/min (>60); Glucose 79 mg/dL (74-106); Potassium 4.1 mmol/L (3.5-5.1); Sodium Level 141 mmol/L (136-145)
[2020-03-25] VITALS (10 sets, daily range): BP systolic 107–136; BP diastolic 76–83; PULSE 55–75; RESP 16–20; TEMP 36.5–36.6; O2SAT 97–99; BMI 23.2
[2020-03-25] MEDS: Lactated Ringers 1,000 ML 100 ML IV (07:55)
--- NOTE | 2020-03-25 09:00 | HP.PCM_ITS ---
Problem List (1) Right inguinal hernia Status: Acute History and Physical Date of Admission: 03/25/20 Intake Intake Visit Reasons: update h&p open [facility] w/ rc 03/25 Chief Complaint: RIH, black stools Helper Electrical Required: No Is patient in pain?: No Allergies No Known Allergies Allergy (Verified 03/18/20 12:47) Medications Acetaminophen [Tylenol Extra Strength] 500 - 1,000 mg PO Q6H PRN PRN 07/02/19 [History Confirmed 03/18/20] Fluticasone 0.05% [Flonase Nasal [place]] 1 spray NASAL DAILY 07/02/19 [History Confirmed 03/18/20] Losartan Potassium 25 mg PO QHS 07/02/19 [History Confirmed 03/18/20] Pramipexole Di-HCl [Mirapex] 0.5 mg PO QHS 07/02/19 [History Confirmed 03/18/20] Rosuvastatin Calcium 10 mg PO QHS 07/02/19 [History Confirmed 03/18/20] Tiotropium [place] [Spiriva with HandiHaler] 1 puff INHALATION QHS 07/02/19 [History Confirmed 03/18/20] albuterol sulfate 90 mcg/actuation aerosol inhaler 2 puff INHALATION Q4H PRN #18 g 12/05/19 [Rx Confirmed 03/18/20] enoxaparin 120 mg/0.8 mL subcutaneous syringe 120 mg SC Q12H #8 ml 01/01/20 [Rx Confirmed 03/18/20] Pantoprazole Sodium 40 mg PO QHS 03/18/20 [History Confirmed 03/18/20] warfarin 5 mg tablet 5 mg PO MOTUWETHFRSA 03/18/20 [History Confirmed 03/18/20] warfarin 5 mg tablet 10 mg PO STYLES tab 03/18/20 [History Confirmed 03/18/20] PFSH Medical History Pre-op evaluation (Acute) Atherosclerotic heart disease of [place] coronary artery without angina pectoris (Chronic) Stage 1 mild COPD by GOLD classification (Chronic) Lung nodule (Chronic) Transient cerebral ischemic attack (Ruled-out) Nicotine abuse (Chronic) HLD (hyperlipidemia) (Chronic) Nonrheumatic aortic valve insufficiency (Chronic) Aneurysm of infrarenal abdominal aorta (Chronic) Paroxysmal atrial fibrillation (Chronic) 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) Weight loss (Acute) Abnormal pulmonary function test (Chronic) Allergic rhinitis, seasonal (Chronic) SAMSON (dyspnea on exertion) (Chronic) Collapse of right lung (Resolved) Surgical History History of left heart catheterization (Chronic 11/19/10) History of aortic root repair (Chronic) Hx of aortic valve replacement, mechanical (Chronic 11/26/10) Social History (Updated 03/18/20 @ 15:04 by Savita López PA-C) adopted: Yes Smoking Status: Current every day smoker tobacco type: cigarettes alcohol intake: never substance use type: does not use HPI HPI HPI: SUJIT PONCE is a 59 M who presents to the office today for HPI HPI Surgical H&P: Yes HPI: Patient returns for an update history and physical. He denies recent hospitalizations or illnesses. He denies previous complications with anesthesia. Cardiology has discussed bridging the patient. Patient continues to smoke 4 cigarettes a day. SUJIT PONCE, is a 59 M who presents to the office today for right inguinal hernia. Patient stated he has noted a groin bulge for approximately 1 1/2 years. He notes the bulge is reducible. He notes intermittent sharp pain in the right groin. He denies a specific incident in which the hernia occurred. Patient denies bulge or pain in the left groin. He denies previous hernia repair. He was recently evaluated by Dr. Anderson late May 2019 for possible incarcerated hernia. Dr. Anderson performed an upper and lower scope on 07/08/2019. Findings included esophageal plaques consistent with candidiasis. He was placed on 14 days of Fluconazole. His lower endoscopy findings included poor bowel prep however unremarkable for masses and polyps. Patient notes intermittent diarrhea. Patient also is being monitored for a AAA. He was evaluated by Dr. Doe early last May. A CTA of the abdomen was obtained demonstrating a 4.5 cm aneurysm. Patient has had a previous ascending aortic aneurysm repaired. he has a mechanical valve replacement in 2010. This was performed in [place] by Dr. Verduzco. He is currently on Coumadin. Dr. Zaragoza is his licensed esthetician. He is down to 1/2 ppd smoker. He notes he has decreased his smoking. He notes smoking since the age of 10. He is scheduled for an ECHO on December 29 and Stress test on January 05. He notes these tests are for cardiac clearance. Patient was bridged previously for the upper/lower scopes with Lovenox. He is also seeing Dr. Mack for mild COPD and is on a daily inhaler and another inhaler as needed. ROS General General: Yes fatigue; no weight change, colon cancer, breast cancer or weakness HEENT HEENT: Yes eye surgery; no difficulty swallowing, eye injury, swollen glands or hoarseness Endo Endocrine: No thyroid disease, diabetes mellitus, thyroid cancer, Hair loss, heat intolerance or cold intolerance Skin Skin: No rash or changing moles Breast Breast: No left breast lump, right breast lump, nipple discharge, breast pain, abnormal mammogram, abnormal US or breast enlargement Musc Musculoskeletal: Yes back problems and arthritis; no rheumatoid arthritis, gout or joint pain Cardio Cardiovascular: Yes heart disease, atrial fibrillation, high blood pressure, heart attack and shortness of breat with exertion; no murmur, pacemaker, heart stent, palpitations or chest pain Psych Psychiatric: No depression, anxiety or hearing voices Resp Respiratory: Yes shortness of breath, No sleep apnea, No cough, Yes COPD, Yes asthma, No emphysema, No wheezing Gastro Gastrointestinal: Yes abdominal pain, No nausea or vomiting, No diarrhea, No constipation, No blood in stool, Yes acid reflux, No hemorrhoids, No ulcers, No gallbladder problem, Yes black,tarry stools [place] Hematologic: Yes blood thinners, No blood disorders, No bleeding, No anemia, No blood clots Neuro Neurologic: No weakness Exam Const General: cooperative, healthy appearing, comfortable, no acute distress [facility] Head: normal to inspection Eyes General: appearance normal, both eyes and all related structures Chest Breast Palpation: No nipple discharge Resp Effort & Inspection: normal respiratory effort Auscultation: clear to auscultation bilaterally Cardio Rate: regular rate Rhythm: regular rhythm Heart Sounds: no murmurs GI Inspection: normal to inspection Palpation: soft, hernia (right inguinal hernia) Auscultation: normal bowel sounds Skin General: no rashes or lesions noted Neuro General: no focal motor deficits, CN's II-XI intact bilaterally Extrem General: normal to inspection Psych Appearance: grossly normal Affect: normal affect Assessment & Plan Problems 1. Right inguinal hernia K40.[address] Cebul will plan to perform an open right inguinal hernia repair with mesh. Procedure details, risks and benefits have been explained to the patient. Patient is aware of the risk of failure of the repair with his current smoking habit. Patient has had the opportunity to ask and have questions answered. Patient verbally understands and agrees with the plan. Patient will also need an abdominal duplex in 4 months evaluating his AAA. Patient's bridging regimen per cardiology. Patient is having a hernia repair 03/25/20. Patient will be bridged with lovenox prior to surgery due to mechanical valve. Patient instructed to HOLD coumadin Monday and Thursday 03/22,03/23 and have INR checked the morning of 03/24. If INR below 2 patient is to take lovenox BID on 03/24. NO LOVENOX on 03/25/20 procedure day. Patient to restart lovenox and coumadin post surgery at surgeon discretion and recheck INR 03/27/20. If INR greater than 2 , patient is to stop lovenox. Patient stated that he has lovenox. Marianna Valle completed item. Coding Level of Care Code No Charge Diagnoses Right inguinal hernia K40.90 Comment Update H&P 03/18/20 1505 <Electronically signed by Savita woods PA-C> Date _ Savita López PA-C I have re-examined the patient. There are no clinical changes since date of exam. Procedure Criteria Procedure Type: Elective COVID Risk Discussion: The surgeon/proceduralist and patient have discussed in detail the risk of exposure to and/or potential harm posed by the COVID-19 virus with having a surgery/procedure at this time versus the risk of delaying the surgery/procedure. It is not possible to know either the risk of delaying the surgery or procedure or chance of getting an infection with perfect accuracy, but a joint decision was made between the patient and the surgeon/proceduralist to proceed at this time with the scheduled surgery/procedure as indicated on the consent form.
--- NOTE | 2020-03-25 09:17 | DCINST_ITS ---
Discharge Diet: Light diet - advance as tolerated - if you have questions about your diet instructions, please talk to you doctor. Discharge Activity: May Not Drive - for 1 week or while taking narcotic pain medicine. May shower in (days): 1 Lifting Restrictions: 10 pounds Additional Activity Instructions:: You are to have your INR checked on March 27, 2020. If the value is greater than or equal to 2 then you may stop the Lovenox and simply continue on your Coumadin. If the value is less then 2 then continue on your Lovenox therapy and your Coumadin therapy with plans to recheck your INR on March 30, 2020 Call your doctor if your incision/area has: Continuous Slow Oozing, Sudden Increased Bleeding, Increased Pain/ Swelling, Increased Redness, Foul Smelling Discharge Call your doctor if you observe: Fever of 101 or Higher Suture Line Care: Avoid Pulling/Pushing, Avoid Pinching/Bending Additional Dressing/Incision Instructions:: Change or remove dressing in 4 days. Leave steri-strips in place for 1 week. Allergies/Adverse Reactions: Allergies No Known Allergies Allergy (Verified 03/25/20 07:38) Medications to take at Discharge Acetaminophen [Tylenol Extra Strength] 500 - 1,000 mg PO Q6H PRN PRN 07/02/19 Fluticasone 0.05% [Flonase Nasal [place]] 1 spray NASAL DAILY 07/02/19 Losartan Potassium 25 mg PO QHS 07/02/19 Pramipexole Di-HCl [Mirapex] 0.5 mg PO QHS 07/02/19 Rosuvastatin Calcium 10 mg PO QHS 07/02/19 Tiotropium [place] [Spiriva with HandiHaler] 1 puff INHALATION QHS 07/02/19 albuterol sulfate 90 mcg/actuation aerosol inhaler 2 puff INHALATION Q4H PRN #18 g 12/05/19 enoxaparin 120 mg/0.8 mL subcutaneous syringe 120 mg SC Q12H #8 ml 01/01/20 Pantoprazole Sodium 40 mg PO QHS 03/18/20 warfarin 5 mg tablet 5 mg PO MOTUWETHFRSA 03/18/20 warfarin 5 mg tablet 10 mg PO STYLES tab 03/18/20 Primary Care Physician: Jonnie Zarco MD [Primary Care Provider] - Test Results: Test results from this visit will be discussed in further detail at your follow- up appointment, if applicable. Please Follow Up With: Esteban Doe MD - [phone] When: Call to make an appointment to be seen in about 10 days.
[2020-03-25 09:30] LABS: Prothrombin Time Fingerstick 16.2 SEC (11.9-14.4)
[2020-03-25] MEDS: Cefazolin 2 GM in 0.9% Normal Saline 100 ML IV (09:45)
[2020-03-25] MEDS: Bupivacaine Mpf 0.5% 30 ML VIAL (10:30)
--- NOTE | 2020-03-25 10:44 | OP.PCM_ITS ---
Problem List (1) Right inguinal hernia Status: Acute Report of Operation Date of Procedure: 03/25/20 Pre-Operative Diagnosis: Indirect right inguinal hernia Post-Operative Diagnosis: Same Surgery/Procedure Performed:: Nancy right inguinal herniorrhaphy. Bard mesh preshaped keyhole Lot number [id number] 11/04/2003. Reference #[id number]. Expiry date 05/26/2024 Description of Surgical Findings:: Timeout and informed consent was obtained. 59-year-old gentleman was taken the operating placement table underwent monitored anesthesia care. Ancef 2 g were given intravenously. The right groin was sterilely prepped and draped. 1% lidocaine mixed 50-50 with 0.5% Marcaine was used as a local anesthetic. Throughout the procedure total 29 cc was used. Local was instilled. A transverse incision was made the right groin. Sharp dissection carried down through the subtenons tissue. The external ring identified and was incised along the rectus fascia. The ileal nerve identified protected with the cord structures. Dissection was performed so as to identify the pubic tubercle direct space and indirect space. There was somewhat of a cord lipoma this was dissected free at the internal ring as where the hypertrophied cremasterics fibers. Hemostasis was obtained throughout with 4-0 Vicryl ligatures and 3-0 Vicryl ligatures and electrocautery. Very solid hemostasis was obtained thr oughout. Having identified the small internal hernia the fibrofatty strictures were reduced. A suture of 3-0 Ethilon was started at the pubic tubercle and used to approximate the transversalis fascia reapproximating the internal ring. Then a Bard appreciate keyhole 10 x 4.5 cm was used as a onlay mesh in a Nancy approach. The keyhole was wrapped around the internal ring and secured to itself with 3-0 Ethibond. The ilioinguinal nerve was protected with the cord structures. The mesh was trimmed slightly shortened laterally. It was placed over to cover the direct indirect space. It was then secured meticulously to the pubic tubercle shelving edge of Poupart's and aponeurosis of the internal/external oblique with multiple interrupted 3-0 Ethibond. Good apposition was achieved. Very nice coverage. The external oblique was then partially reapproximated with a running 3-0 Ethibond. Subcutaneous tissue was approximated with interrupted 3-0 Ethibond. The skin edges proximal running septic of 4-0 Monocryl. Steri-Strips Telfa OpSite dressings applied. Sponge and instrument and needle counts were reported to the surgeon to be correct. Blood loss minimal. Specimens none. Drains none. Blood loss minimal. Esteban Doe M.D., F.A.C.S. Type of Anesthesia:: Local MAC Anesthesiologist: Jermaine Thomson
[2020-03-25] MEDS: HYDROcodone Bitartrate/Apap 5/325 Tablet PO (12:01)
== END 2020-03-25 14:08 | disposition home or self-care (01) ==
LOC: SDC 07:29 → AC 07:29
PROVIDERS: PCP Family Medicine; Referring Provider Surgery; Visit Provider Surgery
PROC: (CPT 49505; principal; 2020-03-25 09:30)
DX: K40.90 Unilateral inguinal hernia, without obstruction or gangrene, not specified as recurrent (principal); K92.1 Melena; Z79.01 Long term (current) use of anticoagulants; Z79.51 Long term (current) use of inhaled steroids; J44.9 Chronic obstructive pulmonary disease, unspecified; I25.10 Atherosclerotic heart disease of native coronary artery without angina pectoris; F17.210 Nicotine dependence, cigarettes, uncomplicated; E78.5 Hyperlipidemia, unspecified; I35.1 Nonrheumatic aortic (valve) insufficiency; I48.0 Paroxysmal atrial fibrillation; Z95.2 Presence of prosthetic heart valve; I25.2 Old myocardial infarction; Z11.59 Encounter for screening for other viral diseases
CPT/HCPCS: 49505; 36415; 36416; 80048; 85027; 85610; 87635; 93005; G2023; J7120; C1781; U0004

== ENCOUNTER 2020-03-27 10:00 | Outpatient (RCR) | payer MEDICARE, MEDICAID, SELFPAY ==
[2019-12-24 14:29] VITALS: BMI 21.9
[2020-03-03 15:04] LABS: Prothrombin Time (Protime)PT. 42.6 SECONDS (11.7-14.9)
[2020-03-03 15:06] LABS: International Normalized Ratio 4.5
[2020-03-16 14:27] LABS: Prothrombin Time (Protime)PT. 35.2 SECONDS (11.7-14.9)
[2020-03-16 14:43] LABS: International Normalized Ratio 3.5
[2020-03-24 10:55] LABS: International Normalized Ratio 2.4; Prothrombin Time (Protime)PT. 25.8 SECONDS (11.7-14.9)
[2020-03-27 12:03] LABS: International Normalized Ratio 1.6; Prothrombin Time (Protime)PT. 18.6 SECONDS (11.7-14.9)
== END 2020-03-27 18:00 | disposition home or self-care (01) ==
LOC: LAB 10:00
PROVIDERS: Family Provider Family Medicine; PCP Family Medicine; Referring Provider Internal Medicine Cardiovascular Disease; Visit Provider Internal Medicine Cardiovascular Disease
DX: I48.0 Paroxysmal atrial fibrillation (principal); Z79.01 Long term (current) use of anticoagulants
CPT/HCPCS: 36415; 85610

== ENCOUNTER 2020-04-08 13:08 | Outpatient (RCR) | payer MEDICARE, MEDICAID, SELFPAY ==
[2020-03-25 07:47] VITALS: BMI 23.2
[2020-04-01 17:20] LABS: Prothrombin Time (Protime)PT. 39.4 SECONDS (11.7-14.9)
[2020-04-01 17:29] LABS: International Normalized Ratio 4.1
[2020-04-08 15:07] LABS: International Normalized Ratio 3.3; Prothrombin Time (Protime)PT. 32.9 SECONDS (11.7-14.9)
== END 2020-04-08 18:00 ==
LOC: LAB 13:08
PROVIDERS: Family Provider Family Medicine; PCP Family Medicine; Referring Provider Internal Medicine Cardiovascular Disease; Visit Provider Internal Medicine Cardiovascular Disease
DX: I48.0 Paroxysmal atrial fibrillation (principal); Z79.01 Long term (current) use of anticoagulants
CPT/HCPCS: 36415; 85610

== ENCOUNTER → 2020-05-20 09:14 | Outpatient (CLI) | payer MEDICARE, MEDICAID, SELFPAY ==
[2019-10-08 14:09] VITALS: BMI 21.9
[2020-03-25 07:47] VITALS: BMI 23.2
--- NOTE | 2020-05-20 09:16 | AAVD_ITS ---
Reason For Study: AAA Aorta Measurements Aorta Doppler Measurements Proximal aorta measures3.50 x 3.75cm. in cross- Peak systolic flow velocities within the proximal sectional axis. aorta measure 20.9 cm/sec. Proximal aorta measures3.76cm. in longitudinal Peak systolic flow velocities within the mid aorta axis. measure 9.0 cm/sec. Mid aorta measures4.28 x 5.3cm. in cross-sectionalPeak systolic flow velocities within the distal axis. aorta measure 20.1 cm/sec. Mid aorta measures4.18cm. in longitudinal axis. Distal aorta measures3.35 x 3.67cm. in cross- sectional axis. Distal aorta measures3.73cm. in longitudinal axis. Left Iliac Artery Left iliac artery measures 0.95 cm. in the longitudinal axis. Left iliac artery measures 1.15 x 0.98 cm. in the cross-sectional axis. Peak systolic velocity in the left iliac artery measures 24.7 cm/sec. Right Iliac Artery Right iliac artery measures 1.03 cm. in the longitudinal axis. Right iliac artery measures 1.06 x 1.17 cm. in the cross-sectional axis. Peak systolic velocity in the right iliac artery measures 35.1 cm/sec. Interpretation Summary Proximal abdominal aorta aneurysm 3.5 x 3.75 cm diameter Mid abdominal aortic aneurysm 4.13 x 4.99 cm diameter Right common iliac 1.06 x 1.17 cm Left common iliac 1.15 x 0.98 cm Previously on April 09, 2019 the distal abdominal aorta measured 3.81 x 4.82 cm in diameter. There is been slight enlargement. Ordering Physician: Savita López Referring Physician: Nitza Dutton Performed By: Lois Lopez, SUMA, RVT
--- NOTE | 2020-05-20 13:46 | PFTCOMP_ITS ---
COMPLETE PULMONARY FUNCTION TEST INTERPRETATION Brief HPI: Patient is a 59 year old male, currently under the care of myself, who presents to [facility] [place] for complete pulmonary function tests secondary to diagnosis of COPD. Respiratory therapist reports good effort and reproducible results. Interpretation: Forced expiration spirometry shows a mild large airways obstructive ventilatory defect with an FEV1 of 94% predicted. There is no significant bronchodilator response by strict ATS criteria. Spirograms are of good quality and plateau slowly, indicating slowly emptying areas of the lungs. The respiratory flow volume loop shows decreased expiratory flow rates at all lung volumes consistent with airway obstruction. Lung volumes by body plethysmography show an elevated total lung capacity at 9.4 L, 127% predicted. All other lung volumes are increased symmetrically. Diffusion capacity by carbon monoxide is decreased at 59% predicted. The airway resistance is normal. Compared to previous pulmonary function tests from 10/16/2018, there has been no significant change. Impression: Irreversible mild large airways obstructive ventilatory defect with a reduction of diffusion capacity that is out of proportion, but no significant change compared to 2018.
== END ==
PROVIDERS: Family Provider Family Medicine; PCP Family Medicine; Referring Provider Nurse Practitioner Acute Care; Visit Provider Nurse Practitioner Acute Care
DX: I71.4 Abdominal aortic aneurysm, without rupture (principal); J44.9 Chronic obstructive pulmonary disease, unspecified
CPT/HCPCS: 93978; 94060; 94726; 94729

== ENCOUNTER → 2020-05-22 09:42 | Outpatient (CLI) | payer MEDICARE, MEDICAID, SELFPAY ==
[2019-10-08 14:09] VITALS: BMI 21.9
[2020-03-25 07:47] VITALS: BMI 23.2
[2020-05-22 10:00] VITALS: PULSE 69; PULSE 82; PULSE 83; PULSE 87; PULSE 90; O2SAT 91; O2SAT 93; O2SAT 94; O2SAT 96; O2SAT 97; O2SAT 98
--- NOTE | 2020-05-22 13:15 | PCM.PSN.6M ---
PSN 6 Minute Walk Test - 6 Minute Walk Test 6 Minute Walk Test: 6 Minute Walk Test PSN:6-Minute Walk Test Start: 05/22/20 10:07 Freq: Status: Active Protocol: [id number] Document 05/22/20 10:00 EW (Rec: 05/22/20 10:09 EW [id number]) 6 Minute Walk Test Date Performed 05/22/20 Time Performed 10:00 Height 6 ft 1 in Weight: 81.193 kg Weight in Pounds 179.[address]: Nitza Dutton Assistive device used: None Pre-test Oxygen Delivery Method Room Air Pulse Ox (%) 97 Pulse Rate (60-100 beats/min) 69 Dyspnea Nicole Scale (0-10) 2 Exertion Nicole Scale (6-20) 8 1st minute Oxygen Delivery Method Room Air Pulse Ox (%) 96 Pulse Rate (60-100 beats/min) 87 2nd minute Oxygen Delivery Method Room Air Pulse Ox (%) 96 Pulse Rate (60-100 beats/min) 87 3rd minute Oxygen Delivery Method Room Air Pulse Ox (%) 94 Pulse Rate (60-100 beats/min) 90 4th minute Oxygen Delivery Method Room Air Pulse Ox (%) 91 Pulse Rate (60-100 beats/min) 90 5th minute Oxygen Delivery Method Room Air Pulse Ox (%) 93 Pulse Rate (60-100 beats/min) 87 6th minute Oxygen Delivery Method Room Air Pulse Ox (%) 91 Pulse Rate (60-100 beats/min) 83 Post-test Oxygen Delivery Method Room Air Pulse Ox (%) 98 Pulse Rate (60-100 beats/min) 82 Dyspnea Nicole Scale (0-10) 2 Exertion Nicole Scale (6-20) 11 Full Laps Walked 18 Partial Lap, Number of Tiles Walked 35 Total Distance Walked (ft) 1097 - Interpretation Interpretation: The patient was able to ambulate 1097 feet over the course of 6 minutes on room air with no assistive devices or breaks. The patient did experience significant desaturation to as low as 91% from a baseline of 97%. No significant tachycardia was noted. These findings are consistent with a respiratory limitation exercise tolerance. - Recommendations Recommendations: No supplemental oxygen is indicated at this time. However, patient will need to be followed closely given level of desaturation.
== END ==
PROVIDERS: Family Provider Family Medicine; PCP Family Medicine; Referring Provider Nurse Practitioner Acute Care; Visit Provider Nurse Practitioner Acute Care
DX: J44.9 Chronic obstructive pulmonary disease, unspecified (principal); I48.0 Paroxysmal atrial fibrillation; Z79.01 Long term (current) use of anticoagulants
CPT/HCPCS: 36415; 85610; 94618

== ENCOUNTER 2020-05-22 10:03 | Outpatient (RCR) | payer MEDICARE, MEDICAID, SELFPAY ==
[2020-03-25 07:47] VITALS: BMI 23.2
[2020-05-14 14:06] LABS: Prothrombin Time (Protime)PT. 42.7 SECONDS (11.7-14.9)
[2020-05-14 14:12] LABS: International Normalized Ratio 4.5
[2020-05-22 10:40] LABS: International Normalized Ratio 3.4; Prothrombin Time (Protime)PT. 34.1 SECONDS (11.7-14.9)
== END 2020-05-22 18:00 | disposition home or self-care (01) ==
LOC: LAB 10:03
PROVIDERS: Family Provider Family Medicine; PCP Family Medicine; Referring Provider Internal Medicine Cardiovascular Disease; Visit Provider Internal Medicine Cardiovascular Disease
DX: I48.0 Paroxysmal atrial fibrillation (principal); Z79.01 Long term (current) use of anticoagulants
CPT/HCPCS: 36415; 85610

== ENCOUNTER 2020-06-22 13:51 | Outpatient (RCR) | payer MEDICARE, MEDICAID, SELFPAY ==
[2020-03-25 07:47] VITALS: BMI 23.2
[2020-06-05 05:47] VITALS: BMI 23.6
[2020-06-05 12:49] LABS: Prothrombin Time (Protime)PT. 51.4 SECONDS (11.7-14.9)
[2020-06-05 13:03] LABS: AST(SGOT) 13 U/L (15-37); Alanine Aminotransfer ALT/SGPT 17 U/L (16-61); Alkaline Phosphatase 87 U/L (45-117); Bilirubin, Direct 0.14 mg/dL (0.00-0.30); Cholesterol 140 mg/dL (200); Globulin 3.3 g/dL (2.2-4.2); High Density Lipoprotein 42 mg/dL; Protein, Total 7.3 g/dL (6.4-8.2); Triglycerides 122 mg/dL
[2020-06-05 13:04] LABS: Very Low Density Lipoprotein 24 mg/dL (5-40)
[2020-06-05 13:04] LABS: International Normalized Ratio 5.7
[2020-06-15 11:53] LABS: International Normalized Ratio 1.6; Prothrombin Time (Protime)PT. 18.8 SECONDS (11.7-14.9)
[2020-06-22 14:31] LABS: Prothrombin Time (Protime)PT. 36.5 SECONDS (11.7-14.9)
[2020-06-22 14:34] LABS: International Normalized Ratio 3.7
== END 2020-06-22 18:00 | disposition home or self-care (01) ==
LOC: LAB 13:51
PROVIDERS: Family Provider Family Medicine; PCP Family Medicine; Referring Provider Internal Medicine Cardiovascular Disease; Visit Provider Internal Medicine Cardiovascular Disease
DX: I48.0 Paroxysmal atrial fibrillation (principal); Z79.01 Long term (current) use of anticoagulants; E78.00 Pure hypercholesterolemia, unspecified
CPT/HCPCS: 36415; 80061; 80076; 85610

== ENCOUNTER 2020-07-27 13:51 | Outpatient (RCR) | payer MEDICARE, MEDICAID, SELFPAY ==
[2020-06-26 09:39] VITALS: BMI 23.6
[2020-06-30 16:11] LABS: Prothrombin Time (Protime)PT. 36.7 SECONDS (11.7-14.9)
[2020-06-30 16:36] LABS: International Normalized Ratio 3.7
[2020-07-21 09:36] LABS: Prothrombin Time (Protime)PT. 38.3 SECONDS (11.7-14.9)
[2020-07-21 09:44] LABS: International Normalized Ratio 3.9
[2020-07-27 14:05] LABS: Prothrombin Time Fingerstick 52.2 SEC (11.9-14.4)
[2020-07-27 14:19] LABS: Prothrombin Time (Protime)PT. 34.9 SECONDS (11.7-14.9)
[2020-07-27 14:45] LABS: International Normalized Ratio 3.5
== END 2020-07-27 18:00 | disposition home or self-care (01) ==
LOC: LAB 13:51
PROVIDERS: Internal Medicine Cardiovascular Disease; Family Provider Family Medicine; PCP Family Medicine; Referring Provider Nurse Practitioner Family; Visit Provider Nurse Practitioner Family
DX: I48.0 Paroxysmal atrial fibrillation (principal); Z79.01 Long term (current) use of anticoagulants
CPT/HCPCS: 36415; 36416; 85610

== ENCOUNTER 2020-08-19 14:56 | Outpatient (RCR) | payer MEDICARE, MEDICAID, SELFPAY ==
[2020-06-26 09:39] VITALS: BMI 23.6
[2020-08-03 15:14] LABS: Prothrombin Time (Protime)PT. 46.9 SECONDS (11.7-14.9)
[2020-08-03 15:23] LABS: International Normalized Ratio 5.1
[2020-08-05 13:59] LABS: International Normalized Ratio 1.9; Prothrombin Time (Protime)PT. 20.9 SECONDS (11.7-14.9)
[2020-08-12 14:29] LABS: International Normalized Ratio 2.2; Prothrombin Time (Protime)PT. 24.2 SECONDS (11.7-14.9)
[2020-08-19 15:17] LABS: International Normalized Ratio 2.2; Prothrombin Time (Protime)PT. 24.2 SECONDS (11.7-14.9)
== END 2020-08-19 18:00 | disposition home or self-care (01) ==
LOC: LAB 14:56
PROVIDERS: Family Provider Family Medicine; PCP Family Medicine; Referring Provider Nurse Practitioner Family; Visit Provider Nurse Practitioner Family
DX: I48.0 Paroxysmal atrial fibrillation (principal); Z79.01 Long term (current) use of anticoagulants; Z98.890 Other specified postprocedural states; Z95.2 Presence of prosthetic heart valve
CPT/HCPCS: 36415; 85610

== ENCOUNTER 2020-09-23 10:48 | Outpatient (RCR) | payer MEDICARE, MEDICAID, SELFPAY ==
[2020-08-10 13:50] VITALS: BMI 24.0
[2020-09-04 11:16] LABS: Prothrombin Time (Protime)PT. 30.6 SECONDS (11.7-14.9)
[2020-09-23 12:00] LABS: Prothrombin Time (Protime)PT. 21.7 SECONDS (11.7-14.9)
== END 2020-09-23 18:00 | disposition home or self-care (01) ==
LOC: LAB 10:48
PROVIDERS: Family Provider Family Medicine; PCP Family Medicine; Referring Provider Nurse Practitioner Family; Visit Provider Nurse Practitioner Family
DX: I48.0 Paroxysmal atrial fibrillation (principal); Z79.01 Long term (current) use of anticoagulants; Z98.890 Other specified postprocedural states; Z95.2 Presence of prosthetic heart valve
CPT/HCPCS: 36415; 85610

== ENCOUNTER → 2020-11-18 14:41 | Outpatient (CLI) | payer MEDICARE, MEDICAID, SELFPAY ==
[2020-08-10 13:50] VITALS: BMI 24.0
--- NOTE | 2020-11-18 14:46 | CT_ITS ---
STUDY: LOW DOSE CT LUNG CANCER SCREENING REASON FOR EXAM: Male, 60 years old. LUNG CANCER SCREENING. 1PPD X 45 YEARS RADIATION DOSAGE (If Supplied By Facility): CTDIvol = ( 3.02 ) mGy, DLP = ( 125.31 ) mGycm TECHNIQUE: No contrast was administered. Low dose technique was utilized (average mAS-38 and kVp 120). 1.25 mm axial source images with a slice interval of 1.25-mm were reconstructed in lung windows. 2.5 mm axial source images with a slice interval of 2.5-mm were reconstructed in lung windows. 5.0 mm axial source images with a slice interval of 5.0-mm were reconstructed in soft tissue windows. Nodule measured using lung windows on PACS and/or independent workstation with automated measurement of minimum and maximum diameter. Nodule measurement reported as average diameter rounded to the nearest whole number. Growth is defined as an increase ins size of greater than 1.5 mm. COMPARISON: Comparison is made with prior examination dated 10/18/2019. NODULES: Stable 4.8 mm none calcified nodule in the peripheral lateral aspect of the right middle lobe as seen on axial image #142. This abuts an area of scarring. Emphysema: Stable emphysematous changes. Stable linear scarring seen in the medial aspect of the right upper lobe with centrilobular emphysematous changes worse in the upper lobes. Stable linear scarring is also seen in the medial aspect of the superior segment of the right lower lobe. Stable 6 mm x 7 mm cavitary nodule in the posterior left hilum. Endobronchial lesion: None Aorta: Atherosclerotic plaque formation. Coronary arteries: Coronary artery calcification. CT/Low Dose CT Lung Screening IMPRESSION: Lung-RADS category 2 - Continue annual screening with LDCT in 12 months. IMPORTANT NOTES FOR USE: ACR Lung-RADS Version 1.0 Assessment Categories Release Date: February 24, 2014 Category: Coded 0-4 bases on nodule(s) with highest degree of suspicion. Negative screen is defined as categories 1 and 2; a positive screen is defined as categories 3 and 4. Category 3 and 4A nodules that are unchanged on interval CT should be coded as category 2, and individuals returned to screening in 12 months. Category 4X: Category 3 or 4 nodules with additional imaging findings that increase the suspicion of lung cancer, such as spiculation, GGN that doubles in size in 1 year, enlarged lymph notes, etc. Category Modifiers: S (significant finding unrelated to lung cancer) and C (prior history of treated lung cancer) may be added to the 0-4 Lung-RADS Electronically Signed: Latrell Chau MD at 15:21 EST , Service support ,
== END ==
PROVIDERS: PCP Family Medicine; Referring Provider Internal Medicine Critical Care Medicine; Visit Provider Internal Medicine Critical Care Medicine
DX: Z12.2 Encounter for screening for malignant neoplasm of respiratory organs (principal); Z87.891 Personal history of nicotine dependence; I48.0 Paroxysmal atrial fibrillation; E78.5 Hyperlipidemia, unspecified; Z79.01 Long term (current) use of anticoagulants; Z98.890 Other specified postprocedural states; Z95.2 Presence of prosthetic heart valve
CPT/HCPCS: 36415; 71271; 80061; 80076; 85610

== ENCOUNTER 2020-11-18 15:25 | Outpatient (RCR) | payer MEDICARE, MEDICAID, SELFPAY ==
[2020-08-10 13:50] VITALS: BMI 24.0
[2020-11-17 15:56] LABS: AST(SGOT) 17 U/L (15-37); Alanine Aminotransfer ALT/SGPT 21 U/L (16-61); Albumin, Serum 3.9 g/dL (3.2-5.0); Alkaline Phosphatase 80 U/L (45-117); Bilirubin, Direct 0.13 mg/dL (0.00-0.30); Cholesterol 128 mg/dL (200); Globulin 3.3 g/dL (2.2-4.2); High Density Lipoprotein 48 mg/dL; Protein, Total 7.2 g/dL (6.4-8.2); Triglycerides 107 mg/dL; Very Low Density Lipoprotein 21 mg/dL (5-40)
[2020-11-18 16:12] LABS: International Normalized Ratio 1.2; Prothrombin Time (Protime)PT. 14.5 SECONDS (11.7-14.9)
== END 2020-11-18 18:00 | disposition home or self-care (01) ==
LOC: LAB 15:25
PROVIDERS: Family Provider Family Medicine; PCP Family Medicine; Referring Provider Nurse Practitioner Family; Visit Provider Nurse Practitioner Family
DX: I48.0 Paroxysmal atrial fibrillation (principal); Z95.2 Presence of prosthetic heart valve; Z79.01 Long term (current) use of anticoagulants; Z98.890 Other specified postprocedural states
CPT/HCPCS: 36415; 80061; 80076; 85610

== ENCOUNTER 2021-02-12 14:02 | Outpatient (RCR) | payer MEDICARE, MEDICAID, SELFPAY ==
[2020-08-10 13:50] VITALS: BMI 24.0
[2020-12-08 13:15] VITALS: BMI 22.4
[2021-02-12 15:47] LABS: International Normalized Ratio 2.4; Prothrombin Time (Protime)PT. 25.3 SECONDS (11.7-14.9)
== END 2021-02-12 18:00 | disposition home or self-care (01) ==
LOC: LAB 14:02
PROVIDERS: Family Provider Family Medicine; PCP Family Medicine; Referring Provider Nurse Practitioner Family; Visit Provider Nurse Practitioner Family
DX: I48.0 Paroxysmal atrial fibrillation (principal); Z95.2 Presence of prosthetic heart valve; Z79.01 Long term (current) use of anticoagulants; Z98.890 Other specified postprocedural states
CPT/HCPCS: 36415; 85610

== ENCOUNTER 2021-03-26 12:30 | Outpatient (RCR) | payer MEDICARE, MEDICAID, SELFPAY ==
[2021-03-11 15:15] LABS: International Normalized Ratio 1.7; Prothrombin Time (Protime)PT. 19.1 SECONDS (11.7-14.9)
[2021-03-26 13:32] LABS: International Normalized Ratio 2.5
== END 2021-03-26 18:00 | disposition home or self-care (01) ==
LOC: LAB 12:30
PROVIDERS: Family Provider Family Medicine; PCP Family Medicine; Referring Provider Nurse Practitioner Family; Visit Provider Nurse Practitioner Family
DX: I48.0 Paroxysmal atrial fibrillation (principal); Z95.2 Presence of prosthetic heart valve; Z79.01 Long term (current) use of anticoagulants; Z98.890 Other specified postprocedural states
CPT/HCPCS: 36415; 85610

== ENCOUNTER → 2021-07-15 08:11 | Outpatient (CLI) | payer MEDICARE, MEDICAID, SELFPAY ==
--- NOTE | 2021-07-15 08:13 | AAVD_ITS ---
Reason For Study: AAA Aorta Measurements Aorta Doppler Measurements Proximal aorta measures3.73 x 3.53cm. in cross- Peak systolic flow velocities within the proximal sectional axis. aorta measure 114.6 cm/sec. Proximal aorta measures3.49cm. in longitudinal Peak systolic flow velocities within the mid aorta axis. measure 59.7 cm/sec. Mid aorta measures4.45 x 5.4cm. in cross-sectionalPeak systolic flow velocities within the distal axis. aorta measure 46.5 cm/sec. Mid aorta measures4.58cm. in longitudinal axis. Distal aorta measures3.99 x 4.57cm. in cross- sectional axis. Distal aorta measures3.6cm. in longitudinal axis. Left Iliac Artery Left iliac artery measures 1.12 x 1.04 cm. in the cross-sectional axis. Left iliac artery measures 1.02 cm. in the longitudinal axis. Peak systolic velocity in the left iliac artery measures 72.8 cm/sec. Right Iliac Artery Right iliac artery measures .97 x 1.04 cm. in the cross-sectional axis. Right iliac artery measures .98 cm. in the longitudinal axis. Peak systolic velocity in the right iliac artery measures 59.7 cm/sec. Procedure Aorta IVC Iliac vasculature or bypass grafts [id number]. The exam was diagnostic. Exam performed in department. VL/Abd Aortic/IVC Duplex scan Interpretation Summary Aneurysmal proximal abdominal aorta 3.73 x 3.53 cm Aneurysmal mid abdominal aorta 4.45 x 5.4 cm Aneurysmal distal abdominal aorta 3.99 x 4.57 cm Normal right common iliac 0.97 x 1.04 cm Normal left common iliac 1.12 x 1.04 cm Ordering Physician: Matt Alexander Performed By: Aleksandr Block RVT
== END ==
PROVIDERS: PCP Family Medicine; Referring Provider Nurse Practitioner Family; Visit Provider Nurse Practitioner Family
DX: I71.4 Abdominal aortic aneurysm, without rupture (principal); Z72.0 Tobacco use; I48.0 Paroxysmal atrial fibrillation; Z79.01 Long term (current) use of anticoagulants; Z98.890 Other specified postprocedural states; Z95.2 Presence of prosthetic heart valve
CPT/HCPCS: 36415; 80061; 80076; 85610; 93978

== ENCOUNTER 2021-07-15 08:46 | Outpatient (RCR) | payer MEDICARE, MEDICAID, SELFPAY ==
[2021-07-15 11:11] LABS: International Normalized Ratio 1.4; Prothrombin Time (Protime)PT. 16.4 SECONDS (11.7-14.9)
[2021-07-15 11:15] LABS: AST(SGOT) 14 U/L (15-37); Alanine Aminotransfer ALT/SGPT 20 U/L (16-61); Albumin, Serum 3.6 g/dL (3.2-5.0); Alkaline Phosphatase 83 U/L (45-117); Bilirubin, Direct 0.07 mg/dL (0.00-0.30); Cholesterol 126 mg/dL (200); Globulin 3.3 g/dL (2.2-4.2); High Density Lipoprotein 36 mg/dL; Protein, Total 6.9 g/dL (6.4-8.2); Triglycerides 159 mg/dL; Very Low Density Lipoprotein 32 mg/dL (5-40)
== END 2021-07-15 18:00 | disposition home or self-care (01) ==
LOC: LAB 08:46
PROVIDERS: Family Provider Family Medicine; PCP Family Medicine; Referring Provider Nurse Practitioner Family; Visit Provider Nurse Practitioner Family
DX: Z79.01 Long term (current) use of anticoagulants (principal); I48.0 Paroxysmal atrial fibrillation; Z95.2 Presence of prosthetic heart valve; Z98.890 Other specified postprocedural states
CPT/HCPCS: 36415; 80061; 80076; 85610

== ENCOUNTER 2021-08-10 15:04 | Outpatient (RCR) | payer MEDICARE, SELFPAY ==
[2021-08-10 16:49] LABS: International Normalized Ratio 2.4; Prothrombin Time (Protime)PT. 25.3 SECONDS (11.7-14.9)
== END 2021-08-29 05:00 | disposition home or self-care (01) ==
LOC: LAB 15:04
PROVIDERS: Family Provider Family Medicine; PCP Family Medicine; Referring Provider Nurse Practitioner Family; Visit Provider Nurse Practitioner Family
DX: I48.0 Paroxysmal atrial fibrillation (principal); Z95.2 Presence of prosthetic heart valve; Z98.890 Other specified postprocedural states; Z79.01 Long term (current) use of anticoagulants
CPT/HCPCS: 36415; 85610

== ENCOUNTER → 2021-09-06 13:04 | Outpatient (CLI) | payer MEDICARE, MEDICAID, SELFPAY ==
--- NOTE | 2021-09-06 13:07 | CT_ITS ---
STUDY: CTA OF THE ABDOMINAL AORTA AND BILATERAL LOWER EXTREMITIES REASON FOR EXAM: Male, 61 years old. Abdominal aortic aneurysm. RADIATION DOSAGE (If Supplied By Facility): CTDIvol = ( 32.53 ) mGy, DLP = ( 571.13 ) mGycm TECHNIQUE: Axial CT angiography multi-detector data acquisition was obtained from the dome of the liver to the symphysis pubis following intravenous administration of IV 100mL Isovue-370. Axial images and MIP images were reconstructed from the axial data set. Post-processing of the angiographic images was performed, with multiplanar reformation and 3D reconstruction. Individualized dose optimization techniques were used for this CT. TECHNICAL QUALITY: Good COMPARISON: Comparison is made with prior examination dated 06/17/2019. Descriptors of Narrowing: None (0%) Mild (< 50%) Moderate (50-70%) Severe (70-90%) Subtotal/Total Occlusion (90-100%) Non-Evaluable (technically non-diagnostic FINDINGS: Abdominal aorta: Once again, there is evidence of an infrarenal abdominal aortic saccular aneurysm with a transverse dimension of 5.7 cm. It previously measured 4.5 cm. Celiac and superior mesenteric arteries: No demonstrated narrowing. Inferior mesenteric artery: No demonstrated narrowing. Right renal artery(arteries): No demonstrated narrowing. Left renal artery(arteries): No demonstrated narrowing. Right common iliac artery: Atherosclerotic plaque. Right external iliac artery: Atherosclerotic plaque. Right internal iliac artery: No demonstrated narrowing. Left common iliac artery: Atherosclerotic plaque. Left external iliac artery: Atherosclerotic plaque. Left internal iliac artery: No demonstrated narrowing. CT/CTA Abdomen W/WO Contrast IMPRESSION: Infrarenal saccular aortic aneurysm with a transverse dimension of 5.7 cm. Electronically Signed: Latrell Chau MD at 14:20 EST , Service support ,
[2021-09-06 13:26] LABS: CREATININE FINGERSTICK 1.2 mg/dL (0.70-1.30); EGFR FINGERSTICK > 60.0000 mL/min (>60)
== END ==
PROVIDERS: PCP Family Medicine; Referring Provider Surgery; Visit Provider Surgery
DX: I71.4 Abdominal aortic aneurysm, without rupture (principal); I48.0 Paroxysmal atrial fibrillation; Z79.01 Long term (current) use of anticoagulants; Z95.2 Presence of prosthetic heart valve; Z98.890 Other specified postprocedural states
CPT/HCPCS: 36415; 74175; 85610; Q9967

== ENCOUNTER 2021-09-06 13:31 | Outpatient (RCR) | payer MEDICARE, MEDICAID, SELFPAY ==
[2021-09-06 14:32] LABS: Prothrombin Time (Protime)PT. 21.6 SECONDS (11.7-14.9)
== END 2021-09-28 18:00 | disposition home or self-care (01) ==
LOC: LAB 13:31
PROVIDERS: Family Provider Family Medicine; PCP Family Medicine; Referring Provider Nurse Practitioner Family; Visit Provider Nurse Practitioner Family
DX: I48.0 Paroxysmal atrial fibrillation (principal); Z95.2 Presence of prosthetic heart valve; Z98.890 Other specified postprocedural states; Z79.01 Long term (current) use of anticoagulants
CPT/HCPCS: 36415; 85610

== ENCOUNTER 2021-10-07 13:44 | Outpatient (RCR) | payer MEDICARE, MEDICAID, SELFPAY | END 2021-10-30 18:00 | disposition home or self-care (01) | LOC: LAB 13:44 | PROVIDERS: Family Provider Family Medicine; PCP Family Medicine; Referring Provider Nurse Practitioner Family; Visit Provider Nurse Practitioner Family | DX: I48.0 Paroxysmal atrial fibrillation (principal); Z95.2 Presence of prosthetic heart valve; Z98.890 Other specified postprocedural states; Z79.01 Long term (current) use of anticoagulants ==

== ENCOUNTER → 2021-10-07 | Outpatient (CLI) | payer MEDICARE, MEDICAID, SELFPAY ==
--- NOTE | 2021-10-07 13:52 | EKG12_ITS ---
Test Reason : PREOP Blood Pressure : / mmHG Vent. Rate : 091 BPM Atrial Rate : 091 BPM P-R Int : 162 ms QRS Dur : 086 ms QT Int : 364 ms P-R-T Axes : 078 051 055 degrees QTc Int : 447 ms Normal sinus rhythm Nonspecific ST and T wave abnormality Abnormal ECG Confirmed by ADEEL FINN, RENO ([id number]), editor department SOLO CORTEZ ([id number]) on 10/08/2021 7:51:14 AM Referred By: Matt Alexander Confirmed By:RENO DENIS MD
[2021-10-07 15:33] LABS: Hematocrit 45.2 % (40-54); Hemoglobin 14.5 g/dL (13.0-16.5); Mean Corp Hgb Conc 32.1 g/dL (32-36); Mean Corpuscular Hgb 32.1 pg (27.0-32.0); Mean Platelet Vol. 10.9 fl (6.2-12.0); Platelet Count 195 K/mm3 (150-450); RBC Distribution Width CV 13.9 % (11.6-14.6); RBC Distribution Width SD 51.1 fl (35.1-43.9); Red Blood Count 4.52 M/mm3 (4.6-6.2); White Blood Count 9.8 K/mm3 (4.4-11.0)
[2021-10-07 15:50] LABS: Prothrombin Time (Protime)PT. 22.2 SECONDS (11.7-14.9)
[2021-10-07 16:04] LABS: Anion Gap 6 (5-15); BUN 7 mg/dL (7-18); BUN/Creat Ratio 7.9 RATIO (10-20); Calcium,Total 8.9 mg/dL (8.5-10.1); Chloride 110 mmol/L (98-107); Creatinine, Serum 0.88 mg/dL (0.70-1.30); EST Glomerular Filtration Rate 93 mL/min (>60); Est Glom Filt Rate - Afr Amer 113 mL/min (>60); Glucose 95 mg/dL (74-106); Potassium 4.1 mmol/L (3.5-5.1); Sodium Level 141 mmol/L (136-145)
== END | disposition home or self-care (01) ==
LOC: PAT 11-15 16:48
PROVIDERS: Anesthesiology; PCP Family Medicine; Visit Provider Surgery
DX: Z01.818 Encounter for other preprocedural examination (principal)
CPT/HCPCS: 36415; 80048; 85027; 85610; 93005

== ENCOUNTER 2021-11-29 14:07 | Outpatient (CLI) | payer MEDICARE, MEDICAID, SELFPAY ==
--- NOTE | 2021-11-29 14:26 | CT_ITS ---
STUDY: LOW DOSE CT LUNG CANCER SCREENING REASON FOR EXAM: Male, 61 years old. Nicotine dependence -- smoker and gt;40 pack year RADIATION DOSAGE (If Supplied By Facility): CTDIvol = ( 3.02 ) mGy, DLP = ( 120.41 ) mGycm TECHNIQUE: No contrast was administered. Low dose technique was utilized (average mAS-38 and kVp 120). 1.25 mm axial source images with a slice interval of 1.25-mm were reconstructed in lung windows. 2.5 mm axial source images with a slice interval of 2.5-mm were reconstructed in lung windows. 5.0 mm axial source images with a slice interval of 5.0-mm were reconstructed in soft tissue windows. Nodule measured using lung windows on PACS and/or independent workstation with automated measurement of minimum and maximum diameter. Nodule measurement reported as average diameter rounded to the nearest whole number. Growth is defined as an increase ins size of greater than 1.5 mm. COMPARISON: Comparison is made with prior study dated 11/18/2020. NODULES: Stable 4.8 mm noncalcified nodule in the peripheral lateral aspect of the right middle lobe as seen on axial image #145. Emphysema: Hyperinflation. Stable emphysematous changes worse in the upper lobes with bullous formation. Stable linear scarring is seen in the medial aspect of the right upper lobe. Stable linear scarring is also seen in the medial aspect of the superior segment of the right lower lobe. Stable focal linear scar in the anterior medial aspect of the superior segment of the right lower lobe. Endobronchial lesion: Unremarkable. Aorta: Atherosclerotic plaque formation. Coronary arteries: Coronary artery calcification. Heart: Unremarkable. Pulmonary artery: Unremarkable Mediastinal nodes: Remarkable Other chest and abdominal findings: CT/Low Dose CT Lung Screening IMPRESSION: Lung-RADS category 2 - Continue annual screening with LDCT in 12 months. IMPORTANT NOTES FOR USE: ACR Lung-RADS Version 1.1 Assessment Categories Release Date: 2018 Category: Coded 0-4 bases on nodule(s) with highest degree of suspicion. Negative screen is defined as categories 1 and 2; a positive screen is defined as categories 3 and 4. Category 3 and 4A nodules that are unchanged on interval CT should be coded as category 2, and individuals returned to screening in 12 months. Category 4X: Category 3 or 4 nodules with additional imaging findings that increase the suspicion of lung cancer, such as spiculation, GGN that doubles in size in 1 year, enlarged lymph notes, etc. Category Modifiers: S (significant finding unrelated to lung cancer) Electronically Signed: Latrell Chau MD at 15:29 EST ,
== END 2021-11-29 23:59 | disposition short-term general hospital (02) ==
LOC: CT 14:11
PROVIDERS: PCP Family Medicine; Referring Provider Internal Medicine Critical Care Medicine; Visit Provider Internal Medicine Critical Care Medicine
DX: R91.1 Solitary pulmonary nodule (principal); I48.0 Paroxysmal atrial fibrillation; F17.210 Nicotine dependence, cigarettes, uncomplicated; Z98.890 Other specified postprocedural states; Z95.2 Presence of prosthetic heart valve; Z79.01 Long term (current) use of anticoagulants
CPT/HCPCS: 36415; 71271; 85610

== ENCOUNTER 2021-11-29 14:40 | Outpatient (RCR) | payer MEDICARE, MEDICAID, SELFPAY ==
[2021-11-29 15:49] LABS: Prothrombin Time (Protime)PT. 30.1 SECONDS (11.7-14.9)
== END 2021-11-29 18:00 | disposition home or self-care (01) ==
LOC: LAB 14:40
PROVIDERS: Family Provider Family Medicine; PCP Family Medicine; Referring Provider Nurse Practitioner Family; Visit Provider Nurse Practitioner Family
DX: I48.0 Paroxysmal atrial fibrillation (principal); Z95.2 Presence of prosthetic heart valve; Z98.890 Other specified postprocedural states; Z79.01 Long term (current) use of anticoagulants
CPT/HCPCS: 36415; 85610

== ENCOUNTER 2021-12-07 05:17 | Inpatient (IN) | payer MEDICARE, MEDICAID, SELFPAY ==
[2021-12-06 13:44] LABS: Hematocrit 41.3 % (40-54); Hemoglobin 13.2 g/dL (13.0-16.5); Mean Corpuscular Hgb 32.3 pg (27.0-32.0); Mean Platelet Vol. 10.3 fl (6.2-12.0); Platelet Count 190 K/mm3 (150-450); Red Blood Count 4.09 M/mm3 (4.6-6.2); White Blood Count 7.3 K/mm3 (4.4-11.0)
[2021-12-06 13:53] LABS: Prothrombin Time (Protime)PT. 21.7 SECONDS (11.7-14.9)
[2021-12-06 14:21] LABS: Albumin, Serum 3.5 g/dL (3.2-5.0); Phosphorus 2.5 mg/dL (2.5-4.9)
[2021-12-06 14:24] LABS: Anion Gap 3 (5-15); BUN 6 mg/dL (7-18); BUN/Creat Ratio 7.1 RATIO (10-20); Calcium,Total 8.8 mg/dL (8.5-10.1); Chloride 113 mmol/L (98-107); Creatinine, Serum 0.85 mg/dL (0.70-1.30); EST Glomerular Filtration Rate 98 mL/min (>60); Est Glom Filt Rate - Afr Amer 118 mL/min (>60); Glucose 68 mg/dL (74-106); Potassium 4.1 mmol/L (3.5-5.1); Sodium Level 142 mmol/L (136-145)
[2021-12-07] VITALS (30 sets, daily range): BP systolic 100–158; BP diastolic 55–93; PULSE 53–80; RESP 14–19; TEMP 36.6–37.2; O2SAT 93–100; BMI 24.6
--- NOTE | 2021-12-07 05:59 | HP.PCM_ITS ---
History and Physical Date of Admission: 12/07/21 No Known Allergies Allergy (Verified 09/14/21 13:20) Medications acetaminophen 500 - 1,000 mg PO Q6H PRN PRN 07/02/19 [History Confirmed 09/14/21] pramipexole 0.5 mg PO QHS 07/02/19 [History Confirmed 09/14/21] pantoprazole 40 mg PO QHS 03/18/20 [History Confirmed 09/14/21] warfarin 5 mg tablet 10 mg PO STYLES tab 03/18/20 [History Confirmed 09/14/21] rosuvastatin 10 mg tablet 10 mg PO QHS #90 tab 05/17/21 [Rx Confirmed 09/14/21] fluticasone propionate 50 mcg/actuation nasal spray,suspension 1 spray NASAL DAILY #16 g 06/17/21 [Rx Confirmed 09/14/21] losartan 25 mg tablet 25 mg PO QHS #90 tab 06/17/21 [Rx Confirmed 09/14/21] tiotropium bromide 18 mcg capsule with inhalation device 1 cap INHALATION DAILY #30 inh 06/17/21 [Rx Confirmed 09/14/21] warfarin 5 mg tablet 7.5 mg PO .COMPLEX #180 tab 06/17/21 [Rx Confirmed 09/14/21] albuterol sulfate 90 mcg/actuation aerosol inhaler 2 puff INHALATION Q4H PRN #18 g 07/09/21 [Rx Confirmed 09/14/21] PFSH Medical History Abnormal pulmonary function test Allergic rhinitis, seasonal 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 Collapse of right lung SAMSON (dyspnea on exertion) HLD (hyperlipidemia) long-term (current) use of anticoagulants Lung nodule Nicotine abuse Nonrheumatic aortic valve insufficiency Paroxysmal atrial fibrillation Pre-op evaluation Stage 1 mild COPD by GOLD classification Transient cerebral ischemic attack Weight loss Surgical History History of aortic root repair History of left heart catheterization (11/19/10) Hx of aortic valve replacement, mechanical (11/26/10) Social History adopted: Yes Smoking Status: Current every day smoker tobacco type: cigarettes alcohol intake: never substance use type: does not use HPI HPI HPI: SUJIT PONCE, is a 61 M who presents to the office today for surgical follow-up of a abdominal aortic aneurysm. It is of note that the patient is doing very well since March 25, 2020 from a right inguinal herniorrhaphy. HPI: SUJIT PONCE, is a 61 M who presents to the office today for ongoing surgical care and follow-up regarding an infrarenal abdominal aortic aneurysm. He had a aortic ultrasound and then because of significant growth of his aneurysm on September 06, 2021 he had the following CTA of the abdomen aorta. This demonstrates a 5.7 cm fusiform aneurysm. September 06, 2021 STUDY: CTA OF THE ABDOMINAL AORTA AND BILATERAL LOWER EXTREMITIES REASON FOR EXAM: Male, 61 years old. Abdominal aortic aneurysm. RADIATION DOSAGE (If Supplied By Facility): CTDIvol = ( 32.53 ) mGy, DLP = ( 571.13 ) mGycm TECHNIQUE: Axial CT angiography multi-detector data acquisition was obtained from the dome of the liver to the symphysis pubis following intravenous administration of IV 100mL Isovue-370. Axial images and MIP images were reconstructed from the axial data set. Post-processing of the angiographic images was performed, with multiplanar reformation and 3D reconstruction. Individualized dose optimization techniques were used for this CT. TECHNICAL QUALITY: Good COMPARISON: Comparison is made with prior examination dated 06/17/2019. Descriptors of Narrowing: None (0%) Mild (< 50%) Moderate (50-70%) Severe (70-90%) Subtotal/Total Occlusion (90-100%) Non-Evaluable (technically non-diagnostic FINDINGS: Abdominal aorta: Once again, there is evidence of an infrarenal abdominal aortic saccular aneurysm with a transverse dimension of 5.7 cm. It previously measured 4.5 cm. Celiac and superior mesenteric arteries: No demonstrated narrowing. Inferior mesenteric artery: No demonstrated narrowing. Right renal artery(arteries): No demonstrated narrowing. Left renal artery(arteries): No demonstrated narrowing. Right common iliac artery: Atherosclerotic plaque. Right external iliac artery: Atherosclerotic plaque. Right internal iliac artery: No demonstrated narrowing. Left common iliac artery: Atherosclerotic plaque. Left external iliac artery: Atherosclerotic plaque. Left internal iliac artery: No demonstrated narrowing. CT/CTA Abdomen W/WO Contrast IMPRESSION: Infrarenal saccular aortic aneurysm with a transverse dimension of 5.7 cm. Electronically Signed: Latrell Chau MD at 14:20 EST , Service support , He has received a cardiology assessment with the following recommendations. It is of note that he is also been seen by Dr. Marcus Mack pulmonology and the patient carries a diagnosis of stage I mild COPD and a chronic lung nodule. He has been encouraged to cease his tobacco use. 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 transplanted heart: big sandy heart Qualified Code(s): I25.10 - Atherosclerotic heart disease of [place] coronary artery without angina pectoris Comment: 40% tubular stenosis in proximal LAD, 5% in proximal RCA per C done 11/19/[address] Tirado @ [facility] in [place], [place] (2) Hx of aortic valve replacement, mechanical: Status: Chronic Comment: Aortic valve conduit replacement of the aortic valve, the aortic root, and ascen ding aorta. #25 Carbomedics Valsalva Valve Conduit Plan - Matt Alexander NP, OPERATIONS RESEARCH SCIENTIST-C: His most recent echocardiogram in December 2019 showed stable appearing and normal functioning bioprosthetic (?) aortic valve apparatus. This appears stable on exam. He will continue current medical therapy which includes antibiotic prophylaxis and warfarin therapy. (3) Paroxysmal atrial fibrillation: Status: Chronic Comment: post op atrial fib 2010 Plan - Matt Alexander NP, OPERATIONS RESEARCH SCIENTIST-C: He appears to be maintaining regular rhythm on exam. His heart rate is well controlled. He will continue with warfarin therapy for CVA protection. He is currently not on rate limiting medications. (4) Aneurysm of infrarenal abdominal aorta: Status: Chronic Comment: Transverse dimension 4.[address] 04/03/2017 Plan - Matt H Roof OPERATIONS RESEARCH SCIENTIST, OPERATIONS RESEARCH SCIENTIST-C: Patient has followed with Dr. Doe previously. Due to ongoing aneurysm and no recent test, he underwent screening after last office visit. Mid abdominal aorta was measured 4.45 x 5.4 cm. He does acknowledge appointment with Dr. Doe to discuss treatment further. His heart and blood pressure well controlled. (5) History of aortic root repair: Status: Chronic Plan - Matt Alexander OPERATIONS RESEARCH SCIENTIST, OPERATIONS RESEARCH SCIENTIST-C: His blood pressure and heart rate are well controlled today. We will continue to monitor. (6) HLD (hyperlipidemia): Status: Chronic Qualifiers: Hyperlipidemia type: unspecified Qualified Code(s): E78.5 - Hyperlipidemia, unspecified Plan - Matt Alexander OPERATIONS RESEARCH SCIENTIST, OPERATIONS RESEARCH SCIENTIST-C: He will continue Crestor 10 mg p.o. nightly. (7) Nicotine abuse: Status: Chronic Plan - Matt Alexander OPERATIONS RESEARCH SCIENTIST, OPERATIONS RESEARCH SCIENTIST-C: Patient continues to smoke. He received extensive education regarding the health benefits of smoking cessation. We will continue to support and encourage smoking cessation. Plan Details Additional Comments: Thank you for allowing us to participate in the patients plan of care, if you have any questions please do not hesitate to call. ROS General General: Yes fatigue; No weight change, appetite, colon cancer, breast cancer or weakness HEENT HEENT: No difficulty swallowing, eye injury, eye surgery, swollen glands or hoarseness Endo Endocrine: No thyroid disease, diabetes mellitus, thyroid cancer, Hair loss, heat intolerance or cold intolerance Musc Musculoskeletal: No back problems, arthritis, rheumatoid arthritis, gout or j oint pain Cardio Cardiovascular: Yes atrial fibrillation; No murmur, pacemaker, heart disease, high blood pressure, heart attack, heart stent, palpitations, shortness of breat with exertion or chest pain Psych Psychiatric: No depression, anxiety or hearing voices Resp Respiratory: No shortness of breath, No sleep apnea, No cough, Yes COPD, No asthma, No emphysema and No wheezing Gastro Gastrointestinal: No abdominal pain, No nausea or vomiting, No diarrhea, No constipation, No blood in stool, No acid reflux, No hemorrhoids, No ulcers, No gallbladder problem and No black,tarry stools Kojo Hematologic: Yes blood thinners, No blood disorders, No bleeding, No anemia and No blood clots Neuro Neurologic: No weakness Exam Const General: cooperative, comfortable and no acute distress Nutritional Appearance: average body habitus Orientation: alert and awake [facility] Head: normal to inspection Eyes General: appearance normal, both eyes and all related structures Neck Neck: normal visual inspection Chest Other: Slightly increased AP diameter. Resp Auscultation: clear to auscultation bilaterally Other: Diminished respiratory excursion, intermittent nonproductive cough Cardio Rate: regular rate Rhythm: regular rhythm Other: Bilateral radial pulses 3+. Bilateral brachial pulses 3+. Bilateral carotids 3+. Bilateral femorals 3+. GI Other: Soft, easily palpable abdominal aortic aneurysm, nontender Musc Cervical Spine: normal cervical lordosis Skin Rashes: no rashes Neuro General: patient alert, patient awake and patient oriented x3 Extrem General: no calf tenderness Psych Affect: normal affect Assessment and Plan Assessment and Plan (1) Aneurysm of infrarenal abdominal aorta: Status: Chronic Comment: Transverse dimension 4.[address] 04/03/2017 Plan - Dr. Esteban Doe MD: I recommended the patient a infrarenal abdominal aortic aneurysm stent graft repair. I believe that this should be able to be accomplished with monitored anesthesia care and local anesthetic. Anticipate bilateral groin access. Main body device via the left using a conformable device. There is significant proximal angulation. Distal bilateral Lacy bottoms will be required. Because of his cardiac valve we will have him hold his Coumadin 3 days prior to planned surgery. We will have his INR checked the morning prior to surgery. We will have him initiate Lovenox twice daily on the day prior to surgery. Pending the patient's INR and perioperative course we will then reinitiate Lovenox as soon as possible and Coumadin as soon as possible as well. The patient has had an opportunity to ask and have questions answered. He is well aware of my insistence that he completely cease his tobacco use. He has had an opportunity to ask and have questions answered. We will schedule procedure at his discretion. Copy: Dr. Jonnie Zarco and Dr. Moses Palacios and Matt Alexander NP-C Esteban Doe M.D., F.A.C.S. It is of note that 8 days ago the patient felt that he had sinus sinus with excessive nasal drip. His primary care physician treated him with antibiotics and he states that all of the symptoms have resolved. The patient states he was tested for COVID-19 and was negative. Although the patient is trying to cut back on cigarette use he did have a cigarette just this morning The patient was instructed to hold his Coumadin 2 days preop which he did. He was instructed to initiate Lovenox therapy last night which he did not do claiming he forgot. He denies any current chest pain no shortness of breath no leg pain or swelling. He states that he currently otherwise feels quite well. His INR yesterday was 2. As we plan to have him fully heparinized as soon as I get sheath access I do not perceive it canceling his procedure is in his best interest. We will then treat him postoperatively with Lovenox therapy and initiate his Coumadin therapy barring any difficulties with the surgical procedure. Esteban Doe M.D., F.A.C.S.
--- NOTE | 2021-12-07 06:26 | OP.PCM_ITS ---
Problems Associated Problem List Diagnoses (1) Aneurysm of infrarenal abdominal aorta: Report of Operation Date of Procedure: 12/07/21 Pre-Operative Diagnosis: Infrarenal abdominal aortic aneurysm Post-Operative Diagnosis: Same Surgery/Procedure Performed:: Right radial arterial line placement Infrarenal abdominal aortic aneurysm stent graft repair Main body Quail excluder conformable 26 x 14.5 x 12. Right extension 18 x 14 cm barcenas bottom. Left extension 20 x 10 cm barcenas bottom. Description of Surgical Findings:: At the bedside timeout informed consent was obtained. The right wrist was gently extended prep with Betadine ultrasound was performed demonstrating quite appropriate right radial artery. Under ultrasound guidance 1% lidocaine was injected and then using the area kit Angiocath under ultrasound guidance was directly advanced into the right radial artery and easily advanced with Seldinger wire technique. Secured skin with 3-0 silk. Was connected to pressure tubing. OpSite dressing and Moi wrap applied. He tolerated procedure well no apparent complication. Hand was viable at the completion. Good waveform was obtained. He was subsequently taken to the special procedures lab for definitive surgical intervention. Patient was taken to the special procedures lab placed upon the table. He underwent monitored anesthesia care. Ancef 2 g were given intravenously. A Hinson catheter was placed to gravity drainage. The abdomen groins proximal thighs were sterilely prepped and draped. Ultrasound was then serially loose used to inspect bilateral groins. The bilateral common femoral arteries identified in the bifurcation of the superficial femoral and profundofemoral arteries identified. Under ultrasound guidance 2% lidocaine was instilled overlying the left common femoral artery and ultrasound guidance used to place a micropuncture needle micropuncture wire micropuncture sheath 035 J-wire and then a 8 Croatian sheath dilator. A similar technique was used on the right. I then used a 035 J-wire and placed a 5 Croatian pigtail catheter into the abdominal aorta superior to the renal arteries. Using Visipaque contrast the rate of 15 cc a second for 10 cc aortogram was obtained. The level of the left renal artery identified. Subsequently a Amplatz wire was advanced through the left groin using the pigtail catheter into the abdominal aorta proximal to the infrarenal aneurysm. Exchanging out the pigtail and then exchanging up the 8 Croatian sheath I placed an 18 Croatian sheath on the left. I performed a similar maneuver on the right using a J-wire to place a pigtail catheter to the aorta proximal to the aneurysm then exchanged out for an Amplatz wire and exchange 8 Croatian sheath for a 12 Croatian sheath on the right. It is of note that prior to these exchanges soon after I had the [address] I had the patient given 9000 units of heparin. I also before putting the Amplatz wire up did a preclose technique with 2 Perclose devices per groin. Now with the 18 Croatian sheath on the left 12 Croatian sheath on the right the patient's fully heparinized I used a Quail excluder conformable device 26 x 14.5 x 12. That was advanced through the main body sheath on the left. Pigtail catheter had been placed from the right the conformable device was advanced using 15 cc a second for 8 cc proximal view was obtained to help with positioning. The to conform to the angulation of the neck to the conformal device was angled and great care was taken to position the very apex at the origin of the lowest left renal artery. Then the top part of that device was deployed. Good positioning was felt to been achieved. The pigtail device was then withdrawn to the sheath on the right. Try to use the pigtail device to get the contralateral limb was not successful so then I advanced a 5 Croatian Kumpe catheter and using an 035 Glidewire I was gain access to the contralateral limb. Placed a pigtail catheter inside and an spun the pigtail catheter and actually shot a brief study making sure it was within the stent graft. Then with the pigtail catheter in place and shot a retrograde view from the right groin for measurement. Then placed a 18 x 14 cm barcenas bottom device from the right. Good overlap was achieved and a use just a slight accordion technique to position it right at the origin of the internal and external iliac on the right. Now the main body device was more completely deployed taking care to reduce the angulation of the device with slow withdrawal of the device keeping the proximal angulation intact. There was no movement. Pigtail catheter was then placed on the left to help with measurements with retrograde flush from the left sheath. And then subsequently a 20 x 10 cm barcenas bottom device was placed on the left. I then used a 33 mm conformable balloon at all parts of the graft and junction points. Placed a pigtail catheter into the aorta just proximal to the renals and using 15 cc a second for 15 cc obtain a abdominal aortogram. This demonstrated that the Quail excluder conformable device was in good position with good occlusion proximally positioned right at the level of the left renal artery. There was good flow distally through the device there was no evidence of any endoleak. There was good flow in the bilateral internal and external iliacs. It is of note that during the procedure the patient did receive an additional 1000 units of heparin and then additional 500 units of heparin based upon ACT measurements. Because the patient has a mechanical aortic valve I elected not to do any reversal at the completion. The sheaths were serially removed and were secured with the Perclose device with excellent hemostasis. Bilateral DP and PT pulses nicely intact at the completion. Blood loss throughout was minimal. Each groin incision was closed with a subdermal suture of interrupted 4-0 Monocryl. Steri-Strips Telfa OpSite dressings applied. Sponge and instrument and needle counts reported the surgeon to correct He had remained cardiovascular stable no apparent complication. He was taken to the recovery area in satisfactory addition. Specimens none. Drains none. Blood loss minimal Imaging demonstrates a large infrarenal abdominal aortic aneurysm with an angulated neck. Subsequent to the placement of the 26 x 14.5 x 12 conformable device with bilateral barcenas bottom extensions there appeared to be complete occlusion of the aneurysm and no evidence of any endoleak. Surgeon: Esteban Doe Type of Anesthesia: Local MAC Anesthesiologist: Dany Buckner
--- NOTE | 2021-12-07 06:29 | DCINST_ITS ---
Documented by User: Dr. Esteban Doe MD 12/08/21 15:40 Discharge Instructions Diet Discharge Diet: Light diet - advance as tolerated (if you have questions about your diet instructions, please talk to you doctor.) Activity Discharge Activity: May Not Drive (for 3-5 days or while taking narcotic pain medicine.) May shower in (days): 1 Lifting Restrictions: 10 pounds Dressing / Incision Call your doctor if your incision/area has: Continuous Slow Oozing, Sudden Increased Bleeding, Increased Pain/ Swelling, Increased Redness and Foul Smelling Discharge Call your doctor if you observe: Fever of 101 or Higher Suture Line Care: Avoid Pulling/Pushing and Avoid Pinching/Bending Additional Dressing/Incision Instructions:: Change or remove dressing in 4 days. Leave steri-strips in place for 1 week. Follow Up Care Please Follow Up With: Esteban Doe MD When: Call [phone] to make an appointment to be seen in about 10 days. Test Results: Test results from this visit will be discussed in further detail at your follow-up appointment, if applicable. Discharge Plan Admission Admit Date/Time: 12/07/21 05:17 Primary Reason for Your Visit: Abdominal aortic aneurysm repair Attending Provider: Esteban Doe Primary Care Provider: Jonnie Zarco Consulting Providers: Bubba Dupree Instructions Additional Instructions / Restrictions: Your Lovenox dosing has been altered to 80 mg twice daily. Please follow instructions as provided to you by Savita López PA-C. Please additionally note that repeat INR is required on December 10, 2021. Please anticipate a contact either from my office or cardiology on that date and if not contact us by 2 PM for recommendations for over the weekend. Discharge Orders/Prescriptions Prescriptions: New enoxaparin [Lovenox] 80 mg/0.8 mL syringe 80 mg subcut Q12H 3 Days Qty: 4.8 RF: 1 oxycodone 5 mg Tablet 5 mg PO Q6H PRN PRN (Reason: Pain Score 6-10) 2 Days Qty: 6 RF: 0 Continued acetaminophen 500 MG tablet 500 - 1,000 mg PO Q6H PRN PRN (Reason: Pain) RF: 0 pramipexole 0.5 MG tablet 0.5 mg PO QHS RF: 0 pantoprazole 40 MG tablet,delayed release (DR/EC) 40 mg PO QHS RF: 0 warfarin 5 mg tablet 5 mg PO DAILY RF: 0 losartan 25 mg tablet 25 mg PO QHS RF: 0 fluticasone propionate 50 mcg/actuation spray,suspension 1 spray NASAL DAILY RF: 0 rosuvastatin 10 mg tablet 10 mg PO QHS RF: 0 Spiriva with HandiHaler 18 mcg capsule, w/inhalation device 1 cap INHALATION QHS RF: 0 cefdinir 300 mg Capsule 300 mg PO BID RF: 0 albuterol sulfate [Ventolin HFA] 90 mcg/actuation HFA aerosol inhaler 2 puff INHALATION Q4H PRN (Reason: shortness of breath or wheezing) Qty: 18 RF: 6 Discontinued enoxaparin [Lovenox] 120 mg/0.8 mL syringe 120 mg subcut Q12H RF: 0 Other Ambulatory Orders: Magnesium (Routine) Timeframe: 20211201 Facility: [facility] - Location: Laboratory Ordered By: Dr. Bubba Dupree Prothrombin Time w/INR (Routine) Timeframe: 20211210 Facility: [facility] - Location: Laboratory Ordered By: Savita FRIED Referrals / Follow Up: Jonnie Zarco MD [Primary Care Provider] - Disposition Disposition (needs filled in before D/C Order can be placed): Home, Self Care Documented by User: Savita FRIED PA-C 12/08/21 15:55 Discharge Instructions Activity Additional Activity Instructions:: Start 80 mg Lovenox injection tonight following discharge. Take 80 mg Lovenox injection BID on 12/09. Take AM injection of Lovenox on 12/10. You will need to obtain an INR level on 12/10 for any readjustments in your anticoagulation per [facility]. Discharge Plan Admission Admit Date/Time: 12/07/21 05:17 Primary Reason for Your Visit: Abdominal aortic aneurysm repair Attending Provider: Esteban Doe Primary Care Provider: Jonnie Zarco Consulting Providers: Bubba Dupree Instructions Additional Instructions / Restrictions: Your Lovenox dosing has been altered to 80 mg twice daily. Please follow instructions as provided to you by Savita López PA-C. Please additionally note that repeat INR is required on December 10, 2021. Please anticipate a contact either from my office or cardiology on that date and if not contact us by 2 PM for recommendations for over the weekend. Discharge Orders/Prescriptions Prescriptions: New enoxaparin [Lovenox] 80 mg/0.8 mL syringe 80 mg subcut Q12H 3 Days Qty: 4.8 RF: 1 oxycodone 5 mg Tablet 5 mg PO Q6H PRN PRN (Reason: Pain Score 6-10) 2 Days Qty: 6 RF: 0 Continued acetaminophen 500 MG tablet 500 - 1,000 mg PO Q6H PRN PRN (Reason: Pain) RF: 0 pramipexole 0.5 MG tablet 0.5 mg PO QHS RF: 0 pantoprazole 40 MG tablet,delayed release (DR/EC) 40 mg PO QHS RF: 0 warfarin 5 mg tablet 5 mg PO DAILY RF: 0 losartan 25 mg tablet 25 mg PO QHS RF: 0 fluticasone propionate 50 mcg/actuation spray,suspension 1 spray NASAL DAILY RF: 0 rosuvastatin 10 mg tablet 10 mg PO QHS RF: 0 Spiriva with HandiHaler 18 mcg capsule, w/inhalation device 1 cap INHALATION QHS RF: 0 cefdinir 300 mg Capsule 300 mg PO BID RF: 0 albuterol sulfate [Ventolin HFA] 90 mcg/actuation HFA aerosol inhaler 2 puff INHALATION Q4H PRN (Reason: shortness of breath or wheezing) Qty: 18 RF: 6 Discontinued enoxaparin [Lovenox] 120 mg/0.8 mL syringe 120 mg subcut Q12H RF: 0 Other Ambulatory Orders: Magnesium (Routine) Timeframe: 20211201 Facility: [facility] - Location: Laboratory Ordered By: Dr. Bubba Dupree Prothrombin Time w/INR (Routine) Timeframe: 20211210 Facility: [facility] - Location: Laboratory Ordered By: Savita FRIED Referrals / Follow Up: Jonnie Zarco MD [Primary Care Provider] - Disposition Disposition (needs filled in before D/C Order can be placed): Home, Self Care
[2021-12-07] MEDS: 0.9% Normal Saline 1,000 ML 15 ML IV ×2 (06:42→09:16)
[2021-12-07 10:09] LABS: International Normalized Ratio 2.4; Prothrombin Time (Protime)PT. 25.6 SECONDS (11.7-14.9)
[2021-12-07 12:29] LABS: MG Sendout 2.2 mg/dL (1.6-2.3)
--- NOTE | 2021-12-07 14:40 | PCM.PN.SRG ---
Subjective Subjective Patient is doing well. He has no specific complaints. Some of a sore back because of lying. No particular abdominal tenderness. No particular groin tenderness. Objective Data Objective Data Vital Signs: Vital Signs Temp Pulse Resp BP Pulse Ox 97.8 F 62 14 139/86 H 99 12/07/21 13:30 12/07/21 13:30 12/07/21 13:30 12/07/21 13:30 12/07/21 13:30 Oxygen Flow Rate (L/min) 2 Oxygen Delivery Method Room Air Weight: 181 lb 10.574 oz Body Mass Index (BMI) 24.6 Intake & Output: Intake and Output for Last 24 Hours 12/05/21 12/06/21 12/07/21 23:59 23:59 23:59 Intake Total 1600 / 1600 Output Total 275 / 275 Balance 1325 / 1325 Lab / Micro Data Result Diagrams: 12/06/21 12:18 12/06/21 12:18 Labs: Laboratory Results - last 24 hr 12/06/21 12:18: Blood Type A POSITIVE, Antibody Screen NEGATIVE 12/06/21 12:18: Magnesium 2.2 12/07/21 06:30: Blood Type A POSITIVE, Antibody Screen NEGATIVE 12/07/21 : PT 25.6 H, INR 2.4 Physical Exam GI GI Narrative: Abdomen is soft, nontender Extremity Extremity Narrative: Bilateral groin percutaneous access sites are not bruised dressings are clean dry and intact they are not expansile nontender, lower extremities are warm with bilateral popliteal pulses palpable Assessment & Plan Assessment/Plan (1) Aneurysm of infrarenal abdominal aorta: PLAN: Immediate postoperative progress appears to be quite stable. He will mobilize later today. Therapeutic Lovenox will be initiated. His routine Coumadin will be reinitiated. I did discuss with Matt SALES who concurs with the current medical plan. Anticipate Hinson catheter hopeful removal tomorrow morning and hopeful discharge tomorrow as well. Esteban Doe M.D., F.A.C.S.
[2021-12-07] MEDS: Lactated Ringers 1,000 ML 70 ML IV (15:03)
[2021-12-07] MEDS: Cefdinir 300 MG Capsule PO ×2 (16:44→21:40)
[2021-12-07] MEDS: Enoxaparin 80 MG/0.8 ML Syringe SC (16:45)
[2021-12-07] MEDS: Ipratropium 0.5 MG/2.5 ML SOLUTION INHALATION (19:30)
[2021-12-07] MEDS: Pantoprazole Sodium 40 MG Tablet PO (21:40)
[2021-12-07] MEDS: Atorvastatin Calcium 20 MG Tablet PO (21:40)
[2021-12-07] MEDS: Pramipexole Di-HCl 0.5 MG Tablet PO (21:40)
[2021-12-07] MEDS: Losartan Potassium 25 MG Tablet PO (21:40)
[2021-12-07] MEDS: Acetaminophen 500 MG Tablet PO (21:45)
[2021-12-08] VITALS (14 sets, daily range): BP systolic 102–147; BP diastolic 57–92; PULSE 57–78; RESP 14–20; TEMP 36–37; O2SAT 93–97
[2021-12-08] MEDS: Acetaminophen 500 MG Tablet PO ×2 (04:28→10:44)
--- NOTE | 2021-12-08 05:11 | NURSING ---
Small area palpated to upper R groin site by RN on [address] Doe notified, orders given to hold pressure for 45 minutes. This RN held manual pressure for 45 minutes. Site soft now.
[2021-12-08] MEDS: Lactated Ringers 1,000 ML 70 ML IV (05:29)
--- NOTE | 2021-12-08 05:35 | PCM.PN.SRG ---
Subjective Subjective Notified by nursing of concerned about right groin swelling and pain. The patient states that it has been tender since late yesterday afternoon throughout the evening. Acetaminophen has been given. Pressure is held for 45 minutes. 6 AM dose of Lovenox is being held. Patient just mildly hypertensive overnight. Objective Data Objective Data Vital Signs: Vital Signs Temp Pulse Resp BP Pulse Ox 98.4 F 76 16 134/92 H 94 12/08/21 04:00 12/08/21 04:00 12/08/21 04:00 12/08/21 04:00 12/08/21 04:00 Oxygen Flow Rate (L/min) 2 Oxygen Delivery Method Room Air Weight: 181 lb 10.574 oz Body Mass Index (BMI) 24.6 Intake & Output: Intake and Output for Last 24 Hours 12/06/21 12/07/21 12/08/21 23:59 23:59 23:59 Intake Total 2346 / 2346 1000 / 1000 Output Total 2210 / 2460 1125 / 1125 Balance 136 / -114 -125 / -125 Lab / Micro Data Result Diagrams: 12/06/21 12:18 12/06/21 12:18 Labs: Laboratory Results - last 24 hr 12/06/21 12:18: Magnesium 2.2 12/07/21 06:30: Blood Type A POSITIVE, Antibody Screen NEGATIVE 12/07/21 : PT 25.6 H, INR 2.4 Physical Exam Const no apparent distress Resp normal respiratory effort Resp Narrative: Clear with slight dry crackles in the apices Cardio Cardio Narrative: Bilateral femoral pulses 3+. Bilateral popliteal pulses 3+. Bilateral posterior tibial pulses 3+ GI GI Narrative: Soft, nontender Extremity Extremity Narrative: Bilateral groin dressings are clean dry and intact. Tenderness to even superficial palpation right groin but without significant mass. No ecchymosis. Pulses palpable. Left groin completely supple and nontender. Assessment & Plan Assessment/Plan (1) Aneurysm of infrarenal abdominal aorta: PLAN: I am not detecting any appreciable hematoma in the right groin. I suspect that a lot of his discomfort is secondary to the Perclose suture device. I will provide for some OxyIR medication. The acetaminophen has assisted him but has not completely resolved it. He is comfortable at rest but not with palpation or movement. We will hold the morning dose of Lovenox while awaiting laboratory. We will need to decide whether he is actually sent home with instructions to continue Lovenox or whether his Coumadin therapy will be sufficient. Plan removal Hinson catheter. Mobilize patient as tolerated. The patient is already moved his bowels. Anticipate discharge later today. Esteban Doe M.D., F.A.C.S.
[2021-12-08 06:09] LABS: Absolute Lymphocyte Count 1.08 X10^3/uL (0.83-4.51); Absolute Neutrophil Count 6.6 X10^3/uL (2.0-7.7); Basophil# 0.02 X10^3/uL; Basophil% 0.2 % (0-1); Eosinophil# 0.08 X10^3/uL; Hematocrit 35.1 % (40-54); Hemoglobin 11.8 g/dL (13.0-16.5); Lymphocyte # 1.08 X10^3/ul (0.83-4.51); Lymphocyte % 13.1 % (19-41); Mean Corp Hgb Conc 33.6 g/dL (32-36); Mean Corpuscular Hgb 33.4 pg (27.0-32.0); Mean Corpuscular Volume 99.4 fL (80-94); Mean Platelet Vol. 10.3 fl (6.2-12.0); Monocyte# 0.47 X10^3/uL; Monocyte% 5.7 % (0-10); NRBC Flagged by Analyzer 0 % (0-5); Neutrophil # 6.56 X10^3/uL (2.7-7.7); Neutrophil % 79.4 % (47-70); Platelet Count 124 K/mm3 (150-450); RBC Distribution Width CV 13.9 % (11.6-14.6); RBC Distribution Width SD 50.4 fl (35.1-43.9); Red Blood Count 3.53 M/mm3 (4.6-6.2); White Blood Count 8.3 K/mm3 (4.4-11.0)
[2021-12-08 06:38] LABS: Anion Gap 6 (5-15); BUN 5 mg/dL (7-18); BUN/Creat Ratio 6.8 RATIO (10-20); Calcium,Total 8.3 mg/dL (8.5-10.1); Chloride 111 mmol/L (98-107); Creatinine, Serum 0.74 mg/dL (0.70-1.30); EST Glomerular Filtration Rate 115 mL/min (>60); Est Glom Filt Rate - Afr Amer 139 mL/min (>60); Estimated Creatinine Clearance 115.06 ml/min; Glucose 120 mg/dL (74-106); Potassium 3.7 mmol/L (3.5-5.1); Sodium Level 140 mmol/L (136-145)
[2021-12-08 06:43] LABS: International Normalized Ratio 1.9
[2021-12-08] MEDS: Ipratropium 0.5 MG/2.5 ML SOLUTION INHALATION ×2 (07:33→12:59)
--- NOTE | 2021-12-08 08:00 | NURSING ---
Attempted to order breakfast for pt. Pt refused breakfast, but agreeable to Sprite. Same given.
[2021-12-08] MEDS: Cefdinir 300 MG Capsule PO (09:55)
--- NOTE | 2021-12-08 10:47 | CASEMGMT ---
ARLEN CHILDS assessment: Face to Face with patient for initial transition planning/care coordination assessment. ARLEN CHILDS introduced self and role at [facility], pt voices understanding and consents to assessment. Pt is lying in bed in no distress on room air. Pt is A/Ox4 and answers all questions appropriately. Care providers, pharmacy, and demographics verified. Presentation: Pt was brought in for OP surgery for AAA with Dr. Doe Admitting dx: Infrarenal AAA PCP: Haroldo Specialists: Philip, cardio; Nader, vasc; Frederick puljovita [facility]erred [facility]acy: [facility] Insurance: [employer] Prescription Benefit: Yes Living Will/HPOA: Pt does not have LW/HPOA and declines AD info. LNOK: Jaime Mahmood, friend; Alanna Mahmood, friend Living Arrangements: Pt lives alone in apartment with flight of stairs in and states no concerns at home. Pt is independent with ADL's. Transportation: Pt drives self and state no transportation concerns. DME/HHC: Pt states has a BP cuff at home and states no need for any further DME. Pt states has had HHC in the past s/p CABG but has not been to SNF. Pt states no concerns with going home at time of discharge. Pt is disabled. Pt states is trying to quit smoking cigarettes and has only smokes 1 cigarettes in last week or so. Pt states does not drink ETOH. Pt states no further concerns/needs. CM to follow for any further discharge planning/needs. Advised pt to ask for CM if any further questions/concerns/needs arise, voices understanding. Pt Goal: Home Plan: [place] ARLEN CHILDS
--- NOTE | 2021-12-08 16:19 | CASEMGMT ---
Pt to be sent home on Lovenox at discharge and med e-scribed to [facility] retail pharmacy. Call to pharmacy and per Mary, pt has no co-pay for Lovenox at this time. Mary aware that pt up for d/c. Darian MCKINLEY CM
== END 2021-12-08 18:35 | disposition home or self-care (01) | DRG 269 ==
LOC: ACINP 05:17 → PCU 18:05
PROVIDERS: Anesthesiology; Internal Medicine Cardiovascular Disease; Admitting Provider Surgery; PCP Family Medicine; Referring Provider Surgery; Visit Provider Surgery
PROC: 04V03DZ Restriction of Abdominal Aorta with Intraluminal Device, Percutaneous Approach (ICD-10-PCS; principal; 2021-12-07 07:00)
DX: I71.4 Abdominal aortic aneurysm, without rupture (principal); E78.5 Hyperlipidemia, unspecified; J44.9 Chronic obstructive pulmonary disease, unspecified; I48.0 Paroxysmal atrial fibrillation; F17.210 Nicotine dependence, cigarettes, uncomplicated; I25.10 Atherosclerotic heart disease of native coronary artery without angina pectoris; I25.2 Old myocardial infarction; Z79.01 Long term (current) use of anticoagulants; Z79.899 Other long term (current) drug therapy; Z95.2 Presence of prosthetic heart valve
CPT/HCPCS: 34701; 34709; 34713; 36200; 36415; 75625; 80048; 82040; 83735; 84100; 85025; 85027; 85610; 86850; 86900; 86901; 94640; 99251; 99406; C1894; J7030; J7040; J7120; Q9967; C1725; C1760; C1769; G0463

== ENCOUNTER 2021-12-20 14:30 | Outpatient (RCR) | payer MEDICARE, MEDICAID, SELFPAY ==
[2021-12-13 16:50] LABS: Prothrombin Time (Protime)PT. 48.4 SECONDS (11.7-14.9)
[2021-12-13 16:59] LABS: International Normalized Ratio 5.4
[2021-12-17 14:03] LABS: Prothrombin Time (Protime)PT. 45.8 SECONDS (11.7-14.9)
[2021-12-20 15:03] LABS: International Normalized Ratio 2.5; Prothrombin Time (Protime)PT. 25.9 SECONDS (11.7-14.9)
== END 2021-12-20 23:59 | disposition home or self-care (01) ==
LOC: LAB 14:30
PROVIDERS: Internal Medicine Cardiovascular Disease; Physician Assistant; Family Provider Family Medicine; PCP Family Medicine; Referring Provider Nurse Practitioner Family; Visit Provider Nurse Practitioner Family
DX: Z98.890 Other specified postprocedural states (principal); I48.0 Paroxysmal atrial fibrillation; Z95.2 Presence of prosthetic heart valve; Z79.01 Long term (current) use of anticoagulants
CPT/HCPCS: 36415; 85610

== ENCOUNTER 2021-12-21 13:52 | Outpatient (CLI) | payer MEDICARE, MEDICAID, SELFPAY ==
--- NOTE | 2021-12-21 14:11 | RAD_ITS ---
STUDY: X-RAY - ABDOMEN/PELVIS REASON FOR EXAM: Male, 61 years old. CONSTIPATION TECHNIQUE: AP supine and upright views of the abdomen and pelvis. COMPARISON: None. FINDINGS: Normal visualized lung bases. Gaseous and fecal distention of the colon. There is no demonstrated free abdominal air. The visualized liver, spleen and kidneys are grossly normal in size and morphology. The patient is status post intraluminal stent grafting of the distal abdominal aorta and bilateral common iliac arteries. The patient is status post mitral valve replacement. There are mild degenerative changes of the visualized lumbar spine. RAD/Abd Inc Decub and/or Erect IMPRESSION: Gaseous and fecal distention of the colon. Status post transluminal stent grafting of the distal abdominal aorta and bilateral common iliac arteries. Electronically Signed: Latrell Chau MD at 13:45 EST ,
== END 2021-12-21 23:59 | disposition home or self-care (01) ==
LOC: RAD 13:57
PROVIDERS: PCP Family Medicine; Referring Provider Surgery; Visit Provider Surgery
DX: K59.00 Constipation, unspecified (principal); R14.0 Abdominal distension (gaseous); Z95.5 Presence of coronary angioplasty implant and graft
CPT/HCPCS: 74019

== ENCOUNTER 2022-01-03 13:37 | Outpatient (RCR) | payer MEDICARE, MEDICAID, SELFPAY ==
[2022-01-03 15:10] LABS: Prothrombin Time (Protime)PT. 22.3 SECONDS (11.7-14.9)
[2022-01-03 15:29] LABS: AST(SGOT) 15 U/L (15-37); Alanine Aminotransfer ALT/SGPT 16 U/L (16-61); Albumin, Serum 3.7 g/dL (3.2-5.0); Alkaline Phosphatase 128 U/L (45-117); Bilirubin, Direct 0.12 mg/dL (0.00-0.30); Cholesterol 126 mg/dL (200); Globulin 4.2 g/dL (2.2-4.2); High Density Lipoprotein 43 mg/dL; Protein, Total 7.9 g/dL (6.4-8.2); Triglycerides 118 mg/dL; Very Low Density Lipoprotein 24 mg/dL (5-40)
== END 2022-01-27 18:00 | disposition home or self-care (01) ==
LOC: LAB 13:37
PROVIDERS: Family Provider Family Medicine; PCP Family Medicine; Referring Provider Nurse Practitioner Family; Visit Provider Nurse Practitioner Family
DX: I48.0 Paroxysmal atrial fibrillation (principal); E78.00 Pure hypercholesterolemia, unspecified; Z98.890 Other specified postprocedural states; Z95.2 Presence of prosthetic heart valve; Z79.01 Long term (current) use of anticoagulants
CPT/HCPCS: 36415; 80061; 80076; 85610

== ENCOUNTER 2022-01-16 16:04 | Inpatient (IN) | payer MEDICARE, MEDICAID, SELFPAY ==
[2022-01-16] VITALS (15 sets, daily range): BP systolic 92–108; BP diastolic 50–74; PULSE 75–117; RESP 16–26; TEMP 36.6–37.5; O2SAT 88–96; BMI 22.1
--- NOTE | 2022-01-16 16:37 | EKG12_ITS ---
Test Reason : SOB Blood Pressure : / mmHG Vent. Rate : 098 BPM Atrial Rate : 098 BPM P-R Int : 156 ms QRS Dur : 086 ms QT Int : 336 ms P-R-T Axes : 072 013 079 degrees QTc Int : 428 ms Normal sinus rhythm ST & T wave abnormality, consider anterolateral ischemia Abnormal ECG Confirmed by STORM FINN, FRACISCO ([id number]), assignment editor SOLO CORTEZ ([id number]) on 01/20/2022 9:20:29 AM Referred By: EDVIN Confirmed By:FRACISCO INMAN MD
--- NOTE | 2022-01-16 16:37 | RAD_ITS ---
INDICATION: cough EXAMINATION/TECHNIQUE: X-RAY - XR Chest 1 View COMPARISON: 12/21/2021. FINDINGS: Increased interstitial markings. Hyperinflated lungs. Sternal cerclage wires and vascular clips are present from a prior sternotomy and coronary artery bypass graft procedure (CABG). Tortuous and calcified thoracic aorta. No pleural effusion or pneumothorax. Degenerative changes of the thoracic spine. RAD/Chest 1 View (Portable) IMPRESSION: Increased interstitial markings may represent edema and/or infection. COPD. Electronically Signed: Mitch Dela Cruz MD at 17:45 EDT ,
[2022-01-16 16:51] LABS: Absolute Lymphocyte Count 0.89 X10^3/uL (0.83-4.51); Basophil# 0.02 X10^3/uL; Basophil% 0.2 % (0-1); Hematocrit 37.4 % (40-54); Hemoglobin 12.7 g/dL (13.0-16.5); Lymphocyte # 0.89 X10^3/ul (0.83-4.51); Lymphocyte % 7.1 % (19-41); Mean Corpuscular Hgb 32.5 pg (27.0-32.0); Mean Corpuscular Volume 95.7 fL (80-94); Monocyte# 0.39 X10^3/uL; Monocyte% 3.1 % (0-10); NRBC Flagged by Analyzer 0 % (0-5); Neutrophil # 10.99 X10^3/uL (2.7-7.7); Neutrophil % 87.2 % (47-70); POSITIVE MORPHOLOGY YES; Platelet Count 153 K/mm3 (150-450); RBC Distribution Width CV 13.7 % (11.6-14.6); RBC Distribution Width SD 47.9 fl (35.1-43.9); Red Blood Count 3.91 M/mm3 (4.6-6.2); White Blood Count 12.6 K/mm3 (4.4-11.0)
[2022-01-16 16:52] LABS: Differential Indicated SCAN CRITERIA MET
--- NOTE | 2022-01-16 17:00 | PCM.HP.STD ---
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 Bleeding acute gastric ulcer Cancer Cardiology follow-up encounter Collapse of right lung Complete edentulism, class III Constipation COPD (chronic obstructive pulmonary disease) SAMSON (dyspnea on exertion) GERD (gastroesophageal reflux disease) HLD (hyperlipidemia) Hx of cardiovascular stress test Hx of echocardiogram Hx of emphysema Hypertension retirement (current) use of anticoagulants Lung nodule Myocardial infarct Neck injury Nicotine abuse Nicotine dependence, cigarettes, uncomplicated Nicotine dependence, unspecified, uncomplicated Nonrheumatic aortic valve insufficiency Paroxysmal atrial fibrillation Pre-op evaluation Restless leg syndrome Smoker Solitary pulmonary nodule Stage 1 mild COPD by GOLD classification Transient cerebral ischemic attack Tuberculosis Wears glasses Weight loss Home Medications acetaminophen 500 - 1,000 mg PO Q6H PRN PRN 07/02/19 [History Last Taken 07/08/19] pramipexole 0.5 mg PO QHS 07/02/19 [History Last Taken 03/24/20 21:00] pantoprazole 40 mg PO QHS 03/18/20 [History Last Taken 03/24/20 21:00] albuterol sulfate 90 mcg/actuation aerosol inhaler 2 puff INHALATION Q4H PRN #18 g 07/09/21 [Rx Last Taken Unknown] losartan 25 mg PO QHS 10/06/21 [History Last Taken Unknown] rosuvastatin 10 mg PO QHS 10/06/21 [History Last Taken Unknown] warfarin 5 mg PO DAILY 10/06/21 [History Last Taken Unknown] fluticasone propionate 50 mcg/actuation nasal spray,suspension 1 spray NASAL DAILY #16 g 01/05/22 [Rx Last Taken Unknown] tiotropium bromide 18 mcg capsule with inhalation device 1 cap INHALATION QHS #30 inh 01/05/22 [Rx Last Taken Unknown] Allergy/AdvReac Type Severity Reaction Status Date / Time No Known Allergies Allergy Verified 01/16/22 16:05 Surgical History (Reviewed 01/05/22 @ 13:37 by Nitza Dutton FIELD OPERATIONS COORDINATOR, FIELD OPERATIONS COORDINATOR-C) H/O abdominal aortic aneurysm repair History of aortic root repair History of esophagogastroduodenoscopy (EGD) History of left heart catheterization (11/19/10) Hx of aortic valve replacement, mechanical (11/26/10) Hx of colonoscopy Hx of detached retina repair Hx of inguinal hernia surgery S/P AAA (abdominal aortic aneurysm) repair Social History (Reviewed 01/05/22 @ 13:37 by Nitza Dutton FIELD OPERATIONS COORDINATOR, FIELD OPERATIONS COORDINATOR-C) adopted: Yes Smoking Status: Light Smoker (<10/day) alcohol intake: never substance use type: does not use Vital Signs Vital Signs Vital Signs: 01/16/22 16:05 01/16/22 16:30 01/16/22 16:59 Temperature 98.2 F Temperature Source Temporal Pulse Rate 117 H Respiratory Rate 26 H Blood Pressure 96/72 Blood Pressure Mean 80 Pulse Ox 91 94 Oxygen Delivery Method Room Air Nasal Cannula Nasal Cannula Oxygen Flow Rate (L/min) 2 2 Weight Weight: 168 lb Body Mass Index (BMI) 22.1 Results Lab / Micro Data Result Diagrams: 01/16/22 16:20 01/16/22 16:20 Labs: Laboratory Results - last 24 hr 01/16/22 16:20: WBC 12.6 H, RBC 3.91 L, Hgb 12.7 L, Hct 37.4 L, MCV 95.7 H, MCH 32.5 H, MCHC 34.0, RDW Std Deviation 47.9 H, RDW Coeff of Zeus 13.7, Plt Count 153, MPV 11.0, Immature Gran % (Auto) 2.400 H, Neut % (Auto) 87.2 H, Lymph % (Auto) 7.1 L, [place] % (Auto) 3.1, Eos % (Auto) 0.0, Baso % (Auto) 0.2, Absolute Neuts (auto) 11.0 H, Absolute Lymphs (auto) 0.89, Nucleated RBC % 0
[2022-01-16 17:01] LABS: Prothrombin Time (Protime)PT. 21.7 SECONDS (11.7-14.9)
[2022-01-16 17:03] LABS: Partial Thromboplast Time 50.2 Seconds (24.1-36.2)
[2022-01-16 17:11] LABS: Differential Comment SCANNED
[2022-01-16 17:13] LABS: BUN 14 mg/dL (7-18); Creatinine, Serum 1.01 mg/dL (0.70-1.30); EST Glomerular Filtration Rate 80 mL/min (>60); Estimated Creatinine Clearance 82.78 ml/min; Glucose 128 mg/dL (74-106)
[2022-01-16 17:14] LABS: ALB/GLOB Ratio 0.8 RATIO (0.9-2.4); AST(SGOT) 26 U/L (15-37); Alanine Aminotransfer ALT/SGPT 18 U/L (16-61); Albumin, Serum 3.2 g/dL (3.2-5.0); Alkaline Phosphatase 86 U/L (45-117); Anion Gap 7 (5-15); BUN/Creat Ratio 13.9 RATIO (10-20); Calcium,Total 9.1 mg/dL (8.5-10.1); Chloride 102 mmol/L (98-107); D-Dimer Quantitative (DVT/PE) 2.31 FEU/ug/m (0.27-0.49); Est Glom Filt Rate - Afr Amer 96 mL/min (>60); Globulin 4.1 g/dL (2.2-4.2); Potassium 3.4 mmol/L (3.5-5.1); Protein, Total 7.3 g/dL (6.4-8.2); Sodium Level 134 mmol/L (136-145); Troponin-I HS 8 pg/mL (3.0-78.0)
[2022-01-16] MEDS: Albuterol 2.5 MG/3 ML VIAL.NEB. INHALATION (17:17)
[2022-01-16] MEDS: Ipratropium/Albuterol Sulfate 3 ML AMPUL.NEB INHALATION ×2 (17:17→22:05)
[2022-01-16 17:25] LABS: Lactic Acid 3.5 mmol/L (0.4-1.9)
--- NOTE | 2022-01-16 17:29 | ED.VIS.DYS ---
HPI History of Present Illness Chief Complaint: Shortness of Breath Narrative Narrative: 61-year-old male presenting with shortness of breath. Patient states he started to feel unwell on Monday night/Monday morning. He states he was tested for COVID-19 and was negative but did have influenza A. He is not been on Tamiflu. He expresses that he had fevers and chills over the course of the week with his last fever being 2 days ago. He also claims he has body aches. He has nausea and no desire to eat but is not vomiting. He states he has the beginnings of COPD. Patient is currently on Coumadin for history of atrial fibrillation. Patient states he has a painful cough but otherwise does not complain of chest pain. No abdominal pain, urinary complaints, diarrhea, constipation. 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 Bleeding acute gastric ulcer Cancer Cardiology follow-up encounter Collapse of right lung Complete edentulism, class III Constipation COPD (chronic obstructive pulmonary disease) SAMSON (dyspnea on exertion) GERD (gastroesophageal reflux disease) HLD (hyperlipidemia) Hx of cardiovascular stress test Hx of echocardiogram Hx of emphysema Hypertension group home (current) use of anticoagulants Lung nodule Myocardial infarct Neck injury Nicotine abuse Nicotine dependence, cigarettes, uncomplicated Nicotine dependence, unspecified, uncomplicated Nonrheumatic aortic valve insufficiency Paroxysmal atrial fibrillation Pre-op evaluation Restless leg syndrome Smoker Solitary pulmonary nodule Stage 1 mild COPD by GOLD classification Transient cerebral ischemic attack Tuberculosis Wears glasses Weight loss Home Medications acetaminophen 500 - 1,000 mg PO Q6H PRN PRN 07/02/19 [History Last Taken 07/08/19] pramipexole 0.5 mg PO QHS 07/02/19 [History Last Taken 03/24/20 21:00] pantoprazole 40 mg PO QHS 03/18/20 [History Last Taken 03/24/20 21:00] albuterol sulfate 90 mcg/actuation aerosol inhaler 2 puff INHALATION Q4H PRN #18 g 07/09/21 [Rx Last Taken Unknown] losartan 25 mg PO QHS 10/06/21 [History Last Taken Unknown] rosuvastatin 10 mg PO QHS 10/06/21 [History Last Taken Unknown] warfarin 5 mg PO DAILY 10/06/21 [History Last Taken Unknown] fluticasone propionate 50 mcg/actuation nasal spray,suspension 1 spray NASAL DAILY #16 g 01/05/22 [Rx Last Taken Unknown] tiotropium bromide 18 mcg capsule with inhalation device 1 cap INHALATION QHS #30 inh 01/05/22 [Rx Last Taken Unknown] Allergy/AdvReac Type Severity Reaction Status Date / Time No Known Allergies Allergy Verified 01/16/22 16:05 Surgical History H/O abdominal aortic aneurysm repair History of aortic root repair History of esophagogastroduodenoscopy (EGD) History of left heart catheterization (11/19/10) Hx of aortic valve replacement, mechanical (11/26/10) Hx of colonoscopy Hx of detached retina repair Hx of inguinal hernia surgery S/P AAA (abdominal aortic aneurysm) repair Social History adopted: Yes Smoking Status: Former smoker alcohol intake: never substance use type: does not use ROS ROS ED Constitutional Constitutional ED: Reports chills and fever(s) Eyes Eyes: Denies blurry vision or diplopia ENT ENT ED: Reports rhinorrhea Cardiovascular Cardiovascular: Denies chest pain Respiratory/Chest Respiratory/Chest: Reports cough, dyspnea and dyspnea on exertion Gastrointestinal Gastrointestinal: Reports nausea; Denies abdominal pain, constipation, diarrhea or vomiting Genitourinary Genitourinary ED: Denies dysuria or hematuria Musculoskeletal Musculoskeletal: Reports myalgias; Denies arthralgias or neck pain Integumentary Denies rash Neurologic Neurologic: Denies headache(s) or paresthesias EXAM Physical Exam Const Vital Signs: 01/16/22 16:05 01/16/22 16:30 01/16/22 16:59 Temperature 98.2 F Temperature Source Temporal Pulse Rate 117 H Respiratory Rate 26 H Respiratory Effort Blood Pressure 96/72 Blood Pressure Mean 80 Pulse Ox 91 94 Oxygen Delivery Method Room Air Nasal Cannula Nasal Cannula Oxygen Flow Rate (L/min) 2 2 01/16/22 17:00 01/16/22 17:07 01/16/22 17:17 Temperature 99.5 F H Temperature Source Oral Pulse Rate 97 103 H 96 Respiratory Rate 19 H 20 H 16 Respiratory Effort Short of Breath Blood Pressure 108/72 106/72 Blood Pressure Mean 84 83 Pulse Ox 94 94 Oxygen Delivery Method Nasal Cannula Nasal Cannula Oxygen Flow Rate (L/min) 2 2 01/16/22 18:00 01/16/22 19:02 01/16/22 19:03 Temperature 99.3 F H 99.2 F H 99.2 F H Temperature Source Temporal Temporal Temporal Pulse Rate 98 99 Respiratory Rate 17 25 H Respiratory Effort Blood Pressure 103/50 L 104/73 Blood Pressure Mean 67 83 Pulse Ox 94 92 Oxygen Delivery Method Nasal Cannula Nasal Cannula Oxygen Flow Rate (L/min) 2 2 01/16/22 20:00 Temperature 99.1 F Temperature Source Temporal Pulse Rate 95 Respiratory Rate 18 Respiratory Effort Blood Pressure 106/72 Blood Pressure Mean 83 Pulse Ox 93 Oxygen Delivery Method Nasal Cannula Oxygen Flow Rate (L/min) 3 Positive well nourished General Appearance ED: NAD; Negative for pallor HEENT Reports dry mucous membranes atraumatic Mouth ED: Yes dry mucous membranes Mouth: dry mucous membranes Eyes PERRL and EOMs intact bilaterally General Eye ED: Negative for pale conjunctiva or scleral icterus Neck no lymphadenopathy and supple Cardio regular rate and regular rhythm GI non-tender and non-distended Auscultation: normoactive bowel sounds Palpation: soft Extremity normal to inspection General Extremety ED: Negative for edema or tenderness General Extremity: Negative for edema Neuro oriented x3 and CN's II-XII intact bilaterally Sensorium / Orientation: alert Psych mental status grossly normal Thought Process: normal thought process Skin General Skin Exam: Negative for jaundice or pallor Rashes: no rashes MDM MDM MDM Narrative Medical decision making narrative: Patient tachycardic, tachypneic, hypoxic on arrival and with a history of fever and chills sepsis work-up was pursued. EKG was initially obtained and on my interpretation there is a normal sinus rhythm with a ventricular rate of [address] depressions in V3 through V6. The patient is not reporting chest pain. CBC shows a leukocytosis of 12.6 with a left shift. INR therapeutic at 2.0. D-dimer elevated at 2.31 but since his INR is therapeutic I do not believe he needs CTA of his chest. Creatinine is normal at 1.01. Potassium slightly low at 3.4. LFTs are normal. High-sensitivity troponin is 8. Lactic acid returned at 3.5. Patient given 30/kg bolus of normal saline. Chest x-ray on my interpretation shows increased interstitial markings. Patient will be covered for pneumonia given his lactic acid and white blood cell count. Rocephin and azithromycin are given. Viral respiratory panel is pending. Covid PCR is pending. Patient discussed with hospitalist for admission who requested CTA of the chest and rapid influenza testing. He is pending on admission. Patient transported to the [facility] in stable condition. Impression: 1 hypoxic respiratory failure 2. Community-acquired pneumonia 3. History of influenza a 4. Lactic acidosis Lab Data Attestation: I reviewed the patient's lab results. Labs: Laboratory Results - last 24 hr 01/16/22 01/16/22 01/16/22 16:20 16:20 16:20 WBC 12.6 H RBC 3.91 L Hgb 12.7 L Hct 37.4 L MCV 95.7 H MCH 32.5 H MCHC 34.0 RDW Std Deviation 47.9 H RDW Coeff of Zeus 13.7 Plt Count 153 MPV 11.0 Immature Gran % (Auto) 2.400 H Neut % (Auto) 87.2 H Lymph % (Auto) 7.1 L [place] % (Auto) 3.1 Eos % (Auto) 0.0 Baso % (Auto) 0.2 Absolute Neuts (auto) 11.0 H Absolute Lymphs (auto) 0.89 Nucleated RBC % 0 Differential Comment SCANNED PT 21.7 H INR 2.0 APTT 50.2 H D-Dimer Quant (PE/DVT) 2.31 H* Sodium 134 L Potassium 3.4 L Chloride 102 Carbon Dioxide 25.0 Anion Gap 7 BUN 14 Creatinine 1.01 Estim Creat Clear Calc 82.78 Est GFR (MDRD) Af Amer 96 Est GFR (MDRD) Non-Af 80 BUN/Creatinine Ratio 13.9 Glucose 128 H Lactic Acid Calcium 9.1 Total Bilirubin 0.50 AST 26 ALT 18 Alkaline Phosphatase 86 Troponin I High Sens 8 Total Protein 7.3 Albumin 3.2 Globulin 4.1 Albumin/Globulin Ratio 0.8 L 01/16/22 16:20 WBC RBC Hgb Hct MCV MCH MCHC RDW Std Deviation RDW Coeff of Zeus Plt Count MPV Immature Gran % (Auto) Neut % (Auto) Lymph % (Auto) [place] % (Auto) Eos % (Auto) Baso % (Auto) Absolute Neuts (auto) Absolute Lymphs (auto) Nucleated RBC % Differential Comment PT INR APTT D-Dimer Quant (PE/DVT) Sodium Potassium Chloride Carbon Dioxide Anion Gap BUN Creatinine Estim Creat Clear Calc Est GFR (MDRD) Af Amer Est GFR (MDRD) Non-Af BUN/Creatinine Ratio Glucose Lactic Acid 3.5 H* Calcium Total Bilirubin AST ALT Alkaline Phosphatase Troponin I High Sens Total Protein Albumin Globulin Albumin/Globulin Ratio Radiography Diagnostic Testing: Clinical Impression(s) from Imaging Studies Chest X-Ray 01/16/22 16:37 IMPRESSION: Increased interstitial markings may represent edema and/or infection. COPD. Electronically Signed: Mitch Dela Cruz MD at 17:45 EDT , Discharge Plan Triage Chief Complaint: Shortness of Breath ED Provider: Evaristo Peng Dx/Rx/DC Orders Prescriptions: No Action fluticasone propionate 50 mcg/actuation spray,suspension 1 spray NASAL DAILY Qty: 16 RF: 11 Spiriva with HandiHaler 18 mcg capsule, w/inhalation device 1 cap INHALATION QHS Qty: 30 RF: 11 acetaminophen 500 MG tablet 500 - 1,000 mg PO Q6H PRN PRN (Reason: Pain) RF: 0 pramipexole 0.5 MG tablet 0.5 mg PO QHS RF: 0 pantoprazole 40 MG tablet,delayed release (DR/EC) 40 mg PO QHS RF: 0 warfarin 5 mg tablet 5 mg PO DAILY RF: 0 losartan 25 mg tablet 25 mg PO QHS RF: 0 rosuvastatin 10 mg tablet 10 mg PO QHS RF: 0 albuterol sulfate [Ventolin HFA] 90 mcg/actuation HFA aerosol inhaler 2 puff INHALATION Q4H PRN (Reason: shortness of breath or wheezing) Qty: 18 RF: 6 Primary Care Provider: Jonnie Zarco
[2022-01-16] MEDS: 0.9% Normal Saline 1,000 ML 999 ML IV ×2 (17:40→18:36)
[2022-01-16] MEDS: MethylPREDNISolone 125 MG/2 ML Vial IV (17:40)
[2022-01-16] MEDS: Ceftriaxone 1 GM/50 ML BAG IV (18:36)
--- NOTE | 2022-01-16 19:28 | CT_ITS ---
INDICATION: hypoxic respiratory EXAMINATION: CTA Chest WO/W Contrast Injection TECHNIQUE: Helically acquired images were obtained of the chest following administration of IV contrast. A radiation dose optimization technique was used for this scan. 3D postprocessing images including MIPS were reviewed. IV Contrast dosage and agent: IV 100mL [id number] COMPARISON: None. FINDINGS: Lungs: Patchy tree-in-bud opacities in the bilateral lung bases. Emphysematous changes. Mediastinum: The heart is mildly enlarged. There is mediastinal and bilateral hilar adenopathy. No evidence of axillary adenopathy. Mild aortic arch and coronary artery calcifications. No obvious filling defect seen within the visualized pulmonary arteries. Pleura: Unremarkable Bones/Soft tissues: Mild scattered degenerative changes of the visualized spine. Upper abdomen: No visualized abnormalities in the upper abdomen. CT/CTA Chest W/WO Contrast IMPRESSION: No evidence of acute pulmonary emboli to the segmental level. Findings concerning for atypical infection in the lung bases. Electronically Signed: Mitch Dela Cruz MD at 21:28 EDT ,
--- NOTE | 2022-01-16 19:39 | HP.PCM.HOS_ITS ---
[facility] - General General Date of Admission: 01/16/22 HPI Narrative SUJIT PONCE, is a 61 M with a significant history of COPD; lung nodule; metallic aortic valve replacement who presents to the emergency department with a 6-day history of progressively worsening shortness of breath. Associated with his symptoms is malaise; lightheadedness; anorexia; myalgia; and a productive cough that patient is unable to tell the color of sputum. Patient was at the urgent care 6-day before presentation where he was diagnosed with influenza A. A day before presentation patient went back to the urgent care where he was put on steroids and was given Mucinex. Patient has received COVID-19 vaccination and if a booster. 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 Lung nodule Myocardial infarct Neck injury Nicotine abuse Nicotine dependence, cigarettes, uncomplicated Nicotine dependence, unspecified, uncomplicated Nonrheumatic aortic valve insufficiency Paroxysmal atrial fibrillation Pre-op evaluation Restless leg syndrome Smoker Solitary pulmonary nodule Stage 1 mild COPD by GOLD classification Transient cerebral ischemic attack Tuberculosis Wears glasses Weight loss Home Medications acetaminophen 500 - 1,000 mg PO Q6H PRN PRN 07/02/19 [History Last Taken 07/08/19] pramipexole 0.5 mg PO QHS 07/02/19 [History Last Taken 03/24/20 21:00] pantoprazole 40 mg PO QHS 03/18/20 [History Last Taken 03/24/20 21:00] albuterol sulfate 90 mcg/actuation aerosol inhaler 2 puff INHALATION Q4H PRN #18 g 07/09/21 [Rx Last Taken Unknown] losartan 25 mg PO QHS 10/06/21 [History Last Taken Unknown] rosuvastatin 10 mg PO QHS 10/06/21 [History Last Taken Unknown] warfarin 5 mg PO DAILY 10/06/21 [History Last Taken Unknown] fluticasone propionate 50 mcg/actuation nasal spray,suspension 1 spray NASAL DAILY #16 g 01/05/22 [Rx Last Taken Unknown] tiotropium bromide 18 mcg capsule with inhalation device 1 cap INHALATION QHS #30 inh 01/05/22 [Rx Last Taken Unknown] Allergy/AdvReac Type Severity Reaction Status Date / Time No Known Allergies Allergy Verified 01/16/22 16:05 Family History adopted adopted Surgical History H/O abdominal aortic aneurysm repair History of aortic root repair History of esophagogastroduodenoscopy (EGD) History of left heart catheterization (11/19/10) Hx of aortic valve replacement, mechanical (11/26/10) Hx of colonoscopy Hx of detached retina repair Hx of inguinal hernia surgery S/P AAA (abdominal aortic aneurysm) repair Social History adopted: Yes Smoking Status: Former smoker alcohol intake: never substance use type: does not use ROS ROS Narrative Constitutional: Reports chills, fatigue, anorexia. Eyes: Denies blurry vision, change in eye color, change in vision, discharge from eye(s), double vision, erythema, eye pain, loss of vision or other HEENT: Denies abnormal hearing, dysphagia, ear pain, epistaxis, headache(s), hearing loss, nasal congestion, nasal discharge, post nasal drip, sinus pressure, sore throat or other Cardiovascular: Denies chest pain or palpitations. Denies dyspnea on exertion. Respiratory/Chest: Reports productive cough. Reports shortness of breath. Gastrointestinal: Denies abdominal pain, coffee ground emesis, constipation, diarrhea, dyspepsia, hematemesis, hematochezia, loose stools, melena, nausea, vomiting or other Genitourinary: Denies burning urination, difficulty urinating, dysuria, hematuria, nocturia, urinary frequency, urinary hesitancy, urinary incontinence, urinary urgency or other Musculoskeletal: Reports myalgia. Denies arthralgias, back pain, joint pain, joint stiffness, joint swelling, neck pain or other Neurologic: Denies abnormal gait, abnormal speech, confusion, disequilibrium, dizziness, focal weakness, headache(s), numbness, paresthesias, seizure-like activity, seizures, syncope, tingling, tremor(s) or other Psychiatric: Denies anxiety, depression, homicidal ideation, suicidal ideation or other Endocrinology: Denies change in body appearance, cold intolerance, excessive sweating, heat intolerance, polydipsia, polyuria or other Hematologic/Lymphatic: Denies anemia, easy bleeding, easy bruising, lymphadenopathy or other Integumentary: Denies rashes Allergic/Immunologic: Denies rhinitis, hives, eczema, or other Vital Signs Vital Signs Vital Signs: 01/16/22 16:05 01/16/22 16:30 01/16/22 16:59 Temperature 98.2 F Temperature Source Temporal Pulse Rate 117 H Respiratory Rate 26 H Respiratory Effort Blood Pressure 96/72 Blood Pressure Mean 80 Pulse Ox 91 94 Oxygen Delivery Method Room Air Nasal Cannula Nasal Cannula Oxygen Flow Rate (L/min) 2 2 01/16/22 17:00 01/16/22 17:07 01/16/22 17:17 Temperature 99.5 F H Temperature Source Oral Pulse Rate 97 103 H 96 Respiratory Rate 19 H 20 H 16 Respiratory Effort Short of Breath Blood Pressure 108/72 106/72 Blood Pressure Mean 84 83 Pulse Ox 94 94 Oxygen Delivery Method Nasal Cannula Nasal Cannula Oxygen Flow Rate (L/min) 2 2 01/16/22 18:00 01/16/22 19:02 01/16/22 19:03 Temperature 99.3 F H 99.2 F H 99.2 F H Temperature Source Temporal Temporal Temporal Pulse Rate 98 99 Respiratory Rate 17 25 H Respiratory Effort Blood Pressure 103/50 L 104/73 Blood Pressure Mean 67 83 Pulse Ox 94 92 Oxygen Delivery Method Nasal Cannula Nasal Cannula Oxygen Flow Rate (L/min) 2 2 Weight Weight: 76.204 kg Body Mass Index (BMI) 22.1 Physical Exam Narrative Physical exam: General: Well-nourished, well-developed. Head: Normocephalic, atraumatic, no tenderness Eyes: Vision is grossly intact. EOMI ENT, no trauma, moist mucous membranes, no rhinorrhea Neck: Nontender, full range of motion, no spinal tenderness, deformities, step- off CVS: Regular rate and rhythm. S1-S2 present. No murmur, gallop or rub. Respiratory : Tachypnea. Clear leg sounds anteriorly and posteriorly except decreased breath sounds at right posterior base. Abdomen: Soft, nontender, nondistended, normal bowel sounds, no masses : Deferred Back: Nontender, no CVA tenderness, no midline spinal tenderness, deformities, step-offs Extremities: Nontender full range of motion, no trauma Skin: Normal color, no trauma, abrasions Neuro: Alert, oriented, cranial nerves II through XII grossly intact. Psychiatry: Normal mood. Normal affect. Not depressed. Not anxious. Results Lab / Micro Data Result Diagrams: 01/16/22 16:20 01/16/22 16:20 Labs: Laboratory Results - last 24 hr 01/16/22 16:20: WBC 12.6 H, RBC 3.91 L, Hgb 12.7 L, Hct 37.4 L, MCV 95.7 H, MCH 32.5 H, MCHC 34.0, RDW Std Deviation 47.9 H, RDW Coeff of Zeus 13.7, Plt Count 153, MPV 11.0, Immature Gran % (Auto) 2.400 H, Neut % (Auto) 87.2 H, Lymph % (Auto) 7.1 L, [place] % (Auto) 3.1, Eos % (Auto) 0.0, Baso % (Auto) 0.2, Absolute Neuts (auto) 11.0 H, Absolute Lymphs (auto) 0.89, Nucleated RBC % 0, Differential Comment SCANNED 01/16/22 16:20: PT 21.7 H, INR 2.0, APTT 50.2 H, D-Dimer Quant (PE/DVT) 2.31 H* 01/16/22 16:20: Sodium 134 L, Potassium 3.4 L, Chloride 102, Carbon Dioxide 25.0, Anion Gap 7, BUN 14, Creatinine 1.01, Estim Creat Clear Calc 82.78, Est GFR (MDRD) Af Amer 96, Est GFR (MDRD) Non-Af 80, BUN/Creatinine Ratio 13.9, Glucose 128 H, Calcium 9.1, Total Bilirubin 0.50, AST 26, ALT 18, Alkaline Phosphatase 86, Troponin I High Sens 8, Total Protein 7.3, Albumin 3.2, Globulin 4.1, Albumin/Globulin Ratio 0.8 L 01/16/22 16:20: Lactic Acid 3.5 H* Radiology Impression Chest X-Ray 01/16/22 16:37 IMPRESSION: Increased interstitial markings may represent edema and/or infection. COPD. Electronically Signed: Mitch Dela Cruz MD at 17:45 EDT , Assessment & Plan Assessment/Plan (1) Acute respiratory failure: QUALIFIERS: Respiratory failure complication: hypoxia Qualified Code(s): J96.01 - Acute respiratory failure with hypoxia (2) Influenza A: PLAN: Acute hypoxic respiratory failure Documented oxygen saturation of 88% on room air requiring supplemental oxygen via nasal cannula. Oxygen supplementation to keep oxygen saturation to 90% or more. Follow Chest CTA ordered at the ED Influenza A infection Reportedly patient tested positive for influenza about 6 days ago. No need for Tamiflu at this time. Mucinex Pneumonia Chest x-ray was visualized and independent interpreted. I agree with radiologist interpretation of increased interstitial markings. Review of labs showed a white count of 12.6 With influenza A infection cannot rule out superimposed bacterial pneumonia. Given ceftriaxone azithromycin emergency department and continued. The lactic acid of 3.5. qSOFA is 1 (respiratory rate more equal to 22). QSOFA sepsis ruled out.. Has received covid vaccination with booster . Follow PCR covid ordered at the ED, follow. Hypokalemia Potassium of 3.4. Anticipated with breathing treatment potassium may decrease further. 40 Bill Thanh potassium ordered. Trend BMP. History of aortic valve replacement INR of 2.0. Anticipate that INR will increase with antibiotics. Coumadin continued. Trend PT/INR DVT Prophylaxis Therapeutic on Coumadin Charges/Coding Visit Charges Inpatient E&M: 75685 Init Hosp L3
[2022-01-16] MEDS: Sodium Chloride 0.65% 1 SPRAY SPRAY.BTL 2 SPRAY NASAL (20:03)
[2022-01-16 20:45] LABS: Reflex Lactate? Y
[2022-01-16] MEDS: Potassium Chloride Oral Tablet 20 MEQ 40 MEQ PO (21:25)
[2022-01-16] MEDS: Pramipexole Di-HCl 0.5 MG Tablet PO (21:25)
[2022-01-16] MEDS: Pantoprazole Sodium 40 MG Tablet PO (21:25)
[2022-01-16] MEDS: Atorvastatin Calcium 20 MG Tablet PO (21:25)
[2022-01-16] MEDS: guaiFENesin 600 MG Tablet PO (21:25)
[2022-01-16 22:09] LABS: Lactic Acid 1.5 mmol/L (0.4-1.9)
[2022-01-16 23:03] LABS: Bacteria 0 SEEN /hpf (None Seen); Mucous, Urine 0 SEEN /hpf (<or=2+); Squamous Epithelial Cells - UA 0 SEEN /hpf (0-5); White Blood Cells 0 SEEN /hpf (0-5)
[2022-01-16 23:05] LABS: Glucose, Dipstick Normal (Normal); Ketone-Dipstick Negative (Negative); Leukocyte Esterase-Dipstick Negative /ul (Negative); Nitrite-Dipstick Negative (Negative); Occult Blood-Urine 25 /ul (Negative); Protein-Dipstick 30 mg/dl (Negative); Urine Bilirubin Dipstick Negative (Negative); Urine Urobilinogen 4 mg/dl (Normal); Urine pH 6.5 (5.0 - 8.0)
[2022-01-16 23:07] LABS: Color, Urine Yellow (Yellow); Urine Clarity Clear (Clear)
[2022-01-16 23:11] LABS: Red Blood Cells-Urine 0-5 SEEN /hpf (0-5)
[2022-01-17] VITALS (15 sets, daily range): BP systolic 100–112; BP diastolic 63–76; PULSE 47–85; RESP 16–20; TEMP 36.4–36.6; O2SAT 91–96
[2022-01-17] MEDS: Oseltamivir Phosphate 75 MG Capsule PO ×3 (00:57→22:49)
[2022-01-17] MEDS: Acetaminophen 325 MG Tablet 650 MG PO (00:57)
[2022-01-17 06:33] LABS: Absolute Lymphocyte Count 0.68 X10^3/uL (0.83-4.51); Absolute Neutrophil Count 6.5 X10^3/uL (2.0-7.7); Basophil# 0.01 X10^3/uL; Basophil% 0.1 % (0-1); Hematocrit 31.6 % (40-54); Hemoglobin 10.6 g/dL (13.0-16.5); Lymphocyte # 0.68 X10^3/ul (0.83-4.51); Lymphocyte % 8.9 % (19-41); Mean Corp Hgb Conc 33.5 g/dL (32-36); Mean Corpuscular Hgb 31.8 pg (27.0-32.0); Mean Corpuscular Volume 94.9 fL (80-94); Monocyte# 0.29 X10^3/uL; Monocyte% 3.8 % (0-10); NRBC Flagged by Analyzer 0 % (0-5); Neutrophil # 6.53 X10^3/uL (2.7-7.7); Neutrophil % 85.6 % (47-70); POSITIVE MORPHOLOGY YES; Platelet Count 127 K/mm3 (150-450); RBC Distribution Width CV 13.8 % (11.6-14.6); RBC Distribution Width SD 47.9 fl (35.1-43.9); Red Blood Count 3.33 M/mm3 (4.6-6.2); White Blood Count 7.6 K/mm3 (4.4-11.0)
[2022-01-17 06:34] LABS: Differential Indicated SCAN CRITERIA MET
[2022-01-17 06:36] LABS: International Normalized Ratio 2.2; Prothrombin Time (Protime)PT. 23.9 SECONDS (11.7-14.9)
[2022-01-17 06:45] LABS: Anion Gap 3 (5-15); BUN 11 mg/dL (7-18); BUN/Creat Ratio 15.6 RATIO (10-20); Calcium,Total 8.5 mg/dL (8.5-10.1); Chloride 107 mmol/L (98-107); EST Glomerular Filtration Rate 121 mL/min (>60); Est Glom Filt Rate - Afr Amer 146 mL/min (>60); Estimated Creatinine Clearance 118.97 ml/min; Glucose 152 mg/dL (74-106); Potassium 4.2 mmol/L (3.5-5.1); Sodium Level 136 mmol/L (136-145)
[2022-01-17 06:51] LABS: Platelet Estimate SLT DEC (ADEQ)
[2022-01-17] MEDS: Ipratropium/Albuterol Sulfate 3 ML AMPUL.NEB INHALATION ×4 (07:16→19:05)
--- NOTE | 2022-01-17 07:33 | PN.HOSP_ITS ---
Subjective Subjective Follow-up on acute hypoxic respiratory failure/Acute influenza A/Strep. pneumonia: Patient was seen and examined. He has coughing spells. He has been getting minimal sputum. He is not on oxygen at home. Currently on 3 L of oxygen. Denied any fever or chills. He stated that he lives alone. Objective Data Objective Data Vital Signs: Vital Signs Temp Pulse Resp BP Pulse Ox 97.5 F L 57 L 18 112/76 94 01/17/22 04:32 01/17/22 07:17 01/17/22 07:17 01/17/22 04:32 01/17/22 07:17 Oxygen Flow Rate (L/min) 3 Oxygen Delivery Method Nasal Cannula Weight: 75.9 kg Body Mass Index (BMI) 22.1 Intake & Output: Intake and Output for Last 24 Hours 01/15/22 01/16/22 01/17/22 23:59 23:59 23:59 Intake Total 2237.4 / 2237.4 Balance 2237.4 / 2237.4 Lab / Micro Data Result Diagrams: 01/17/22 06:00 01/17/22 06:00 Labs: Laboratory Results - last 24 hr 01/16/22 16:20: WBC 12.6 H, RBC 3.91 L, Hgb 12.7 L, Hct 37.4 L, MCV 95.7 H, MCH 32.5 H, MCHC 34.0, RDW Std Deviation 47.9 H, RDW Coeff of Zeus 13.7, Plt Count 153, MPV 11.0, Immature Gran % (Auto) 2.400 H, Neut % (Auto) 87.2 H, Lymph % (Auto) 7.1 L, [place] % (Auto) 3.1, Eos % (Auto) 0.0, Baso % (Auto) 0.2, Absolute Neuts (auto) 11.0 H, Absolute Lymphs (auto) 0.89, Nucleated RBC % 0, Differential Comment SCANNED 01/16/22 16:20: PT 21.7 H, INR 2.0, APTT 50.2 H, D-Dimer Quant (PE/DVT) 2.31 H* 01/16/22 16:20: Sodium 134 L, Potassium 3.4 L, Chloride 102, Carbon Dioxide 25.0, Anion Gap 7, BUN 14, Creatinine 1.01, Estim Creat Clear Calc 82.78, Est GFR (MDRD) Af Amer 96, Est GFR (MDRD) Non-Af 80, BUN/Creatinine Ratio 13.9, Glucose 128 H, Calcium 9.1, Total Bilirubin 0.50, AST 26, ALT 18, Alkaline Phosphatase 86, Troponin I High Sens 8, Total Protein 7.3, Albumin 3.2, Globulin 4.1, Albumin/Globulin Ratio 0.8 L 01/16/22 16:20: Lactic Acid 3.5 H* 01/16/22 16:48: COVID-19 (ANMOL) Not Detected 01/16/22 21:30: Lactic Acid 1.5 01/16/22 22:30: Urine Color Yellow, Urine Clarity Clear, Urine pH 6.5, Ur Specific [place] 1.010, Urine Protein 30 H, Urine Glucose (UA) Normal, Urine Ketones Negative, Urine Occult Blood 25 H, Urine Nitrite Negative, Urine Bilirubin Negative, Urine Urobilinogen 4 H, Ur Leukocyte Esterase Negative, Urine RBC 0-5 SEEN, Urine WBC 0 SEEN, Ur Squamous Epith Cells 0 SEEN, Urine Bacteria 0 SEEN, Urine Mucus 0 SEEN 01/17/22 06:00: WBC 7.6, RBC 3.33 L, Hgb 10.6 L, Hct 31.6 L, MCV 94.9 H, MCH 31.8, MCHC 33.5, RDW Std Deviation 47.9 H, RDW Coeff of Zeus 13.8, Plt Count 127 L, MPV 11.0, Immature Gran % (Auto) 1.600 H, Neut % (Auto) 85.6 H, Lymph % (Auto) 8.9 L, [place] % (Auto) 3.8, Eos % (Auto) 0.0, Baso % (Auto) 0.1, Absolute Neuts (auto) 6.5, Absolute Lymphs (auto) 0.68 L, Nucleated RBC % 0, Platelet Estimate SLT 01/17/22 06:00: PT 23.9 H, INR 2.2 01/17/22 06:00: Sodium 136, Potassium 4.2, Chloride 107, Carbon Dioxide 26.0, Anion Gap 3 L, BUN 11, Creatinine 0.70, Estim Creat Clear Calc 118.97, Est GFR (MDRD) Af Amer 146, Est GFR (MDRD) Non-Af 121, BUN/Creatinine Ratio 15.6, Glucose 152 H, Calcium 8.5 Micro: Microbiology 01/16/22 16:48 Mucosa - Nose Respiratory Panel (PCR) - Final Influenza A (Subtype H3) 01/16/22 22:30 Urine, Clean Catch Legionella Antigen - Final 01/16/22 22:30 Urine, Clean Catch Streptococcus pneumoniae Antigen (M - Final Streptococcus pneumonia Ag 01/16/22 19:40 Mucosa - Nose Influenza Types A,B Direct FA (JOHNIE) - Final Radiography Diagnostic Testing: Radiology Impression Chest X-Ray 01/16/22 16:37 IMPRESSION: Increased interstitial markings may represent edema and/or infection. COPD. Electronically Signed: Mitch Dela Cruz MD at 17:45 EDT , Chest CTA 01/16/22 19:28 IMPRESSION: No evidence of acute pulmonary emboli to the segmental level. Findings concerning for atypical infection in the lung bases. Electronically Signed: Mitch Dela Cruz MD at 21:28 EDT , Physical Exam Narrative Physical exam: General: Appears frail, cachectic, on 3 L oxygen, in mild respiratory distress Head: Normocephalic, atraumatic, no tenderness Eyes: Vision is grossly intact. EOMI ENT, no trauma, moist mucous membranes, no rhinorrhea Neck: Nontender, full range of motion, no spinal tenderness, deformities, step- off CVS: HSI +II, regular, no murmurs Respiratory : Diminished breath sounds, no added sounds Abdomen: Soft, nontender, nondistended, normal bowel sounds, no masses Extremities: No bilateral pedal edema Assessment & Plan Assessment/Plan (1) Acute respiratory failure: QUALIFIERS: Respiratory failure complication: hypoxia Qualified Code(s): J96.01 - Acute respiratory failure with hypoxia (2) Influenza A: PLAN: 1. Acute hypoxic respiratory failure secondary to acute influenza A/streptococcal pneumonia Patient currently on 3 L of oxygen Continue to wean off oxygen, encourage use of incentive spirometer 2. Acute influenza A, not a candidate for Tamiflu We will continue to monitor clinically 3. Acute streptococcal pneumonia, urine streptococcal antigen is positive Blood cultures are pending. Will obtain sputum culture Continue with IV ceftriaxone azithromycin 4. Hypokalemia, resolved, recheck in a.m. 5. History of aortic valve replacement, INR is 2.2 Continue Coumadin, repeat INR in a.m. 6. DVT Prophylaxis -on Coumadin; INR therapeutic Charges/Coding Visit Charges Inpatient E&M: 76397 Subs Hosp L2
[2022-01-17] MEDS: guaiFENesin 600 MG Tablet PO ×2 (08:34→22:48)
[2022-01-17] MEDS: Fluticasone 0.05% 1 SPRAY NASAL.SRY NASAL (08:34)
--- NOTE | 2022-01-17 10:09 | CASEMGMT ---
ARLEN CHILDS Assessment: Face to Face with pt for initial transition planning/care coordination assessment. ARLEN CHILDS introduced self and role at [facility], pt voices understanding and consents to assessment. Pt is A/O x4 and answers all questions appropriately at this time. Pt sitting up in chair with O2 on in no distress. Care providers, pharmacy, and demographics verified/updated. Admitting Dx: acute hypoxemic resp failure PCP:Haroldo Specialists:Frederick, pulm; Philip, cardio; Agustina Doe, surgeon; Adry ENT Preferred Pharmacy: [facility] Insurance: My Care [facility] Prescription Benefit: yes LW/HPOA: Pt denies having a LW/DPOA and denies need for info regarding AD. LNOK: Jaime Mahmood, friend and Alanna Mahmood friend. Pt declines to designate a person to discuss dc planning with. Living Arrangements: Pt lives alone in a two story apartment with 1 step to enter. The home is a house split into two apartments. He states he has his grandkids on the weekends sometimes. Pt states he is I in ADL's and denies concerns at home. Pt states his apt is being remodeled and once finished, he will have the main level of the home. Transportation: Pt drives self and denies concerns with transportation. DME/HHC/SNF: Pt has a BP cuff in the home, has had HHC in the past from an agency in [place] but is unaware of the name of the agency. Pt denies SNF stays. Pt states no concerns with going home at time of dc. He states he feels his strength is ok and denies need at this time for HHC. Pt denies need for SN to see him in the home as well. Pt states no further concerns/needs. CM to follow. Advised pt to ask CM if any further question/concerns/needs arise, voices understanding. Pt Goal: Home Plan: Home, will follow for O2 needs and HHC needs.
--- NOTE | 2022-01-17 13:37 | CHAPLAIN ---
Type of Pastoral Visit _x__ Initial Visit ___ Follow-up Visit ___ On-call Visit ___ General Patient Visit ___ Spiritual Assessment ___ Family Conference ___ Bereavement ___ Rapid Response ___ Code Blue ___ Other (describe below) Pastoral Care Referral From _x__ Patient ___ Family ___ Nurse ___ Physician ___ Warranty Coordinator ___ Drum Dyeing Machine Operator ___ Other (describe below) Sacrament/Intervention _x__ Active listening ___ Anointing ___ Sabianism ___ Bereavement ___ Communion _x__ Ashley exploration ___ ___ Life review _x__ Prayer ___ Reconciliation ___ Sacrament of Sick ___ Supportive presence ___ Wedding ___ Other (describe below) Pastoral Comments patient is welcoming and speaks of his ashley background and how he recently stopped smoking by God's help; pt speaks of numerous health issues in the past and God must want me around for something yet; pt requests a prayer for support
[2022-01-17] MEDS: Ceftriaxone 1 GM/50 ML BAG IV (22:03)
[2022-01-17] MEDS: 0.9% Saline Lock 10 ML Syringe IV (22:07)
[2022-01-17] MEDS: Atorvastatin Calcium 20 MG Tablet PO (22:48)
[2022-01-17] MEDS: Pramipexole Di-HCl 0.5 MG Tablet PO (22:48)
[2022-01-17] MEDS: Pantoprazole Sodium 40 MG Tablet PO (22:48)
[2022-01-18] VITALS (11 sets, daily range): BP systolic 101–111; BP diastolic 69–71; PULSE 58–91; RESP 16–18; TEMP 36.6–36.7; O2SAT 93–97
[2022-01-18] MEDS: 0.9% Saline Lock 10 ML Syringe IV (05:31)
[2022-01-18 06:20] LABS: Absolute Lymphocyte Count 1.31 X10^3/uL (0.83-4.51); Absolute Neutrophil Count 7.2 X10^3/uL (2.0-7.7); Basophil# 0.01 X10^3/uL; Basophil% 0.1 % (0-1); Hematocrit 30.7 % (40-54); Hemoglobin 10.5 g/dL (13.0-16.5); Lymphocyte # 1.31 X10^3/ul (0.83-4.51); Lymphocyte % 14.3 % (19-41); Mean Corp Hgb Conc 34.2 g/dL (32-36); Mean Corpuscular Hgb 32.2 pg (27.0-32.0); Mean Corpuscular Volume 94.2 fL (80-94); Mean Platelet Vol. 10.6 fl (6.2-12.0); Monocyte# 0.51 X10^3/uL; Monocyte% 5.6 % (0-10); NRBC Flagged by Analyzer 0 % (0-5); Neutrophil # 7.18 X10^3/uL (2.7-7.7); Neutrophil % 78.4 % (47-70); Platelet Count 153 K/mm3 (150-450); RBC Distribution Width CV 13.6 % (11.6-14.6); RBC Distribution Width SD 47.1 fl (35.1-43.9); Red Blood Count 3.26 M/mm3 (4.6-6.2); White Blood Count 9.2 K/mm3 (4.4-11.0)
[2022-01-18 06:29] LABS: Prothrombin Time (Protime)PT. 21.6 SECONDS (11.7-14.9)
[2022-01-18 06:57] LABS: ALB/GLOB Ratio 0.7 RATIO (0.9-2.4); AST(SGOT) 26 U/L (15-37); Alanine Aminotransfer ALT/SGPT 18 U/L (16-61); Albumin, Serum 2.4 g/dL (3.2-5.0); Alkaline Phosphatase 63 U/L (45-117); Anion Gap 5 (5-15); BUN 13 mg/dL (7-18); BUN/Creat Ratio 19.5 RATIO (10-20); Calcium,Total 8.6 mg/dL (8.5-10.1); Chloride 111 mmol/L (98-107); Creatinine, Serum 0.67 mg/dL (0.70-1.30); EST Glomerular Filtration Rate 129 mL/min (>60); Est Glom Filt Rate - Afr Amer 156 mL/min (>60); Globulin 3.4 g/dL (2.2-4.2); Glucose 105 mg/dL (74-106); Potassium 3.6 mmol/L (3.5-5.1); Protein, Total 5.8 g/dL (6.4-8.2); Sodium Level 139 mmol/L (136-145)
[2022-01-18] MEDS: Ipratropium/Albuterol Sulfate 3 ML AMPUL.NEB INHALATION ×2 (07:26→11:36)
[2022-01-18] MEDS: Fluticasone 0.05% 1 SPRAY NASAL.SRY NASAL (10:49)
[2022-01-18] MEDS: guaiFENesin 600 MG Tablet PO (10:49)
[2022-01-18] MEDS: Oseltamivir Phosphate 75 MG Capsule PO (10:50)
[2022-01-18] MEDS: Acetaminophen 325 MG Tablet 650 MG PO (13:47)
--- NOTE | 2022-01-18 14:35 | CASEMGMT ---
Pt did not qualify for home O2. RN CM in to pt room. Pt denies homegoing needs. No therapy recommended. Pt states he is not homebound and does not need home SN. No further needs at this time.
--- NOTE | 2022-01-18 15:08 | PCM.DC ---
Discharge Instructions Diet Discharge Diet: No restrictions Activity Discharge Activity: Return to Normal Activity Weight Bearing Status: Full weight bearing Follow Up Care Test Results: Test results from this visit will be discussed in further detail at your follow-up appointment, if applicable. Discharge Plan Admission Admit Date/Time: 01/16/22 19:53 Primary Reason for Your Visit: Influenza A, Strep pneumonia Attending Provider: Ahmet Perez Primary Care Provider: Jonnie Zarco Discharge Orders/Prescriptions Prescriptions: New oseltamivir 75 mg Capsule 75 mg PO BID Qty: 7 RF: 0 amoxicillin-pot clavulanate 875-125 mg tablet 1 tab PO BID Qty: 8 RF: 0 Continued fluticasone propionate 50 mcg/actuation spray,suspension 1 spray NASAL DAILY Qty: 16 RF: 11 Spiriva with HandiHaler 18 mcg capsule, w/inhalation device 1 cap INHALATION QHS Qty: 30 RF: 11 acetaminophen 500 MG tablet 500 - 1,000 mg PO Q6H PRN PRN (Reason: Pain) RF: 0 pramipexole 0.5 MG tablet 0.5 mg PO QHS RF: 0 pantoprazole 40 MG tablet,delayed release (DR/EC) 40 mg PO QHS RF: 0 warfarin 5 mg tablet 5 mg PO DAILY RF: 0 losartan 25 mg tablet 25 mg PO QHS RF: 0 rosuvastatin 10 mg tablet 10 mg PO QHS RF: 0 albuterol sulfate [Ventolin HFA] 90 mcg/actuation HFA aerosol inhaler 2 puff INHALATION Q4H PRN (Reason: shortness of breath or wheezing) Qty: 18 RF: 6 Referrals / Follow Up: Jonnie Zarco MD [Primary Care Provider] - Within 2 Weeks Disposition Disposition (needs filled in before D/C Order can be placed): Home, Self Care
--- NOTE | 2022-01-18 19:25 | DS.PCM_ITS ---
Providers Date of Admission: 01/16/22 Date of Discharge: 01/18/22 Primary Care Physician: Dr. Jonnie Zarco MD Reason For Visit: ACUTE HYPOXEMIC RESPIRATORY FAILURE Diagnosis Discharge Diagnosis (1) Acute respiratory failure: Status: Acute Code(s): J96.00 - Acute respiratory failure, unspecified whether with hypoxia or hypercapnia Qualifiers: Respiratory failure complication: hypoxia Qualified Code(s): J96.01 - Acute respiratory failure with hypoxia (2) Influenza A: Status: Acute Code(s): J10.1 - Influenza due to other identified influenza virus with other respiratory manifestations Plan: 1. Acute hypoxic respiratory failure secondary to influenza A and streptococcal pneumoniae pneumonia #2 acute influenza A #3 streptococcal pneumoniae pneumonia #4 hypokalemia #5 severe protein and caloric malnutrition-as evidenced by p.o. intake of less than 50% and a 4.6% weight loss in the past 2 weeks, treated with increased energy and protein diet and a decreased fat diet. 4 ounces of chocolate Ensure compact 4 times a day with Medipass was ordered, cardiac diet was continued. #6 lactic acidosis not as a result of sepsis, as a result of respiratory failure Medications at Discharge Home Medications acetaminophen 500 - 1,000 mg PO Q6H PRN PRN 07/02/19 pramipexole 0.5 mg PO QHS 07/02/19 pantoprazole 40 mg PO QHS 03/18/20 albuterol sulfate 90 mcg/actuation aerosol inhaler 2 puff INHALATION Q4H PRN #18 g 07/09/21 losartan 25 mg PO QHS 10/06/21 rosuvastatin 10 mg PO QHS 10/06/21 warfarin 5 mg PO DAILY 10/06/21 fluticasone propionate 50 mcg/actuation nasal spray,suspension 1 spray NASAL DAILY #16 g 01/05/22 tiotropium bromide 18 mcg capsule with inhalation device 1 cap INHALATION QHS #30 inh 01/05/22 amoxicillin-pot clavulanate 1 tab PO BID #8 tab 01/18/22 oseltamivir 75 mg PO BID #7 cap 01/18/22 Hospital Course Operations None Procedures None Summary of Care Provided Hospital Course: This 61-year-old white male was seen in the emergency room at [facility] complaining of shortness of breath, he had been tested recently for influenza and was positive, CBC showed a leukocytosis of 12.6 with a left shift, lactic acid was elevated at 3.5, chest x-ray showed increased interstitial markings, patient was given IV Rocephin and Zithromax, CTA of the chest was performed which showed no evidence of acute pulmonary emboli, there was findings concerning for atypical infection of the lung bases. Patient was admitted to [facility], he was maintained on 3 L of oxygen, urine streptococcal antigen was positive and he was treated with IV antibiotics. Patient improved during his hospitalization. On 01/18/2022, patient was seen and examined: On examination he appeared in good health and spirits. Vital signs as documented. Skin warm and dry and without overt rashes. Neck without JVD, neck was supple, trachea midline, thyroid was normal. Lungs clear bilaterally, normal air movement was noted. Heart exam notable for regular rhythm, normal sounds and absence of murmurs, rubs or gallops. Abdomen unremarkable and without evidence of organomegaly, masses, or abdominal aortic enlargement. Bowel sounds are present, abdomen is not distended. Extremities nonedematous, no cyanosis was noted, no clubbing was noted. Neuro: Cranial nerves II through XII are grossly intact, no focal motor deficits were noted, sensation to light touch and pinprick intact, motor exam 5/5 throughout. Psych: Patient is alert and oriented x3, he does not appear anxious or depressed, he does not appear agitated. On 01/18/2022, patient was felt to be stable for discharge home, he did not require supplemental oxygen at the time of discharge. Weight / BMI Weight Weight: 75.9 kg Body Mass Index (BMI) 22.1 ABG / Lab / Microbiology Data Result Diagrams: 01/18/22 06:13 01/18/22 06:13 Laboratory: Laboratory Results - last 24 hr 01/18/22 06:13: PT 21.6 H, INR 2.0 01/18/22 06:13: WBC 9.2, RBC 3.26 L, Hgb 10.5 L, Hct 30.7 L, MCV 94.2 H, MCH 32.2 H, MCHC 34.2, RDW Std Deviation 47.1 H, RDW Coeff of Zeus 13.6, Plt Count 153, MPV 10.6, Immature Gran % (Auto) 1.600 H, Neut % (Auto) 78.4 H, Lymph % (Auto) 14.3 L, Loving % (Auto) 5.6, Eos % (Auto) 0.0, Baso % (Auto) 0.1, Absolute Neuts (auto) 7.2, Absolute Lymphs (auto) 1.31, Nucleated RBC % 0 01/18/22 06:13: Sodium 139, Potassium 3.6, Chloride 111 H, Carbon Dioxide 23.0, Anion Gap 5, BUN 13, Creatinine 0.67 L, Estim Creat Clear Calc 124.30, Est GFR (MDRD) Af Amer 156, Est GFR (MDRD) Non-Af 129, BUN/Creatinine Ratio 19.5, Glucose 105, Calcium 8.6, Total Bilirubin 0.30, AST 26, ALT 18, Alkaline Phosphatase 63, Total Protein 5.8 L, Albumin 2.4 L, Globulin 3.4, Albumin/Globulin Ratio 0.7 L Microbiology: Microbiology 01/16/22 22:30 Urine, Clean Catch Urine Culture - Final Mixed Gram Positive Organisms 01/16/22 16:48 Mucosa - Nose Respiratory Panel (PCR) - Final Influenza A (Subtype H3) 01/16/22 22:30 Urine, Clean Catch Legionella Antigen - Final 01/16/22 22:30 Urine, Clean Catch Streptococcus pneumoniae Antigen (M - Final Streptococcus pneumonia Ag 01/16/22 19:40 Mucosa - Nose Influenza Types A,B Direct FA (JOHNIE) - Final D/C Instructions Discharge Diet: No restrictions Weight Bearing Status: Full weight bearing Meaningful Use Info Meaningful Use Diagnoses (Choose all that apply): None applicable Discharge Plan Admission Admit Date/Time: 01/16/22 19:53 Primary Reason for Your Visit: Influenza A, Strep pneumonia Attending Provider: Ahmet Perez Primary Care Provider: Jonnie Zarco Discharge Orders/Prescriptions Prescriptions: New oseltamivir 75 mg Capsule 75 mg PO BID Qty: 7 RF: 0 amoxicillin-pot clavulanate 875-125 mg tablet 1 tab PO BID Qty: 8 RF: 0 Continued fluticasone propionate 50 mcg/actuation spray,suspension 1 spray NASAL DAILY Qty: 16 RF: 11 Spiriva with HandiHaler 18 mcg capsule, w/inhalation device 1 cap INHALATION QHS Qty: 30 RF: 11 acetaminophen 500 MG tablet 500 - 1,000 mg PO Q6H PRN PRN (Reason: Pain) RF: 0 pramipexole 0.5 MG tablet 0.5 mg PO QHS RF: 0 pantoprazole 40 MG tablet,delayed release (DR/EC) 40 mg PO QHS RF: 0 warfarin 5 mg tablet 5 mg PO DAILY RF: 0 losartan 25 mg tablet 25 mg PO QHS RF: 0 rosuvastatin 10 mg tablet 10 mg PO QHS RF: 0 albuterol sulfate [Ventolin HFA] 90 mcg/actuation HFA aerosol inhaler 2 puff INHALATION Q4H PRN (Reason: shortness of breath or wheezing) Qty: 18 RF: 6 Referrals / Follow Up: Jonnie Zarco MD [Primary Care Provider] - Within 2 Weeks Disposition Disposition (needs filled in before D/C Order can be placed): Home, Self Care Charges/Coding Visit Charges Inpatient E&M: 92384 Disch Hosp
== END 2022-01-18 15:53 | disposition home or self-care (01) | DRG 193 ==
LOC: ED 16:32 → MS3 20:16
PROVIDERS: Internal Medicine; Admitting Provider Hospitalist; Emergency Provider Student in an Organized Health Care Education/Training Program; PCP Family Medicine; Visit Provider Internal Medicine
DX: J13 Pneumonia due to Streptococcus pneumoniae (principal); J96.01 Acute respiratory failure with hypoxia; E43 Unspecified severe protein-calorie malnutrition; E87.2 Acidosis; I48.91 Unspecified atrial fibrillation; J43.9 Emphysema, unspecified; J10.08 Influenza due to other identified influenza virus with other specified pneumonia; E87.6 Hypokalemia; I25.10 Atherosclerotic heart disease of native coronary artery without angina pectoris; E78.5 Hyperlipidemia, unspecified; I10 Essential (primary) hypertension; I25.2 Old myocardial infarction; Z68.22 Body mass index [BMI] 22.0-22.9, adult; Z20.822 Contact with and (suspected) exposure to COVID-19; Z79.01 Long term (current) use of anticoagulants; Z87.891 Personal history of nicotine dependence; Z95.2 Presence of prosthetic heart valve
CPT/HCPCS: 36415; 71045; 71275; 80048; 80053; 81001; 83605; 84484; 85025; 85379; 85610; 85730; 87040; 87086; 87088; 87449; 87633; 87635; 87804; 93005; 94640; 94667; 94668; 94762; 97162; 97165; 99285; 99406; J7030; Q9967; A4216; U0003; U0005

== ENCOUNTER 2022-04-06 12:47 | Outpatient (RCR) | payer MEDICARE, MEDICAID, SELFPAY ==
[2022-04-06 13:12] LABS: International Normalized Ratio 1.5
== END 2022-04-06 23:59 | disposition home or self-care (01) ==
LOC: LAB 12:47
PROVIDERS: Family Provider Family Medicine; PCP Family Medicine; Referring Provider Nurse Practitioner Family; Visit Provider Nurse Practitioner Family
DX: I48.0 Paroxysmal atrial fibrillation (principal); Z98.890 Other specified postprocedural states; Z95.2 Presence of prosthetic heart valve; Z79.01 Long term (current) use of anticoagulants
CPT/HCPCS: 36415; 85610

== ENCOUNTER 2022-05-17 15:17 | Outpatient (RCR) | payer MEDICARE, MEDICAID, SELFPAY ==
[2022-05-17 16:34] LABS: Prothrombin Time (Protime)PT. 22.5 SECONDS (11.7-14.9)
== END 2022-05-29 02:56 | disposition home or self-care (01) ==
LOC: LAB 15:17
PROVIDERS: Family Provider Family Medicine; PCP Family Medicine; Referring Provider Nurse Practitioner Family; Visit Provider Nurse Practitioner Family
DX: I48.0 Paroxysmal atrial fibrillation (principal); Z98.890 Other specified postprocedural states; Z95.2 Presence of prosthetic heart valve; Z79.01 Long term (current) use of anticoagulants
CPT/HCPCS: 36415; 85610

== ENCOUNTER 2022-07-15 13:09 | Outpatient (RCR) | payer MEDICARE, MEDICAID, SELFPAY ==
[2022-06-30 16:08] LABS: International Normalized Ratio 1.3; Prothrombin Time (Protime)PT. 15.4 SECONDS (11.7-14.9)
[2022-07-05 12:56] LABS: International Normalized Ratio 2.2; Prothrombin Time (Protime)PT. 24.2 SECONDS (11.7-14.9)
[2022-07-15 15:53] LABS: International Normalized Ratio 2.3; Prothrombin Time (Protime)PT. 24.8 SECONDS (11.7-14.9)
[2022-07-15 16:02] LABS: AST(SGOT) 17 U/L (15-37); Alanine Aminotransfer ALT/SGPT 22 U/L (16-61); Albumin, Serum 3.8 g/dL (3.2-5.0); Alkaline Phosphatase 111 U/L (45-117); Bilirubin, Direct 0.07 mg/dL (0.00-0.30); Cholesterol 126 mg/dL (200); Globulin 3.4 g/dL (2.2-4.2); High Density Lipoprotein 39 mg/dL; Protein, Total 7.2 g/dL (6.4-8.2); Triglycerides 103 mg/dL; Very Low Density Lipoprotein 21 mg/dL (5-40)
== END 2022-07-15 18:00 | disposition home or self-care (01) ==
LOC: LAB 13:09
PROVIDERS: Internal Medicine Cardiovascular Disease; Family Provider Family Medicine; PCP Family Medicine; Referring Provider Nurse Practitioner Family; Visit Provider Nurse Practitioner Family
DX: I48.0 Paroxysmal atrial fibrillation (principal); Z98.890 Other specified postprocedural states; Z95.2 Presence of prosthetic heart valve; Z79.01 Long term (current) use of anticoagulants; E78.00 Pure hypercholesterolemia, unspecified
CPT/HCPCS: 36415; 80061; 80076; 85610

== ENCOUNTER 2022-11-17 15:13 | Outpatient (RCR) | payer MEDICARE, MEDICAID, SELFPAY ==
[2022-11-17 16:27] LABS: International Normalized Ratio 1.8; Prothrombin Time (Protime)PT. 20.4 SECONDS (11.7-14.9)
== END 2022-11-17 18:00 | disposition home or self-care (01) ==
LOC: LAB 15:13
PROVIDERS: Family Provider Family Medicine; PCP Family Medicine; Referring Provider Nurse Practitioner Family; Visit Provider Nurse Practitioner Family
DX: I48.0 Paroxysmal atrial fibrillation (principal); Z98.890 Other specified postprocedural states; Z95.2 Presence of prosthetic heart valve; Z79.01 Long term (current) use of anticoagulants
CPT/HCPCS: 36415; 85610

== ENCOUNTER 2022-11-30 13:29 | Outpatient (CLI) | payer MEDICARE, MEDICAID, SELFPAY ==
--- NOTE | 2022-11-30 13:32 | VDLE_ITS ---
Reason For Study: Pain RIGHT LEFT CFV is compressible, spontaneous, phasic, CFV is compressible, spontaneous, phasic, competent and demonstrates normal competent, and demonstrates normal augmentation. augmentation. FV is compressible, spontaneous, phasic, FV is compressible, phasic, and INCOMPETENT competent and demonstrates normal for greater than 1.0 second. augmentation. POP V is compressible, spontaneous, phasic, POP V is compressible, spontaneous, phasic, competent and demonstrates normal competent and demonstrates normal augmentation. augmentation. T/P Trunk is compressible. T/P Trunk is compressible. PTV is compressible. PTV is compressible. LT PerV is compressible. RT PerV is compressible. SFJ is INCOMPETENT and measures 0.46 x 046 SFJ is competent and measures 0.42 x 0.43 cm. cm. GSV proximal thigh measures 0.28 x 0.28 cm. GSV proximal thigh measures 0.21 x 0.22 cm. GSV at knee measures 0.20 x 0.20 cm. GSV at knee measures 0.23 x 0.25 cm. GSV is competent throughout. GSV is competent throughout. SSV proximal calf is competent and measures SSV proximal calf is INCOMPETENT for greater 0.27 x 0.27 cm. than 0.5 seconds and measures 0.25 x 0.28 cm. Procedure This is a venous duplex using B-mode, color flow and spectral Doppler. Exam performed in department. Patient was scanned in reverse Trendelenburg position during reflux assessment. VL/Venous Duplex US - Mckinley Extrem Interpretation Summary Deep veins of the bilateral lower extremities are patent and compressible segme ntally. There is no evidence of bilateral lower extremity deep vein thrombosis. The bilateral great saphenous veins appear patent and compressible segmentally. Positive for reflux in the left femoral vein, left saphenofemoral junction, sma ll saphenous vein Ordering Physician: Kacie Umana Referring Physician: Tom Zarco Performed By: Savannah Strickland RVT
--- NOTE | 2022-11-30 13:32 | ART_ITS ---
Reason For Study: PVD Procedure A bilateral lower extremity continuous wave Doppler with analog waveform analysis,segmental pressures,and ankle brachial indexes without exercise. Cold immersion performed. Left Segmental Pressures Left brachial= 122mmHg. Left posterior tibial artery = 141mmHg. Left dorsalis pedis artery = 149mmHg. Left digit = 120 mmHg. The left dorsalis pedis waveforms are triphasic. The left posterior tibial artery waveforms are triphasic. Right Segmental Pressures Right brachial= 119mmHg. Right posterior tibial artery = 137mmHg. Right dorsalis pedis artery = 148mmHg. Right digit = 100 mmHg. The right dorsalis pedis waveforms are triphasic. The right posterior tibial artery waveforms are triphasic. Indices The right ankle brachial index by the dorsalis pedis is 1.21. The right ankle brachial index by the posterior tibial artery is 1.12. The right digital-brachial index is 0.82. The left ankle brachial index by the dorsalis pedis is 1.22. The left ankle brachial index by the posterior tibial artery is 1.16. The left digital-brachial index is 0.98. VL/Lower Ext Art Exam w/ Exercise Interpretation Summary Right CHRISTOPHER 1.21, normal. TBI and Doppler/PVR waveforms of the right leg normal a t rest. Right lower extremity with abnormal response to cold immersion Left CHRISTOPHER 1.22, normal. TBI and Doppler/PVR waveforms of the left leg normal at rest. Left lower extremity with abnormal response to cold immersion Ordering Physician: Kacie Umana Referring Physician: Jonnie Zarco Performed By: Savannah Strickland RVT
== END 2022-11-30 23:59 | disposition home or self-care (01) ==
PROVIDERS: PCP Family Medicine; Referring Provider Physician Assistant; Visit Provider Physician Assistant
DX: I73.9 Peripheral vascular disease, unspecified (principal); I25.10 Atherosclerotic heart disease of native coronary artery without angina pectoris; M79.604 Pain in right leg; M79.605 Pain in left leg
CPT/HCPCS: 93924; 93970

== ENCOUNTER → 2022-12-02 | Outpatient (CLI) | payer MEDICARE, MEDICAID, SELFPAY ==
--- NOTE | 2022-12-02 16:40 | CT_ITS ---
EXAM: CT ANGIOGRAPHY ABDOMEN AND PELVIS WITHOUT AND WITH INTRAVENOUS CONTRAST CLINICAL INDICATION: s/p EVAR TECHNIQUE: Helically acquired angiography images were obtained of the abdomen and pelvis without and with intravenous contrast. This CT exam was performed using one or more of the following dose reduction techniques: automated exposure control, adjustment of the mA and/or kV according to patient size, and/or use of iterative reconstruction technique. This report was created using appening report generation technology. MIP reconstructed images were created and reviewed. CONTRAST: IV 100mL [id number] COMPARISON: 09/06/2021 FINDINGS: VASCULATURE: AORTA: No acute findings. Normal caliber abdominal aorta. No dissection. CELIAC TRUNK AND MESENTERIC ARTERIES: No acute findings. No occlusion or significant stenosis. No dissection. RENAL ARTERIES: No acute findings. No occlusion or significant stenosis. No dissection. ILIAC ARTERIES: No acute findings. No occlusion or significant stenosis. No dissection. LOWER THORAX: Unremarkable. Lung bases are clear. No cardiomegaly. No significant pericardial effusion. ABDOMEN: LIVER: Unremarkable. Homogeneous. No focal mass. GALLBLADDER AND BILE DUCTS: Unremarkable. No calcified gallstones. No gallbladder distention or wall edema. No intra- or extrahepatic biliary ductal dilation. PANCREAS: Unremarkable. No focal cystic or solid mass. SPLEEN: Unremarkable. Normal size without focal cystic or solid mass. ADRENALS: Unremarkable. No nodules. KIDNEYS AND URETERS: Unremarkable. Normal renal size and position. No hydronephrosis. STOMACH AND BOWEL: Unremarkable. No stomach or bowel distention. No focal inflammatory change. PELVIS: APPENDIX: No evidence of acute appendicitis. BLADDER: Unremarkable. REPRODUCTIVE: Unremarkable as visualized. No mass. ABDOMEN and PELVIS: INTRAPERITONEAL SPACE: Unremarkable. No ascites or other fluid collection. No free air. BONES/JOINTS: Unremarkable. No suspicious lytic or blastic abnormality. SOFT TISSUES: Unremarkable. No discrete abdominal or pelvic wall hernia. LYMPH NODES: Unremarkable. No enlarged lymph nodes. OTHER FINDINGS: There is an aortobiiliac endograft is patent. There is no evidence of occlusion. CT/CT ANGIO ABD&PEL W/O&W/DYE IMPRESSION: Aortobiiliac endograft in good position. There is no evidence of occlusion. Previously seen infrarenal abdominal aortic aneurysm is not present. Electronically Signed: Bradley Brantley MD at 0:15 EST ,
--- NOTE | 2022-12-02 16:40 | CT_ITS ---
EXAM: CT CHEST, LUNG CANCER SCREENING WITHOUT INTRAVENOUS CONTRAST CLINICAL INDICATION: smoking and gt; 30 pack years TECHNIQUE: Helically acquired images were obtained of the chest without intravenous contrast using low dose (LDCT) lung cancer screening protocol. This CT exam was performed using one or more of the following dose reduction techniques: automated exposure control, adjustment of the mA and/or kV according to patient size, and/or use of iterative reconstruction technique. This report was created using [employer] report generation technology. COMPARISON: 01/16/2022 FINDINGS: LUNGS AND PLEURAL SPACES: There is a calcified granuloma in the right middle lobe. There are emphysematous changes within the lung apices are stable. No mass. No pleural effusion or thickening. No pneumothorax. HEART: Unremarkable. Heart size is normal. No pericardial effusion. No significant coronary artery calcifications. MEDIASTINUM: Unremarkable. No mediastinal or hilar adenopathy. Esophagus is unremarkable. No hiatal hernia. THYROID: Unremarkable. No thyroid lesions. BONES/JOINTS: Unremarkable. No suspicious lytic or blastic abnormality. VASCULATURE: Unremarkable. Thoracic aorta is non-dilated. LYMPH NODES: Unremarkable. No enlarged lymph nodes. CT/Low Dose CT Lung Screening IMPRESSION: 1. Lung-RADS score: 1 - Recommend continued annual screening with low-dose CT (LDCT) in 12 months. 2. No acute abnormality of the chest. There are stable emphysematous changes. Stable calcified nodule within the right middle lobe. Electronically Signed: Bradley Brantley MD at 21:29 EST ,
[2022-12-05 18:20] LABS: CREATININE FINGERSTICK 1.1 mg/dL (0.70-1.30); EGFR FINGERSTICK > 60.0000 mL/min (>60)
== END | disposition home or self-care (01) ==
PROVIDERS: PCP Family Medicine; Referring Provider Nurse Practitioner Acute Care; Visit Provider Nurse Practitioner Acute Care
DX: I71.40 Abdominal aortic aneurysm, without rupture, unspecified (principal); Z48.812 Encounter for surgical aftercare following surgery on the circulatory system; Z98.890 Other specified postprocedural states; Z86.79 Personal history of other diseases of the circulatory system; Z87.891 Personal history of nicotine dependence
CPT/HCPCS: 71271; 74174

== ENCOUNTER 2023-02-06 10:45 | Outpatient (RCR) | payer MEDICARE, MEDICAID, SELFPAY ==
[2023-02-06 11:25] LABS: International Normalized Ratio 1.9; Prothrombin Time (Protime)PT. 21.2 SECONDS (11.7-14.9)
== END 2023-02-26 02:12 | disposition home or self-care (01) ==
LOC: LAB 10:45
PROVIDERS: Family Provider Family Medicine; PCP Family Medicine; Referring Provider Nurse Practitioner Family; Visit Provider Nurse Practitioner Family
DX: I48.0 Paroxysmal atrial fibrillation (principal); Z98.890 Other specified postprocedural states; Z95.2 Presence of prosthetic heart valve; Z79.01 Long term (current) use of anticoagulants
CPT/HCPCS: 36415; 85610

== ENCOUNTER → 2023-02-07 | Outpatient (CLI) | payer MEDICARE, MEDICAID, SELFPAY ==
[2023-02-07 12:15] LABS: Hematocrit 42.5 % (40-54); Hemoglobin 13.9 g/dL (13.0-16.5); Mean Corp Hgb Conc 32.7 g/dL (32-36); Mean Corpuscular Hgb 33.6 pg (27.0-32.0); Mean Corpuscular Volume 102.7 fL (80-94); Mean Platelet Vol. 9.9 fl (6.2-12.0); Platelet Count 154 K/mm3 (150-450); RBC Distribution Width CV 12.7 % (11.6-14.6); RBC Distribution Width SD 48.4 fl (35.1-43.9); Red Blood Count 4.14 M/mm3 (4.6-6.2); White Blood Count 6.9 K/mm3 (4.4-11.0)
[2023-02-07 12:45] LABS: Anion Gap 4 (5-15); BUN 9 mg/dL (7-18); Calcium,Total 9.1 mg/dL (8.5-10.1); Chloride 108 mmol/L (98-107); EST Glomerular Filtration Rate 91 mL/min (>60); Est Glom Filt Rate - Afr Amer 110 mL/min (>60); Glucose 101 mg/dL (74-106); Potassium 4.7 mmol/L (3.5-5.1); Sodium Level 137 mmol/L (136-145)
== END | disposition home or self-care (01) ==
LOC: PSN 11:34
PROVIDERS: PCP Family Medicine; Referring Provider Otolaryngology; Visit Provider Otolaryngology
DX: Z01.818 Encounter for other preprocedural examination (principal); H65.22 Chronic serous otitis media, left ear; Z96.22 Myringotomy tube(s) status
CPT/HCPCS: 36415; 80048; 85027; 93005

== ENCOUNTER 2023-06-17 20:28 | Emergency (ER) | payer MEDICARE, MEDICAID, SELFPAY ==
[2023-06-17 20:29] VITALS: BP 112/84; PULSE 92; RESP 16; TEMP 36.8; O2SAT 99; BMI 24.3
--- NOTE | 2023-06-17 21:01 | RAD_ITS ---
INDICATION: pain, trauma, bruising EXAMINATION/TECHNIQUE: X-RAY - LEFT XR Foot Min 3 Views COMPARISON: None. FINDINGS: 3 views of the left foot. BONES: Dysmorphic appearance to the second metatarsal head at the MTP joint with cortical irregularity, which appears most consistent with sequela of prior trauma or inflammatory change. Otherwise, anatomic alignment without evidence of fracture or subluxation. No concerning bony lesion or abnormal sclerosis to suggest lesion. No significant degenerative change. SOFT TISSUES: Atherosclerotic vascular calcifications. RAD/Foot min 3 Views IMPRESSION: Dysmorphic appearance to the second metatarsal head at the MTP joint with cortical irregularity, which appears most consistent with sequela of prior trauma or inflammatory change. Otherwise, anatomic alignment without evidence of fracture or subluxation. Electronically Signed: Gage Mcneil MD at 21:16 EDT ,
--- NOTE | 2023-06-17 21:05 | EDS_ITS ---
HPI History of Present Illness Chief Complaint: Lower Extremity Injury Informant: patient Narrative Narrative: Patient presents with bruising of his left middle toe. Patient states he did hit his toes last week on something. But he did not think they were really hurting. He did not notice that they were bruised. He states he noticed today he has bruising on his middle toe. He has no fevers or chills. He is on Coumadin. His last INR was checked on Monday and his level was 2.8 and his dose was not changed. He states he feels fine he just noticed the bruising. He is not even having pain. No history of gout. He has no other areas of bruising. [facility] Medical History AAA (abdominal aortic aneurysm) Abnormal pulmonary function test Allergic rhinitis, seasonal Aneurysm of infrarenal abdominal aorta Atherosclerotic heart disease of [place] coronary artery without angina pectoris Atrial fibrillation Bleeding acute gastric ulcer Cancer Cardiology follow-up encounter Collapse of right lung Complete edentulism, class III Constipation COPD (chronic obstructive pulmonary disease) SAMSON (dyspnea on exertion) Former smoker GERD (gastroesophageal reflux disease) GI bleed HLD (hyperlipidemia) Hx of cardiovascular stress test Hx of echocardiogram Hx of emphysema Hypertension [facility] (current) use of anticoagulants Lung nodule Myocardial infarct Neck injury Nicotine abuse Nicotine dependence, cigarettes, uncomplicated Nicotine dependence, unspecified, uncomplicated Nonrheumatic aortic valve insufficiency Paroxysmal atrial fibrillation Pre-op evaluation Restless leg syndrome Smoker Solitary pulmonary nodule Stage 1 mild COPD by GOLD classification Transient cerebral ischemic attack Tuberculosis Wears glasses Weight loss Home Medications acetaminophen 500 mg tablet 500 - 1,000 mg PO Q6H PRN PRN Pain 07/02/19 [History Last Taken 07/08/19] pramipexole 0.5 mg tablet 0.5 mg PO QHS RESTLESS LEGS 07/02/19 [History Last Taken 03/24/20 21:00] pantoprazole 40 mg tablet,delayed release 40 mg PO QHS GERD 03/18/20 [History Last Taken 03/24/20 21:00] oseltamivir 75 mg capsule 75 mg PO BID #7 caps 01/18/22 [Rx Last Taken Unknown] albuterol sulfate 90 mcg/actuation aerosol inhaler (Ventolin HFA) 2 puff inhalation Q4H PRN shortness of breath or wheezing #18 grams 12/22/22 [Rx Last Taken Unknown] tiotropium bromide 18 mcg capsule with inhalation device (Spiriva with HandiHaler) 1 cap inhalation QHS COPD #30 inhalations 12/22/22 [Rx Last Taken Unknown] fluticasone propionate 50 mcg/actuation nasal spray,suspension 1 spray NASAL DAILY NASAL CONGESTION #16 grams 01/30/23 [Rx Last Taken Unknown] losartan 25 mg tablet 25 mg PO QHS BP #90 tabs 04/05/23 [Rx Last Taken Unknown] rosuvastatin 10 mg tablet See Rx Instructions .Route .COMPLEX #90 TABLETS 04/05/23 [Rx Last Taken Unknown] warfarin 6 mg tablet 6 mg PO DAILY #90 tabs 05/17/23 [Rx Last Taken Unknown] Allergy/AdvReac Type Severity Reaction Status Date / Time No Known Allergies Allergy Verified 06/17/23 20:31 Surgical History History of abdominal aortic aneurysm repair (~12/07/21) History of aortic root repair History of esophagogastroduodenoscopy (EGD) History of left heart catheterization (11/19/10) Hx of aortic valve replacement, mechanical (11/26/10) Hx of colonoscopy Hx of detached retina repair Hx of inguinal hernia surgery S/P AAA (abdominal aortic aneurysm) repair Social History adopted: Yes Smoking Status: Light Smoker (<10/day) alcohol intake: never substance use type: does not use ROS ROS ED Constitutional Constitutional ED: Denies chills, fever(s) or sweats Cardiovascular Cardiovascular: Denies chest pain, palpitations or racing heartbeat Respiratory/Chest Respiratory/Chest: Denies cough or dyspnea Gastrointestinal Gastrointestinal: Denies nausea or vomiting Musculoskeletal Musculoskeletal: Denies arthralgias, back pain, myalgias or neck pain Integumentary Reports other Details: See history of present illness Neurologic Neurologic: Denies paresthesias or weakness Hematologic/Lymphatic Hematologic/Lymphatic: Reports easy bleeding and easy bruising Allergic/Immunologic Allergic/Immunologic ED: Denies urticaria EXAM Physical Exam Narrative Exam Narrative: I independent interpretation the patient's three-view x-ray of his left foot shows Patient's INR was Const Vital Signs: 06/17/23 20:29 Temperature 98.2 F Temperature Source Temporal Pulse Rate 92 Respiratory Rate 16 Blood Pressure 112/84 H Blood Pressure Mean 93 Pulse Ox 99 Oxygen Delivery Method Room Air MDM MDM MDM Narrative Medical decision making narrative: My independent interpretation of the patient's three-view x-ray of the left foot shows no sign of acute fracture. Final reading shows some changes at the second metatarsal head at the MTP joint but the patient has no pain swelling or bruising there. Patient's INR is therapeutic at 2.6. I think this is some bruising likely from minor trauma. Ice rest and time should get this better. Certainly if he has significant swelling he may need further therapy. No change in his therapy at this time. Lab Data Attestation: I reviewed the patient's lab results. Labs: Laboratory Results - last 24 hr 06/17/23 21:00 PT 28.2 H INR 2.6 Radiography Diagnostic Testing: Clinical Impression(s) from Imaging Studies Foot X-Ray 06/17/23 21:01 IMPRESSION: Dysmorphic appearance to the second metatarsal head at the MTP joint with cortical irregularity, which appears most consistent with sequela of prior trauma or inflammatory change. Otherwise, anatomic alignment without evidence of fracture or subluxation. Electronically Signed: Gage Mcneil MD at 21:16 EDT , Discharge Plan Triage Chief Complaint: Lower Extremity Injury ED Provider: Taj Concepcion Dx/Rx/DC Orders Clinical Impression: Warfarin-induced coagulopathy, Contusion of third toe of left foot Instructions: ED Contusion, Lower Extremity Prescriptions: No Action albuterol sulfate [Ventolin HFA] 90 mcg/actuation HFA aerosol inhaler 2 puff INHALATION Q4H PRN (Reason: shortness of breath or wheezing) Qty: 18 6RF Spiriva with HandiHaler 18 mcg capsule, w/inhalation device 1 cap INHALATION QHS Qty: 30 11RF Rx Instructions: puncture 1 cap using device; one dose = 2 inhalations acetaminophen 500 MG tablet 500 - 1,000 mg PO Q6H PRN PRN (Reason: Pain) pramipexole 0.5 MG tablet 0.5 mg PO QHS pantoprazole 40 MG tablet,delayed release (DR/EC) 40 mg PO QHS oseltamivir 75 mg Capsule 75 mg PO BID Qty: 7 0RF Rx Instructions: start the evening of 01/18/22 fluticasone propionate 50 mcg/actuation spray,suspension 1 spray NASAL DAILY Qty: 16 11RF losartan 25 mg tablet 25 mg PO QHS Qty: 90 3RF rosuvastatin 10 mg tablet See Rx Instructions .ROUTE .COMPLEX Qty: 90 3RF Dose Instruction: TAKE 1 TABLET BY MOUTH AT BEDTIME Rx Instructions: TAKE 1 TABLET BY MOUTH AT BEDTIME warfarin 6 mg tablet 6 mg PO DAILY Qty: 90 3RF Protocol: Dose Management Condition: Monday Dose/Route: 6 mg Instruction: 1 x 6 mg tablet Condition: Monday Dose/Route: 6 mg Instruction: 1 x 6 mg tablet Condition: Monday Dose/Route: 6 mg Instruction: 1 x 6 mg tablet Condition: Monday Dose/Route: 6 mg Instruction: 1 x 6 mg tablet Condition: Dose/Route: 6 mg Instruction: 1 x 6 mg tablet Condition: Monday Dose/Route: 6 mg Instruction: 1 x 6 mg tablet Condition: Monday Dose/Route: 6 mg Instruction: 1 x 6 mg tablet Protocol Text: Adjustment Start Date: Monday06/13/23 INR Value: 2.8 INR Date: 06/13/23 Recheck Date: 06/20/23 Primary Care Provider: Jonnie Zarco Referrals: Jonnie Zarco MD [Primary Care Provider] - 3-5 Days if not improving Activity Restrictions/Additional Instructions: Ice, rest, elevation, Tylenol if needed for pain. Disposition Disposition: Home, Self Care
[2023-06-17 21:15] LABS: International Normalized Ratio 2.6; Prothrombin Time (Protime)PT. 28.2 SECONDS (11.7-14.9)
== END 2023-06-17 21:55 | disposition home or self-care (01) ==
PROVIDERS: Emergency Provider Emergency Medicine; PCP Family Medicine; Visit Provider Emergency Medicine
DX: R79.1 Abnormal coagulation profile (principal); J43.9 Emphysema, unspecified; I48.0 Paroxysmal atrial fibrillation; T45.515A Adverse effect of anticoagulants, initial encounter; S90.122A Contusion of left lesser toe(s) without damage to nail, initial encounter; W22.09XA Striking against other stationary object, initial encounter; I25.10 Atherosclerotic heart disease of native coronary artery without angina pectoris; E78.5 Hyperlipidemia, unspecified; I10 Essential (primary) hypertension; Z79.01 Long term (current) use of anticoagulants; Z79.899 Other long term (current) drug therapy; Z87.891 Personal history of nicotine dependence
CPT/HCPCS: 73630; 85610; 99282; A4216

== ENCOUNTER 2023-10-02 09:47 | Emergency (ER) | payer MEDICARE, MEDICAID, SELFPAY ==
[2023-10-02 09:49] VITALS: BP 121/78; PULSE 94; RESP 18; TEMP 36.6; O2SAT 98; BMI 23.9
[2023-10-02] MEDS: 0.9% Normal Saline (1000mL) 1,000 ML 1000 ML IV (10:51)
[2023-10-02 11:05] VITALS: BP 117/75; BP 121/72; BP 121/79; PULSE 71; PULSE 80; PULSE 83
[2023-10-02 11:05] LABS: Absolute Lymphocyte Count 1.11 X10^3/uL (0.83-4.51); Absolute Neutrophil Count 8.8 X10^3/uL (2.0-7.7); Basophil# 0.05 X10^3/uL; Basophil% 0.5 % (0-1); Eosinophil# 0.05 X10^3/uL; Eosinophils% 0.5 % (0-5); Hemoglobin 13.2 g/dL (13.0-16.5); Lymphocyte # 1.11 X10^3/ul (0.83-4.51); Lymphocyte % 10.2 % (19-41); Mean Platelet Vol. 10.4 fl (6.2-12.0); Monocyte# 0.78 X10^3/uL; Monocyte% 7.2 % (0-10); NRBC Flagged by Analyzer 0 % (0-5); Neutrophil # 8.83 X10^3/uL (2.7-7.7); Platelet Count 145 K/mm3 (150-450); RBC Distribution Width CV 12.6 % (11.6-14.6); RBC Distribution Width SD 46.7 fl (35.1-43.9); White Blood Count 10.9 K/mm3 (4.4-11.0)
--- NOTE | 2023-10-02 11:06 | EX.ED.DYSGE1 ---
HPI History of Present Illness Chief Complaint: Dizziness Detail of Chief Complaint: Dizziness, which patient defines as lightheadedness Informant: patient Onset/Context/Timing Onset: Days Context: Sudden Onset Timing: Continuous and Waxes and wanes Quality: Predominately complains of lightheadedness with sitting and standing Current Severity: Mild Maximum Severity: Severe Worsened by: Upright position Relieved by: Supine position Associated Symptoms Associated Symptoms: Poor p.o. intake, nausea Narrative Narrative: Patient is a 63-year-old male who is a smoker. 5 years ago he was smoking 1.5 packs/day. Year ago 1 pack/day. He is now down to half pack per day. He denies respiratory symptoms. He endorses thirst, dry mouth, lightheadedness with standing. He denies black or maroon-colored stool. He endorses decreased urine output. Otherwise he has no urinary symptoms. He states his symptoms started after his Coumadin dose was increased. He states it was low. He denies headache, double vision, blurred vision loss of vision. 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 He does have tinnitus. This has been present for about a week. It is bilateral. He also has tubes that were placed by ENT. He denies rhinorrhea, congestion and sore throat. He denies change in voice other than difficult to speak because his tongue is dry. He denies neck pain. He denies chest pain, orthopnea, PND or dyspnea on exertion. He denies cough. He denies abdominal pain. Does endorse nausea without vomiting diarrhea. Patient denied cardiac disease however he has multivessel disease that is not diagnostically significant. Cardiac catheterization performed at [facility]. Prior similar symptoms: No Recent Illness/Hospitalization: No [facility] Medical History AAA (abdominal aortic aneurysm) Abnormal pulmonary function test Allergic rhinitis, seasonal Aneurysm of infrarenal abdominal aorta Atherosclerotic heart disease of [place] coronary artery without angina pectoris Atrial fibrillation Bleeding acute gastric ulcer Cancer Cardiology follow-up encounter Collapse of right lung Complete edentulism, class III Constipation COPD (chronic obstructive pulmonary disease) SAMSON (dyspnea on exertion) Former smoker GERD (gastroesophageal reflux disease) GI bleed HLD (hyperlipidemia) Hx of cardiovascular stress test Hx of echocardiogram Hx of emphysema 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 Lung nodule Myocardial infarct Neck injury Nicotine abuse Nicotine dependence, cigarettes, uncomplicated Nicotine dependence, unspecified, uncomplicated Nonrheumatic aortic valve insufficiency Paroxysmal atrial fibrillation Pre-op evaluation Restless leg syndrome Smoker Solitary pulmonary nodule Stage 1 mild COPD by GOLD classification Transient cerebral ischemic attack Tuberculosis Wears glasses Weight loss Home Medications acetaminophen 500 mg tablet 500 - 1,000 mg PO Q6H PRN PRN Pain 07/02/19 [History Last Taken 07/08/19] pramipexole 0.5 mg tablet 0.5 mg PO QHS RESTLESS LEGS 07/02/19 [History Last Taken 03/24/20 21:00] pantoprazole 40 mg tablet,delayed release 40 mg PO QHS GERD 03/18/20 [History Last Taken 03/24/20 21:00] oseltamivir 75 mg capsule 75 mg PO BID #7 caps 01/18/22 [Rx Last Taken Unknown] tiotropium bromide 18 mcg capsule with inhalation device (Spiriva with HandiHaler) 1 cap inhalation QHS COPD #30 inhalations 12/22/22 [Rx Last Taken Unknown] fluticasone propionate 50 mcg/actuation nasal spray,suspension 1 spray NASAL DAILY NASAL CONGESTION #16 grams 01/30/23 [Rx Last Taken Unknown] losartan 25 mg tablet 25 mg PO QHS BP #90 tabs 04/05/23 [Rx Last Taken Unknown] rosuvastatin 10 mg tablet See Rx Instructions .Route .COMPLEX #90 TABLETS 04/05/23 [Rx Last Taken Unknown] warfarin 6 mg tablet 6 mg PO DAILY #90 tabs 05/17/23 [Rx Last Taken Unknown] albuterol sulfate 90 mcg/actuation aerosol inhaler (Ventolin HFA) 2 puff inhalation Q4H PRN shortness of breath or wheezing #18 grams 07/31/23 [Rx Last Taken Unknown] Allergy/AdvReac Type Severity Reaction Status Date / Time No Known Allergies Allergy Verified 10/02/23 09:48 Surgical History History of abdominal aortic aneurysm repair (~12/07/21) History of aortic root repair History of esophagogastroduodenoscopy (EGD) History of left heart catheterization (11/19/10) Hx of aortic valve replacement, mechanical (11/26/10) Hx of colonoscopy Hx of detached retina repair Hx of inguinal hernia surgery S/P AAA (abdominal aortic aneurysm) repair Social History adopted: Yes Smoking Status: Current every day smoker tobacco type: cigarettes alcohol intake: never substance use type: does not use ROS ROS ED Constitutional Constitutional ED: Denies chills, fever(s), sweats or weight loss Eyes Eyes: Denies blurry vision, change in vision or diplopia ENT ENT ED: Denies ear pain, rhinorrhea or sore throat Cardiovascular Cardiovascular: Denies chest pain, orthopnea, palpitations, paroxysmal nocturnal dyspnea or racing heartbeat Respiratory/Chest Respiratory/Chest: Denies cough, dyspnea, dyspnea on exertion, orthopnea or paroxysmal nocturnal dyspnea Gastrointestinal Gastrointestinal: Reports nausea; Denies abdominal pain, constipation, diarrhea, melena or vomiting Genitourinary Genitourinary ED: Reports other Details: Per HPI narrative ; Denies dysuria, hematuria or urinary frequency Musculoskeletal Musculoskeletal: Denies arthralgias, back pain, myalgias or neck pain Integumentary Denies rash Neurologic Neurologic: Reports weakness; Denies headache(s) or paresthesias Endocrine Endocrinology: Denies cold intolerance or heat intolerance Hematologic/Lymphatic Hematologic/Lymphatic: Reports systems reviewed and no addt'l complaints, except as documented EXAM Physical Exam Const Vital Signs: 10/02/23 09:49 10/02/23 10:46 10/02/23 11:05 Temperature 98 F Temperature Source Temporal Pulse Rate 94 Pulse Rate [Lying] 71 Pulse Rate [Sitting (for 1 minute prior to obtaining)] 80 Pulse Rate [Standing (for 1 minute prior to obtaining)] 83 Respiratory Rate 18 Respiratory Pattern Normal Blood Pressure 121/78 H Blood Pressure [Lying] 117/75 Blood Pressure [Sitting (for 1 minute prior to obtaining)] 121/79 H Blood Pressure [Standing (for 1 minute prior to obtaining)] 121/72 H Blood Pressure Mean 92 Blood Pressure Mean [Lying] 89 Blood Pressure Mean [Sitting (for 1 minute prior to obtaining)] 93 Blood Pressure Mean [Standing (for 1 minute prior to obtaining)] 88 Pulse Ox 98 Oxygen Delivery Method Room Air Positive well nourished, well developed and unkempt Constitutional Narrative: Patient has odor of tobacco. He admits to half pack per day. General Appearance ED: unkempt, well developed and NAD; Negative for cyanotic, diaphoretic or pallor HEENT Reports dry mucous membranes HEENT Narrative: Head is atraumatic normocephalic. Patient has significant mount of wax in the right and left auditory canal. Tubes are in place. The portion of the TM that was visualized is normal. Mouth ED: Yes dry mucous membranes Mouth: dry mucous membranes Eyes PERRL and EOMs intact bilaterally General Eye ED: Negative for pale conjunctiva or scleral icterus Neck no lymphadenopathy, supple and no JVD Chest Wall inspection of chest normal and palpation of chest normal Resp normal respiratory effort and clear to auscultation bilaterally Cardio regular rate, regular rhythm, S1 normal heart sound, S2 normal heart sound and no murmurs GI normal to inspection, nondistended, normoactive bowel sounds, non-tender, non-distended and no masses; Negative for hepatosplenomegaly Back/Spine no CVA tenderness Extremity normal to inspection Extremity Narrative: There is no clubbing or is noted. General Extremety ED: Negative for edema or tenderness General Extremity: Negative for edema Neuro oriented x3, CN's II-XII intact bilaterally and no sensory deficits noted Neuro Narrative: There is no dysmetria. There is no clear Penske sign noted. Sensorium / Orientation: alert Motor Exam: strength 5/5 throughout Psych Appearance: unkempt Skin no rashes or lesions noted, no wounds and No skin turgor normal General Skin Exam: Negative for elasticity normal, jaundice or pallor MDM MDM MDM Narrative Medical decision making narrative: Clinically patient is dehydrated. Suspect patient symptoms are due to dehydration and volume depletion. Will obtain BMP to assess renal function electrolytes. CBC to assess for white count and rule out anemia which is unlikely. 1 L of normal saline was ordered. History & Record Review Additional record(s) reviewed:: Prior outpatient record (Cardiac catheterization from [facility]), Prior ED visit and Prior labs Lab Data Attestation: I reviewed the patient's lab results. Lab results narrative: CBC is unremarkable. MCV is slightly elevated 100. Basic metabolic panel reveals a slight elevation glucose of 115. BUN and creatinine are normal. PT/INR 57.2 and 6.3 respectively. Urine is remarkable for a ketones. Labs: Laboratory Results - last 24 hr 10/02/23 10/02/23 10/02/23 10:55 11:02 11:35 WBC 10.9 RBC 4.00 L Hgb 13.2 Hct 40.0 MCV 100.0 H MCH 33.0 H MCHC 33.0 RDW Std Deviation 46.7 H RDW Coeff of Zeus 12.6 Plt Count 145 L MPV 10.4 Immature Gran % (Auto) 0.600 Neut % (Auto) 81.0 H Lymph % (Auto) 10.2 L [place] % (Auto) 7.2 Eos % (Auto) 0.5 Baso % (Auto) 0.5 Absolute Neuts (auto) 8.8 H Absolute Lymphs (auto) 1.11 Nucleated RBC % 0 PT 57.2 H INR 6.3 H* Sodium 138 Potassium 4.0 Chloride 106 Carbon Dioxide 27.0 Anion Gap 5 BUN 10 Creatinine 0.91 Estim Creat Clear Calc 96.60 Est GFR (MDRD) Af Amer 109 Est GFR (MDRD) Non-Af 90 BUN/Creatinine Ratio 11.0 Glucose 115 H Calcium 8.9 Urine Color Yellow Urine Clarity Clear Urine pH 5.0 Ur Specific [place] 1.015 Urine Protein 30 H Urine Glucose (UA) Normal Urine Ketones 5 H Urine Occult Blood 250 H Urine Nitrite Negative Urine Bilirubin 1 H Urine Urobilinogen 4 H Ur Leukocyte Esterase 25 H POC Glucose 102 EKG Initial EKG: Attestation: I personally reviewed and interpreted this EKG as follows: Interpretation: Sinus Rhythm (Rate is 75. Voltage is low. There is nonspecific changes noted which is actually artifact. Rate is 73. KS interval is 178 ms. QRS duration 98 ms. QT duration 498 ms. [place] is normal.) Treatment and Re-Evaluation :: Was reassessed after seen by case management. Patient states he feels better but still dry mouth. Plan is to discharge to home. 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, Paroxysmal atrial fibrillation, History of abdominal aortic aneurysm repair, Stage 1 mild COPD by GOLD classification, Acute dehydration, Adult failure to thrive Instructions: Coumadin Oral Tablet 6 mg Prescriptions: No Action Spiriva with HandiHaler 18 mcg capsule, w/inhalation device 1 cap INHALATION QHS Qty: 30 11RF Rx Instructions: puncture 1 cap using device; one dose = 2 inhalations acetaminophen 500 MG tablet 500 - 1,000 mg PO Q6H PRN PRN (Reason: Pain) pramipexole 0.5 MG tablet 0.5 mg PO QHS pantoprazole 40 MG tablet,delayed release (DR/EC) 40 mg PO QHS oseltamivir 75 mg Capsule 75 mg PO BID Qty: 7 0RF Rx Instructions: start the evening of 01/18/22 fluticasone propionate 50 mcg/actuation spray,suspension 1 spray NASAL DAILY Qty: 16 11RF losartan 25 mg tablet 25 mg PO QHS Qty: 90 3RF rosuvastatin 10 mg tablet See Rx Instructions .ROUTE .COMPLEX Qty: 90 3RF Dose Instruction: TAKE 1 TABLET BY MOUTH AT BEDTIME Rx Instructions: TAKE 1 TABLET BY MOUTH AT BEDTIME warfarin 6 mg tablet 6 mg PO DAILY Qty: 90 3RF Protocol: Dose Management Condition: Monday Dose/Route: 9 mg Instruction: 1.5 x 6 mg tablets Condition: Monday Dose/Route: 6 mg Instruction: 1 x 6 mg tablet Condition: Monday Dose/Route: 6 mg Instruction: 1 x 6 mg tablet Condition: Monday Dose/Route: 9 mg Instruction: 1.5 x 6 mg tablets Condition: Dose/Route: 9 mg Instruction: 1.5 x 6 mg tablets Condition: Monday Dose/Route: 9 mg Instruction: 1.5 x 6 mg tablets Condition: Monday Dose/Route: 9 mg Instruction: 1.5 x 6 mg tablets Protocol Text: Adjustment Start Date: Monday09/29/23 INR Value: 1.2 INR Date: 09/29/23 Recheck Date: 10/02/23 albuterol sulfate [Ventolin HFA] 90 mcg/actuation HFA aerosol inhaler 2 puff INHALATION Q4H PRN (Reason: shortness of breath or wheezing) Qty: 18 6RF Primary Care Provider: Jonnie Zarco Referrals: Jonnie Zarco MD [Primary Care Provider] - 5-7 Days Activity Restrictions/Additional Instructions: Cut back your Coumadin dose to only 6 mg a day. Contact Dr. Julio's office for PT/INR to be drawn in 5 to 7 days If you develop black or maroon-colored stools return to the emergency department. If you vomit what appears to be blood return to the emergency department Disposition Disposition: Home, Self Care
[2023-10-02 11:19] LABS: Bedside Glucose 102 mg/dL (74-106)
[2023-10-02 11:20] LABS: Anion Gap 5 (5-15); BUN 10 mg/dL (7-18); Calcium,Total 8.9 mg/dL (8.5-10.1); Chloride 106 mmol/L (98-107); Creatinine, Serum 0.91 mg/dL (0.70-1.30); EST Glomerular Filtration Rate 90 mL/min (>60); Est Glom Filt Rate - Afr Amer 109 mL/min (>60); Glucose 115 mg/dL (74-106); Sodium Level 138 mmol/L (136-145)
[2023-10-02 11:47] LABS: Color, Urine Yellow (Yellow); Glucose, Dipstick Normal (Normal); Ketone-Dipstick 5 mg/dl (Negative); Leukocyte Esterase-Dipstick 25 /ul (Negative); Nitrite-Dipstick Negative (Negative); Occult Blood-Urine 250 /ul (Negative); Protein-Dipstick 30 mg/dl (Negative); Specific Gravity, Urine 1.015 (1.002-1.030); Urine Clarity Clear (Clear); Urine Urobilinogen 4 mg/dl (Normal)
--- NOTE | 2023-10-02 11:59 | NURSING ---
DIRECTOR CLINICAL INFORMATION SERVICES AWARE
[2023-10-02 12:00] LABS: Urine Bilirubin Dipstick 1 mg/dL (Negative)
--- NOTE | 2023-10-02 12:16 | NURSING ---
[place] MACHINE OPERATOR WITH PATIENT
--- NOTE | 2023-10-02 12:49 | CASEMGMT ---
Emergency Department Social Work Argelia informed by Emergency Provider that there are concerns patient is not caring for himself due to dehydration and malnourishment. Sw presented to bedside, introduced self to patient. Sw assessed for any issues, concerns and barriers to ensuring patient's basic needs are met. Patient reports that he lives in an efficiency apartment that is connected to his step son's house. Patient states that although he lives in his own space, he is right beside his step son, his and their children. Patient states that he sees all of them daily and often times eats meals with them. Patient states that he is connected to resources through the community including: [employer], [employer], [employer] and [employer] (insurance and transportation). Patient states that he can drive, but doesn't right now due to some issues that he has been having with his eye. Patient states that he is in the process of dropping off paperwork to [employer] in order to drive again. Patient reports that when he needs to go somewhere his step son or his will drive him. Patient states if they are unavailable to do so he will contact [employer] and they will help him with transportation. Patient states that he gets food stamps and always has access to food. Patient denies going hungry or without food or water. Sw asked patient if he has any needs or concerns at this time. Patient states that his symptoms are uncommon for him and he does not believe that they are related to not eating/ drinking enough or not taking care of himself. Patient states that he is relatively a healthy person but just feels cold and thinks he may have a virus. Sw printed off [employer] card for patient to have access to should a need present itself. Patient thanked sw for talking with him. No additional needs or concerns at this time. Gina Brito, TRACTION POWER ENGINEER, TEST GRADER
[2023-10-02 13:14] LABS: Prothrombin Time (Protime)PT. 57.2 SECONDS (11.7-14.9)
[2023-10-02 13:18] LABS: International Normalized Ratio 6.3
[2023-10-02 15:30] VITALS: RESP 18
== END 2023-10-02 15:31 | disposition home or self-care (01) ==
PROVIDERS: Emergency Provider Emergency Medicine; PCP Family Medicine; Visit Provider Emergency Medicine
DX: E86.0 Dehydration (principal); J43.9 Emphysema, unspecified; J44.9 Chronic obstructive pulmonary disease, unspecified; I48.0 Paroxysmal atrial fibrillation; R79.1 Abnormal coagulation profile; E78.5 Hyperlipidemia, unspecified; I25.10 Atherosclerotic heart disease of native coronary artery without angina pectoris; H93.13 Tinnitus, bilateral; R11.0 Nausea; R42 Dizziness and giddiness; I10 Essential (primary) hypertension; F17.210 Nicotine dependence, cigarettes, uncomplicated
CPT/HCPCS: 80048; 81002; 82962; 85025; 85610; 93005; 96360; 96361; 99285; J7030

== ENCOUNTER 2023-10-13 11:51 | Outpatient (RCR) | payer MEDICARE, MEDICAID, SELFPAY ==
[2023-10-04 11:19] LABS: International Normalized Ratio 3.5; Prothrombin Time (Protime)PT. 35.7 SECONDS (11.7-14.9)
[2023-10-13 12:13] LABS: International Normalized Ratio 3.5; Prothrombin Time (Protime)PT. 35.5 SECONDS (11.7-14.9)
== END 2023-10-29 18:00 | disposition home or self-care (01) ==
LOC: LAB 11:51
PROVIDERS: Family Provider Family Medicine; PCP Family Medicine; Referring Provider Nurse Practitioner Family; Visit Provider Nurse Practitioner Family
DX: I48.0 Paroxysmal atrial fibrillation (principal); Z98.890 Other specified postprocedural states; Z95.2 Presence of prosthetic heart valve; Z79.01 Long term (current) use of anticoagulants
CPT/HCPCS: 36415; 85610

== ENCOUNTER → 2023-11-08 | Outpatient (CLI) | payer MEDICARE, MEDICAID, SELFPAY | END | disposition home or self-care (01) | PROVIDERS: PCP Family Medicine; Referring Provider Otolaryngology; Visit Provider Otolaryngology | DX: J01.90 Acute sinusitis, unspecified (principal) | CPT/HCPCS: 87070; 87077; 87186; 87205 ==

== ENCOUNTER 2023-11-21 13:54 | Outpatient (RCR) | payer MEDICARE, MEDICAID, SELFPAY ==
[2023-11-09 14:10] LABS: International Normalized Ratio 3.6; Prothrombin Time (Protime)PT. 36.2 SECONDS (11.7-14.9)
[2023-11-21 15:46] LABS: Prothrombin Time (Protime)PT. 31.7 SECONDS (11.7-14.9)
== END 2023-11-21 18:00 | disposition home or self-care (01) ==
LOC: LAB 13:54
PROVIDERS: Family Provider Family Medicine; PCP Family Medicine; Referring Provider Nurse Practitioner Family; Visit Provider Nurse Practitioner Family
DX: I48.0 Paroxysmal atrial fibrillation (principal); Z98.890 Other specified postprocedural states; Z95.2 Presence of prosthetic heart valve; Z79.01 Long term (current) use of anticoagulants
CPT/HCPCS: 36415; 85610

== ENCOUNTER → 2023-11-21 | Outpatient (CLI) | payer MEDICARE, MEDICAID, SELFPAY ==
--- OUTSIDE RECORDS SUMMARY | 2023-11-21 13:17 | XMS RPT_ITS | CCD ---
Author Name Unknown Address [id number] [place] [address] Organization [facility] Care Team Providers Care Creative/Art Director Name Role Phone Leonard RN, Marianna Capone Unavailable Catherine INSTALLMENT AGENT, Matt Whiteside Unavailable Ananya MCKINLEY, Maddison A Unavailable Unavailable Leonard RN, Marianna Capone Unavailable [phone] Leonard RN, Marianna Capone Unavailable [phone] Ananya MCKINLEY, Maddison A Unavailable Unavailable Leonard RN, Marianna Capone Unavailable Ananya RN, Maddison A Unavailable Unavailable Marcus Mack Unavailable Leonard RN, Marianna Capone Unavailable Nitza Dutton CNP Unavailable [phone] AMERICA NEVILLE Unavailable Unavailable SELF, SELF Unavailable Unavailable NEAL EDWARDS Unavailable Unavailable Heike De Jesus LPN Unavailable Unavailsalvador Hare RN, Maddison A Unavailable Unavailable Krysten Diamond Unavailable Unavailable Leonard RN, Marianna Capone Unavailable Neal Edwards MD Primary Care Provider [phone] Aakash Zaragoza MD Unavailable Neal Edwards MD Primary Care Provider Aakash Zaragoza MD Unavailable Neal Edwards MD Primary Care Provider Aakash Zaragoza MD Unavailable Neal Edwards MD Primary Care Provider [phone] Aakash Zaragoza MD Unavailable NEAL EDWARDS Primary Care Unavailable DESTINY HOUSTON Referring Unavailable NEAL EDWARDS Primary Care Unavailable DESTINY HOUSTON Attending Unavailable NEAL EDWARDS Primary Care Unavailable NEAL EDWARDS Attending Unavailable NEAL EDWARDS Primary Care Unavailable LAINEY LERNER Attending Unavailable NEAL EDWARDS Primary Care Unavailable DESTINY HOUSTON Attending Unavailable NEAL EDWARDS Primary Care Unavailable Medications Current Medications Medication Drug Class(es) Dates Sig (Normalized) Sig (Original) amoxicillin 875 mg / clavulanate 125 mg oral tablet (1 source) Penicillin-class Antibacterial Start: 07-20-2023 End: 07-30-2023 take 1 tablet by mouth twice daily amoxicillin-clav ulanic acid (AUGMENTIN) 875-125 mg per tablet Take 1 tablet by mouth twice daily for 10 days. 20 tablet 0 07/20/2023 07/30/2023 Active Completed/Discontinued Medications Medication Drug Class(es) Dates Sig (Normalized) Sig (Original) acetaminophen 500 mg oral tablet (20 sources) Start: 05-09-2022 End: 05-16-2023 take 2 tablets by mouth every six hours as needed for pain acetaminophen (PAIN RELIEF ES, ACETAMINOPHEN,) 500 mg tablet TAKE TWO TABLETS BY MOUTH EVERY 6 HOURS NEEDED FOR PAIN 240 tablet 1 05/16/2023 Active Problems Active Problems Problem Classification Problem Date Documented Date Episodic/Chronic Aortic; peripheral; and visceral artery aneurysms (20 sources) Abdominal aortic aneurysm without rupture; Translations: [Abdominal aortic aneurysm, without rupture] Onset: 05-11-2017 09-07-2021 Chronic Blindness and vision defects (20 sources) Blind right eye; Translations: [Blindness, one eye, unspecified eye] Onset: 08-18-2015 10-25-2021 Chronic Cardiac dysrhythmias (20 sources) Paroxysmal atrial fibrillation; Translations: [Atrial fibrillation] Onset: 01-07-2014 02-19-2016 Chronic Chronic obstructive pulmonary disease and bronchiectasis (20 sources) Chronic obstructive lung disease; Translations: [Acute exacerbation of chronic obstructive airways disease] Onset: 08-18-2015 10-06-2015 Chronic Coagulation and hemorrhagic disorders (1 source) Platelet count below reference range; Translations: [Thrombocytopenia, unspecified] Chronic Coronary atherosclerosis and other heart disease (20 sources) Coronary arteriosclerosis; Translations: [Atherosclerotic heart disease of telida coronary artery without angina pectoris] Onset: 06-07-2019 06-07-2019 Chronic Disorders of lipid metabolism (20 sources) Hyperlipidemia; Translations: [Dyslipidemia] Onset: 01-30-2014 01-30-2014 Chronic Esophageal disorders (20 sources) Gastroesophageal reflux disease without esophagitis; Translations: [Gastro-esophageal reflux disease without esophagitis] Onset: 08-18-2015 02-11-2016 Chronic Essential hypertension (20 sources) Essential hypertension; Translations: [Essential (primary) hypertension] Onset: 08-18-2015 08-18-2015 Chronic Heart valve disorders (20 sources) Nonrheumatic aortic (valve) insufficiency; Translations: [Heart valve replaced by other means] Onset: 01-07-2014 02-19-2016 Chronic Neoplasms of unspecified nature or uncertain behavior (6 sources) Neoplasm of uncertain behavior of skin of neck; Translations: [Neoplasm of uncertain behavior of skin] Onset: 05-30-2022 Episodic Osteoarthritis (20 sources) Arthritis; Translations: [Unspecified osteoarthritis, unspecified site] Onset: 08-18-2015 02-07-2017 Chronic Other aftercare (1 source) Post-discharge follow-up; Translations: [Encounter for follow-up examination after completed treatment for conditions other than malignant neoplasm] Episodic Other and unspecified benign neoplasm (1 source) Melanocytic nevi, unspecified; Translations: [Atypical mole] Onset: 10-09-2023 Episodic Other hereditary and degenerative nervous system conditions (20 sources) Restless legs; Translations: [Restless legs syndrome] Onset: 11-07-2017 11-07-2017 Chronic Other hereditary and degenerative nervous system conditions (1 source) Restless legs syndrome; Translations: [RLS (restless legs syndrome)] Onset: 11-07-2017 Chronic Other lower respiratory disease (1 source) H/O: pneumonia; Translations: [Personal history of pneumonia (recurrent)] Episodic Other lower respiratory disease (1 source) History of influenza; Translations: [Personal history of other diseases of the respiratory system] Episodic Other nervous system disorders (20 sources) Carpal tunnel syndrome of right wrist; Translations: [Carpal tunnel syndrome, right upper limb] Onset: 05-22-2018 05-22-2018 Chronic Other upper respiratory disease (13 sources) Seasonal allergic rhinitis; Translations: [Other seasonal allergic rhinitis] Onset: 04-17-2017 04-17-2017 Chronic Other upper respiratory disease (20 sources) Seasonal allergy; Translations: [Other seasonal allergic rhinitis] Onset: 08-18-2015 08-18-2015 Chronic Other upper respiratory infections (4 sources) Chronic sinusitis; Translations: [Chronic sinusitis, unspecified] Chronic Screening or history of mental health and substance abuse (15 sources) Nicotine dependence; Translations: [Nicotine dependence, unspecified, uncomplicated] Onset: 08-03-2015 08-03-2015 Chronic Skin and subcutaneous tissue infections (1 source) Infection of skin; Translations: [Local infection of the skin and subcutaneous tissue, unspecified] 05-16-2023 Episodic Substance-related disorders (20 sources) Smoker; Translations: [Nicotine dependence, unspecified, uncomplicated] Onset: 08-18-2015 10-25-2021 Chronic Superficial injury; contusion (1 source) Nonvenomous insect bite of ankle without infection; Translations: [Insect bite (nonvenomous), left ankle, initial encounter] 05-16-2023 Episodic Transient cerebral ischemia (15 sources) Transient cerebral ischemic attack, unspecified; Translations: [Transient cerebral ischemic attack, unspecified] Onset: 02-19-2016 02-19-2016 Chronic Unclassified (15 sources) Drug therapy finding; Translations: [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) use of anticoagulants] Onset: 07-16-2015 07-16-2015 Unclassified (11 sources) Replacement of aortic valve ; Translations: [Presence of prosthetic heart valve] Onset: 01-07-2014 07-16-2015 Unclassified (18 sources) Long-term drug therapy; Translations: [Long-term (current) use of other medications] Onset: 02-10-2014 Resolved: 08-10-2015 02-10-2014 Unclassified (1 source) Hole In Eardrum / 857() Onset: 05-23-2018 Unclassified (4 sources) History of repair of aortic root; Translations: [Other specified postprocedural states] Onset: 01-07-2014 07-16-2015 Unclassified (1 source) Abdominal aortic aneurysm (AAA) without rupture, unspecified part (HCC); Translations: [Abdominal aortic aneurysm (AAA) without rupture, unspecified part (HCC)] Onset: 05-30-2022 Unclassified (1 source) Chronic atrial fibrillation, unspecified; Translations: [Chronic atrial fibrillation (HCC)] Onset: 10-28-2021 Past or Other Problems Problem Classification Problem Date Documented Date Episodic/Chronic Abdominal pain (2 sources) Left upper quadrant pain; Translations: [Left upper quadrant pain] Onset: 12-22-2022 Episodic Immunizations and screening for infectious disease (20 sources) Patient encounter status; Translations: [Encounter for screening for human immunodeficiency virus [HIV]] Onset: 02-07-2017 Episodic Other aftercare (20 sources) Long-term (current) use of other medications; Translations: [Other 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 (current) drug therapy] Onset: 02-10-2014 Resolved: 08-10-2015 02-10-2014 Episodic Other aftercare (5 sources) Drug therapy finding; Translations: [Other 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 (current) drug therapy] Onset: 02-07-2017 02-14-2018 Episodic Other aftercare (1 source) Other equipment operator intermodal yard (current) drug therapy; Translations: [Medication management] Onset: 05-30-2022 Episodic Other lower respiratory disease (20 sources) Lung mass; Translations: [Lung function testing abnormal] Onset: 08-03-2015 05-13-2016 Episodic Other lower respiratory disease (4 sources) Dyspnea on exertion; Translations: [Other forms of dyspnea] Onset: 08-03-2015 08-03-2015 Episodic Other non-traumatic joint disorders (20 sources) Bilateral hip joint pain; Translations: [Pain in right hip] Onset: 08-18-2015 02-07-2017 Episodic Other nutritional; endocrine; and metabolic disorders (15 sources) Weight loss; Translations: [Abnormal weight loss] Onset: 04-26-2016 04-26-2016 Episodic Other screening for suspected conditions (not mental disorders or infectious disease) (20 sources) Lung function testing abnormal; Translations: [Patient encounter status] Onset: 08-18-2015 10-06-2015 Episodic Other skin disorders (20 sources) [place] - lesion ; Translations: [Corns and callosities] Onset: 02-24-2021 02-24-2021 Episodic Other skin disorders (20 sources) Seborrheic keratosis; Translations: [Other seborrheic keratosis] Onset: 07-05-2022 Episodic Pleurisy; pneumothorax; pulmonary collapse (20 sources) Pneumothorax; Translations: [Pneumothorax, unspecified] Onset: 08-18-2015 10-25-2021 Episodic Residual codes; unclassified (20 sources) History of repair of thoracic aortic aneurysm; Translations: [Other specified postprocedural states] Onset: 05-11-2017 05-11-2017 Episodic Unclassified (11 sources) Other specified postprocedural states; Translations: [Other specified postprocedural states] Onset: 01-07-2014 07-16-2015 Episodic Unclassified (20 sources) Repair of aneurysm of abdominal aorta ; Translations: [Other specified postprocedural states] Onset: 01-07-2014 Resolved: 07-16-2015 07-16-2015 Unclassified (1 source) Hole In Eardrum; Translations: [Hole In Eardrum] Onset: 05-23-2018 Viral infection (20 sources) Verruca vulgaris; Translations: [Viral wart, unspecified] Onset: 08-18-2015 10-25-2021 Episodic Results Test Name Value Interpretation Reference Range Facil ity Vital Signs Date Time Vital Sign Value Performing Clinician Facility 07-20-2023 12:33-0400 Body temperature 97.9 [degF] Destiny FRIED-C Work Phone: [facility] 07-20-2023 12:33-0400 Body weight 84.37 kg Destiny FRIED-C Work Phone: [facility] 07-20-2023 12:33-0400 Diastolic blood pressure 76 mm[Hg] Destiny FRIED-C Work Phone: [facility] 07-20-2023 12:33-0400 Heart rate 54 /min Destiny FRIED-C Work Phone: [facility] 07-20-2023 12:33-0400 Respiratory rate 18 /min Destiny FRIED-C Work Phone: [facility] 07-20-2023 12:33-0400 SaO2% (BldA) [Mass fraction] 96 % Destiny FRIED-C Work Phone: [facility] 07-20-2023 12:33-0400 Systolic blood pressure 112 mm[Hg] Destiny FRIED-C Work Phone: [facility] 05-16-2023 16:15-0400 Body temperature 97.81 [degF] Stephania Praisler-Wood WHEELAGE CLERK.ROADING ENGINEER Work Phone: [facility] 05-16-2023 16:15-0400 Body weight 81.38 kg Stephania Praisler-Wood WHEELAGE CLERK.ROADING ENGINEER Work Phone: [facility] 05-16-2023 16:15-0400 Diastolic blood pressure 80 mm[Hg] Stephania Praisler-Wood WHEELAGE CLERK.ROADING ENGINEER Work Phone: [facility] 05-16-2023 16:15-0400 Heart rate 61 /min Stephania Praisler-Wood WHEELAGE CLERK.ROADING ENGINEER Work Phone: [facility] 05-16-2023 16:15-0400 Respiratory rate 16 /min Stephania Praisler-Wood WHEELAGE CLERK.ROADING ENGINEER Work Phone: [facility] 05-16-2023 16:15-0400 SaO2% (BldA) [Mass fraction] 97 % Stephania Praisler-Wood WHEELAGE CLERK.ROADING ENGINEER Work Phone: [facility] 05-16-2023 16:15-0400 Systolic blood pressure 122 mm[Hg] Stephania Praisler-Wood WHEELAGE CLERK.ROADING ENGINEER Work Phone: [facility] 12-22-2022 12:02-0500 Body weight 82.1 kg Destiny Houston PA-C Work Phone: [facility] 12-22-2022 12:02-0500 Diastolic blood pressure 76 mm[Hg] Destiny Houston PA-C Work Phone: [facility] 12-22-2022 12:02-0500 Heart rate 82 /min Destiny Houston PA-C Work Phone: [facility] 12-22-2022 12:02-0500 Respiratory rate 20 /min Destiny Houston PA-C Work Phone: [facility] 12-22-2022 12:02-0500 SaO2% (BldA) [Mass fraction] 95 % Destiny Houston PA-C Work Phone: [facility] 12-22-2022 12:02-0500 Systolic blood pressure 132 mm[Hg] Destiny Houston PA-C Work Phone: [facility] 07-21-2022 09:54-0400 Body weight 78.93 kg Kerry Tannhof WHEELAGE CLERK.ROADING ENGINEER Work Phone: [facility] 07-21-2022 09:54-0400 Diastolic blood pressure 72 mm[Hg] Kerry Tannhof WHEELAGE CLERK.ROADING ENGINEER Work Phone: [facility] 07-21-2022 09:54-0400 Heart rate 68 /min Kerry Tannhof WHEELAGE CLERK.ROADING ENGINEER Work Phone: [facility] 07-21-2022 09:54-0400 Respiratory rate 16 /min Kerry Tannhof WHEELAGE CLERK.ROADING ENGINEER Work Phone: [facility] 07-21-2022 09:54-0400 SaO2% (BldA) [Mass fraction] 100 % Kerry Tannhof WHEELAGE CLERK.ROADING ENGINEER Work Phone: [facility] 07-21-2022 09:54-0400 Systolic blood pressure 122 mm[Hg] Kerry Tannhof WHEELAGE CLERK.ROADING ENGINEER Work Phone: [facility] 07-01-2022 11:39-0400 Body weight 77.56 kg Neal Edwards MD Work Phone: [facility] 07-01-2022 11:39-0400 Diastolic blood pressure 74 mm[Hg] Neal Edwards MD Work Phone: [facility] 07-01-2022 11:39-0400 Heart rate 76 /min Neal Edwards MD Work Phone: [facility] 07-01-2022 11:39-0400 Respiratory rate 16 /min Neal Edwards MD Work Phone: [facility] 07-01-2022 11:39-0400 Systolic blood pressure 118 mm[Hg] Neal Edwards MD Work Phone: [facility] 05-30-2022 11:28-0400 Body height 180.3 cm Neal Edwards MD Work Phone: [facility] 05-30-2022 11:28-0400 Body weight 77.56 kg Neal Edwards MD Work Phone: [facility] 05-30-2022 11:28-0400 Diastolic blood pressure 86 mm[Hg] Neal Edwards MD Work Phone: [facility] 05-30-2022 11:28-0400 Heart rate 64 /min Neal Edwards MD Work Phone: [facility] 05-30-2022 11:28-0400 Respiratory rate 16 /min Neal Edwards MD Work Phone: [facility] 05-30-2022 11:28-0400 Systolic blood pressure 122 mm[Hg] Neal Edwards MD Work Phone: [facility] 01-31-2022 09:58-0400 Body weight 78.02 kg Kerryananya Sofiaf WHEELAGE CLERK.ROADING ENGINEER Work Phone: [facility] 01-31-2022 09:58-0400 Diastolic blood pressure 80 mm[Hg] Kerry Tannhof WHEELAGE CLERK.ROADING ENGINEER Work Phone: [facility] 01-31-2022 09:58-0400 Heart rate 83 /min Kerry Tonyhof WHEELAGE CLERK.ROADING ENGINEER Work Phone: [facility] 01-31-2022 09:58-0400 Respiratory rate 16 /min Kerry Tannhof WHEELAGE CLERK.ROADING ENGINEER Work Phone: [facility] 01-31-2022 09:58-0400 SaO2% (BldA) [Mass fraction] 99 % Kerryananya Jimenezhof WHEELAGE CLERK.ROADING ENGINEER Work Phone: [facility] 01-31-2022 09:58-0400 Systolic blood pressure 130 mm[Hg] Kerry Jimenezhof WHEELAGE CLERK.ROADING ENGINEER Work Phone: [facility] 05-29-2017 08:44-0400 BMI (Body Mass Index) 21.29 kg/m2 Matt Alexander INSTALLMENT AGENT [facility] Work Phone: 05-29-2017 08:44-0400 BP Diastolic 68 mm[Hg] Matt Alexander INSTALLMENT AGENT [facility] Work Phone: 05-29-2017 08:44-0400 BP Systolic 120 mm[Hg] Matt Alexander INSTALLMENT AGENT [facility] Work Phone: 05-29-2017 08:44-0400 Height 187.96 cm Matt Alexander INSTALLMENT AGENT [facility] Work Phone: 05-29-2017 08:44-0400 Pulse (Heart Rate) 72 /min Matt Alexander INSTALLMENT AGENT [facility] Work Phone: 05-29-2017 08:44-0400 Respiratory Rate 18 /min Matt Alexander INSTALLMENT AGENT [facility] Work Phone: 05-29-2017 08:44-0400 Weight 75.21 kg Matt Alexander INSTALLMENT AGENT [facility] Work Phone: 04-17-2017 10:26-0400 BMI (Body Mass Index) 21.31 kg/m2 Marianna Valle RN [facility] Work Phone: 04-17-2017 10:26-0400 Body Temperature 97.6 [degF] Marianna Valle RN [facility] Work Phone: 04-17-2017 10:26-0400 BP Diastolic 73 mm[Hg] Marianna Valle RN [facility] Work Phone: 04-17-2017 10:26-0400 BP Systolic 108 mm[Hg] Marianna Valle RN [facility] Work Phone: 04-17-2017 10:26-0400 Height 187.96 cm [facility] Work Phone: 04-17-2017 10:26-0400 Pulse (Heart Rate) 91 /min [facility] Work Phone: 04-17-2017 10:26-0400 Pulse Oximetry 95 % [facility] Work Phone: 04-17-2017 [id number] Respiratory Rate 18 /min [facility] Work Phone: 04-17-2017 [id number] Weight 75.3 kg Marianna Valle RN [facility] Work Phone: 08-10-2016 [id number] BMI (Body Mass Index) 21.7 kg/m2 [facility] Work Phone: 08-10-2016 08:10-0400 Body Temperature 97.52 [degF] [facility] Work Phone: 08-10-2016 [id number] Body Temperature 97.5 [degF] [facility] Work Phone: 08-10-2016 08:10-0400 BP Diastolic 73 mm[Hg] Marianna Valle RN [facility] Work Phone: 08-10-2016 08:10-0400 BP Systolic 108 mm[Hg] Marianna Valle RN [facility] Work Phone: 08-10-2016 08:10-0400 BSA (Body Surface Area) 2.02 m2 Marianna Valle RN [facility] Work Phone: 08-10-2016 [id number] Height 187.96 cm [facility] Work Phone: 08-10-2016 08:10-0400 Pulse (Heart Rate) 87 /min [facility] Work Phone: 08-10-2016 08:10-0400 Pulse Oximetry 98 % Marianna Valle RN [facility] Work Phone: 08-10-2016 08:10-0400 Respiratory Rate 18 /min Marianna [facility] Work Phone: 08-10-2016 08:10-0400 Weight 76.82 kg Marianna Valle RN [facility] Work Phone: 08-10-2016 08:10-0400 Weight 76.66 kg Marianna Valle RN [facility] Work Phone: 02-19-2016 14:24-0400 Heart rate 84 /min Heike De Jesus LPN [facility] Work Phone: 01-13-2014 13:39-0400 Heart rate 487 ms Heike Neal EATON [facility] Work Phone: Encounters Encounter Date Encounter Type Care Provider Facility Start: 11-13-2023 End: 11-13-2023 ambulatory NEAL EDWARDS Facility:[facility] Start: 10-09-2023 End: 10-10-2023 ambulatory LAINEY LERNER Facility:[facility] Start: 10-04-2023 Chart abstracting Neal coy MD Work Phone: [facility] [place] Procedures Date Procedure Procedure Detail Performing Clinician Start: 07-20-2023 INFLUENZA VACCINE, AGE 6 MO - 64 YR, QUADRIVALENT (AFLURIA, FLULAVAL, FLUZONE) Destiny Houston PA-C Work Phone: Start: 12-22-2022 INFLUENZA VACCINE QUADRIVALENT 6 MO - 64 YRS IM Destiny Houston PA-C Work Phone: Start: 12-22-2022 [employer] COVID-19 BIVALENT BOOSTER VACCINE, AGE 12+ YR Destiny Houston PA-C Work Phone: Start: 12-22-2022 Lipid 1996 panel - Serum or Plasma Desitny Houston PA-C Work Phone: Start: 07-01-2022 End: 07-01-2022 SURGICAL PATHOLOGY Neal Edwards MD Work Phone: Start: 05-30-2022 Adult depression screening assessment Neal Edwards MD Work Phone: Start: 07-08-2019 Colonoscopy Ananth Garza LPN Start: 04-05-2019 Adult depression screening assessment Ananth Garza [facility] Start: 05-29-2017 End: 05-29-2017 DJN Matt Alexander INSTALLMENT AGENT Work Phone: Start: 05-29-2017 End: 05-29-2017 Follow Up Appt 6 months Matt Alexander INSTALLMENT AGENT Work Phone: Start: 05-29-2017 End: 05-29-2017 DJN Matt Alexander INSTALLMENT AGENT Work Phone: Start: 05-29-2017 End: 05-29-2017 Follow Up Appt 6 months Matt Alexander INSTALLMENT AGENT Work Phone: Start: 01-28-2017 End: 04-19-2017 INR in Platelet poor plasma by Coagulation assay Aakash aZragoza MD Work Phone: Start: 01-28-2017 End: 04-19-2017 Coagulation factor induced.INR assay in platelet poor plasma Aakash Zaragoza MD Work Phone: Start: 10-31-2016 End: 07-20-2017 Pulmonary Function Test - complete Nitza Dutton ROADING ENGINEER Work Phone: Start: 10-31-2016 End: 07-20-2017 Pulmonary stress test/simple Nitza Lay Dutton ROADING ENGINEER Work Phone: Start: 10-31-2016 End: 07-20-2017 Coagulation factor induced.INR assay in platelet poor plasma Nitza Dutton ROADING ENGINEER Work Phone: Start: 10-31-2016 End: 07-20-2017 Pulmonary Function Test - complete Nitza Chun Dutton ROADING ENGINEER Work Phone: Start: 08-10-2016 End: 07-20-2017 BWA Nitza S Dutton ROADING ENGINEER Work Phone: Start: 08-10-2016 End: 07-20-2017 Follow Up Appt 3 months Nitza S Alis er ROADING ENGINEER Work Phone: Start: 08-10-2016 End: 07-20-2017 BWA Nitza S Dutton ROADING ENGINEER Work Phone: Start: 08-10-2016 End: 07-20-2017 Follow Up Appt 3 months Nitza S Alis er ROADING ENGINEER Work Phone: Start: 07-14-2016 End: 08-10-2016 Ct thorax w/o contrast material Nitza Dutton ROADING ENGINEER Work Phone: Start: 07-14-2016 End: 08-10-2016 Coagulation factor induced.INR assay in platelet poor plasma Nitza Dutton CNP Work Phone: Start: 07-14-2016 End: 08-10-2016 Ct thorax w/o dye Nitza Dutton ROADING ENGINEER Work Phone: Start: 04-26-2016 End: 04-27-2016 Chest x-ray Nitza Dutton CNP Work Phone: Start: 04-26-2016 End: 05-13-2016 Ct thorax w/o contrast material Nitza Dutton ROADING ENGINEER Work Phone: Start: 04-26-2016 End: 04-27-2016 Follow Up Appt 3 months Nitza 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: Start: 04-26-2016 End: 04-27-2016 Chest x-ray Nitza Dutton CNP Work Phone: Start: 04-26-2016 End: 05-13-2016 Ct thorax w/o dye Nitza Dutton ROADING ENGINEER Work Phone: Start: 04-26-2016 End: 04-27-2016 Follow Up Appt 3 months Nitza 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: Start: 04-11-2016 End: 04-11-2016 DJN Aakash Zaragoza MD Work Phone: Start: 04-11-2016 End: 04-19-2017 Echocardiography Aakash Zaragoza MD Work Phone: Start: 04-11-2016 End: 04-11-2016 Follow Up Appt 6 months Aakash Zaragoza MD Work Phone: Start: 04-11-2016 End: 04-19-2017 Us abdominal real time w/image limited Aakash Zaragoza MD Work Phone: Start: 04-11-2016 End: 04-11-2016 JESSICA Zaragoza MD Work Phone: Start: 04-11-2016 End: 04-19-2017 Echo exam of abdomen Aakash Zaragoza MD Work Phone: Start: 04-11-2016 End: 04-19-2017 Echocardiography Aakash Zaragoza MD Work Phone: Start: 04-11-2016 End: 04-11-2016 Follow Up Appt 6 months Aakash Zaragoza MD Work Phone: Start: 02-19-2016 End: 03-02-2016 Ct head/brain w/o & w/contrast material Aakash Zaragoza MD Work Phone: Start: 02-19-2016 End: 02-19-2016 JESSICA Zaragoza MD Work Phone: Start: 02-19-2016 End: 03-02-2016 Ecg routine ecg w/least 12 lds w/i&r Aakash Zaragoza MD Work Phone: Start: 02-19-2016 End: 04-19-2017 Echocardiography Aakash Zaragoza MD Work Phone: Start: 02-19-2016 End: 02-19-2016 Follow Up Appt 1 month Aakash Zaragoza MD Work Phone: Start: 02-19-2016 End: 02-19-2016 INR in Platelet poor plasma by Coagulation assay Aakash Zaragoza MD Work Phone: Start: 02-19-2016 End: 03-02-2016 Coagulation factor induced.INR assay in platelet poor plasma Aakash Zaragoza MD Work Phone: Start: 02-19-2016 End: 03-02-2016 Ct head/brain w/o & w/dye Aakash dillard MD Work Phone: Start: 02-19-2016 End: 02-19-2016 JESSICA Zaragoza MD Work Phone: Start: 02-19-2016 End: 04-19-2017 Echocardiography Aakash Zaragoza MD Work Phone: Start: 02-19-2016 End: 02-19-2016 Follow Up Appt 1 month Aakash Zaragoza MD Work Phone: Start: 02-15-2016 End: 04-27-2016 Pulmonary Function Test - complete Nitza Dutton ROADING ENGINEER Work Phone: Start: 02-15-2016 End: 04-27-2016 Pulmonary stress test/simple Nitza Dutton ROADING ENGINEER Work Phone: Start: 02-15-2016 End: 04-27-2016 Pulmonary Function Test - complete Nitza Dutton ROADING ENGINEER Work Phone: Start: 02-15-2016 End: 04-27-2016 Pulmonary stress test/simple Nitza Dutton ROADING ENGINEER Work Phone: Start: 02-09-2016 End: 04-19-2017 *Hepatic Function Panel Aakash Zaragoza MD Work Phone: Start: 02-09-2016 End: 04-19-2017 Lipid 1996 panel - Serum or Plasma Aakash Zaragoza MD Work Phone: Start: 02-09-2016 End: 04-19-2017 *Hepatic Function Panel Aakash Zaragoza MD Work Phone: Start: 02-09-2016 End: 04-19-2017 Lipid panel [AGGREGATE] Aakash Zaragoza MD Work Phone: Start: 01-08-2016 End: 04-27-2016 Follow Up Appt 3 months Nitza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 mg tablet Take 1 tablet by mouth daily at bedtime. Take 2-3 hours before bedtime fluticasone (FLONASE) 50 mcg/actuation nasal spray Use 2 Sprays in each nostril once daily. Rinse mouth after use. metoprolol tartrate, short acting, (LOPRESSOR) 25 mg tablet Take 1 tablet by mouth once daily. Per cardio, Dr. Zaragoza COMPOUNDED PRESCRIPTION Blood pressure monitor. Dx: I10, essential hypertension. Take blood pressure 2-3 times a week, at different times of day. rosuvastatin (CRESTOR) 20 mg tablet Take 1 tablet by mouth once daily. Per cardio Dr. Zaragoza COMPOUNDED PRESCRIPTION Handicap placcard: 5 year Dx: COPD, a.fib, Miscellaneous Medical Supply (BLOOD PRESSURE CUFF) [facility] Take blood pressure 2-3 times a week at different times of the day. Dx I10 albuterol HFA (VENTOLIN HFA) 90 mcg/actuation inhaler Inhale 2 Puffs as instructed every 4 hours as needed for Wheezing/Shortness of Breath. COMPOUNDED PRESCRIPTION BLOOD PRESSURE CUFF FOR HOME [...] Inhale 1 capsule as instructed once daily. No current facility-administered medications for this visit. FAMILY HISTORY Adopted: Yes Problem Relation Age of Onset Cancer Mother biological-unknown source Social History Tobacco Use Smoking status: Current Every Day Smoker Packs/day: 0.50 Years: 45.00 Pack years: 22.50 Smokeless tobacco: Never Used Substance Use Topics Alcohol use: No Drug use: No REVIEW OF SYSTEMS GENERAL: No weight loss, malaise or fevers/chills HEENT: Negative for frequent or significant headaches, No changes in hearing or vision. NECK: Negative for lumps, goiter, pain and significant neck swelling RESPIRATORY: + SOB CARDIOVASCULAR: Negative for chest pain, leg swelling, orthopnea, or palpitations GI: No nausea, vomiting, or diarrhea/constipation. No hematochezia/melena. No heartburn or reflux symptoms. : No history of dysuria, frequency or incontinence MUSCULOSKELETAL: Negative for joint pain or swelling. SKIN: Negative for lesions, rash, and itching ENDOCRINE: Negative for cold or heat intolerance, polyuria, polydipsia and goiter NEURO: No history of headaches, syncope, paralysis, seizures or tremors MOOD: Negative for depression, anxiety, or suicidal ideation. EXAM: BP 130/80 Pulse 83 Resp 16 Wt 78 kg (172 lb) SpO2 99% BMI 23.65 kg/m PHYSICAL EXAM: General Appearance: Well appearing, alert, in no acute distress, well-hydrated, well nourished. Skin: Skin color, texture, turgor normal, no suspicious rashes or lesions. Head: Normocephalic, no masses, lesions, tenderness or abnormalities. Eyes: Anicteric sclera. Extraocular movements are intact. Lungs: Lungs clear to auscultation. No wheezing, rhonchi, rales. Heart: RRR without murmur, gallop, or rubs. No ectopy. Extremities: No deformities, edema, skin discoloration, clubbing or cyanosis. Good capillary refill. Peripheral Pulses: Normal, Capillary refill <2secs, strong peripheral pulses, Pulses palpable. ASSESSMENT/PLAN: 1. Hospital discharge follow-up - ICD9: V67.59, ICD10: Z09 (primary diagnosis) - Doing well since hospital discharge. - Continue to take all medications as prescribed. 2. History of pneumonia - ICD9: V12.61, ICD10: Z87.01 - Get repeat chest xray in 1 month. - May continue to use the Mucinex as needed for chest congestion. - Recommend smoking cessation. - XR CHEST 2V FRONTAL/LAT - GUAIFENESIN ER 600 MG TABLET, EXTENDED RELEASE 12 HR 3. History of influenza - ICD9: V12.09, ICD10: Z87.09 - Same plan as #2. 4. RLS (restless legs syndrome) - ICD9: 333.94, ICD10: G25.81 - Refill provided. - GABAPENTIN 100 MG CAPSULE Follow-up as needed or sooner if symptoms get worse or do not improve. Discussed treatment plan and patient voices understanding. Patient's questions answered appropriately. Medications and potential side effects were discussed and patient voices understanding. Kerry Haile APRN.ROADING ENGINEER This note was partially generated using [employer] recognition system. Note was reviewed for accuracy. There may be minor misspellings or grammar miscues with [employer] voice recognition. documented in this encounter [facility] 01-24-2022 Miscellaneous Notes Pt notified of same, verbalizes understanding. Aannth Garza LPN If he is just coughing and no shortness of breath or wheezing, I would just use the mucinex. Prednisone is more for wheezing/SOB symptoms. Destiny Houston PA-C Pt was discharged from [facility] on 01/18 for Acute hypoxemic respiratory failure pt had influenza A and pnuemonia. Pt was on oseltamivir 75 mg twice daily x 7 capsules and amoxicillin-pot clavulanate 875-125 mg twice daily x 8 tablets. Pt has finished rx's. Pt started the prednisone and Mucinex last night that he was given from Urgent Care. Wanting to make sure this is ok. Pt took two of the prednisone tablets twice yesterday as he did not realize it was two dablets once daily for 5 days. Wanting to make sure it is ok for pt to continue with these medications. Pt states he is feeling better but is still coughing up stuff so this is why he started meds from urgent care. Did not take at time they were prescribed d/t when he went to pharm he was so winded he decided to go to ER. Does feel lightheaded occassionally and has stopped smoking. Pt has appt 01/26 with Kerry. Please advise. Ananth Garza LPN documented in this encounter [facility] Diagnosis Well adult exam- Primary Routine general medical examination at a health care facility Essential hypertension Unspecified essential hypertension Dyslipidemia Other and unspecified hyperlipidemia Gastroesophageal reflux disease without esophagitis Esophageal reflux Chronic obstructive pulmonary disease, unspecified COPD type (HCC) ASHD (arteriosclerotic heart disease) Coronary atherosclerosis of unspecified type of vessel, telida or graft Chronic atrial fibrillation (HCC) Atrial fibrillation Abdominal aortic aneurysm (AAA) without rupture (HCC) Encounter for screening for lung cancer Screening for HIV (human immunodeficiency virus) Special screening examination for other specified viral diseases Special screening examination for viral disease Special screening examination for unspecified viral disease Medication management Encounter for long-term (current) use of other medications Prostate cancer screening Special screening for malignant neoplasm of prostate RLS (restless legs syndrome) Restless legs syndrome (RLS) Neoplasm of uncertain behavior of skin of neck Neoplasm of uncertain behavior of skin Neoplasm of uncertain behavior of skin of forearm Neoplasm of uncertain behavior of skin [facility] Neoplasm of uncertain behavior of skin of neck- Primary Neoplasm of uncertain behavior of skin Neoplasm of uncertain behavior of skin of forearm Neoplasm of uncertain behavior of skin Seborrheic keratoses Other seborrheic keratosis Common wart Other specified viral warts [facility] Diagnosis Sinobronchitis- Primary Unspecified sinusitis (chronic) [facility]* Diagnosis RLS (restless legs syndrome) Restless legs syndrome (RLS) [facility] Diagnosis Sinobronchitis Unspecified sinusitis (chronic) [facility] Diagnosis Encounter for immunization- Primary Need for other specified prophylactic vaccination against single bacterial disease Abdominal aortic aneurysm (AAA) without rupture, unspecified part (HCC) Chronic atrial fibrillation (HCC) Atrial fibrillation Aortic valve replaced Heart valve replaced by other means Gastroesophageal reflux disease without esophagitis Esophageal reflux Chronic obstructive pulmonary disease, unspecified COPD type (HCC) Essential hypertension Unspecified essential hypertension ASHD (arteriosclerotic heart disease) Coronary atherosclerosis of unspecified type of vessel, telida or graft Dyslipidemia Other and unspecified hyperlipidemia RLS (restless legs syndrome) Restless legs syndrome (RLS) Prostate cancer screening Special screening for malignant neoplasm of prostate Medication management Encounter for long-term (current) use of other medications Need for hepatitis C screening test Special screening examination for other specified viral diseases Screening for HIV (human immunodeficiency virus) Special screening examination for other specified viral diseases Left upper quadrant abdominal pain Smoker Tobacco use disorder [facility] Diagnosis Low platelet count (HCC)- Primary [facility] Diagnosis Sinobronchitis Unspecified sinusitis (chronic) [facility] Diagnosis RLS (restless legs syndrome) Restless legs syndrome (RLS) [facility] Diagnosis Insect bite of left ankle, initial encounter- Primary Skin infection Unspecified local infection of skin and subcutaneous tissue [facility] Diagnosis Bacterial sinusitis- Primary Unspecified sinusitis (chronic) Encounter for immunization Need for other specified prophylactic vaccination against single bacterial disease Need for vaccination Need for prophylactic vaccination and inoculation against unspecified single disease documented in this encounter [facility] for referral (narrative)* Diagnostic Procedure Only (Routine) - Authorized Specialty Diagnoses / Procedures Referred By Carola kolb Referred To Contact US IMAGING Diagnoses Left upper quadrant abdominal pain Procedures US ABD SPLEEN US ABDOMINAL REAL TIME W/IMAGE LIMITED Destiny Houston PA-C [address] [place] [address] Us Imaging Referral ID Status Reason Start Date Expiration Date Visits Requested Visits Authorized [id number] Authorized Auto-Generat ed Referral 12/22/2022 01/21/2024 1 1 [facility] Summary Purpose Family History No Family History Records FoundNo Family History Records Found Advance Directives No Advanced Directives Records FoundNo Advanced Directives Records Found Additional Source Comments (unrecognized sect ion and content) No Status Records FoundNo Status Records Found INFORMATION SOURCE (unrecogn ized section and content) DATE CREATED AUTHOR AUTHOR'S ORGANIZ ATION 11/15/2023 [facility] Source Comments (unrecognize d section and content) In the event this informatio n is protected by the Federal Confidentiality of Alcohol and Drug Abuse Patient Records regulations: The Federal rules restrict any use of the information to criminally investigate or prosecute any alcohol or drug abuse patient.[facility] the event this information is protected by the Federal Confidentiality of Alcohol and Drug Abuse Patient Records regulations: The Federal rules restrict any use of the information to criminally investigate or prosecute any alcohol or drug abuse patient.[facility] the event this information is protected by the Federal Confidentiality of Alcohol and Drug Abuse Patient Records regulations: The Federal rules restrict any use of the information to criminally investigate or prosecute any alcohol or drug abuse patient.[facility] the event this information is protected by the Federal Confidentiality of Alcohol and Drug Abuse Patient Records regulations: The Federal rules restrict any use of the information to criminally investigate or prosecute any alcohol or drug abuse patient.[facility] the event this information is protected by the Federal Confidentiality of Alcohol and Drug Abuse Patient Records regulations: The Federal rules restrict any use of the information to criminally investigate or prosecute any alcohol or drug abuse patient.[facility] the event this information is protected by the Federal Confidentiality of Alcohol and Drug Abuse Patient Records regulations: The Federal rules restrict any use of the information to criminally investigate or prosecute any alcohol or drug abuse patient.[facility] the event this information is protected by the Federal Confidentiality of Alcohol and Drug Abuse Patient Records regulations: The Federal rules restrict any use of the information to criminally investigate or prosecute any alcohol or drug abuse patient.[facility] the event this information is protected by the Federal Confidentiality of Alcohol and Drug Abuse Patient Records regulations: The Federal rules restrict any use of the information to criminally investigate or prosecute any alcohol or drug abuse patient.[facility] the event this information is protected by the Federal Confidentiality of Alcohol and Drug Abuse Patient Records regulations: The Federal rules restrict any use of the information to criminally investigate or prosecute any alcohol or drug abuse patient.[facility] the event this information is protected by the Federal Confidentiality of Alcohol and Drug Abuse Patient Records regulations: The Federal rules restrict any use of the information to criminally investigate or prosecute any alcohol or drug abuse patient.[facility] the event this information is protected by the Federal Confidentiality of Alcohol and Drug Abuse Patient Records regulations: The Federal rules restrict any use of the information to criminally investigate or prosecute any alcohol or drug abuse patient.[facility] the event this information is protected by the Federal Confidentiality of Alcohol and Drug Abuse Patient Records regulations: The Federal rules restrict any use of the information to criminally investigate or prosecute any alcohol or drug abuse patient.[facility] the event this information is protected by the Federal Confidentiality of Alcohol and Drug Abuse Patient Records regulations: The Federal rules restrict any use of the information to criminally investigate or prosecute any alcohol or drug abuse patient.[facility] the event this information is protected by the Federal Confidentiality of Alcohol and Drug Abuse Patient Records regulations: The Federal rules restrict any use of the information to criminally investigate or prosecute any alcohol or drug abuse patient.[facility] the event this information is protected by the Federal Confidentiality of Alcohol and Drug Abuse Patient Records regulations: The Federal rules restrict any use of the information to criminally investigate or prosecute any alcohol or drug abuse patient.[facility] the event this information is protected by the Federal Confidentiality of Alcohol and Drug Abuse Patient Records regulations: The Federal rules restrict any use of the information to criminally investigate or prosecute any alcohol or drug abuse patient.[facility] the event this information is protected by the Federal Confidentiality of Alcohol and Drug Abuse Patient Records regulations: The Federal rules restrict any use of the information to criminally investigate or prosecute any alcohol or drug abuse patient.[facility] Center[facility] the event this information is protected by the Federal Confidentiality of Alcohol and Drug Abuse Patient Records regulations: The Federal rules restrict any use of the information to criminally investigate or prosecute any alcohol or drug abuse patient.[facility] Center[facility] the event this information is protected by the Federal Confidentiality of Alcohol and Drug Abuse Patient Records regulations: The Federal rules restrict any use of the information to criminally investigate or prosecute any alcohol or drug abuse patient.[facility] Center[facility] the event this information is protected by the Federal Confidentiality of Alcohol and Drug Abuse Patient Records regulations: The Federal rules restrict any use of the information to criminally investigate or prosecute any alcohol or drug abuse patient.[facility] CenterIn the event this information is protected by the Federal Confidentiality of Alcohol and Drug Abuse Patient Records regulations: The Federal rules restrict any use of the information to criminally investigate or prosecute any alcohol or drug abuse patient.[facility] CenterIn the event this information is protected by the Federal Confidentiality of Alcohol and Drug Abuse Patient Records regulations: The Federal rules restrict any use of the information to criminally investigate or prosecute any alcohol or drug abuse patient.[facility] CenterIn the event this information is protected by the Federal Confidentiality of Alcohol and Drug Abuse Patient Records regulations: The Federal rules restrict any use of the information to criminally investigate or prosecute any alcohol or drug abuse patient.[facility] CenterIn the event this information is protected by the Federal Confidentiality of Alcohol and Drug Abuse Patient Records regulations: The Federal rules restrict any use of the information to criminally investigate or prosecute any alcohol or drug abuse patient.[facility] CenterIn the event this information is protected by the Federal Confidentiality of Alcohol and Drug Abuse Patient Records regulations: The Federal rules restrict any use of the information to criminally investigate or prosecute any alcohol or drug abuse patient.[facility] Reason for Visit (unrecogniz ed section and content) Reason Comments Medication Question Reason Comments Follow Up Hosp follow up Reason Onset Date Comments Refill Request 02/16/2022 Reason Onset Date Comments Refill Request 04/01/2022 Reason Comments Physical Reason Comments Lesion Removal Reason Comments Acute Visit sinus infection Reason Onset Date Comments Refill Request 08/08/2022 Reason Onset Date Comments Refill Request 08/26/2022 Reason Comments Patient Update Patient Question Reason Onset Date Comments Refill Request 11/01/2022 Reason Onset Date Comments Refill Request 11/23/2022 Reason Comments Refill Request Reason Comments 6 Month Exam Sinus congestion & d rainage X 2wks. Cough since cutting back on cigarettes. Reason Comments Results Reason Comments Consult Pulmonology Reason Comments Outside Lab Results Reason Comments Results, Lab Reason Onset Date Comments Refill Request 04/05/2023 Reason Onset Date Comments Refill Request 05/16/2023 Reason Comments sore on left ankle X 2 days Reason Comments Head Congestion Headache, cough x 1 week Reason Onset Date Comments Refill Request 08/25/2023 Reason Comments Outside ER Care Teams (unrecognized sec tion and content) Creative/Art Director Relationship Specialty Start Date End Date Neal Edwards MD [address] [place] [address] PCP - General Family Practice 08/18/15 Aakash Zaragoza MD Cardiology 08/20/18 Creative/Art Director Relationship Specialty Start Date End Date Neal Edwards MD [address] [place] [address] PCP - General Family Practice 08/18/15 Aakash Zaragoza MD Cardiology 08/20/18 Creative/Art Director Relationship Specialty Start Date End Date Neal Edwards MD [address] [place] [address] PCP - General Family Practice 08/18/15 Aakash Zaragoza MD Cardiology 08/20/18 Creative/Art Director Relationship Specialty Start Date End Date Neal Edwards MD [address] [place] [address] PCP - General Family Practice 08/18/15 Aakash Zaragoza MD Cardiology 08/20/18 Creative/Art Director Relationship Specialty Start Date End Date Neal Edwards MD [address] [place] [address] PCP - General Family Practice 08/18/15 Aakash Zaragoza MD Cardiology 08/20/18 Creative/Art Director Relationship Specialty Start Date End Date Neal Edwards MD [address] [place] [address] PCP - General Family Medicine 08/18/15 Aakash Zaragoza MD Cardiology 08/20/18 Creative/Art Director Relationship Specialty Start Date End Date Neal Edwards MD [address] [place] [address] PCP - General Family Medicine 08/18/15 Aakash Zaragoza MD Cardiology 08/20/18 Creative/Art Director Relationship Specialty Start Date End Date Neal Edwards MD [address] [place] [address] PCP - General Family Medicine 08/18/15 Aakash Zaragoza MD Cardiology 08/20/18 Creative/Art Director Relationship Specialty Start Date End Date Neal Edwards MD [address] [place] [address] PCP - General Family Medicine 08/18/15 Aakash Zaragoza MD Cardiology 08/20/18 Creative/Art Director Relationship Specialty Start Date End Date Neal Edwards MD [address] [place] [address] PCP - General Family Medicine 08/18/15 Aakash Zaragoza MD [address] [place] [address] Cardiology 08/20/18 Creative/Art Director Relationship Specialty Start Date End Date Neal Edwards MD [address] [place] [address] PCP - General Family Medicine 08/18/15 Aakash Zaragoza MD [address] [place] [address] Cardiology 08/20/18 Creative/Art Director Relationship Specialty Start Date End Date Neal Edwards MD [address] [place] [address] PCP - General Family Medicine 08/18/15 Aakash Zaragoza MD [address] [place] [address] Cardiology 08/20/18 Creative/Art Director Relationship Specialty Start Date End Date Neal Edwards MD [address] [place] [address] PCP - General Family Medicine 08/18/15 Aakash Zaragoza MD [address] [place] [address] Cardiology 08/20/18 Creative/Art Director Relationship Specialty Start Date End Date Neal Edwards MD [address] [place] [address] PCP - General Family Medicine 08/18/15 Aakash Zaragoza MD [address] [place] [address] Cardiology 08/20/18 Creative/Art Director Relationship Specialty Start Date End Date Neal Edwards MD [address] [place] [address] PCP - General Family Medicine 08/18/15 Aakash Zaragoza MD [address] [place] [address] Cardiology 08/20/18 Creative/Art Director Relationship Specialty Start Date End Date Neal Edwards MD [address] [place] [address] PCP - General Family Medicine 08/18/15 Aakash Zaragoza MD [address] [place] [address] Cardiology 08/20/18 Creative/Art Director Relationship Specialty Start Date End Date Neal Edwards MD [address] [place] [address] PCP - General Family Medicine 08/18/15 Aakash Zaragoza MD [address] [place] [address] Cardiology 08/20/18 Creative/Art Director Relationship Specialty Start Date End Date Neal Edwards MD [address] [place] [address] PCP - General Family Medicine 08/18/15 Aakash Zaragoza MD [address] [place] [address] Cardiology 08/20/18 Creative/Art Director Relationship Specialty Start Date End Date Neal Edwards MD [address] [place] [address] PCP - General Family Medicine 08/18/15 Aakash Zaragoza MD [address] [place] [address] Cardiology 08/20/18 Creative/Art Director Relationship Specialty Start Date End Date Neal Edwards MD [address] [place] [address] PCP - General Family Medicine 08/18/15 Aakash Zaragoza MD [address] [place] [address] Cardiology 08/20/18 Creative/Art Director Relationship Specialty Start Date End Date Neal Edwards MD [address] [place] [address] PCP - General Family Medicine 08/18/15 Aakash Zaragoza MD [address] [place] [address] Cardiology 08/20/18 FOR RECORDS PERTAINING TO PATIENTS WHO ARE OR HAVE BEEN ENROLLED IN A CHEMICAL DEPENDENCY/SUBSTANCEABUSE PROGRAM, SOME INFORMATION MAY BE OMITTED. This clinical summary was aggregated from multiple sources. Caution should be exercised in using it in the provision of clinical care. This summary normalizes information from multiple sources, and as a consequence, information in this document may materially change the coding, format and clinical context of patient data. In addition, data may be omitted in some cases. CLINICAL DECISIONS SHOULD BE BASED ON THE PRIMARY CLINICAL RECORDS. [facility] provides no warranty or guarantee of the accuracy or completeness of information in this document.
--- NOTE | 2023-11-22 10:05 | PFT ---
INTRODUCTION: The patient is a 63-year-old male who presents for pulmonary function studies secondary to a diagnosis of COPD. Respiratory therapy reported good patient effort. Bronchodilators were used during testing. INTERPRETATION: Forced expiration spirometry demonstrated the presence of a mild large airways obstructive ventilatory defect. There was no significant response to aerosolized bronchodilators. Body plethysmography was performed and revealed an elevated TLC and RV, indicative of underlying hyperinflation and air trapping. Diffusing capacity by single breath CO was reduced at 37% of predicted. IMPRESSION: Irreversible mild large airways obstructive ventilatory defect with associated hyperinflation, air trapping and disproportionate reduction in diffusing capacity.
== END | disposition home or self-care (01) ==
LOC: PSN 12:45
PROVIDERS: PCP Family Medicine; Referring Provider Internal Medicine Critical Care Medicine; Visit Provider Internal Medicine Critical Care Medicine
DX: J44.9 Chronic obstructive pulmonary disease, unspecified (principal)
CPT/HCPCS: 94060; 94726; 94729

== ENCOUNTER 2023-12-20 13:03 | Outpatient (RCR) | payer MEDICARE, MEDICAID, SELFPAY ==
[2023-12-20 14:39] LABS: International Normalized Ratio 1.4; Prothrombin Time (Protime)PT. 17.1 SECONDS (11.7-14.9)
== END 2023-12-28 18:00 | disposition home or self-care (01) ==
LOC: LAB 13:03
PROVIDERS: Family Provider Family Medicine; PCP Family Medicine; Referring Provider Nurse Practitioner Family; Visit Provider Nurse Practitioner Family
DX: I48.0 Paroxysmal atrial fibrillation
CPT/HCPCS: 36415; 85610

== ENCOUNTER → 2023-12-20 | Outpatient (CLI) | payer MEDICARE, MEDICAID, SELFPAY ==
--- NOTE | 2023-12-20 12:54 | CT_ITS ---
STUDY: LOW DOSE CT LUNG CANCER SCREENING REASON FOR EXAM: Male, 63 years old. Screening. The patient smoked 1 pack per day for 53 years. COPD. RADIATION DOSAGE (If Supplied By Facility): CTDIvol = ( 3.02 ) mGy, DLP = ( 128.32 ) mGycm TECHNIQUE: No contrast was administered. Low dose technique was utilized (average mAS-38 and kVp 120). 1.25 mm axial source images with a slice interval of 1.25-mm were reconstructed in lung windows. 2.5 mm axial source images with a slice interval of 2.5-mm were reconstructed in lung windows. 5.0 mm axial source images with a slice interval of 5.0-mm were reconstructed in soft tissue windows. COMPARISON: Comparison is made with prior study dated December 02, 2022. NODULES: No suspicious nodules are seen. Stable calcified granuloma in the right middle lobe. Emphysema: Hyperinflation. Diffuse emphysematous changes with multiple blebs worse in the upper lobe. Stable scarring in the medial aspect of the right upper lobe. Stable focal linear scarring in the anterior medial aspect of the right lower lung. Endobronchial lesion: None Aorta: Atherosclerotic plaque formation of the aortic arch. Prior aortic valve replacement and surgery at the level of the aortic root. The aortic root is not dilated. CORONARY ARTERIES: Coronary artery calcification is seen. Heart: Unremarkable Pulmonary artery: Unremarkable Mediastinal nodes: Small mediastinal lymph nodes. Other chest and abdominal findings: CT/Low Dose CT Lung Screening IMPRESSION: Lung-RADS category 2 - Continue annual screening with LDCT in 12 months. IMPORTANT NOTES FOR USE: ACR Lung-RADS Version 1.1 Assessment Categories Release Date: 2018 Category: Coded 0-4 bases on nodule(s) with highest degree of suspicion. Negative screen is defined as categories 1 and 2; a positive screen is defined as categories 3 and 4. Category 3 and 4A nodules that are unchanged on interval CT should be coded as category 2, and individuals returned to screening in 12 months. Category 4X: Category 3 or 4 nodules with additional imaging findings that increase the suspicion of lung cancer, such as spiculation, GGN that doubles in size in 1 year, enlarged lymph notes, etc. Category Modifiers: S (significant finding unrelated to lung cancer) Electronically Signed: Latrell Chau MD at 14:56 EST ,
== END | disposition home or self-care (01) ==
LOC: CT 12:54
PROVIDERS: PCP Family Medicine; Referring Provider Internal Medicine Critical Care Medicine; Visit Provider Internal Medicine Critical Care Medicine
DX: F17.210 Nicotine dependence, cigarettes, uncomplicated (principal); I48.0 Paroxysmal atrial fibrillation; Z95.2 Presence of prosthetic heart valve; Z98.890 Other specified postprocedural states; Z79.01 Long term (current) use of anticoagulants
CPT/HCPCS: 36415; 71271; 85610

== ENCOUNTER → 2024-01-02 | Outpatient (CLI) | payer MEDICARE, MEDICAID, SELFPAY ==
[2024-01-02 11:15] VITALS: PULSE 67; PULSE 74; PULSE 80; PULSE 83; PULSE 86; PULSE 87; PULSE 89; O2SAT 93; O2SAT 96; O2SAT 98; O2SAT 99
--- NOTE | 2024-01-04 08:52 | PCM.PSN.6M ---
PSN 6 Minute Walk Test 6 Minute Walk Test 6 Minute Walk Test: 6 Minute Walk Test PSN:6-Minute Walk Test Start: 01/02/24 11:18 Freq: Status: Active Protocol: RESP.6MINW Document 01/02/24 11:15 [facility] (Rec: 01/02/24 11:22 [facility] [id number]) 6 Minute Walk Test Date Performed 01/02/24 Time Performed 11:15 Height 6 ft 1 in Weight: 189 lb Weight in Pounds 189.[address]: Dr Mack Assistive device used: None Pre-test Oxygen Delivery Method Room Air Pulse Ox 99 Pulse Rate (60-100) 67 Dyspnea Nicole Scale (0-10) 0 Exertion Nicole Scale (6-20) 6 1st minute Oxygen Delivery Method Room Air Pulse Ox 96 Pulse Rate (60-100) 80 2nd minute Oxygen Delivery Method Room Air Pulse Ox 99 Pulse Rate (60-100) 83 3rd minute Oxygen Delivery Method Room Air Pulse Ox 96 Pulse Rate (60-100) 83 4th minute Oxygen Delivery Method Room Air Pulse Ox 98 Pulse Rate (60-100) 86 5th minute Oxygen Delivery Method Room Air Pulse Ox 93 Pulse Rate (60-100) 87 6th minute Oxygen Delivery Method Room Air Pulse Ox 96 Pulse Rate (60-100) 89 Dyspnea Nicole Scale (0-10) 0 Exertion Nicole Scale (6-20) 8 Post-test Oxygen Delivery Method Room Air Pulse Ox 96 Pulse Rate (60-100) 74 Full Laps Walked 16 Partial Lap, Number of Tiles Walked 0 Total Distance Walked (ft) 944 Interpretation Interpretation: The patient ambulated 944 feet over the course of 6 minutes beginning on room air without assistive devices. Pretesting oxygen saturation was noted to be 99% on room air. With ambulation, the renee oxygen saturation was 93%. This represents a significant exertional oxygen desaturation. Recommendations Recommendations: There is no indication for the use of supplemental oxygen at this time. However, close interval follow-up was recommended, given the degree of oxygen desaturation noted during this study.
== END | disposition home or self-care (01) ==
LOC: PSN 10:54
PROVIDERS: PCP Family Medicine; Referring Provider Internal Medicine Critical Care Medicine; Visit Provider Internal Medicine Critical Care Medicine
DX: J44.9 Chronic obstructive pulmonary disease, unspecified (principal); I48.0 Paroxysmal atrial fibrillation; Z98.890 Other specified postprocedural states; Z95.2 Presence of prosthetic heart valve; Z79.01 Long term (current) use of anticoagulants
CPT/HCPCS: 36415; 85610; 94618

== ENCOUNTER 2024-01-22 13:59 | Outpatient (RCR) | payer MEDICARE, MEDICAID, SELFPAY ==
[2024-01-02 12:33] LABS: International Normalized Ratio 3.9; Prothrombin Time (Protime)PT. 38.1 SECONDS (11.7-14.9)
[2024-01-22 14:45] LABS: International Normalized Ratio 2.6; Prothrombin Time (Protime)PT. 27.5 SECONDS (11.7-14.9)
== END 2024-01-28 01:11 | disposition home or self-care (01) ==
LOC: LAB 13:59
PROVIDERS: Family Provider Family Medicine; PCP Family Medicine; Referring Provider Nurse Practitioner Family; Visit Provider Nurse Practitioner Family
DX: I48.0 Paroxysmal atrial fibrillation (principal); Z79.01 Long term (current) use of anticoagulants; Z98.890 Other specified postprocedural states; Z95.2 Presence of prosthetic heart valve
CPT/HCPCS: 36415; 85610

== ENCOUNTER → 2024-01-22 | Outpatient (CLI) | payer MEDICARE, MEDICAID, SELFPAY ==
--- NOTE | 2024-01-22 13:06 | ECHOCS_ITS ---
Reason For Study: SOB, AVR Procedure This was a 2D Doppler, Color Flow transthoracic echocardiogram. Exam performed in department. Left Ventricle Normal LV size. Left ventricular systolic function is normal. The estimated ejection fraction is 50 %. Stage 1 diastolic dysfunction. Basal inferoseptal: Hypokinetic. Right Ventricle Normal RV size. Normal systolic function. Atria Normal left atrium. Normal right atrium. Bubble contrast study negative for right to left interatrial shunt. Tricuspid Valve Normal tricuspid valve. Mild (1+) tricuspid valve insufficiency. Pulmonary artery systolic pressure is 30 mmHg. Aortic Valve Peak aortic valve gradient 14 mmHg. Mean aortic valve gradient 8 mmHg. Bioprosthetic aortic valve. Great Vessels Normal aortic root. The pulmonary artery is normal size. Pericardium/Pleural No pericardial effusion. Medication 22 gauge I.V. with prn adaptor inserted into right arm. Performed a rapid injection of agitated mix of 9 cc saline and 1cc air to assess for atrial septal defect. MMode/2D Measurements & Calculations LVIDd: 4.5 cm IVSd: 1.1 cm LVOT diam: 2.0 cm LVIDs: 3.6 cm LVPWd: 1.1 cm LVOT area: 3.0 cm2 RVDd: 4.1 cm FS: 20.3 % Ao root diam: 3.3 cm LAV(MOD-bp): 50.1 ml LVAd ap4: 37.1 cm2 LAV(MOD-bp) Indexed: 24.1 ml/m2 LVLd ap4: 9.8 cm LAV(MOD-sp2): 47.6 ml EDV(MOD-sp4): 115.6 ml LAV(MOD-sp4): 51.9 ml EDV(sp4-el): 118.8 ml LVAs ap4: 24.9 cm2 LVLs ap4: 8.4 cm ESV(MOD-sp4): 64.5 ml ESV(sp4-el): 62.8 ml EF(MOD-sp4): 44.2 % EF(sp4-el): 47.1 % SV(MOD-sp4): 51.1 ml SV(MOD-sp2): 49.5 ml LVAd ap2: 33.0 cm2 LVLd ap2: 9.0 cm EDV(MOD-sp2): 105.7 ml EDV(sp2-el): 102.1 ml LVAs ap2: 22.5 cm2 LVLs ap2: 8.0 cm ESV(MOD-sp2): 56.2 ml ESV(sp2-el): 53.3 ml EF(MOD-sp2): 46.8 % SV(sp4-el): 56.0 ml LA A4 area: 18.6 cm2 LA dimension(2D): 3.6 cm TAPSE: 1.4 cm RA A4 area: 18.0 cm2 Time Measurements MV dec time: 0.41 sec Doppler Measurements & Calculations MV E max jack: 42.1 cm/sec Lat Peak E' Jack: 9.5 cm/sec Med Peak E' Jack: 8.7 cm/sec MV A max jack: 61.0 cm/sec E/E' lat: 4.4 E/E' med: 4.8 MV E/A: 0.69 Ao V2 max: 187.3 cm/sec LV V1 max: 96.9 cm/sec SV(LVOT): 60.2 ml Ao max P.1 mmHg LV V1 max P.8 mmHg Ao V2 mean: 136.3 cm/sec LV V1 mean P.9 mmHg Ao mean P.2 mmHg LV V1 mean: 64.7 cm/sec Ao V2 VTI: 39.6 cm LV V1 VTI: 20.1 cm AV (velocity ratio): 0.51 NOÉ(I,D): 1.5 cm2 NOÉ(V,D): 1.5 cm2 PA V2 max: 89.8 cm/sec TR max jack: 260.0 cm/sec TR max P.0 mmHg ECHO/Echo Complete Interpretation Summary Normal LV size. Left ventricular systolic function is normal. The estimated ejection fraction is 50 %. Basal inferoseptal: Hypokinetic Stage 1 diastolic dysfunction. Bubble contrast study negative for right to left interatrial shunt. Mean aortic valve gradient 8 mmHg. Bioprosthetic aortic valve. Ordering Physician: Marcus Mack Referring Physician: Jonnie Zarco Performed By: Amanda Gonzalez RDCS
== END | disposition home or self-care (01) ==
LOC: CVS 13:04
PROVIDERS: PCP Family Medicine; Referring Provider Internal Medicine Critical Care Medicine; Visit Provider Internal Medicine Critical Care Medicine
DX: R06.02 Shortness of breath (principal); Z98.890 Other specified postprocedural states
CPT/HCPCS: 93306; A4216

== ENCOUNTER 2024-01-30 11:42 | Outpatient (RCR) | payer MEDICARE, MEDICAID, SELFPAY ==
[2024-01-30 12:37] LABS: International Normalized Ratio 2.9; Prothrombin Time (Protime)PT. 30.2 SECONDS (11.7-14.9)
== END 2024-02-27 23:44 | disposition home or self-care (01) ==
LOC: LAB 11:42
PROVIDERS: Family Provider Family Medicine; PCP Family Medicine; Referring Provider Nurse Practitioner Family; Visit Provider Nurse Practitioner Family
DX: I48.0 Paroxysmal atrial fibrillation (principal); Z79.01 Long term (current) use of anticoagulants; Z98.890 Other specified postprocedural states; Z95.2 Presence of prosthetic heart valve
CPT/HCPCS: 36415; 85610

== ENCOUNTER → 2024-03-08 | Outpatient (CLI) | payer MEDICARE, MEDICAID, SELFPAY ==
--- NOTE | 2024-03-08 09:00 | STE_ITS ---
Reason For Study: CAD/ASHD Stress Results Protocol: Dobutamine Stress Protocol Maximum Predicted HR: 157 bpm Target HR: 133 bpm % Maximum Predicted HR: 85 % DurationHeart Rate Stage (mm:ss) (bpm) BP Dose BASELINE 60 140/88 STAGE 1 3:00 54 134/7410.00 STAGE 2 3:00 121 123/6920.00 STAGE 3 3:32 134 137/8630.00 RECOVERY 68 154/72 Stress Duration: 9:32 mm:ss Maximum Stress HR: 134 bpm Baseline Echocardiogram Findings Stress Echo Wall motion Data Resting WM Intermediate WM Stress WM Resting Wall Motion Wall Motion Int. Wall Motion Stress No regional wall motion All segments augment normally at All segments Hyperkinetic. abnormalities noted. low-dose. No regional wall motion abnormalities noted. EKG Data Baseline ECG sinus rhythm with nonspecific ST changes. No diagnostic ischemic ECG changes with dobutamine. ECHO/Stress Test Echo w/o Contrast Interpretation Summary No diagnostic ischemic ECG changes with dobutamine. All left ventricular wall segments hyperdynamic with dobutamine infusion. Negative dobutamine stress echocardiogram for ischemia. Ordering Physician: Nelson Brooks Referring Physician: Nelson Brooks Performed By: Ana M Perez RCS
== END | disposition home or self-care (01) ==
PROVIDERS: PCP Family Medicine; Referring Provider Internal Medicine Cardiovascular Disease; Visit Provider Internal Medicine Cardiovascular Disease
DX: R06.00 Dyspnea, unspecified (principal); I48.0 Paroxysmal atrial fibrillation; Z98.890 Other specified postprocedural states; Z95.2 Presence of prosthetic heart valve; Z79.01 Long term (current) use of anticoagulants
CPT/HCPCS: 36415; 85610; 93017; 93350; J7040; A4216

== ENCOUNTER 2024-03-13 00:34 | Emergency (ER) | payer MEDICARE, MEDICAID, SELFPAY ==
[2024-03-13 00:35] VITALS: BP 118/79; PULSE 73; RESP 18; TEMP 36.7; O2SAT 95; BMI 25.7
--- NOTE | 2024-03-13 00:51 | EDS_ITS ---
HPI History of Present Illness Chief Complaint: Eye Problem Informant: patient and family Narrative Narrative: Patient having discomfort in his left eye, he was trying to get his soft contact lens out tonight and having difficulty, now he has foreign body sensation and feels like it is up under his upper eyelid and he cannot get it out. He states his vision seems okay, but the contacts are there to correct astigmatism, he has lens implants that have corrected his vision. This is the first day he has ever used soft contact lenses, he just put them in for the first time today. [facility] Medical History GI bleed Former smoker AAA (abdominal aortic aneurysm) Atrial fibrillation Constipation Solitary pulmonary nodule Nicotine dependence, unspecified, uncomplicated Nicotine dependence, cigarettes, uncomplicated Wears glasses Cancer Tuberculosis Restless leg syndrome Neck injury Complete edentulism, class III Bleeding acute gastric ulcer GERD (gastroesophageal reflux disease) Smoker Hx of emphysema COPD (chronic obstructive pulmonary disease) Hx of cardiovascular stress test Hx of echocardiogram Cardiology follow-up encounter Hypertension Myocardial infarct Pre-op evaluation Atherosclerotic heart disease of [place] coronary artery without angina pectoris Nonrheumatic aortic valve insufficiency Aneurysm of infrarenal abdominal aorta Collapse of right lung HLD (hyperlipidemia) Nicotine abuse SAMSON (dyspnea on exertion) Abnormal pulmonary function test Transient cerebral ischemic attack Weight loss Lung nodule Stage 1 mild COPD by GOLD classification Allergic rhinitis, seasonal 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 Home Medications ?Medication ?Instructions ?Recorded ?Last Taken ?Type acetaminophen 500 mg tablet 500 - 1,000 mg PO Q6H PRN PRN Pain 07/02/19 07/08/19 History fluticasone propionate 50 1 spray NASAL DAILY NASAL 01/30/23 Unknown Rx mcg/actuation nasal CONGESTION #16 grams spray,suspension losartan 25 mg tablet 25 mg PO QHS BP #90 tabs 04/05/23 Unknown Rx albuterol sulfate 90 mcg/actuation 2 puff inhalation Q4H PRN 07/31/23 Unknown Rx aerosol inhaler (Ventolin HFA) shortness of breath or wheezing #18 grams warfarin 6 mg tablet 6 mg PO DAILY 12/21/23 Unknown History gabapentin 100 mg capsule 100 mg PO QHS 01/30/24 Unknown History rosuvastatin 10 mg tablet 10 mg PO QHS #90 TABLETS 01/30/24 Unknown Rx tiotropium bromide 18 mcg capsule 1 cap inhalation QHS COPD #30 02/06/24 Unknown Rx with inhalation device (Spiriva inhalations with HandiHaler) omeprazole 20 mg capsule,delayed 20 mg PO DAILY 03/13/24 Unknown History release pramipexole 1 mg tablet 1 mg PO QHS restless legs syndrome 03/13/24 Unknown History Allergy/AdvReac Type Severity Reaction Status Date / Time No Known Allergies Allergy Verified 01/30/24 13:30 Surgical History History of abdominal aortic aneurysm repair (~12/07/21) History of aortic root repair History of esophagogastroduodenoscopy (EGD) History of left heart catheterization (11/19/10) Hx of aortic valve replacement, mechanical (11/26/10) Hx of colonoscopy Hx of detached retina repair Hx of inguinal hernia surgery S/P AAA (abdominal aortic aneurysm) repair Social History adopted: Yes Smoking Status: Current every day smoker tobacco type: cigarettes alcohol intake: never substance use type: does not use caffeine: Yes Type: coffee Number of servings: 8 ROS ROS ED Eyes Eyes: Reports as per HPI, eye pain, foreign body and tearing EXAM Physical Exam Const Vital Signs: 03/13/24 00:35 Temperature 98.0 F Temperature Source Temporal Pulse Rate 73 Respiratory Rate 18 Blood Pressure 118/79 Blood Pressure Mean 92 Pulse Ox 95 Oxygen Delivery Method Room Air Positive well nourished and well developed General Appearance ED: well developed and NAD HEENT Reports normocephalic and head/scalp atraumatic Eyes PERRL and EOMs intact bilaterally Eyes Narrative: Conjunctival injection without chemosis and significant tearing from the left eye, on gross inspection no foreign body seen including with eversion of the upper lid. Resp normal respiratory effort Neuro oriented x3 and CN's II-XII intact bilaterally Speech: speech normal Gait (Neuro): normal gait MDM MDM MDM Narrative Medical decision making narrative: Tetracaine was placed after checking his visual acuity, and I did a more thorough exploration of his eye on the left along with everting the eyelid, there is no foreign body seen and no contact lens. There are tears along with some minor swelling of the bulbar conjunctival which I think was mimicking presence of the contact lens. I stained the eye with fluorescein and did a more thorough look of the cornea as well as the conjunctival folds, there is NO foreign body in any of the above, there is some speckling dye uptake that appears superficial central cornea, the patient states he was taking his finger and placing it on the front of his eye and trying to move the contact because that is what he was told to do in order to get them out. I suspect this is minor abrasion. There is no ulcer. He is reassured there is no contact lens in right now, he is given Ciloxan drops to place in his eye throughout the day tomorrow, if he feels better after that he can use the spare lens that he has and go from there. Discharge Plan Triage Chief Complaint: Eye Problem ED Provider: Dung Mancilla Dx/Rx/DC Orders Clinical Impression: Injury of conjunctiva and corneal abrasion of left eye without foreign body Instructions: ED Corneal Abrasion Prescriptions: No Action warfarin 6 mg tablet 6 mg PO DAILY Protocol: Dose Management Condition: Monday Dose/Route: 6 mg Instruction: 1 x 6 mg tablet Condition: Monday Dose/Route: 6 mg Instruction: 1 x 6 mg tablet Condition: Monday Dose/Route: 3 mg Instruction: 0.5 x 6 mg tablets Condition: Monday Dose/Route: 6 mg Instruction: 1 x 6 mg tablet Condition: Dose/Route: 6 mg Instruction: 1 x 6 mg tablet Condition: Monday Dose/Route: 6 mg Instruction: 1 x 6 mg tablet Condition: Monday Dose/Route: 6 mg Instruction: 1 x 6 mg tablet Protocol Text: Adjustment Start Date: Monday03/08/24 INR Value: 2.3 INR Date: 03/08/24 Recheck Date: 03/22/24 gabapentin 100 mg capsule 100 mg PO QHS Patient Comments: Take 1 capsule by mouth daily at bedtime for 180 days. rosuvastatin 10 mg tablet 10 mg PO QHS Qty: 90 3RF acetaminophen 500 MG tablet 500 - 1,000 mg PO Q6H PRN PRN (Reason: Pain) omeprazole 20 mg capsule,delayed release(DR/EC) 20 mg PO DAILY pramipexole 1 mg tablet 1 mg PO QHS fluticasone propionate 50 mcg/actuation spray,suspension 1 spray NASAL DAILY Qty: 16 11RF losartan 25 mg tablet 25 mg PO QHS Qty: 90 3RF albuterol sulfate [Ventolin HFA] 90 mcg/actuation HFA aerosol inhaler 2 puff INHALATION Q4H PRN (Reason: shortness of breath or wheezing) Qty: 18 6RF Spiriva with HandiHaler 18 mcg capsule, w/inhalation device 1 cap INHALATION QHS Qty: 30 11RF Rx Instructions: puncture 1 cap using device; one dose = 2 inhalations Primary Care Provider: Jonnie Zarco Referrals: Jonnie Zarco MD [Primary Care Provider] - (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 Use the drops 1 drop every 2-4 hours tomorrow and then as needed Print Language: Hong Konger Disposition Disposition: Home, Self Care
[2024-03-13] MEDS: Tetracaine 0.5% Ophthalmic Bottle 1 DRP LEFT EYE (00:55)
[2024-03-13] MEDS: Fluorescein 1 MG STRIP 1 STRIP LEFT EYE (00:56)
[2024-03-13] MEDS: Ciprofloxacin 0.3% 2.5ml Bottle 2 DRP OPHTHALMIC (01:24)
[2024-03-13 01:28] VITALS: BP 118/53; PULSE 66; RESP 16; TEMP 36.6; O2SAT 95
== END 2024-03-13 01:28 | disposition home or self-care (01) ==
PROVIDERS: Emergency Provider Emergency Medicine; PCP Family Medicine; Visit Provider Emergency Medicine
DX: S05.02XA Injury of conjunctiva and corneal abrasion without foreign body, left eye, initial encounter (principal); J43.9 Emphysema, unspecified; I48.0 Paroxysmal atrial fibrillation; F17.210 Nicotine dependence, cigarettes, uncomplicated; Z97.3 Presence of spectacles and contact lenses; E78.5 Hyperlipidemia, unspecified; Z79.01 Long term (current) use of anticoagulants; I10 Essential (primary) hypertension; Z79.899 Other long term (current) drug therapy; I25.10 Atherosclerotic heart disease of native coronary artery without angina pectoris; K21.9 Gastro-esophageal reflux disease without esophagitis; X58.XXXA Exposure to other specified factors, initial encounter
CPT/HCPCS: 99283

== ENCOUNTER 2024-03-27 08:39 | Outpatient (RCR) | payer MEDICARE, MEDICAID, SELFPAY ==
[2024-03-08 10:54] LABS: International Normalized Ratio 2.3; Prothrombin Time (Protime)PT. 24.9 SECONDS (11.7-14.9)
[2024-03-27 10:33] LABS: AST(SGOT) 15 U/L (15-37); Alanine Aminotransfer ALT/SGPT 16 U/L (16-61); Albumin, Serum 3.7 g/dL (3.2-5.0); Alkaline Phosphatase 96 U/L (45-117); Anion Gap 2 (5-15); BUN 7 mg/dL (7-18); BUN/Creat Ratio 7.8 RATIO (10-20); Calcium,Total 9.4 mg/dL (8.5-10.1); Chloride 112 mmol/L (98-107); EST Glomerular Filtration Rate 91 mL/min (>60); Est Glom Filt Rate - Afr Amer 110 mL/min (>60); Globulin 3.6 g/dL (2.2-4.2); Glucose 97 mg/dL (74-106); Potassium 4.1 mmol/L (3.5-5.1); Protein, Total 7.3 g/dL (6.4-8.2); Sodium Level 139 mmol/L (136-145)
[2024-03-27 10:50] LABS: International Normalized Ratio 2.3; Prothrombin Time (Protime)PT. 24.9 SECONDS (11.7-14.9)
[2024-03-27 17:03] LABS: BNP,B-Type NATRIURETIC PEPTIDE 59.7 pg/mL (0-100)
== END 2024-03-27 18:00 | disposition home or self-care (01) ==
LOC: LAB 08:39
PROVIDERS: Internal Medicine Cardiovascular Disease; Family Provider Family Medicine; PCP Family Medicine; Referring Provider Nurse Practitioner Family; Visit Provider Nurse Practitioner Family
DX: I48.0 Paroxysmal atrial fibrillation (principal); Z79.01 Long term (current) use of anticoagulants; Z98.890 Other specified postprocedural states; Z95.2 Presence of prosthetic heart valve; R06.09 Other forms of dyspnea
CPT/HCPCS: 36415; 80053; 83880; 85610

== ENCOUNTER 2024-08-31 11:11 | Emergency (ER) | payer MEDICARE, SELFPAY ==
[2024-08-31 11:12] VITALS: BP 114/83; PULSE 98; RESP 18; TEMP 36.6; O2SAT 100; BMI 24.3
--- NOTE | 2024-08-31 11:18 | ED.RN ---
Notified Dr. Barbosa of pt loss of balance and decreased sensation in R hand. No orders.
--- NOTE | 2024-08-31 11:53 | EX.ED.DYSGE1 ---
HPI History of Present Illness Chief Complaint: Dizziness [facility] Medical History (Reviewed 04/25/24 @ 14:19 by Nitza Dutton TEXTILE MACHINE MECHANIC, TEXTILE MACHINE MECHANIC-C) GI bleed Former smoker AAA (abdominal aortic aneurysm) Atrial fibrillation Constipation Solitary pulmonary nodule Nicotine dependence, unspecified, uncomplicated Nicotine dependence, cigarettes, uncomplicated Wears glasses Cancer Tuberculosis Restless leg syndrome Neck injury Complete edentulism, class III Bleeding acute gastric ulcer GERD (gastroesophageal reflux disease) Smoker Hx of emphysema COPD (chronic obstructive pulmonary disease) Hx of cardiovascular stress test Hx of echocardiogram Cardiology follow-up encounter Hypertension Myocardial infarct Pre-op evaluation 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 aortic valve insufficiency Aneurysm of infrarenal abdominal aorta Collapse of right lung HLD (hyperlipidemia) Nicotine abuse SAMSON (dyspnea on exertion) Abnormal pulmonary function test Transient cerebral ischemic attack Weight loss Lung nodule Stage 1 mild COPD by GOLD classification Allergic rhinitis, seasonal Paroxysmal atrial fibrillation longterm (current) use of anticoagulants Home Medications ?Medication ?Instructions ?Recorded ?Last Taken ?Type acetaminophen 500 mg tablet 500 - 1,000 mg PO Q6H PRN PRN Pain 07/02/19 07/08/19 History fluticasone propionate 50 1 spray NASAL DAILY NASAL 01/30/23 Unknown Rx mcg/actuation nasal CONGESTION #16 grams spray,suspension gabapentin 100 mg capsule 100 mg PO QHS 01/30/24 Unknown History omeprazole 20 mg capsule,delayed 20 mg PO DAILY 03/13/24 Unknown History release pramipexole 1 mg tablet 1 mg PO QHS restless legs syndrome 03/13/24 Unknown History albuterol sulfate 90 mcg/actuation 2 puff inhalation Q4H PRN 04/08/24 Unknown Rx aerosol inhaler (Ventolin HFA) shortness of breath or wheezing #18 grams guaifenesin 1,200 mg tablet, 1,200 mg PO Q12H #60 tabs 04/25/24 Unknown Rx extended release 12 hr losartan 25 mg tablet 25 mg PO QHS BP #90 tabs 05/10/24 Unknown Rx rosuvastatin 10 mg tablet 10 mg PO QHS #90 TABLETS 05/10/24 Unknown Rx warfarin 6 mg tablet 6 mg PO DAILY #90 tabs 05/10/24 Unknown Rx tiotropium 2.5 mcg-olodaterol 2.5 2 inh inhalation DAILY #4 grams 06/27/24 Unknown Rx mcg/actuation mist for inhalation (Stiolto Respimat) amoxicillin 875 mg-potassium 1 tab PO BID 7 days #14 tabs 08/31/24 Unknown Rx clavulanate 125 mg tablet Allergy/AdvReac Type Severity Reaction Status Date / Time No Known Allergies Allergy Verified 08/31/24 11:12 Surgical History (Reviewed 04/25/24 @ 14:19 by Nitza Dutton TEXTILE MACHINE MECHANIC, TEXTILE MACHINE MECHANIC-C) History of abdominal aortic aneurysm repair (~12/07/21) S/P AAA (abdominal aortic aneurysm) repair Hx of colonoscopy History of esophagogastroduodenoscopy (EGD) Hx of detached retina repair Hx of inguinal hernia surgery History of left heart catheterization (11/19/10) History of aortic root repair Hx of aortic valve replacement, mechanical (11/26/10) Social History (Reviewed 04/25/24 @ 14:19 by Nitza Dutton TEXTILE MACHINE MECHANIC, TEXTILE MACHINE MECHANIC-C) adopted: Yes Smoking Status: Current every day smoker tobacco type: cigarettes alcohol intake: never substance use type: does not use caffeine: Yes Type: coffee Number of servings: 8 EXAM Physical Exam Const Vital Signs: 08/31/24 11:12 08/31/24 13:12 08/31/24 15:00 Temperature 98 F Temperature Source Oral Pulse Rate 98 89 Respiratory Rate 18 16 Blood Pressure 114/83 H 109/64 94/65 Blood Pressure Mean 93 79 74 Pulse Ox 100 98 Oxygen Delivery Method Room Air Room Air MDM MDM MDM Narrative Medical decision making narrative: HISTORY OF PRESENT ILLNESS: 64-year-old male history of hyperlipidemia, tobacco abuse, A-fib, aortic valve replacement, on warfarin presents with multiple complaints including abdominal pain, fever and dizziness. Patient notes 5 days ago start experiencing right lower quadrant abdominal pain which led to decreased appetite. He notes he has had decreased bowel movements, decreased urination. He notes yesterday he became more dizzy and lightheaded. He attributes this to being dehydrated. He denies any vomiting. Notes history of aortic aneurysm, GERD, gastric ulcer, hernia. Notes he is concerned his INR may be elevated. He denies palpitations shortness of breath or chest pain. Denies any bleeding diathesis such as melena hematochezia or h hematemesis. Denies any urinary complaints or history of kidney stones. REVIEW OF SYSTEMS: Pertinent positives: As per HPI Pertinent negatives: As per HPI PHYSICAL EXAM: Nursing triage notes reviewed, Vital signs reviewed Constitutional: please see [facility] HENT: MMM Eyes: Pupils equal round and reactive to light, Extraocular muscles intact Neck: No stridor, no JVD, full neck ROM Lungs: Clear to auscultation, No wheezing or rales. No increased work of breathing, no conversational dyspnea, no accessory muscle use, no nasal flaring. No respiratory distress noted Heart: Regular rate and rhythm, No murmurs, No rubs and No gallops, 2+ distal pulses (radial, femoral, posterior tibial) in all extremities Abdomen: Soft, right lower quadrant TTP but no rigidity, rebound or guarding, no obvious peritoneal signs, no palpable pulsatile abdominal masses, no auscultated abdominal bruit : No CVAT Extremities: No edema Neuro: Alert and oriented x3, neuro exam at baseline, cranial nerves II through XII are intact. No pain with extraocular muscle movement. There is negative test of skew. 5 of 5 strength in upper and lower extremities in flexion extension. Intact sensation to light touch in upper and lower extremity dermatomes. No truncal or extremity ataxia. No dysdiadochokinesia. Normal gait. 2+ reflexes in upper and lower extremities. No meningeal signs. Negative Babinski. NIH of 0. Skin: No rash or lesions noted MEDICAL DECISION MAKING: Chief Complaint: Abdominal pain, dizziness External records reviewed: Reviewed prior allergies, reviewed problem list, reviewed vital signs, reviewed current medications Factors affecting care: As per HPI Social determinants of health: Former tobacco abuser History obtained from others: none Consults: none [facility] Narrative: Patient was initially hemodynamically stable, afebrile and nontoxic-appearing. Exam with right lower quadrant TTP. No focal neurologic deficits. NIH of 0. The patient's history and clinical Yadiel not consistent with ACS or CVA. I considered the following differential diagnosis: AAA, small bowel obstruction, abdominal perforation, appendicitis, pancreatitis, hepatobiliary pathology (acute cholecystitis), mesenteric ischemia, pathology (ie nephrolithiasis, pyelonephritis). ALL IMAGES (IF OBTAINED) HAVE BEEN PERSONALLY REVIEWED AND INTERPRETED BY MYSELF. CT scan of the abdomen pelvis with evidence of colitis Lactate is wnl indicating no end-organ hypoperfusion and/or hypoxia., Not consistent with ischemic colitis CBC with leukocytosis suggestive of systemic inflammation, no anemia or thrombocytopenia BMP without evidence of significant electrolyte abnormalities, no anion gap, no acute kidney injury. INR is 2, therapeutic Lipase is wnl indicating no pancreatic inflammation. Urinalysis shows no evidence of urinary inflammation suggestive of UTI EKG with EKG showed normal sinus rhythm, normal axis, no intervals, no STEMI The synthesis of the patient's history, face exam, labs images suggest likely colitis and dehydration as a cause of his symptoms. Will prescribe oral antibiotics to treat colitis, encourage patient to take in more p.o. fluids. Medication for admission at this time as patient had no focal neurologic deficits, had no chest pain or shortness of breath, was able tolerate p.o., and has treatable colitis. Will have him follow with GI as an outpatient. The patient and/or family, caregivers express understanding. The patient and/or family, caregivers agrees with the plan. Shared decision making: I will have a discussion with the patient and or visitors regarding risk/benefits of further testing or admission. They will be made aware of of the risk/benefits inherent in this decision they will be given the opportunity to voice understanding. Total critical care time today provided was at least 0 minutes. This excludes separately billable procedures. Critical care time (if documented) is secondary to the patient having high probability of clinically significant/life threatening deterioration in the patient's condition which required my urgent intervention. Impression: 1. Dizziness 2. Colitis 3. Leukocytosis Dispo: Discharge home This note was generated with [employer] dictation software. It may contain incorrect words, spelling, and punctuation that were not noted in review of the chart prior to signing. Lab Data Labs: Laboratory Results - last 24 hr 08/31/24 08/31/24 08/31/24 11:31 12:25 12:34 WBC 15.4 H RBC 4.13 L Hgb 13.9 Hct 41.0 MCV 99.3 H MCH 33.7 H MCHC 33.9 RDW Std Deviation 49.1 H RDW Coeff of Zeus 13.4 Plt Count 152 MPV 11.5 Immature Gran % (Auto) 0.700 Neut % (Auto) 85.8 H Lymph % (Auto) 7.0 L Dickens % (Auto) 5.3 Eos % (Auto) 0.9 Baso % (Auto) 0.3 Absolute Neuts (auto) 13.2 H Absolute Lymphs (auto) 1.08 Nucleated RBC % 0 PT 22.6 H INR 2.0 Sodium 137 Potassium 3.5 Chloride 106 Carbon Dioxide 24.0 Anion Gap 7 BUN 12 Creatinine 0.84 Estim Creat Clear Calc 100.40 Est GFR (MDRD) Af Amer 119 Est GFR (MDRD) Non-Af 98 BUN/Creatinine Ratio 14.4 Glucose 105 Lactic Acid 1.1 Calcium 9.1 Lipase 22 Urine Color Yellow Urine Clarity Clear Urine pH 6.0 Ur Specific [place] 1.015 Urine Protein 30 H Urine Glucose (UA) Normal Urine Ketones 5 H Urine Occult Blood 150 H Urine Nitrite Negative Urine Bilirubin Negative Urine Urobilinogen 4 H Ur Leukocyte Esterase 25 H Urine RBC 0-5 SEEN Urine WBC 0 SEEN Ur Squamous Epith Cells 0 SEEN Urine Bacteria 0 SEEN Urine Mucus 0 SEEN Radiography Diagnostic Testing: Clinical Impression(s) from Imaging Studies Abdomen/Pelvis CT 08/31/24 12:11 IMPRESSION: Acute colitis involving the ascending and proximal transverse colon, may be secondary to ischemic colitis. Stable abdominal aortic aneurysm associated with a bifurcated stent. Emphysema. Electronically Signed: Kellie Gaitan MD at 13:58 EDT , Discharge Plan Triage Chief Complaint: Dizziness Other Complaint: Abd Pain Ear Problem ED Provider: Bismark Chaudhry Dx/Rx/DC Orders Clinical Impression: Colitis Instructions: ED Understanding Colitis Prescriptions: New amoxicillin-pot clavulanate 875-125 mg tablet 1 tab PO BID 7 Days Qty: 14 0RF No Action gabapentin 100 mg capsule 100 mg PO QHS Patient Comments: Take 1 capsule by mouth daily at bedtime for 180 days. guaifenesin 1,200 mg tablet extended release 12hr 1,200 mg PO Q12H Qty: 60 6RF acetaminophen 500 MG tablet 500 - 1,000 mg PO Q6H PRN PRN (Reason: Pain) omeprazole 20 mg capsule,delayed release(DR/EC) 20 mg PO DAILY pramipexole 1 mg tablet 1 mg PO QHS fluticasone propionate 50 mcg/actuation spray,suspension 1 spray NASAL DAILY Qty: 16 11RF albuterol sulfate [Ventolin HFA] 90 mcg/actuation HFA aerosol inhaler 2 puff INHALATION Q4H PRN (Reason: shortness of breath or wheezing) Qty: 18 6RF warfarin 6 mg tablet 6 mg PO DAILY Qty: 90 3RF Protocol: Dose Management Condition: Monday Dose/Route: 6 mg Instruction: 1 x 6 mg tablet Condition: Monday Dose/Route: 6 mg Instruction: 1 x 6 mg tablet Condition: Monday Dose/Route: 3 mg Instruction: 0.5 x 6 mg tablets Condition: Monday Dose/Route: 6 mg Instruction: 1 x 6 mg tablet Condition: Dose/Route: 6 mg Instruction: 1 x 6 mg tablet Condition: Monday Dose/Route: 6 mg Instruction: 1 x 6 mg tablet Condition: Monday Dose/Route: 6 mg Instruction: 1 x 6 mg tablet Protocol Text: Adjustment Start Date: Monday03/27/24 INR Value: 2.3 INR Date: 03/27/24 Recheck Date: 04/17/24 rosuvastatin 10 mg tablet 10 mg PO QHS Qty: 90 3RF losartan 25 mg tablet 25 mg PO QHS Qty: 90 3RF Stiolto Respimat 2.5-2.5 mcg/actuation mist 2 inh inhalation DAILY Qty: 4 2RF Primary Care Provider: Jonnie Zarco Referrals: Jonnie Zarco MD [Primary Care Provider] - Activity Restrictions/Additional Instructions: Thank you for trusting us with your care today! Your labs images were consistent with colitis. This is inflammation of the colon. This is typically treated with antibiotics. Your INR was 2.0 Even prescribed Augmentin. Please antibiotic as prescribed until course complete. Please take Tylenol (2 pills, 650 mg), ibuprofen (2 pills, 400 mg) every 6 hours as needed for pain and fever control. Please return to the emergency department if your symptoms change or worsen. Specifically develop vomiting, blood in your stool, if you lose consciousness. Please follow with your primary care physician for further outpatient evaluation and management. Print Language: Albanian Disposition Disposition: Home, Self Care Discharge Date/Time: 08/31/24 16:10
--- NOTE | 2024-08-31 12:11 | CT_ITS ---
STUDY: CT ABDOMEN AND PELVIS WITH CONTRAST - URINARY TRACT REASON FOR EXAM: Male, 64 years old. Right lower quadrant abdominal pain RADIATION DOSAGE (If Supplied By Facility): CTDIvol = ( 16.69 ) mGy, DLP = ( 1035.05 ) mGycm TECHNIQUE: IV 100mL Isovue-[id number] was administered. Transaxial images were obtained from the dome of the diaphragm to the symphysis pubis subsequent to intravenous contrast administration. Multiplanar coronal and sagittal images were reformatted. The protocol utilizes one or more of the following dose reduction techniques: automated exposure control, adjustment of mA and/or kV according to patient size,and/or use of iterative reconstruction technique. COMPARISON: December 02, 2022 FINDINGS: There are emphysematous changes within the visualized lung bases. The visualized portions of the heart are within normal limits. There are scattered stable too small to characterize low-attenuation foci within the liver which may reflect cysts or hemangiomas. Normal gallbladder and extrahepatic biliary system. Normal spleen. Normal pancreas. Normal bilateral adrenal glands. There is circumferential wall thickening of the gastric body. Normal small intestine. There is circumferential wall thickening of the ascending colon extending into the hepatic flexure and the proximal transverse colon. The appendix is visualized and appears normal. There is diffuse atherosclerotic calcification of the abdominal aorta. There is aneurysmal dilatation of the abdominal aorta which is stable measuring up to 4 cm proximally. There is a bifurcated stent in place. No retroperitoneal adenopathy. Normal right kidney. There is a left renal cyst. Normal urinary bladder. Normal abdominal wall. There are diffuse degenerative changes of the visualized lumbar spine. There is a stable L4 superior endplate deformity. CT/Abdomen/Pelvis W IV Cont ONLY IMPRESSION: Acute colitis involving the ascending and proximal transverse colon, may be secondary to ischemic colitis. Stable abdominal aortic aneurysm associated with a bifurcated stent. Emphysema. Electronically Signed: Kellie Gaitan MD at 13:58 EDT ,
--- NOTE | 2024-08-31 12:11 | EKG12_ITS ---
Test Reason : ABD PAIN Blood Pressure : */* mmHG Vent. Rate : 80 BPM Atrial Rate : 80 BPM P-R Int : 166 ms QRS Dur : 86 ms QT Int : 390 ms P-R-T Axes : 79 8 55 degrees QTcB Int : 449 ms Sinus rhythm with Premature atrial complexes with Aberrant conduction Nonspecific ST and T wave abnormality Abnormal ECG Confirmed by STORM FINN, FRACISCO ([id number]), editor sound GISELLE BATEMAN ([id number]) on 09/02/2024 9:44:49 AM Referred By: Confirmed By: FRACISCO INMAN MD
[2024-08-31 12:34] LABS: Absolute Lymphocyte Count 1.08 X10^3/uL (0.83-4.51); Absolute Neutrophil Count 13.2 X10^3/uL (2.0-7.7); Basophil# 0.04 X10^3/uL; Basophil% 0.3 % (0-1); Eosinophil# 0.14 X10^3/uL; Eosinophils% 0.9 % (0-5); Hemoglobin 13.9 g/dL (13.0-16.5); Lymphocyte # 1.08 X10^3/ul (0.83-4.51); Mean Corp Hgb Conc 33.9 g/dL (32-36); Mean Corpuscular Hgb 33.7 pg (27.0-32.0); Mean Corpuscular Volume 99.3 fL (80-94); Mean Platelet Vol. 11.5 fl (6.2-12.0); Monocyte# 0.82 X10^3/uL; Monocyte% 5.3 % (0-10); NRBC Flagged by Analyzer 0 % (0-5); Neutrophil # 13.19 X10^3/uL (2.7-7.7); Neutrophil % 85.8 % (47-70); Platelet Count 152 K/mm3 (150-450); RBC Distribution Width CV 13.4 % (11.6-14.6); RBC Distribution Width SD 49.1 fl (35.1-43.9); Red Blood Count 4.13 M/mm3 (4.6-6.2); White Blood Count 15.4 K/mm3 (4.4-11.0)
[2024-08-31] MEDS: Morphine 4 MG/ML Syringe IV (12:38)
[2024-08-31] MEDS: Ondansetron 4 MG/2 ML Vial IV (12:38)
[2024-08-31 12:41] LABS: Bacteria 0 SEEN /hpf (None Seen); Mucous, Urine 0 SEEN /hpf (<or=2+); Squamous Epithelial Cells - UA 0 SEEN /hpf (0-5); White Blood Cells 0 SEEN /hpf (0-5)
[2024-08-31 12:42] LABS: Prothrombin Time (Protime)PT. 22.6 SECONDS (11.7-14.9)
[2024-08-31 12:48] LABS: Color, Urine Yellow (Yellow); Glucose, Dipstick Normal (Normal); Ketone-Dipstick 5 mg/dl (Negative); Leukocyte Esterase-Dipstick 25 /ul (Negative); Nitrite-Dipstick Negative (Negative); Occult Blood-Urine 150 /ul (Negative); Protein-Dipstick 30 mg/dl (Negative); Specific Gravity, Urine 1.015 (1.002-1.030); Urine Bilirubin Dipstick Negative (Negative); Urine Clarity Clear (Clear); Urine Urobilinogen 4 mg/dl (Normal)
[2024-08-31 12:55] LABS: Red Blood Cells-Urine 0-5 SEEN /hpf (0-5)
[2024-08-31 12:59] LABS: Anion Gap 7 (5-15); BUN 12 mg/dL (7-18); BUN/Creat Ratio 14.4 RATIO (10-20); Calcium,Total 9.1 mg/dL (8.5-10.1); Chloride 106 mmol/L (98-107); Creatinine, Serum 0.84 mg/dL (0.70-1.30); EST Glomerular Filtration Rate 98 mL/min (>60); Est Glom Filt Rate - Afr Amer 119 mL/min (>60); Glucose 105 mg/dL (74-106); Lipase 22 U/L (13-75); Potassium 3.5 mmol/L (3.5-5.1); Sodium Level 137 mmol/L (136-145)
[2024-08-31 13:10] LABS: Lactic Acid 1.1 mmol/L (0.4-1.9)
[2024-08-31 13:12] VITALS: BP 109/64; PULSE 89; RESP 16; O2SAT 98
[2024-08-31 15:00] VITALS: BP 94/65
== END 2024-08-31 16:10 | disposition home or self-care (01) ==
PROVIDERS: Emergency Provider Emergency Medicine; PCP Family Medicine; Visit Provider Emergency Medicine
DX: R42 Dizziness and giddiness (principal); J43.9 Emphysema, unspecified; I48.0 Paroxysmal atrial fibrillation; K52.9 Noninfective gastroenteritis and colitis, unspecified; I25.10 Atherosclerotic heart disease of native coronary artery without angina pectoris; D72.829 Elevated white blood cell count, unspecified; I10 Essential (primary) hypertension; E78.5 Hyperlipidemia, unspecified; I25.2 Old myocardial infarction; F17.210 Nicotine dependence, cigarettes, uncomplicated; Z79.01 Long term (current) use of anticoagulants; Z79.899 Other long term (current) drug therapy; Z95.2 Presence of prosthetic heart valve
CPT/HCPCS: 74177; 80048; 81001; 83605; 83690; 85025; 85610; 93005; 96374; 96375; 99285; Q9967; A4216; J2405

== ENCOUNTER 2024-11-27 14:25 | Outpatient (RCR) | payer MEDICARE, MEDICAID, SELFPAY ==
[2024-11-12 14:30] LABS: Prothrombin Time (Protime)PT. 23.2 SECONDS (11.7-14.9)
[2024-11-27 15:35] LABS: International Normalized Ratio 3.2
== END 2024-11-27 18:00 | disposition home or self-care (01) ==
LOC: LAB 14:25
PROVIDERS: Physician Assistant Medical; Family Provider Family Medicine; PCP Family Medicine; Referring Provider Nurse Practitioner Family; Visit Provider Nurse Practitioner Family
DX: I48.0 Paroxysmal atrial fibrillation (principal); Z79.01 Long term (current) use of anticoagulants; Z98.890 Other specified postprocedural states; Z95.2 Presence of prosthetic heart valve

== ENCOUNTER → 2024-11-27 | Outpatient (CLI) | payer MEDICARE, MEDICAID, SELFPAY ==
--- NOTE | 2024-11-27 15:00 | CT_ITS ---
PROCEDURE: SINUS/FACIAL BONE REASON FOR EXAM: Chronic sinusitis TECHNIQUE: CT of the paranasal sinuses without contrast. CONTRAST: Not administered COMPARISON: None. FINDINGS: Frontal: Trace mucosal thickening within the frontoethmoidal recesses bilaterally. Ethmoid: Trace mucosal thickening within some ethmoid air cells on the left. Right ethmoid air cells appear well pneumatized. Sphenoid: Appears well pneumatized. There is mild bony wall thickening surrounding the sphenoid sinu s bilaterally, which could be seen with chronic sinusitis. Maxillary: Small mucous retention cysts versus polyps within the left maxillary sinus, largest measur ing approximately 1.1 cm. Additional mucous retention cyst versus polyp within the left maxillary sinus measures 0.9 cm, which opacifies the left ostiomeatal complex. Trace mucosal thickening within the right maxillary sinus superiorly. Right os tiomeatal complex is patent. There is mild bony wall thickening bilaterally. Turbinates: Kristin bullosa involving the middle turbinate on the right. Nasal Septum: Slightly deviated towards the left, anteriorly. Small bony spur projecting towards the right, posteriorly. Mastoids/Middle Ears: Trace fluid density within some mastoid air cells on the right inferiorly. Lef t mastoid air cells and middle ear cavities are well pneumatized. Patient is edentulous. Postsurgical changes involving the bilateral eye globes. Suspect phthisis bu lbi on the right. CT/Sinus/Facial Bone IMPRESSION: 1. Trace mucosal thickening within the paranasal sinuses, as described. 2. There is mild bony wall thickening involving the sphenoid and maxillary sinu ses, which could be seen with chronic sinusitis. 3. Mucous retention cyst versus polyp within the left maxillary sinus measures 0.9 cm, which opacifies the left ostiomeatal complex. 4. Trace fluid density within some mastoid air cells on the right, inferiorly/m astoiditis. 5. Additional chronic changes, as detailed above One or more dose reduction techniques were used (e.g., Automated exposure contr ol, adjustment of the mA and/or kV according to patient size, use of iterative reconstruction technique). [facility]
== END | disposition home or self-care (01) ==
PROVIDERS: PCP Family Medicine; Referring Provider Otolaryngology; Visit Provider Otolaryngology
DX: J32.9 Chronic sinusitis, unspecified (principal); J30.89 Other allergic rhinitis
CPT/HCPCS: 70486

== ENCOUNTER 2024-12-23 12:29 | Outpatient (RCR) | payer MEDICARE, MEDICAID, SELFPAY ==
[2024-12-23 13:59] LABS: International Normalized Ratio 1.2; Prothrombin Time (Protime)PT. 15.8 SECONDS (11.7-14.9)
== END 2024-12-27 18:00 | disposition home or self-care (01) ==
LOC: LAB 12:29
PROVIDERS: Family Provider Family Medicine; PCP Family Medicine; Referring Provider Nurse Practitioner Family; Visit Provider Nurse Practitioner Family
DX: I48.0 Paroxysmal atrial fibrillation (principal); Z79.01 Long term (current) use of anticoagulants; Z98.890 Other specified postprocedural states; Z95.2 Presence of prosthetic heart valve
CPT/HCPCS: 36415; 85610

== ENCOUNTER → 2024-12-23 | Outpatient (CLI) | payer MEDICARE, MEDICAID, SELFPAY ==
--- NOTE | 2024-12-23 12:20 | CT_ITS ---
PROCEDURE: LOW DOSE CT LUNG SCREENING REASON FOR EXAM: Current smoker. Patient has smoked 2-1/2 pack per day for 54 years. COPD. TECHNIQUE: Low Dose CT Lung Screening without contrast COMPARISON: Comparison is made with prior study dated December 20, 2023. FINDINGS: PULMONARY NODULES: (Only nodules >6mm are reported) Nodules described below are on series unless otherwise specified. Pulmonary Nodules: No concerning pulmonary nodules. Hardware:None Lymph Nodes:No mediastinal hilar or axillary lymphadenopathy. Heart and Vasculature:Normal heart size. No pericardial effusion.Atherosclerotic calcifications of the thoracic aorta. Thoracic aorta and pulmonary arteries have normal contours; noncontrast technique limits evaluation. Coronary Artery Calcifications: Present Lungs and Airways: Hyperinflation. Diffuse emphysematous changes worse in the upper lobes with bullous formation. Stable scarring in the right lung apex. Stable scarring along the medial aspect of the right major fissure. Stable calcified granuloma in the lateral aspect of the right middle lobe. Stable linear scarring at the lung bases. Pleura:No pleural effusion. No pneumothorax. Upper Abdomen:Visualized portions of the upper abdominal viscera are unremarkable. Bones:Degenerative changes of the thoracic spine. CT/Low Dose CT Lung Screening IMPRESSION: 1. BASED ON THE ACR LUNG RADS FOR THE MOST SUSPICIOUS NODULE (IF ANY) DESCRIBE D IN THIS REPORT, THE OVERALL LUNG RADS SCORE IS 2.2 - BENIGN (BASED ON IMAGING FEATURES OR INDOLENT BEHAVIOR). RECOMMEND 12-MON TH SCREENING LDCT.. 2. SMOKING CESSATION COUNSELING IS RECOMMENDED IF THE PATIENT IS STILL SMOKING . 3. OTHER SIGNIFICANT FINDINGSNone. One or more dose reduction techniques were used (e.g., Automated exposure contr ol, adjustment of the mA and/or kV according to patient size, use of iterative reconstruction technique). The following information is provided for reference:Lung-RADS 2021 Assessment C ategories. Additional information involving Lung-RADS is available at [email or web address]. 0-INCOMPLETE 1-NEGATIVE:No nodules or definitely benign nodules. Complete, central, popcorn , or centric ring calcifications OR fat containing 2-BENIGN APPEARANCE (based on imaging features or indolent behavior). Juxtaple ural nodule: < 10mm AND solid; smooth margins; oval, entiform, or triangular shape Solid nodule: <6mm at baseline or new< 4mm Part solid Nodule: < 6mm total mean diameter at baseline Nonsolid nodule:(GGN) < 30mm OR >=30mm stable or slowly growing Airway nodule, subsegmental at baseline, new, or stable Category 3 nodule stabl e or decreased in size at 6-month follow-up CT or Category 3 or 4A nodules that resolve on follow-up OR category 4B findings prov en to be benign following diagnotic work up. 3 - Probably Benign (Based on imaging features or behavior) Solid Nodule: >= 6 to <8mm at baseline OR new 4 to <6mm Part-solid nodule: >= 6mm toal mean diam. with solid component <6mm at baseline OR new < 6mm total mean diam. Non-solid nodule: GGN >= 30mm at baseline or new Atypical pulmonary cyst: Growing cystic component (mean diam.) of thick-walled cyst Category 4A nodule stable or decreased in size at 3-month follow-up CT (excl.ai rway). 4A - Suspicious Solid nodule: >=8 to < 15mm at baseline OR growing < 8mm OR new 6 to < 8mm Part solid nodule: >= 6mm total mean diam. w/ solid component >=6mm to < 8mm at baseline OR new or growing < 4mm solid component Airway nodule, segmental or more proximal at baseline or new Atypical pulmonary cyst: Thick-walled OR multilocular at baseline OR becomes mu ltilocular 4B - Very Suspicious Airway nodule, segmental or more proximal, and stable or growing Solid nodule: >= 15mm at baseline OR new or growing >= 8mm Part solid nodule: Solid component >= 8mm OR new or growing >= 4mm solid compon ent Atypical pulmonary cyst: Thick-walled with growing wall thickness/nodularity OR Growing multilocular (mean diam.) OR Multilocular with increased loculation or new/increased opacity Slow-growing solid or part solid nodule w/ growth over multiple screening exams 4X - Very Suspicious Category 3 or 4 nodules with additional features that increase the suspicion fo r lung cancer. S - Clinically Significant or potentially significant findings (non-lung cancer ) 3. OTHER SIGNIFICANT FINDINGSNone. One or more dose reduction techniques were used (e.g., Automated exposure contr ol, adjustment of the mA and/or kV according to patient size, use of iterative reconstruction technique). The following information is provided for reference:Lung-RADS 2021 Assessment C ategories. Additional information involving Lung-RADS is available at [email or web address]. 0-INCOMPLETE 1-NEGATIVE:No nodules or definitely benign nodules. Complete, central, popcorn , or centric ring calcifications OR fat containing 2-BENIGN APPEARANCE (based on imaging features or indolent behavior). Juxtaple ural nodule: < 10mm AND solid; smooth margins; oval, entiform, or triangular shape Solid nodule: <6mm at baseline or new< 4mm Part solid Nodule: < 6mm total mean diameter at baseline Nonsolid nodule:(GGN) < 30mm OR >=30mm stable or slowly growing Airway nodule, subsegmental at baseline, new, or stable Category 3 nodule stabl e or decreased in size at 6-month follow-up CT or Category 3 or 4A nodules that resolve on follow-up OR category 4B findings prov en to be benign following diagnotic work up. 3 - Probably Benign (Based on imaging features or behavior) Solid Nodule: >= 6 to <8mm at baseline OR new 4 to <6mm Part-solid nodule: >= 6mm toal mean diam. with solid component <6mm at baseline OR new < 6mm total mean diam. Non-solid nodule: GGN >= 30mm at baseline or new Atypical pulmonary cyst: Growing cystic component (mean diam.) of thick-walled cyst Category 4A nodule stable or decreased in size at 3-month follow-up CT (excl.ai rway). 4A - Suspicious Solid nodule: >=8 to < 15mm at baseline OR growing < 8mm OR new 6 to < 8mm Part solid nodule: >= 6mm total mean diam. w/ solid component >=6mm to < 8mm at baseline OR new or growing < 4mm solid component Airway nodule, segmental or more proximal at baseline or new Atypical pulmonary cyst: Thick-walled OR multilocular at baseline OR becomes mu ltilocular 4B - Very Suspicious Airway nodule, segmental or more proximal, and stable or growing Solid nodule: >= 15mm at baseline OR new or growing >= 8mm Part solid nodule: Solid component >= 8mm OR new or growing >= 4mm solid compon ent Atypical pulmonary cyst: Thick-walled with growing wall thickness/nodularity OR Growing multilocular (mean diam.) OR Multilocular with increased loculation or new/increased opacity Slow-growing solid or part solid nodule w/ growth over multiple screening exams 4X - Very Suspicious Category 3 or 4 nodules with additional features that increase the suspicion fo r lung cancer. S - Clinically Significant or potentially significant findings (non-lung cancer ) Reading Location: [id number]
== END | disposition home or self-care (01) ==
LOC: CT 12:16
PROVIDERS: PCP Family Medicine; Referring Provider Nurse Practitioner Acute Care; Visit Provider Nurse Practitioner Acute Care
DX: F17.210 Nicotine dependence, cigarettes, uncomplicated (principal)
CPT/HCPCS: 71271